=== PATIENT | male | born 1960 | race Caucasian/White ===

== ENCOUNTER 2016-08-08 11:32 | Inpatient (IN) | payer MEDICARE, MEDICAID ==
[~2016-08-08] VITALS: Ht 172.7 cm; Wt 104.3 kg
[~2016-08-08 11:32] MED LIST: ACET325T9 PO; ALBU2.5V5 NEB; CLON0.5T PO; CLON2TAB2 PO; DOCU-27 PO; FAMO40TA4 PO; FURO-69 PO; FURO20TA3 PO; HYDR28OI6 TP; LEVO500T38 PO; LEVO750T31 PO; NYST60PO TP; PANT20TA2 PO; PANT40TA3 PO; POTA25TA4 PO; PRED20TA PO; Sennosides/Docusate Sodium PO; TAMS0.4C97 PO
[2016-08-08 12:10] VITALS: BP 109/70
[2016-08-08] MEDS ORDERED: ALBUTEROL SULFATE 2.5 MG/3 ML NEBU. NEB PRN (13:30)
[2016-08-08 13:51] LABS: HCO3 ABG 35 mmol/L (21-28); PH ABG 7.36 (7.35-7.45); PO2 ABG 62 mmHg (75-108); SAT O2 ABG 91 % (92-99)
[2016-08-08 13:57] LABS: FIO2 ABG 30; PCO2 ABG 64 mmHg (35-46)
--- NOTE | 2016-08-08 13:59 | RAD ---
Portable chest, 08/08/2016: History: Hypoxia, shortness of breath Comparison is made to a study from 06/17/2015. There is chronic elevation of the left hemidiaphragm with mild underlying atelectasis. There is a right basilar opacity obscuring the right cardiac margin and the right hemidiaphragm. This is probably due to pleural fluid and underlying atelectasis/infiltrate. The heart is probably at the upper limits of normal in size. The pulmonary vascularity appears to be within normal limits. IMPRESSION: 1. Chronic elevation of the left hemidiaphragm with mild left basilar atelectasis. 2. Moderate right basilar opacity suggesting pleural fluid and underlying atelectasis/infiltrate.
[2016-08-08 14:15] VITALS: BP 119/76
[2016-08-08] MEDS ORDERED: MAGNESIUM HYDROXIDE 2,400 MG/30 ML ORAL.SUSP. PO PRN (14:30)
--- NOTE | 2016-08-08 14:30 | PDOC ---
PULMONARY PROGRESS NOTES General: No acute distress, Confused HEENT: Other Lungs: Other Cardiovascular: S1 Abdomen: Soft, Non-tender, Other Extremities: Other Labs Laboratory Tests Test 08/08/16 13:45 O2 Saturation 91% (92-99) Arterial Blood pH 7.36 (7.35-7.45) Arterial Blood pCO2 at Patient Temp 64mmHg (35-46) Arterial Blood pO2 at Patient Temp 62mmHg (75-108) Arterial Blood HCO3 35mmol/L (21-28) Arterial Blood Base Excess 8mmol/L (-3-3) FiO2 30 Laboratory Tests Test 08/08/16 13:45 O2 Saturation 91% (92-99) Arterial Blood pH 7.36 (7.35-7.45) Arterial Blood pCO2 at Patient Temp 64mmHg (35-46) Arterial Blood pO2 at Patient Temp 62mmHg (75-108) Arterial Blood HCO3 35mmol/L (21-28) Arterial Blood Base Excess 8mmol/L (-3-3) FiO2 30 Medications Active Scripts Medications Dose Route/Sig Days Date Category Lasix (Furosemide) 20 Mg Tablet 20 Mg PO DAILY 06/19/15 Rx Flomax (Tamsulosin Hcl) 0.4 Mg Cap.er.24h 0.4 Mg PO QHS 06/18/15 Rx Nystop (Nystatin) 60 Gm Powder 1 Ana TP BID 06/18/15 Rx Levaquin (Levofloxacin) 750 Mg Tablet 750 Mg PO DAILY06 06/18/15 Rx Anti-Itch (Hydrocortisone Acetate) 28 Gm Oint...g. 1 Ana TP DAILY 06/18/15 Rx Albuterol Sulfate Neb Soln (Albuterol Sulfate) 2.5 Mg/3 Ml Vial.neb 2.5 Mg NEB RTQID 06/18/15 Rx Tylenol (Acetaminophen) 325 Mg Tablet 650 Mg PO PRN Q4HRS PRN 10/20/14 Rx Protonix (Pantoprazole Sodium) 40 Mg Tablet 40 Mg PO DAILYAC 04/26/14 Rx Impression . FULL CONSULT DICTATED SEE ORDERS CLINICAL PNEUMONIA CALVIN ARCE MD Aug 08, 2016 14:30
[2016-08-08 14:56] LABS: BASO % 1 % (0-3); EOS % 0 % (0-3); HEMATOCRIT 32.8 % (39.0-53.0); HEMOGLOBIN 10.7 g/dL (13.0-17.5); LYMPH # 0.4 x10^3/uL (1.0-4.8); LYMPH % 12 % (24-48); MEAN CORPUSCULAR HEMOGLOBIN 29 pg (25-35); MEAN CORPUSCULAR HGB CONC 33 g/dL (31-37); MEAN CORPUSCULAR VOLUME 90 fL (79-100); MONO % 12 % (0-9); NEUT % 75 % (31-73); PLATELET COUNT 117 x10^3/uL (140-400); RED BLOOD COUNT 3.65 x10^6/uL (4.30-5.70); RED CELL DISTRIBUTION WIDTH 16.8 % (11.5-14.5); WHITE BLOOD COUNT 3.8 x10^3/uL (4.0-11.0)
[2016-08-08] MEDS: ENOXAPARIN 40 MG/0.4 ML DISP.SYRIN. SQ SCH (15:00)
[2016-08-08] MEDS ORDERED: FUROSEMIDE 40 MG TABLET PO SCH (15:00)
[2016-08-08 15:08] LABS: CALCIUM 8.3 mg/dL (8.5-10.1); GFR 77.6; POTASSIUM 4.4 mmol/L (3.5-5.1)
[2016-08-08 15:14] LABS: ALBUMIN 3.2 g/dL (3.4-5.0); ALBUMIN/GLOBULIN RATIO 0.8 (1.0-1.7); TOTAL BILIRUBIN 0.4 mg/dL (0.2-1.0); TOTAL PROTEIN 7.4 g/dL (6.4-8.2)
[2016-08-08] MEDS: PANTOPRAZOLE 40 MG TABLET. PO SCH (16:30)
[2016-08-08] MEDS ORDERED: VANCOMYCIN 2 GM in IV NORMAL SALINE 500ML BAG 500 ML IV ONE (16:30)
[2016-08-08] MEDS ORDERED: LORAZEPAM 1 MG TABLET. PO ONE (16:45)
--- NOTE | 2016-08-08 17:06 | EKG ---
[facility] [address] [place] [address] Test Date: 2016-08-08 Test Time: 17:00:59 Pat Name: MICHEL FRIAS Department: Room: [facility] Gender: M Back Tender Pulp Drier: MYKEL : 1960 Requested By: KATI BILLINGSLEY Order Number: [id number] Reading MD: Measurements Intervals Union Rate: 108 P: 30 FL: 148 QRS: 83 QRSD: 96 T: 56 QT: 340 QTc: 459 Interpretive Statements SINUS TACHYCARDIA QRS(T) CONTOUR ABNORMALITY CONSIDER ANTEROSEPTAL MYOCARDIAL DAMAGE ST & T ABNORMALITY, CONSIDER RECENT INFERIOR MYOCARDIAL OR PERICARDIAL DAMAGE ABNORMAL ECG RI6.01 Unconfirmed report Compared to ECG 06/10/2015 09:59:56 T-wave abnormality now present Right-axis deviation no longer present
[2016-08-08 19:00] VITALS: BP 99/70
[2016-08-08] MEDS: VANCOMYCIN PER PHARMACY MC PRN (19:43)
[2016-08-08] MEDS: IPRATRPIUM/ALBUTEROL 0.5/2.5MG 3 ML NEBU. NEB SCH (20:01)
[2016-08-08] MEDS: GUAIFENESIN DM 200MG/20MG 10 ML SYRUP. PO PRN (21:18)
[2016-08-08] MEDS: ACETAMINOPHEN 325 MG TABLET. PO PRN (21:18)
[2016-08-08 23:00] VITALS: BP 99/70
[2016-08-09] VITALS (7 sets, daily range): BP systolic 99–114; BP diastolic 56–75
[2016-08-09] MEDS: VANCOMYCIN 1.5 GM in IV NORMAL SALINE 500ML BAG 500 ML IV SCH ×2 (06:05→18:09)
[2016-08-09] MEDS: PANTOPRAZOLE 40 MG TABLET. PO SCH (06:05)
--- NOTE | 2016-08-09 06:18 | CONS ---
DATE OF CONSULTATION: 08/08/2016 ATTENDING PHYSICIAN: Dr. Brooks Levy. REASON FOR CONSULTATION: The patient is seen in pulmonary consultation at the request of Dr. Levy for increasing shortness of breath, ohebx-no-ipotiik respiratory failure. HISTORY OF PRESENT ILLNESS: The patient is a 56-year-old white male, mentally challenged, presents to Dr. Levy's office with increasing shortness of breath. According to the mother over the last several days, he has had increasing shortness of breath, some subjective fever. She could not oxygenate him very well. He normally wears 2 liters. She went up to 4 liters. They were directly admitted. I was asked to see him in consultation. The patient is currently on oxygen supplementation with Venturi mask. No further history given. No nausea, vomiting, diarrhea. PAST MEDICAL HISTORY: Chronic respiratory failure. He has had a previous admission for kuxxp-uz-iqpetll respiratory failure, pCO2 in the past was 82, morbid obesity, gastroesophageal reflux, anxiety, hypoventilation syndrome, obstructive sleep apnea, esophagitis. PAST SURGICAL HISTORY: Previous foot surgery. He has had previous tracheotomy. He was decannulated in 2013. SOCIAL HISTORY: He is cared for by his mother who is very supportive. There is no history of tobacco use. FAMILY HISTORY: Remarkable for myasthenia gravis. REVIEW OF SYSTEMS: As indicated above, otherwise other systems could not be adequately reviewed. PHYSICAL EXAMINATION: GENERAL: The patient was sitting up in the chair. He was in no significant distress, but required Venturi mask. HEENT: Eyes, the sclerae were nonicteric. NECK: Jugular venous distention was not elevated. No lymphadenopathy. CHEST: Full expansion. LUNGS: Diminished breath sounds in the bases. No wheezes. CARDIOVASCULAR: Regular rate and rhythm with S1, S2, no S3. ABDOMEN: Soft, nontender, nondistended. EXTREMITIES: No clubbing, cyanosis. Some edema. NEUROLOGIC: The patient was awake, alert, following commands. A detailed neuro exam was not performed. LABORATORY DATA AND IMAGING STUDIES: Pending. IMPRESSION: 1. Zrebq-ag-whvixnp respiratory failure. 2. Acute exacerbation of chronic obstructive pulmonary disease. 3. Clinical pneumonia. 4. Obstructive sleep apnea. 5. Morbid obesity. 6. Allergies to PENICILLIN AND CEFPODOXIME. PLAN: 1. We will initiate empiric antibiotics. 2. Arterial blood gas. 3. Portable chest x-ray. 4. Baseline x-rays. I do appreciate the privilege in sharing in the patient's care. CALVIN ARCE MD DR: EPIFANIO/edith JOB#: [id number] / [id number]
[2016-08-09] MEDS: IPRATRPIUM/ALBUTEROL 0.5/2.5MG 3 ML NEBU. NEB SCH ×4 (07:54→20:19)
[2016-08-09] MEDS: VANCOMYCIN PER PHARMACY MC PRN ×2 (10:35→21:01)
--- NOTE | 2016-08-09 11:27 | PDOC ---
Provider Note Provider Note history and physical dictated # [id number] KATI BILLINGSLEY MD Aug 09, 2016 11:27
[2016-08-09] MEDS: ENOXAPARIN 40 MG/0.4 ML DISP.SYRIN. SQ SCH (15:03)
--- NOTE | 2016-08-09 15:15 | PDOC ---
PULMONARY PROGRESS NOTES Subjective pt with no sign of distress Vitals Vital Signs Date Time Temp Pulse Resp B/P Pulse Ox O2 Delivery O2 Flow Rate FiO2 08/09/16 14:08 98.6 99 23 110/56 Room Air 6.0 98.6 08/09/16 11:26 94 General: Alert, No acute distress HEENT: Other Lungs: Crackles Cardiovascular: S1, Other Abdomen: Soft, Non-tender, Other Neuro Exam: Alert Extremities: Other (mild edema) Skin: Warm Labs Laboratory Tests Test 08/08/16 13:45 08/08/16 14:50 O2 Saturation 91% (92-99) Arterial Blood pH 7.36 (7.35-7.45) Arterial Blood pCO2 at Patient Temp 64mmHg (35-46) Arterial Blood pO2 at Patient Temp 62mmHg (75-108) Arterial Blood HCO3 35mmol/L (21-28) Arterial Blood Base Excess 8mmol/L (-3-3) FiO2 30 White Blood Count 3.8x10^3/uL (4.0-11.0) Red Blood Count 3.65x10^6/uL (4.30-5.70) Hemoglobin 10.7g/dL (13.0-17.5) Hematocrit 32.8% (39.0-53.0) Mean Corpuscular Volume 90fL (79-100) Mean Corpuscular Hemoglobin 29pg (25-35) Mean Corpuscular Hemoglobin Concent 33g/dL (31-37) Red Cell Distribution Width 16.8% (11.5-14.5) Platelet Count 117x10^3/uL (140-400) Neutrophils (%) (Auto) 75% (31-73) Lymphocytes (%) (Auto) 12% (24-48) Monocytes (%) (Auto) 12% (0-9) Eosinophils (%) (Auto) 0% (0-3) Basophils (%) (Auto) 1% (0-3) Neutrophils # (Auto) 2.8x10^3uL (1.8-7.7) Lymphocytes # (Auto) 0.4x10^3/uL (1.0-4.8) Monocytes # (Auto) 0.5x10^3/uL (0.0-1.1) Eosinophils # (Auto) 0.0x10^3/uL (0.0-0.7) Basophils # (Auto) 0.0x10^3/uL (0.0-0.2) Sodium Level 142mmol/L (136-145) Potassium Level 4.4mmol/L (3.5-5.1) Chloride Level 101mmol/L (98-107) Carbon Dioxide Level 37mmol/L (21-32) Anion Gap 4 (6-14) Blood Urea Nitrogen 20mg/dL (8-26) Creatinine 1.0mg/dL (0.7-1.3) Estimated GFR (Cockcroft-Gault) 77.6 BUN/Creatinine Ratio 20 (6-20) Glucose Level 154mg/dL (70-99) Calcium Level 8.3mg/dL (8.5-10.1) Total Bilirubin 0.4mg/dL (0.2-1.0) Aspartate Amino Transf (AST/SGOT) 24U/L (15-37) Alanine Aminotransferase (ALT/SGPT) 23U/L (16-63) Alkaline Phosphatase 79U/L (46-116) Total Protein 7.4g/dL (6.4-8.2) Albumin 3.2g/dL (3.4-5.0) Albumin/Globulin Ratio 0.8 (1.0-1.7) Amylase Level 42U/L (25-115) Medications Active Scripts Medications Dose Route/Sig Days Date Category Lasix (Furosemide) 20 Mg Tablet 20 Mg PO DAILY 06/19/15 Rx Flomax (Tamsulosin Hcl) 0.4 Mg Cap.er.24h 0.4 Mg PO QHS 06/18/15 Rx Nystop (Nystatin) 60 Gm Powder 1 Ana TP BID 06/18/15 Rx Levaquin (Levofloxacin) 750 Mg Tablet 750 Mg PO DAILY06 06/18/15 Rx Anti-Itch (Hydrocortisone Acetate) 28 Gm Oint...g. 1 Ana TP DAILY 06/18/15 Rx Albuterol Sulfate Neb Soln (Albuterol Sulfate) 2.5 Mg/3 Ml Vial.neb 2.5 Mg NEB RTQID 06/18/15 Rx Tylenol (Acetaminophen) 325 Mg Tablet 650 Mg PO PRN Q4HRS PRN 10/20/14 Rx Protonix (Pantoprazole Sodium) 40 Mg Tablet 40 Mg PO DAILYAC 04/26/14 Rx Impression . 1. Zbvej-ut-bwjdbhm respiratory failure. 2. Acute exacerbation of chronic obstructive pulmonary disease. 3. Clinical pneumonia. 4. Obstructive sleep apnea. 5. Morbid obesity. 6. Allergies to PENICILLIN AND CEFPODOXIME. Plan . will continue the same prn ATivan 02 by mask CALVIN ARCE MD Aug 09, 2016 15:15
[2016-08-09] MEDS ORDERED: LORAZEPAM 1 MG TABLET. PO ONE (16:30)
--- NOTE | 2016-08-09 17:02 | HP ---
ADMIT DATE: 08/09/2016 PATIENT'S ROOM: 514. HISTORY OF PRESENT ILLNESS: The patient is a 56-year-old obese white male, mentally challenged with chronic hypoxic and hypercapnic respiratory failure who has had a nonproductive cough with hypoxia at home. The patient normally takes 2 liters of oxygen per nasal cannula p.r.n. at home, but the mother has increased it to 4 liters nasal cannula at bedtime and 3 liters per nasal cannula during the day due to increasing hypoxia having difficulty maintaining his oxygen saturations 90% or higher. He was seen in the office yesterday and was quite hypoxic with oxygen saturations down in the low 80s on oxygen 2 liters per nasal cannula and subsequently went to the hospital for further evaluation and treatment. Chest x-ray showed a possible infiltrate in the right lower lobe. The patient has already been seen by Dr. Montesinos in consultation who suspects a clinical pneumonia. The patient is currently receiving IV vancomycin and Levaquin. The patient was started on a Ventimask. This morning he is sitting comfortably using a Ventimask. He is therefore admitted for further evaluation and treatment of his pneumonia and hypoxia. ALLERGIES AND INTOLERANCES: PENICILLIN AND VANTIN. MEDICATIONS: Prior to admission include furosemide 40 mg p.o. daily and DuoNeb nebulizer treatments he was receiving at b.i.d. and every 4 hours p.r.n., Protonix 40 mg every day. PAST MEDICAL HISTORY: Significant for chronic hypoxic and hypercapnic respiratory failure with obesity hypoventilation syndrome. He has a history of hypertension in the past but off of antihypertensive medications at this time. He has a history of anxiety and gastroesophageal reflux disease. He has had pneumonia in 2003 and 2010 and upper GI bleed due to esophagitis in 1989, has a chronic ventral abdominal hernia, has had a left orchiopexy in the past. He is mentally challenged. He had foot surgery for correction of pronation at age 12, cataract extraction in 2002 was weaned off the ventilator in 2013. SOCIAL HISTORY: He does not drink alcohol nor does he smoke cigarettes. He lives with his mother who cares for him. FAMILY HISTORY: Father and had diabetes mellitus. He also had myasthenia gravis. Paternal grandmother had breast cancer. REVIEW OF SYSTEMS: GENERAL: There has been no fever, chills or sweats. CARDIOVASCULAR: No chest pain. PULMONARY: Some shortness of breath and hypoxia and a cough. GASTROINTESTINAL: No constipation. SKIN: No rashes. NEUROLOGIC: No focal weakness. ENDOCRINE: No diabetes mellitus. The rest of systems reviewed are negative except as stated in the history of present illness. PHYSICAL EXAMINATION: VITAL SIGNS: Temperature is 98.9 degrees, apical pulse is 97, respiratory rate 24, blood pressure 105/72, oxygen saturation 90% on a Ventimask. HEENT: Eyes: Gaze is conjugate. Mouth is symmetrical. He is wearing a Ventimask now. HEART: Reveals an S1, S2. There is no S3 or murmur. LUNGS: Clear with decreased breath sounds bilaterally. ABDOMEN: Obese and soft. He has got a chronic ventral hernia, nontender. EXTREMITIES: Lower extremities without edema. SKIN: No rashes. NEUROLOGIC: Revealed no focal weakness of the extremities or facial asymmetry. PSYCHIATRIC: He is anxious. LABORATORY DATA: Review of his laboratory tests, his white count 3.8, hemoglobin 10.7, MCV of 90 with a platelet count of 117,000, 75 polys and 17 lymphocytes. Arterial blood gas showed a pH of 7.36, pCO2 of 64 and a pO2 of 62 and that was on a Ventimask. Review of his labs, sodium was 142, potassium 4.4, chloride 102, total CO2 of 37, BUN 20, creatinine 1.0, blood sugar 154, nonfasting; liver function tests normal, albumin 3.2. IMAGING: His chest x-ray showed chronic elevation of left hemidiaphragm with mild left basilar atelectasis and a moderate right basilar opacity suggesting pleural fluid and/or underlying infiltrate or atelectasis. Electrocardiogram: Unable to download the EKG. ASSESSMENT: 1. Acute on chronic hypoxic and hypercapnic respiratory failure. 2. Pneumonia suspected gram-positive, gram-negative organisms, possible aspiration pneumonia. 3. Mental retardation. 4. Morbid obesity. 5. Obesity hypoventilation syndrome. 6. Pancytopenia. 7. Gastroesophageal reflux disease. 8. Chronic large ventral abdominal hernia. PLAN: At this time is to consult Dr. Montesinos who has already seen the patient. We will wait for his blood cultures. Apparently, sputum culture was ordered, but has not been obtained yet and he is ____ not expectorating. He will continue with his Ventimask, nebulizer treatments and IV vancomycin and Levaquin. Continue the Lovenox for deep vein thrombosis prophylaxis. Continue the Protonix for his gastroesophageal reflux disease. Continue with the Ventimask. We will discontinue the furosemide as blood pressure is on the low side and is not retaining any fluids. He also has pancytopenia and we will consult Dr. Johnson. We will check stool for occult blood, check iron, B12 studies and a folic acid level. Consult again Dr. Johnson for Hematology. KATI BILLINGSLEY MD DR: TAM/edith JOB#: [id number] / [id number]
[2016-08-09] MEDS: ACETAMINOPHEN 325 MG TABLET. PO PRN (21:11)
[2016-08-09] MEDS: GUAIFENESIN DM 200MG/20MG 10 ML SYRUP. PO PRN (21:12)
[2016-08-10 03:00] VITALS: BP 102/58
[2016-08-10] MEDS: VANCOMYCIN 1.5 GM in IV NORMAL SALINE 500ML BAG 500 ML IV SCH ×2 (05:35→17:36)
[2016-08-10 06:45] LABS: BASO % 1 % (0-3); EOS % 0 % (0-3); HEMATOCRIT 30.5 % (39.0-53.0); HEMOGLOBIN 9.6 g/dL (13.0-17.5); LYMPH # 0.8 x10^3/uL (1.0-4.8); LYMPH % 29 % (24-48); MEAN CORPUSCULAR HEMOGLOBIN 29 pg (25-35); MEAN CORPUSCULAR HGB CONC 32 g/dL (31-37); MEAN CORPUSCULAR VOLUME 91 fL (79-100); MONO % 10 % (0-9); NEUT % 60 % (31-73); PLATELET COUNT 117 x10^3/uL (140-400); RED BLOOD COUNT 3.35 x10^6/uL (4.30-5.70); RED CELL DISTRIBUTION WIDTH 17.8 % (11.5-14.5); WHITE BLOOD COUNT 2.7 x10^3/uL (4.0-11.0)
[2016-08-10 07:00] VITALS: BP 111/71
[2016-08-10 07:09] LABS: % SAT IRON 13 % (15-34); IRON,SERUM 31 ug/dL (65-175)
[2016-08-10 07:23] LABS: CALCIUM 7.8 mg/dL (8.5-10.1); GFR 77.6; POTASSIUM 3.9 mmol/L (3.5-5.1)
[2016-08-10] MEDS: IPRATRPIUM/ALBUTEROL 0.5/2.5MG 3 ML NEBU. NEB SCH ×4 (07:36→19:32)
[2016-08-10] MEDS: PANTOPRAZOLE 40 MG TABLET. PO SCH (08:30)
[2016-08-10] MEDS: VANCOMYCIN PER PHARMACY MC PRN (10:23)
--- NOTE | 2016-08-10 10:38 | PDOC ---
PROGRESS NOTES Subjective Subjective feels better. nurse notes that venti mask increased to 50% yesterday night. oxygen sats okay now. has some wheezing and will repeat cxr today and start iv solumedrol. Objective Objective Vital Signs Date Time Temp Pulse Resp B/P Pulse Ox O2 Delivery O2 Flow Rate FiO2 08/10/16 08:00 Venturi Mask 15.0 08/10/16 07:36 92 08/10/16 07:00 98.1 95 20 111/71 98.1 Intake and Output 08/10/16 07:00 Intake Total 750 ml Output Total 0 ml Balance 750 ml Intake Oral 250 ml IV Total 500 ml Output Urine Total 0 ml Physical Exam Abdomen: Soft Heart: Regular rate, Normal S1, Normal S2 Extremities: No edema General: Alert HEENT: Atraumatic Lungs: Other (decreased breath sounds with wheezing) Neuro: Normal speech Psych/Mental Status: Mood NL Skin: No rashes Assessment Assessment Problems Medical Problems:1. Acute on chronic hypoxic and hypercapnic respiratory failure. 2. Pneumonia suspected gram-positive, gram-negative organisms, possible aspiration pneumonia. 3. Mental retardation. 4. Morbid obesity. 5. Obesity hypoventilation syndrome. 6. Pancytopenia. 7. Gastroesophageal reflux disease. 8. Chronic large ventral abdominal hernia. (1) Acute respiratory failure with hypoxia and hypercapnia Status: Acute (2) Pneumonia Status: Acute Plan Plan of Care start iv solumedrol continue iv vancomycin and levaquin continue venti mask and nebulizer rx continue protonix continue lovenox for dvt prophylaxis Comment Review of Relevant I have reviewed the following items lexus (where applicable) has been applied. Labs Laboratory Tests Test 08/08/16 13:45 08/08/16 14:50 08/09/16 07:50 08/09/16 17:25 O2 Saturation 91% (92-99) Arterial Blood pH 7.36 (7.35-7.45) Arterial Blood pCO2 at Patient Temp 64mmHg (35-46) Arterial Blood pO2 at Patient Temp 62mmHg (75-108) Arterial Blood HCO3 35mmol/L (21-28) Arterial Blood Base Excess 8mmol/L (-3-3) FiO2 30 White Blood Count 3.8x10^3/uL (4.0-11.0) Red Blood Count 3.65x10^6/uL (4.30-5.70) Hemoglobin 10.7g/dL (13.0-17.5) Hematocrit 32.8% (39.0-53.0) Mean Corpuscular Volume 90fL (79-100) Mean Corpuscular Hemoglobin 29pg (25-35) Mean Corpuscular Hemoglobin Concent 33g/dL (31-37) Red Cell Distribution Width 16.8% (11.5-14.5) Platelet Count 117x10^3/uL (140-400) Neutrophils (%) (Auto) 75% (31-73) Lymphocytes (%) (Auto) 12% (24-48) Monocytes (%) (Auto) 12% (0-9) Eosinophils (%) (Auto) 0% (0-3) Basophils (%) (Auto) 1% (0-3) Neutrophils # (Auto) 2.8x10^3uL (1.8-7.7) Lymphocytes # (Auto) 0.4x10^3/uL (1.0-4.8) Monocytes # (Auto) 0.5x10^3/uL (0.0-1.1) Eosinophils # (Auto) 0.0x10^3/uL (0.0-0.7) Basophils # (Auto) 0.0x10^3/uL (0.0-0.2) Sodium Level 142mmol/L (136-145) Potassium Level 4.4mmol/L (3.5-5.1) Chloride Level 101mmol/L (98-107) Carbon Dioxide Level 37mmol/L (21-32) Anion Gap 4 (6-14) Blood Urea Nitrogen 20mg/dL (8-26) Creatinine 1.0mg/dL (0.7-1.3) Estimated GFR (Cockcroft-Gault) 77.6 BUN/Creatinine Ratio 20 (6-20) Glucose Level 154mg/dL (70-99) Calcium Level 8.3mg/dL (8.5-10.1) Total Bilirubin 0.4mg/dL (0.2-1.0) Aspartate Amino Transf (AST/SGOT) 24U/L (15-37) Alanine Aminotransferase (ALT/SGPT) 23U/L (16-63) Alkaline Phosphatase 79U/L (46-116) Total Protein 7.4g/dL (6.4-8.2) Albumin 3.2g/dL (3.4-5.0) Albumin/Globulin Ratio 0.8 (1.0-1.7) Amylase Level 42U/L (25-115) Nasal Screen MRSA (PCR) Positive (Negative) Vancomycin Level Trough 19.5mcg/mL (10.0-20.0) Vancomycin Last Dose Date 08/09/16 Vancomycin Last Dose Time 0600 Test 08/10/16 06:00 White Blood Count 2.7x10^3/uL (4.0-11.0) Red Blood Count 3.35x10^6/uL (4.30-5.70) Hemoglobin 9.6g/dL (13.0-17.5) Hematocrit 30.5% (39.0-53.0) Mean Corpuscular Volume 91fL (79-100) Mean Corpuscular Hemoglobin 29pg (25-35) Mean Corpuscular Hemoglobin Concent 32g/dL (31-37) Red Cell Distribution Width 17.8% (11.5-14.5) Platelet Count 117x10^3/uL (140-400) Neutrophils (%) (Auto) 60% (31-73) Lymphocytes (%) (Auto) 29% (24-48) Monocytes (%) (Auto) 10% (0-9) Eosinophils (%) (Auto) 0% (0-3) Basophils (%) (Auto) 1% (0-3) Neutrophils # (Auto) 1.6x10^3uL (1.8-7.7) Lymphocytes # (Auto) 0.8x10^3/uL (1.0-4.8) Monocytes # (Auto) 0.3x10^3/uL (0.0-1.1) Eosinophils # (Auto) 0.0x10^3/uL (0.0-0.7) Basophils # (Auto) 0.0x10^3/uL (0.0-0.2) Sodium Level 147mmol/L (136-145) Potassium Level 3.9mmol/L (3.5-5.1) Chloride Level 108mmol/L (98-107) Carbon Dioxide Level 36mmol/L (21-32) Anion Gap 3 (6-14) Blood Urea Nitrogen 11mg/dL (8-26) Creatinine 1.0mg/dL (0.7-1.3) Estimated GFR (Cockcroft-Gault) 77.6 Glucose Level 104mg/dL (70-99) Calcium Level 7.8mg/dL (8.5-10.1) Iron Level 31ug/dL (65-175) Total Iron Binding Capacity 243ug/dL (250-450) Iron Saturation 13% (15-34) Ferritin 101ng/mL (26-388) Laboratory Tests Test 08/09/16 17:25 08/10/16 06:00 Vancomycin Level Trough 19.5mcg/mL (10.0-20.0) Vancomycin Last Dose Date 08/09/16 Vancomycin Last Dose Time 0600 White Blood Count 2.7x10^3/uL (4.0-11.0) Red Blood Count 3.35x10^6/uL (4.30-5.70) Hemoglobin 9.6g/dL (13.0-17.5) Hematocrit 30.5% (39.0-53.0) Mean Corpuscular Volume 91fL (79-100) Mean Corpuscular Hemoglobin 29pg (25-35) Mean Corpuscular Hemoglobin Concent 32g/dL (31-37) Red Cell Distribution Width 17.8% (11.5-14.5) Platelet Count 117x10^3/uL (140-400) Neutrophils (%) (Auto) 60% (31-73) Lymphocytes (%) (Auto) 29% (24-48) Monocytes (%) (Auto) 10% (0-9) Eosinophils (%) (Auto) 0% (0-3) Basophils (%) (Auto) 1% (0-3) Neutrophils # (Auto) 1.6x10^3uL (1.8-7.7) Lymphocytes # (Auto) 0.8x10^3/uL (1.0-4.8) Monocytes # (Auto) 0.3x10^3/uL (0.0-1.1) Eosinophils # (Auto) 0.0x10^3/uL (0.0-0.7) Basophils # (Auto) 0.0x10^3/uL (0.0-0.2) Sodium Level 147mmol/L (136-145) Potassium Level 3.9mmol/L (3.5-5.1) Chloride Level 108mmol/L (98-107) Carbon Dioxide Level 36mmol/L (21-32) Anion Gap 3 (6-14) Blood Urea Nitrogen 11mg/dL (8-26) Creatinine 1.0mg/dL (0.7-1.3) Estimated GFR (Cockcroft-Gault) 77.6 Glucose Level 104mg/dL (70-99) Calcium Level 7.8mg/dL (8.5-10.1) Iron Level 31ug/dL (65-175) Total Iron Binding Capacity 243ug/dL (250-450) Iron Saturation 13% (15-34) Ferritin 101ng/mL (26-388) Microbiology 08/08/16 Blood Culture - Preliminary, Resulted NO GROWTH AFTER 1 DAY Medications Current Medications Albuterol/ Ipratropium (Duoneb) 3 ml RTQID NEB Last administered on 08/10/16 07 :36; Start 08/08/16 at 13:00 Albuterol Sulfate 2.5 mg 2.5 mg PRN Q4HRS PRN NEB SHORTNESS OF BREATH; Start at 13:30 Levofloxacin/ Dextrose (LEVAQUIN 500mg PREMIX) 100 ml @ 100 mls/hr Q24H IV Last administered on 08/09/16 15:04; Start 08/08/16 at 15:00 Enoxaparin Sodium (Lovenox 40mg Syringe) 40 mg Q24H SQ Last administered on 08/09 15:03; Start 08/08/16 at 15:00 Furosemide (Lasix) 40 mg DAILY PO ; Start 08/08/16 at 15:00; Stop 08/09/16 at 11: 19; Status DC Magnesium Hydroxide (Milk Of Magnesia) 2,400 mg PRN DAILY PRN PO CONSTIPATION; Start 08/08/16 at 14:30 Pantoprazole Sodium (Protonix) 40 mg DAILYAC PO Last administered on 08/10/16 08:30; Start 08/08/16 at 16:30 Acetaminophen (Tylenol) 650 mg PRN Q6HRS PRN PO MILD PAIN / TEMP Last administered on 08/09/16 21:11; Start 08/08/16 at 14:30 Guaifenesin (Robitussin Dm) 10 ml PRN Q6HRS PRN PO COUGH Last administered on 21:12; Start 08/08/16 at 14:30 Vancomycin HCl 1 each 1 each PRN DAILY PRN MC SEE COMMENTS Last administered on 08/10/16 10:23; Start 08/08/16 at 14:30 Vancomycin HCl/ Sodium Chloride (Iv Sodium Chloride 0.9% 500ml Bag) 500 ml @ 250 mls/hr 1X ONCE IV Last administered on 08/08/16 16:30; Start 08/08/16 at 16 :30; Stop 08/08/16 at 18:29; Status DC Lorazepam 1 mg 1 mg 1X ONCE PO Last administered on 08/08/16 16:53; Start 08/08 at 16:45; Stop 08/08/16 at 16:47; Status DC Vancomycin HCl/ Sodium Chloride (Iv Sodium Chloride 0.9% 500ml Bag) 500 ml @ 250 mls/hr Q12H IV Last administered on 08/10/16 05:35; Start 08/09/16 at 06:00 Vancomycin HCl 1 each 1X ONCE MC Last administered on 08/09/16 17:30; Start at 17:30; Stop 08/09/16 at 17:31; Status DC Lorazepam (Ativan) 1 mg 1X ONCE PO ; Start 08/09/16 at 16:30; Stop 08/09/16 at 16 :36; Status DC Active Scripts Active Lasix (Furosemide) 20 Mg Tablet 20 Mg PO DAILY Flomax (Tamsulosin Hcl) 0.4 Mg Cap.er.24h 0.4 Mg PO QHS Nystop (Nystatin) 60 Gm Powder 1 Ana TP BID Levaquin (Levofloxacin) 750 Mg Tablet 750 Mg PO DAILY06 Anti-Itch (Hydrocortisone Acetate) 28 Gm Oint...g. 1 Ana TP DAILY Albuterol Sulfate Neb Soln (Albuterol Sulfate) 2.5 Mg/3 Ml Vial.neb 2.5 Mg NEB RTQID Tylenol (Acetaminophen) 325 Mg Tablet 650 Mg PO PRN Q4HRS PRN Protonix (Pantoprazole Sodium) 40 Mg Tablet 40 Mg PO DAILYAC Vitals/I & O Vital Sign - Last 24 Hours 08/09/16 08/09/16 08/09/164/17 10:48 11:26 14:08 15:58 Temp 98.9 98.6 98.9 98.6 Pulse 97 99 Resp 24 23 B/P 105/70 110/56 Pulse Ox 90 94 93 O2 Delivery Venturi Mask Venturi Mask Room Air Venturi Mask O2 Flow Rate 6.0 6.0 6.0 6.0 08/09/16 08/09/16 08/09/16 08/09/16 19:00 20:00 20:22 23:00 Temp 97.5 98.8 97.5 98.8 Pulse 109 99 Resp 20 18 B/P 110/61 114/75 O2 Delivery Room Air Venturi Mask Venturi Mask Room Air O2 Flow Rate 6.0 6.0 6.0 6.0 08/10/16 08/10/16 08/10/16 08/10/16 00:54 03:00 03:44 07:00 Temp 98.4 98.1 98.4 98.1 Pulse 91 95 Resp 18 20 B/P 102/58 111/71 Pulse Ox 87 94 92 O2 Delivery Venturi Mask Room Air Venturi Mask Venturi Mask O2 Flow Rate 6.0 6.0 15.0 15.0 08/10/16 08/10/16 07:36 08:00 Pulse Ox 92 O2 Delivery Venturi Mask Venturi Mask O2 Flow Rate 15.0 15.0 Intake and Output 08/09/16 08/09/16 08/10/16 15:00 23:00 07:00 Intake Total 250 ml 500 ml 0 ml Output Total 0 ml Balance 250 ml 500 ml 0 ml KATI BILLINGSLEY MD Aug 10, 2016 10:38
[2016-08-10 11:00] VITALS: BP 122/60
--- NOTE | 2016-08-10 12:39 | RAD ---
AP portable chest radiograph 08/10/2016 Clinical History: Pneumonia. An AP portable erect digital radiograph of the chest was obtained. Comparison study is dated 08/08/2016. The cardiac silhouette is mildly enlarged. Thoracic aorta is mildly tortuous. Elevation of the left hemidiaphragm is unchanged. Right lower lobe atelectasis and/or infiltrate is unchanged. No pneumothorax or pleural effusion is seen. The osseous structures are unchanged. Impression: Right lower lobe atelectasis and/or infiltrate, unchanged.
[2016-08-10 14:14] LABS: FOLIC ACID 14.2 ng/mL (>3.0)
[2016-08-10] MEDS: methylPREDNISolone SOD SUCC PF 40 MG/ML VIAL. IV SCH ×2 (14:41→20:56)
[2016-08-10 15:00] VITALS: BP 119/69
[2016-08-10] MEDS: ENOXAPARIN 40 MG/0.4 ML DISP.SYRIN. SQ SCH (15:00)
--- NOTE | 2016-08-10 16:01 | PDOC ---
PULMONARY PROGRESS NOTES Subjective pt with no sign of distress Vitals Vital Signs Date Time Temp Pulse Resp B/P Pulse Ox O2 Delivery O2 Flow Rate FiO2 08/10/16 15:15 98 Venturi Mask 12.0 08/10/16 11:00 98.1 88 23 122/60 98.1 General: Alert, No acute distress HEENT: Other Lungs: Crackles Cardiovascular: S1, Other Abdomen: Soft, Non-tender, Other Neuro Exam: Alert Extremities: Other (mild edema) Skin: Warm Labs Laboratory Tests Test 08/09/16 07:50 08/09/16 17:25 08/10/16 06:00 Nasal Screen MRSA (PCR) Positive (Negative) Vancomycin Level Trough 19.5mcg/mL (10.0-20.0) Vancomycin Last Dose Date 08/09/16 Vancomycin Last Dose Time 0600 White Blood Count 2.7x10^3/uL (4.0-11.0) Red Blood Count 3.35x10^6/uL (4.30-5.70) Hemoglobin 9.6g/dL (13.0-17.5) Hematocrit 30.5% (39.0-53.0) Mean Corpuscular Volume 91fL (79-100) Mean Corpuscular Hemoglobin 29pg (25-35) Mean Corpuscular Hemoglobin Concent 32g/dL (31-37) Red Cell Distribution Width 17.8% (11.5-14.5) Platelet Count 117x10^3/uL (140-400) Neutrophils (%) (Auto) 60% (31-73) Lymphocytes (%) (Auto) 29% (24-48) Monocytes (%) (Auto) 10% (0-9) Eosinophils (%) (Auto) 0% (0-3) Basophils (%) (Auto) 1% (0-3) Neutrophils # (Auto) 1.6x10^3uL (1.8-7.7) Lymphocytes # (Auto) 0.8x10^3/uL (1.0-4.8) Monocytes # (Auto) 0.3x10^3/uL (0.0-1.1) Eosinophils # (Auto) 0.0x10^3/uL (0.0-0.7) Basophils # (Auto) 0.0x10^3/uL (0.0-0.2) Sodium Level 147mmol/L (136-145) Potassium Level 3.9mmol/L (3.5-5.1) Chloride Level 108mmol/L (98-107) Carbon Dioxide Level 36mmol/L (21-32) Anion Gap 3 (6-14) Blood Urea Nitrogen 11mg/dL (8-26) Creatinine 1.0mg/dL (0.7-1.3) Estimated GFR (Cockcroft-Gault) 77.6 Glucose Level 104mg/dL (70-99) Calcium Level 7.8mg/dL (8.5-10.1) Iron Level 31ug/dL (65-175) Total Iron Binding Capacity 243ug/dL (250-450) Iron Saturation 13% (15-34) Ferritin 101ng/mL (26-388) Vitamin B12 Level 332pg/mL (211-946) Folic Acid (LAB) 14.2ng/mL (>3.0) Laboratory Tests Test 08/09/16 17:25 08/10/16 06:00 Vancomycin Level Trough 19.5mcg/mL (10.0-20.0) Vancomycin Last Dose Date 08/09/16 Vancomycin Last Dose Time 0600 White Blood Count 2.7x10^3/uL (4.0-11.0) Red Blood Count 3.35x10^6/uL (4.30-5.70) Hemoglobin 9.6g/dL (13.0-17.5) Hematocrit 30.5% (39.0-53.0) Mean Corpuscular Volume 91fL (79-100) Mean Corpuscular Hemoglobin 29pg (25-35) Mean Corpuscular Hemoglobin Concent 32g/dL (31-37) Red Cell Distribution Width 17.8% (11.5-14.5) Platelet Count 117x10^3/uL (140-400) Neutrophils (%) (Auto) 60% (31-73) Lymphocytes (%) (Auto) 29% (24-48) Monocytes (%) (Auto) 10% (0-9) Eosinophils (%) (Auto) 0% (0-3) Basophils (%) (Auto) 1% (0-3) Neutrophils # (Auto) 1.6x10^3uL (1.8-7.7) Lymphocytes # (Auto) 0.8x10^3/uL (1.0-4.8) Monocytes # (Auto) 0.3x10^3/uL (0.0-1.1) Eosinophils # (Auto) 0.0x10^3/uL (0.0-0.7) Basophils # (Auto) 0.0x10^3/uL (0.0-0.2) Sodium Level 147mmol/L (136-145) Potassium Level 3.9mmol/L (3.5-5.1) Chloride Level 108mmol/L (98-107) Carbon Dioxide Level 36mmol/L (21-32) Anion Gap 3 (6-14) Blood Urea Nitrogen 11mg/dL (8-26) Creatinine 1.0mg/dL (0.7-1.3) Estimated GFR (Cockcroft-Gault) 77.6 Glucose Level 104mg/dL (70-99) Calcium Level 7.8mg/dL (8.5-10.1) Iron Level 31ug/dL (65-175) Total Iron Binding Capacity 243ug/dL (250-450) Iron Saturation 13% (15-34) Ferritin 101ng/mL (26-388) Vitamin B12 Level 332pg/mL (211-946) Folic Acid (LAB) 14.2ng/mL (>3.0) Medications Active Scripts Medications Dose Route/Sig Days Date Category Lasix (Furosemide) 20 Mg Tablet 20 Mg PO DAILY 06/19/15 Rx Flomax (Tamsulosin Hcl) 0.4 Mg Cap.er.24h 0.4 Mg PO QHS 06/18/15 Rx Nystop (Nystatin) 60 Gm Powder 1 Ana TP BID 06/18/15 Rx Levaquin (Levofloxacin) 750 Mg Tablet 750 Mg PO DAILY06 06/18/15 Rx Anti-Itch (Hydrocortisone Acetate) 28 Gm Oint...g. 1 Ana TP DAILY 06/18/15 Rx Albuterol Sulfate Neb Soln (Albuterol Sulfate) 2.5 Mg/3 Ml Vial.neb 2.5 Mg NEB RTQID 06/18/15 Rx Tylenol (Acetaminophen) 325 Mg Tablet 650 Mg PO PRN Q4HRS PRN 10/20/14 Rx Protonix (Pantoprazole Sodium) 40 Mg Tablet 40 Mg PO DAILYAC 04/26/14 Rx Impression . 1. [id number] respiratory failure. 2. Acute exacerbation of chronic obstructive pulmonary disease. 3. Clinical pneumonia. 4. Obstructive sleep apnea. 5. Morbid obesity. 6. Allergies to PENICILLIN AND CEFPODOXIME. Plan . CXR reviewed not change would benefit from IS, unable to perform maneuver 02 by mask steroids CALVIN ARCE MD Aug 10, 2016 16:01
[2016-08-10 19:00] VITALS: BP 121/57
[2016-08-10] MEDS: ACETAMINOPHEN 325 MG TABLET. PO PRN (20:55)
[2016-08-10] MEDS: GUAIFENESIN DM 200MG/20MG 10 ML SYRUP. PO PRN (20:55)
[2016-08-10 23:00] VITALS: BP 123/64
[2016-08-11 03:00] VITALS: BP 96/76
[2016-08-11 04:54] LABS: CALCIUM 8.1 mg/dL (8.5-10.1); GFR 77.6; POTASSIUM 4.9 mmol/L (3.5-5.1)
[2016-08-11] MEDS: methylPREDNISolone SOD SUCC PF 40 MG/ML VIAL. IV SCH ×3 (05:12→21:48)
[2016-08-11] MEDS: VANCOMYCIN 1.5 GM in IV NORMAL SALINE 500ML BAG 500 ML IV SCH (05:12)
[2016-08-11 07:00] VITALS: BP 112/71
[2016-08-11] MEDS: PANTOPRAZOLE 40 MG TABLET. PO SCH (07:39)
[2016-08-11] MEDS: IPRATRPIUM/ALBUTEROL 0.5/2.5MG 3 ML NEBU. NEB SCH ×4 (07:54→20:30)
--- NOTE | 2016-08-11 09:03 | PDOC2 ---
CONSULT Date of Consult Date of Consult DATE: 08/11/16 TIME: 08:51 Past Medical History Cardiovascular: HTN Pulmonary: Pneumonia CENTRAL NERVOUS SYSTEM: Other GI: GERD, Other Past Surgical History Past Surgical History: Hysterectomy, Other Family History Family History: Family History Unknown Current Problem List Problem List Problems Medical Problems: (1) Acute respiratory failure with hypoxia and hypercapnia Status: Acute (2) Pneumonia Status: Acute Current Medications Current Medications Current Medications Albuterol/ Ipratropium (Duoneb) 3 ml RTQID NEB Last administered on 08/11/16 07 :54; Start 08/08/16 at 13:00 Albuterol Sulfate 2.5 mg 2.5 mg PRN Q4HRS PRN NEB SHORTNESS OF BREATH; Start at 13:30 Levofloxacin/ Dextrose (LEVAQUIN 500mg PREMIX) 100 ml @ 100 mls/hr Q24H IV Last administered on 08/10/16 14:41; Start 08/08/16 at 15:00 Enoxaparin Sodium (Lovenox 40mg Syringe) 40 mg Q24H SQ Last administered on 08/09 15:03; Start 08/08/16 at 15:00 Furosemide (Lasix) 40 mg DAILY PO ; Start 08/08/16 at 15:00; Stop 08/09/16 at 11: 19; Status DC Magnesium Hydroxide (Milk Of Magnesia) 2,400 mg PRN DAILY PRN PO CONSTIPATION; Start 08/08/16 at 14:30 Pantoprazole Sodium (Protonix) 40 mg DAILYAC PO Last administered on 08/11/16 07:39; Start 08/08/16 at 16:30 Acetaminophen (Tylenol) 650 mg PRN Q6HRS PRN PO MILD PAIN / TEMP Last administered on 08/10/16 20:55; Start 08/08/16 at 14:30 Guaifenesin (Robitussin Dm) 10 ml PRN Q6HRS PRN PO COUGH Last administered on 20:55; Start 08/08/16 at 14:30 Vancomycin HCl 1 each 1 each PRN DAILY PRN MC SEE COMMENTS Last administered on 08/10/16 10:23; Start 08/08/16 at 14:30 Vancomycin HCl/ Sodium Chloride (Iv Sodium Chloride 0.9% 500ml Bag) 500 ml @ 250 mls/hr 1X ONCE IV Last administered on 08/08/16 16:30; Start 08/08/16 at 16 :30; Stop 08/08/16 at 18:29; Status DC Lorazepam 1 mg 1 mg 1X ONCE PO Last administered on 08/08/16 16:53; Start 08/08 at 16:45; Stop 08/08/16 at 16:47; Status DC Vancomycin HCl/ Sodium Chloride (Iv Sodium Chloride 0.9% 500ml Bag) 500 ml @ 250 mls/hr Q12H IV Last administered on 08/11/16 05:12; Start 08/09/16 at 06:00 Vancomycin HCl 1 each 1X ONCE MC Last administered on 08/09/16 17:30; Start at 17:30; Stop 08/09/16 at 17:31; Status DC Lorazepam (Ativan) 1 mg 1X ONCE PO ; Start 08/09/16 at 16:30; Stop 08/09/16 at 16 :36; Status DC Methylprednisolone Sodium Succinate (Solu-Medrol 40mg Vial) 40 mg Q8HRS IV Last administered on 08/11/16 05:12; Start 08/10/16 at 14:00 Active Scripts Active Lasix (Furosemide) 20 Mg Tablet 20 Mg PO DAILY Flomax (Tamsulosin Hcl) 0.4 Mg Cap.er.24h 0.4 Mg PO QHS Nystop (Nystatin) 60 Gm Powder 1 Ana TP BID Levaquin (Levofloxacin) 750 Mg Tablet 750 Mg PO DAILY06 Anti-Itch (Hydrocortisone Acetate) 28 Gm Oint...g. 1 Ana TP DAILY Albuterol Sulfate Neb Soln (Albuterol Sulfate) 2.5 Mg/3 Ml Vial.neb 2.5 Mg NEB RTQID Tylenol (Acetaminophen) 325 Mg Tablet 650 Mg PO PRN Q4HRS PRN Protonix (Pantoprazole Sodium) 40 Mg Tablet 40 Mg PO DAILYAC Allergies Allergies: Coded Allergies: Penicillins (Verified Allergy, Intermediate, rash, 09/27/13) cefpodoxime proxetil (Verified Allergy, Intermediate, Rash, 04/21/14) I S O L A T I O N *CONTACT* (Verified Allergy, Unknown, 07/07/14) mrsa + Vitals VITALS Vital Signs Date Time Temp Pulse Resp B/P Pulse Ox O2 Delivery O2 Flow Rate FiO2 08/11/16 08:00 Venturi Mask 15.0 08/11/16 07:57 94 08/11/16 03:00 97.7 91 22 96/76 97.7 Labs Labs Laboratory Tests Test 08/09/16 17:25 08/10/16 06:00 08/11/16 04:00 Vancomycin Level Trough 19.5mcg/mL (10.0-20.0) Vancomycin Last Dose Date 08/09/16 Vancomycin Last Dose Time 0600 White Blood Count 2.7x10^3/uL (4.0-11.0) Red Blood Count 3.35x10^6/uL (4.30-5.70) Hemoglobin 9.6g/dL (13.0-17.5) Hematocrit 30.5% (39.0-53.0) Mean Corpuscular Volume 91fL (79-100) Mean Corpuscular Hemoglobin 29pg (25-35) Mean Corpuscular Hemoglobin Concent 32g/dL (31-37) Red Cell Distribution Width 17.8% (11.5-14.5) Platelet Count 117x10^3/uL (140-400) Neutrophils (%) (Auto) 60% (31-73) Lymphocytes (%) (Auto) 29% (24-48) Monocytes (%) (Auto) 10% (0-9) Eosinophils (%) (Auto) 0% (0-3) Basophils (%) (Auto) 1% (0-3) Neutrophils # (Auto) 1.6x10^3uL (1.8-7.7) Lymphocytes # (Auto) 0.8x10^3/uL (1.0-4.8) Monocytes # (Auto) 0.3x10^3/uL (0.0-1.1) Eosinophils # (Auto) 0.0x10^3/uL (0.0-0.7) Basophils # (Auto) 0.0x10^3/uL (0.0-0.2) Sodium Level 147mmol/L (136-145) 147mmol/L (136-145) Potassium Level 3.9mmol/L (3.5-5.1) 4.9mmol/L (3.5-5.1) Chloride Level 108mmol/L (98-107) 107mmol/L (98-107) Carbon Dioxide Level 36mmol/L (21-32) 38mmol/L (21-32) Anion Gap 3 (6-14) 2 (6-14) Blood Urea Nitrogen 11mg/dL (8-26) 10mg/dL (8-26) Creatinine 1.0mg/dL (0.7-1.3) 1.0mg/dL (0.7-1.3) Estimated GFR (Cockcroft-Gault) 77.6 77.6 Glucose Level 104mg/dL (70-99) 167mg/dL (70-99) Calcium Level 7.8mg/dL (8.5-10.1) 8.1mg/dL (8.5-10.1) Iron Level 31ug/dL (65-175) Total Iron Binding Capacity 243ug/dL (250-450) Iron Saturation 13% (15-34) Ferritin 101ng/mL (26-388) Vitamin B12 Level 332pg/mL (211-946) Folic Acid (LAB) 14.2ng/mL (>3.0) Laboratory Tests Test 08/11/16 04:00 Sodium Level 147mmol/L (136-145) Potassium Level 4.9mmol/L (3.5-5.1) Chloride Level 107mmol/L (98-107) Carbon Dioxide Level 38mmol/L (21-32) Anion Gap 2 (6-14) Blood Urea Nitrogen 10mg/dL (8-26) Creatinine 1.0mg/dL (0.7-1.3) Estimated GFR (Cockcroft-Gault) 77.6 Glucose Level 167mg/dL (70-99) Calcium Level 8.1mg/dL (8.5-10.1) Assessment/Plan Assessment/Plan DATE OF CONSULTATION: 08/11/2016 MEDICAL ONCOLOGY CONSULTATION: REQUESTING PHYSICIAN: Brooks Levy M.D. REASON FOR CONSULTATION: Leukopenia, Anemia and thrombocytopenia. HISTORY OF PRESENT ILLNESS: The patient is a 56-year-old gentleman, who has mental retardation and is cared for by his mother. He has chronic hypoxia and hypercapnic respiratory failure, maintained on oxygen. Chest x-ray showed a possible infiltrate in the right lower lobe. The patient has already been seen by Dr. Montesinos in consultation who suspects a clinical pneumonia. The patient is currently receiving IV vancomycin and Levaquin. The patient was started on a Ventimask. He is admitted on 08/08/16 for further evaluation and treatment of his pneumonia and hypoxia. He was noted to have pancytopenia and hence I was consulted. On 08/08/16 his white count 3.8, hemoglobin 10.7, MCV of 90 with a platelet count of 117,000, 75 polys and 17 lymphocytes. I reviewed old erecords: He was noted to have anemia with a hemoglobin of 8.4 and a platelet count of 72,000 on 06/15/2015 with a normal WBC of 4.8. He had a CT angiogram of the chest on 06/10/2015 that revealed no evidence of pulmonary embolism. There is evidence of right pleural effusion, mild. Ultrasound of the abdomen on 06/10/2015 revealed hepatomegaly with steatosis and splenomegaly measuring 17.3 cm in length and cholelithiasis. PAST MEDICAL HISTORY: Mental retardation, anxiety, gastroesophageal reflux disease, chronic hypoxic and hypercapnic respiratory failure, obesity hypoventilation syndrome, obstructive sleep apnea, history of foot surgery, cataract surgery, and tracheostomy decannulated in 2013. SOCIAL HISTORY: No smoking or alcohol abuse. He is cared for by his mother. FAMILY HISTORY: Father has myasthenia gravis and renal cell carcinoma. REVIEW OF SYSTEMS: A 14-point review of system was performed. Pertinent positives are mentioned in the history of present illness. Rest of the system review is negative. I reviewed the medical records and also discussed with the patient's mother in detail. PHYSICAL EXAMINATION: GENERAL APPEARANCE: The patient is a 55-year-old gentleman, who is well developed, well nourished, and in no acute cardiorespiratory distress. VITAL SIGNS: reviewed. HEENT: Head: Atraumatic and normocephalic. Eyes: No icterus. NECK: Supple. CHEST: Bilaterally symmetrical. No crepitations or rhonchi heard. HEART: S1 and S2 normal. ABDOMEN: Soft and distended. No hepatosplenomegaly on palpation, but it is difficult to palpate because of obese abdomen. CENTRAL NERVOUS SYSTEM: No focal neurological deficits. PSYCHOLOGIC: He has a flat affect. MUSCULOSKELETAL: No joint effusions. LABORATORY AND DIAGNOSTIC DATA: On 08/08/16 his white count 3.8, hemoglobin 10.7 , MCV of 90 with a platelet count of 117,000, 75 polys and 17 lymphocytes. WBC 2.7 on 08/10/16. IMPRESSION AND PLAN: 1. Normochromic normocytic anemia. Iron studies suggest anemia of chronic disease B12 low-normal at 332 on 08/10/16. I suspect that the etiology is likely due to anemia of chronic disease. He has multiple comorbidities. In addition, he has evidence of splenomegaly. 2. Thrombocytopenia secondary to splenomegaly, which is most likely due to hepatic steatosis. Other differential diagnosis would be lymphoproliferative disorder causing splenomegaly. I d/w his mother Charline. Considering his poor functional status and upon detailed discussion with the patient's mother, it was decided not to pursue with a bone marrow biopsy as she prefers conservative management and no chemotherapy even if he is found to have a malignancy. Continued observation is planned. I will continue to monitor CBC p.r.n. 3. Splenomegaly, secondary to hepatic steatosis. 4. Leukopenia, reactive due to pneumonia and also due to splenomegaly. 5. Hypoxic and hypercapnic respiratory failure, chronic. Continue management per Dr. Levy and Dr. Montesinos. 6. B12 low-normal at 332 on 08/10/16. Start B12 supplements. One dose IM and then PO 1000 mcg daily. 7. Pancytopenia as above. I d/w Dr Levy. MINO HATHAWAY MD Aug 11, 2016 09:03
--- NOTE | 2016-08-11 09:08 | PDOC ---
PROGRESS NOTES Subjective Subjective discussed with dr. henley who notes pancytopenia is unchanged from last year and recommends a bone marrow aspiration and biopsy and will discussed with Shen mother.lab reviewed. eating breakfast. no complaints. vit b 12 and folate levels okay. cxr unchanged. serum sodium 147 Objective Objective Vital Signs Date Time Temp Pulse Resp B/P Pulse Ox O2 Delivery O2 Flow Rate FiO2 08/11/16 08:00 Venturi Mask 15.0 08/11/16 07:57 94 08/11/16 03:00 97.7 91 22 96/76 97.7 Intake and Output 08/11/16 07:00 Intake Total 1200 ml Output Total 400 ml Balance 800 ml Intake Oral 1200 ml Output Urine Total 400 ml # Voids 3 Physical Exam Abdomen: Soft Heart: Regular rate, Normal S1, Normal S2 Extremities: No edema General: Alert HEENT: Atraumatic Lungs: Other (decreased breath sounds with mild wheezes) Neuro: Normal speech Psych/Mental Status: Mood NL Skin: No rashes Assessment Assessment Problems Medical Problems:1. Acute on chronic hypoxic and hypercapnic respiratory failure. 2. Pneumonia suspected gram-positive, gram-negative organisms, possible aspiration pneumonia. 3. Mental retardation. 4. Morbid obesity. 5. Obesity hypoventilation syndrome. 6. Pancytopenia. 7. Gastroesophageal reflux disease. 8. Chronic large ventral abdominal hernia. hypernatremia bronchospasm better (1) Acute respiratory failure with hypoxia and hypercapnia Status: Acute (2) Pneumonia Status: Acute Plan Plan of Care start hypotonic iv fluids continue oxygen and nebulizer rx and iv solumedrol and iv vancomycin and levaquin. discussed vancomycin dosing with pharmacist and vanc trough 19.5 and pharmacy to manage vancomcyin bone marrow aspiration and biopsy if mother concurs Comment Review of Relevant I have reviewed the following items lexus (where applicable) has been applied. Labs Laboratory Tests Test 08/09/16 17:25 08/10/16 06:00 08/11/16 04:00 Vancomycin Level Trough 19.5mcg/mL (10.0-20.0) Vancomycin Last Dose Date 08/09/16 Vancomycin Last Dose Time 0600 White Blood Count 2.7x10^3/uL (4.0-11.0) Red Blood Count 3.35x10^6/uL (4.30-5.70) Hemoglobin 9.6g/dL (13.0-17.5) Hematocrit 30.5% (39.0-53.0) Mean Corpuscular Volume 91fL (79-100) Mean Corpuscular Hemoglobin 29pg (25-35) Mean Corpuscular Hemoglobin Concent 32g/dL (31-37) Red Cell Distribution Width 17.8% (11.5-14.5) Platelet Count 117x10^3/uL (140-400) Neutrophils (%) (Auto) 60% (31-73) Lymphocytes (%) (Auto) 29% (24-48) Monocytes (%) (Auto) 10% (0-9) Eosinophils (%) (Auto) 0% (0-3) Basophils (%) (Auto) 1% (0-3) Neutrophils # (Auto) 1.6x10^3uL (1.8-7.7) Lymphocytes # (Auto) 0.8x10^3/uL (1.0-4.8) Monocytes # (Auto) 0.3x10^3/uL (0.0-1.1) Eosinophils # (Auto) 0.0x10^3/uL (0.0-0.7) Basophils # (Auto) 0.0x10^3/uL (0.0-0.2) Sodium Level 147mmol/L (136-145) 147mmol/L (136-145) Potassium Level 3.9mmol/L (3.5-5.1) 4.9mmol/L (3.5-5.1) Chloride Level 108mmol/L (98-107) 107mmol/L (98-107) Carbon Dioxide Level 36mmol/L (21-32) 38mmol/L (21-32) Anion Gap 3 (6-14) 2 (6-14) Blood Urea Nitrogen 11mg/dL (8-26) 10mg/dL (8-26) Creatinine 1.0mg/dL (0.7-1.3) 1.0mg/dL (0.7-1.3) Estimated GFR (Cockcroft-Gault) 77.6 77.6 Glucose Level 104mg/dL (70-99) 167mg/dL (70-99) Calcium Level 7.8mg/dL (8.5-10.1) 8.1mg/dL (8.5-10.1) Iron Level 31ug/dL (65-175) Total Iron Binding Capacity 243ug/dL (250-450) Iron Saturation 13% (15-34) Ferritin 101ng/mL (26-388) Vitamin B12 Level 332pg/mL (211-946) Folic Acid (LAB) 14.2ng/mL (>3.0) Laboratory Tests Test 08/11/16 04:00 Sodium Level 147mmol/L (136-145) Potassium Level 4.9mmol/L (3.5-5.1) Chloride Level 107mmol/L (98-107) Carbon Dioxide Level 38mmol/L (21-32) Anion Gap 2 (6-14) Blood Urea Nitrogen 10mg/dL (8-26) Creatinine 1.0mg/dL (0.7-1.3) Estimated GFR (Cockcroft-Gault) 77.6 Glucose Level 167mg/dL (70-99) Calcium Level 8.1mg/dL (8.5-10.1) Microbiology 08/08/16 Blood Culture - Preliminary, Resulted NO GROWTH AFTER 2 DAYS Medications Current Medications Albuterol/ Ipratropium (Duoneb) 3 ml RTQID NEB Last administered on 08/11/16 07 :54; Start 08/08/16 at 13:00 Albuterol Sulfate 2.5 mg 2.5 mg PRN Q4HRS PRN NEB SHORTNESS OF BREATH; Start at 13:30 Levofloxacin/ Dextrose (LEVAQUIN 500mg PREMIX) 100 ml @ 100 mls/hr Q24H IV Last administered on 08/10/16 14:41; Start 08/08/16 at 15:00 Enoxaparin Sodium (Lovenox 40mg Syringe) 40 mg Q24H SQ Last administered on 08/09 15:03; Start 08/08/16 at 15:00 Furosemide (Lasix) 40 mg DAILY PO ; Start 08/08/16 at 15:00; Stop 08/09/16 at 11: 19; Status DC Magnesium Hydroxide (Milk Of Magnesia) 2,400 mg PRN DAILY PRN PO CONSTIPATION; Start 08/08/16 at 14:30 Pantoprazole Sodium (Protonix) 40 mg DAILYAC PO Last administered on 08/11/16 07:39; Start 08/08/16 at 16:30 Acetaminophen (Tylenol) 650 mg PRN Q6HRS PRN PO MILD PAIN / TEMP Last administered on 08/10/16 20:55; Start 08/08/16 at 14:30 Guaifenesin (Robitussin Dm) 10 ml PRN Q6HRS PRN PO COUGH Last administered on 20:55; Start 08/08/16 at 14:30 Vancomycin HCl 1 each 1 each PRN DAILY PRN MC SEE COMMENTS Last administered on 08/10/16 10:23; Start 08/08/16 at 14:30 Vancomycin HCl/ Sodium Chloride (Iv Sodium Chloride 0.9% 500ml Bag) 500 ml @ 250 mls/hr 1X ONCE IV Last administered on 08/08/16 16:30; Start 08/08/16 at 16 :30; Stop 08/08/16 at 18:29; Status DC Lorazepam 1 mg 1 mg 1X ONCE PO Last administered on 08/08/16 16:53; Start 08/08 at 16:45; Stop 08/08/16 at 16:47; Status DC Vancomycin HCl/ Sodium Chloride (Iv Sodium Chloride 0.9% 500ml Bag) 500 ml @ 250 mls/hr Q12H IV Last administered on 08/11/16 05:12; Start 08/09/16 at 06:00 Vancomycin HCl 1 each 1X ONCE MC Last administered on 08/09/16 17:30; Start at 17:30; Stop 08/09/16 at 17:31; Status DC Lorazepam (Ativan) 1 mg 1X ONCE PO ; Start 08/09/16 at 16:30; Stop 08/09/16 at 16 :36; Status DC Methylprednisolone Sodium Succinate (Solu-Medrol 40mg Vial) 40 mg Q8HRS IV Last administered on 08/11/16 05:12; Start 08/10/16 at 14:00 Active Scripts Active Lasix (Furosemide) 20 Mg Tablet 20 Mg PO DAILY Flomax (Tamsulosin Hcl) 0.4 Mg Cap.er.24h 0.4 Mg PO QHS Nystop (Nystatin) 60 Gm Powder 1 Ana TP BID Levaquin (Levofloxacin) 750 Mg Tablet 750 Mg PO DAILY06 Anti-Itch (Hydrocortisone Acetate) 28 Gm Oint...g. 1 Ana TP DAILY Albuterol Sulfate Neb Soln (Albuterol Sulfate) 2.5 Mg/3 Ml Vial.neb 2.5 Mg NEB RTQID Tylenol (Acetaminophen) 325 Mg Tablet 650 Mg PO PRN Q4HRS PRN Protonix (Pantoprazole Sodium) 40 Mg Tablet 40 Mg PO DAILYAC Vitals/I & O Vital Sign - Last 24 Hours 08/10/16 08/10/16 08/10/16 08/10/16 11:00 11:23 15:00 15:15 Temp 98.1 98.4 98.1 98.4 Pulse 88 98 Resp 23 20 B/P 122/60 119/69 Pulse Ox 93 92 95 98 O2 Delivery Venturi Mask Venturi Mask Nasal Cannula Venturi Mask O2 Flow Rate 15.0 96.0 5.0 12.0 08/10/16 08/10/16 08/10/16 08/10/16 19:00 19:34 20:00 23:00 Temp 97.5 98.0 97.5 98.0 Pulse 110 96 Resp 20 20 B/P 121/57 123/64 Pulse Ox 90 94 92 O2 Delivery Nasal Cannula Venturi Mask Venturi Mask Venturi Mask O2 Flow Rate 5.0 12.0 12.0 15.0 08/11/16 08/11/16 08/11/16 03:00 07:57 08:00 Temp 97.7 97.7 Pulse 91 Resp 22 B/P 96/76 Pulse Ox 90 94 O2 Delivery Venturi Mask Venturi Mask Venturi Mask O2 Flow Rate 15.0 15.0 15.0 Intake and Output 08/10/16 08/10/16 08/11/16 15:00 23:00 07:00 Intake Total 600 ml 600 ml Output Total 400 ml Balance 600 ml -400 ml 600 ml KATI BILLINGSLEY MD Aug 11, 2016 09:08
[2016-08-11] MEDS ORDERED: CYANOCOBALAMIN (VITAMIN B-12) 1,000 MCG/ML VIAL IM ONE (09:15)
[2016-08-11] MEDS ORDERED: IV DEXTROSE 5% 1,000 ML IV SCH (09:15)
--- NOTE | 2016-08-11 09:29 | PDOC ---
PULMONARY PROGRESS NOTES Subjective pt restless on 50%VM/ 5 litres canula Vitals Vital Signs Date Time Temp Pulse Resp B/P Pulse Ox O2 Delivery O2 Flow Rate FiO2 08/11/16 08:00 Venturi Mask 15.0 08/11/16 07:57 94 08/11/16 07:00 97.7 98 36 112/71 97.7 General: No acute distress HEENT: Other Lungs: Crackles, Other (decrease bs) Cardiovascular: S1, Other Abdomen: Soft, Non-tender, Other Extremities: Other (mild edema) Skin: Warm Labs Laboratory Tests Test 08/09/16 17:25 08/10/16 06:00 08/11/16 04:00 Vancomycin Level Trough 19.5mcg/mL (10.0-20.0) Vancomycin Last Dose Date 08/09/16 Vancomycin Last Dose Time 0600 White Blood Count 2.7x10^3/uL (4.0-11.0) Red Blood Count 3.35x10^6/uL (4.30-5.70) Hemoglobin 9.6g/dL (13.0-17.5) Hematocrit 30.5% (39.0-53.0) Mean Corpuscular Volume 91fL (79-100) Mean Corpuscular Hemoglobin 29pg (25-35) Mean Corpuscular Hemoglobin Concent 32g/dL (31-37) Red Cell Distribution Width 17.8% (11.5-14.5) Platelet Count 117x10^3/uL (140-400) Neutrophils (%) (Auto) 60% (31-73) Lymphocytes (%) (Auto) 29% (24-48) Monocytes (%) (Auto) 10% (0-9) Eosinophils (%) (Auto) 0% (0-3) Basophils (%) (Auto) 1% (0-3) Neutrophils # (Auto) 1.6x10^3uL (1.8-7.7) Lymphocytes # (Auto) 0.8x10^3/uL (1.0-4.8) Monocytes # (Auto) 0.3x10^3/uL (0.0-1.1) Eosinophils # (Auto) 0.0x10^3/uL (0.0-0.7) Basophils # (Auto) 0.0x10^3/uL (0.0-0.2) Sodium Level 147mmol/L (136-145) 147mmol/L (136-145) Potassium Level 3.9mmol/L (3.5-5.1) 4.9mmol/L (3.5-5.1) Chloride Level 108mmol/L (98-107) 107mmol/L (98-107) Carbon Dioxide Level 36mmol/L (21-32) 38mmol/L (21-32) Anion Gap 3 (6-14) 2 (6-14) Blood Urea Nitrogen 11mg/dL (8-26) 10mg/dL (8-26) Creatinine 1.0mg/dL (0.7-1.3) 1.0mg/dL (0.7-1.3) Estimated GFR (Cockcroft-Gault) 77.6 77.6 Glucose Level 104mg/dL (70-99) 167mg/dL (70-99) Calcium Level 7.8mg/dL (8.5-10.1) 8.1mg/dL (8.5-10.1) Iron Level 31ug/dL (65-175) Total Iron Binding Capacity 243ug/dL (250-450) Iron Saturation 13% (15-34) Ferritin 101ng/mL (26-388) Vitamin B12 Level 332pg/mL (211-946) Folic Acid (LAB) 14.2ng/mL (>3.0) Laboratory Tests Test 08/11/16 04:00 Sodium Level 147mmol/L (136-145) Potassium Level 4.9mmol/L (3.5-5.1) Chloride Level 107mmol/L (98-107) Carbon Dioxide Level 38mmol/L (21-32) Anion Gap 2 (6-14) Blood Urea Nitrogen 10mg/dL (8-26) Creatinine 1.0mg/dL (0.7-1.3) Estimated GFR (Cockcroft-Gault) 77.6 Glucose Level 167mg/dL (70-99) Calcium Level 8.1mg/dL (8.5-10.1) Medications Active Scripts Medications Dose Route/Sig Days Date Category Lasix (Furosemide) 20 Mg Tablet 20 Mg PO DAILY 06/19/15 Rx Flomax (Tamsulosin Hcl) 0.4 Mg Cap.er.24h 0.4 Mg PO QHS 06/18/15 Rx Nystop (Nystatin) 60 Gm Powder 1 Ana TP BID 06/18/15 Rx Levaquin (Levofloxacin) 750 Mg Tablet 750 Mg PO DAILY06 06/18/15 Rx Anti-Itch (Hydrocortisone Acetate) 28 Gm Oint...g. 1 Ana TP DAILY 06/18/15 Rx Albuterol Sulfate Neb Soln (Albuterol Sulfate) 2.5 Mg/3 Ml Vial.neb 2.5 Mg NEB RTQID 06/18/15 Rx Tylenol (Acetaminophen) 325 Mg Tablet 650 Mg PO PRN Q4HRS PRN 10/20/14 Rx Protonix (Pantoprazole Sodium) 40 Mg Tablet 40 Mg PO DAILYAC 04/26/14 Rx Impression . 1. [id number] respiratory failure. 2. Acute exacerbation of chronic obstructive pulmonary disease. 3. Clinical pneumonia. 4. Obstructive sleep apnea. 5. Morbid obesity. 6. Allergies to PENICILLIN AND CEFPODOXIME. Plan . will try BIPAP if tolerates repeat ABG CXR reviewed 08/10,no change would benefit from IS, unable to perform maneuver steroids JAIDEN Kevin MD Aug 11, 2016 09:29
[2016-08-11 11:00] VITALS: BP 119/75
[2016-08-11 12:21] LABS: HCO3 ABG 37 mmol/L (21-28); PO2 ABG 84 mmHg (75-108); SAT O2 ABG 95 % (92-99)
[2016-08-11 12:26] LABS: PCO2 ABG 101 mmHg (35-46); PH ABG 7.18 (7.35-7.45)
[2016-08-11 12:27] LABS: FIO2 ABG 90
[2016-08-11] MEDS: ENOXAPARIN 40 MG/0.4 ML DISP.SYRIN. SQ SCH (13:51)
[2016-08-11 15:00] VITALS: BP 104/72
[2016-08-11 16:16] LABS: HCO3 ABG 32 mmol/L (21-28); PH ABG 7.32 (7.35-7.45); PO2 ABG 61 mmHg (75-108); SAT O2 ABG 91 % (92-99)
[2016-08-11 16:21] LABS: FIO2 ABG 30; PCO2 ABG 64 mmHg (35-46)
[2016-08-11] MEDS: VANCOMYCIN PER PHARMACY MC PRN (18:33)
[2016-08-11 19:00] VITALS: BP 122/85
[2016-08-11] MEDS ORDERED: SIMETHICONE 80 MG TAB.CHEW PO PRN (20:45)
[2016-08-11] MEDS: FAMOTIDINE 20 MG TABLET. PO SCH (21:00)
[2016-08-11] MEDS: GUAIFENESIN DM 200MG/20MG 10 ML SYRUP. PO PRN (21:47)
[2016-08-11] MEDS: ACETAMINOPHEN 325 MG TABLET. PO PRN ×2 (21:47→21:48)
[2016-08-11] MEDS: SIMETHICONE 80 MG TAB.CHEW PO PRN (21:47)
[2016-08-11 23:00] VITALS: BP 138/85
[2016-08-12 03:06] VITALS: BP 136/71
[2016-08-12 05:44] LABS: CALCIUM 8.1 mg/dL (8.5-10.1); CREATININE 1.2 mg/dL (0.7-1.3); GFR 62.9; POTASSIUM 4.1 mmol/L (3.5-5.1)
[2016-08-12] MEDS: methylPREDNISolone SOD SUCC PF 40 MG/ML VIAL. IV SCH ×3 (06:00→20:44)
[2016-08-12] MEDS: VANCOMYCIN 1 GM in IV NORMAL SALINE 250ML 250 ML IV SCH ×2 (06:02→07:53)
[2016-08-12 07:00] VITALS: BP 132/78
[2016-08-12] MEDS: CYANOCOBALAMIN (VITAMIN B-12) 1,000 MCG TABLET. PO SCH (08:19)
[2016-08-12] MEDS: PANTOPRAZOLE 40 MG TABLET. PO SCH (08:19)
--- NOTE | 2016-08-12 08:29 | PDOC ---
PROGRESS NOTES Subjective Subjective placed on bipap yesterday due to increased hypercapnia and respiratory acidosis and improved ABG. alert. not eating or drinking well. bowel sounds positive. abdomen obese and not tender. lab reviewed. Objective Objective Vital Signs Date Time Temp Pulse Resp B/P Pulse Ox O2 Delivery O2 Flow Rate FiO2 08/12/16 07:00 97.7 70 20 132/78 94 BiPAP/CPAP 97.7 08/11/16 15:00 15.0 Intake and Output 08/12/16 07:00 Intake Total 940 ml Balance 940 ml Intake Oral 340 ml IV Total 600 ml # Voids 3 # Bowel Movements 3 Physical Exam Abdomen: Normal bowel sounds, Soft, No tenderness, Other (obese. ventral hernia ) Heart: Regular rate, Normal S1, Normal S2 Extremities: No edema General: Alert HEENT: Atraumatic Lungs: Other (decreased breath sounds anteriorly) Neuro: Other (alert) Psych/Mental Status: Mood NL Skin: No rashes Assessment Assessment Problems Medical Problems:1. Acute on chronic hypoxic and hypercapnic respiratory failure. 2. Pneumonia suspected gram-positive, gram-negative organisms 3. Mental retardation. 4. Morbid obesity. 5. Obesity hypoventilation syndrome. 6. Pancytopenia. 7. Gastroesophageal reflux disease. 8. Chronic large ventral abdominal hernia. hypernatremia resolved bronchospasm better (1) Acute respiratory failure with hypoxia and hypercapnia Status: Acute (2) Pneumonia Status: Acute Plan Plan of Care continue iv vancomycin and levaquin consult ID continue bipap and nebulizer rx and iv solumedrol continue lovenox for dvt prophylaxis continue protonix KUB change iv fluids Comment Review of Relevant I have reviewed the following items lexus (where applicable) has been applied. Labs Laboratory Tests Test 08/11/16 04:00 08/11/16 11:00 08/11/16 15:55 08/11/16 17:40 Sodium Level 147mmol/L (136-145) Potassium Level 4.9mmol/L (3.5-5.1) Chloride Level 107mmol/L (98-107) Carbon Dioxide Level 38mmol/L (21-32) Anion Gap 2 (6-14) Blood Urea Nitrogen 10mg/dL (8-26) Creatinine 1.0mg/dL (0.7-1.3) Estimated GFR (Cockcroft-Gault) 77.6 Glucose Level 167mg/dL (70-99) Calcium Level 8.1mg/dL (8.5-10.1) O2 Saturation 95% (92-99) 91% (92-99) Arterial Blood pH 7.18 (7.35-7.45) 7.32 (7.35-7.45) Arterial Blood pCO2 at Patient Temp 101mmHg (35-46) 64mmHg (35-46) Arterial Blood pO2 at Patient Temp 84mmHg (75-108) 61mmHg (75-108) Arterial Blood HCO3 37mmol/L (21-28) 32mmol/L (21-28) Arterial Blood Base Excess 5mmol/L (-3-3) 5mmol/L (-3-3) FiO2 90 30 Vancomycin Level Trough 29.1mcg/mL (10.0-20.0) Vancomycin Last Dose Date 08/11/16 Vancomycin Last Dose Time 0600 Test 08/12/16 05:20 Sodium Level 143mmol/L (136-145) Potassium Level 4.1mmol/L (3.5-5.1) Chloride Level 106mmol/L (98-107) Carbon Dioxide Level 35mmol/L (21-32) Anion Gap 2 (6-14) Blood Urea Nitrogen 20mg/dL (8-26) Creatinine 1.2mg/dL (0.7-1.3) Estimated GFR (Cockcroft-Gault) 62.9 Glucose Level 161mg/dL (70-99) Calcium Level 8.1mg/dL (8.5-10.1) Laboratory Tests Test 08/11/16 11:00 08/11/16 15:55 08/11/16 17:40 08/12/16 05:20 O2 Saturation 95% (92-99) 91% (92-99) Arterial Blood pH 7.18 (7.35-7.45) 7.32 (7.35-7.45) Arterial Blood pCO2 at Patient Temp 101mmHg (35-46) 64mmHg (35-46) Arterial Blood pO2 at Patient Temp 84mmHg (75-108) 61mmHg (75-108) Arterial Blood HCO3 37mmol/L (21-28) 32mmol/L (21-28) Arterial Blood Base Excess 5mmol/L (-3-3) 5mmol/L (-3-3) FiO2 90 30 Vancomycin Level Trough 29.1mcg/mL (10.0-20.0) Vancomycin Last Dose Date 08/11/16 Vancomycin Last Dose Time 0600 Sodium Level 143mmol/L (136-145) Potassium Level 4.1mmol/L (3.5-5.1) Chloride Level 106mmol/L (98-107) Carbon Dioxide Level 35mmol/L (21-32) Anion Gap 2 (6-14) Blood Urea Nitrogen 20mg/dL (8-26) Creatinine 1.2mg/dL (0.7-1.3) Estimated GFR (Cockcroft-Gault) 62.9 Glucose Level 161mg/dL (70-99) Calcium Level 8.1mg/dL (8.5-10.1) Microbiology 08/08/16 Blood Culture - Preliminary, Resulted NO GROWTH AFTER 3 DAYS Medications Current Medications Albuterol/ Ipratropium (Duoneb) 3 ml RTQID NEB Last administered on 08/11/16 20 :30; Start 08/08/16 at 13:00 Albuterol Sulfate 2.5 mg 2.5 mg PRN Q4HRS PRN NEB SHORTNESS OF BREATH; Start at 13:30 Levofloxacin/ Dextrose (LEVAQUIN 500mg PREMIX) 100 ml @ 100 mls/hr Q24H IV Last administered on 08/11/16 14:28; Start 08/08/16 at 15:00 Enoxaparin Sodium (Lovenox 40mg Syringe) 40 mg Q24H SQ Last administered on 08/11 13:51; Start 08/08/16 at 15:00 Furosemide (Lasix) 40 mg DAILY PO ; Start 08/08/16 at 15:00; Stop 08/09/16 at 11: 19; Status DC Magnesium Hydroxide (Milk Of Magnesia) 2,400 mg PRN DAILY PRN PO CONSTIPATION Last administered on 08/11/16 13:51; Start 08/08/16 at 14:30 Pantoprazole Sodium (Protonix) 40 mg DAILYAC PO Last administered on 08/12/16 08:19; Start 08/08/16 at 16:30 Acetaminophen (Tylenol) 650 mg PRN Q6HRS PRN PO MILD PAIN / TEMP Last administered on 08/11/16 21:48; Start 08/08/16 at 14:30 Guaifenesin (Robitussin Dm) 10 ml PRN Q6HRS PRN PO COUGH Last administered on 21:47; Start 08/08/16 at 14:30 Vancomycin HCl 1 each 1 each PRN DAILY PRN MC SEE COMMENTS Last administered on 08/11/16 18:33; Start 08/08/16 at 14:30 Vancomycin HCl/ Sodium Chloride (Iv Sodium Chloride 0.9% 500ml Bag) 500 ml @ 250 mls/hr 1X ONCE IV Last administered on 08/08/16 16:30; Start 08/08/16 at 16 :30; Stop 08/08/16 at 18:29; Status DC Lorazepam 1 mg 1 mg 1X ONCE PO Last administered on 08/08/16 16:53; Start 08/08 at 16:45; Stop 08/08/16 at 16:47; Status DC Vancomycin HCl/ Sodium Chloride (Iv Sodium Chloride 0.9% 500ml Bag) 500 ml @ 250 mls/hr Q12H IV Last administered on 08/11/16 05:12; Start 08/09/16 at 06:00 ; Stop 08/11/16 at 18:07; Status DC Vancomycin HCl 1 each 1X ONCE MC Last administered on 08/09/16 17:30; Start at 17:30; Stop 08/09/16 at 17:31; Status DC Lorazepam (Ativan) 1 mg 1X ONCE PO ; Start 08/09/16 at 16:30; Stop 08/09/16 at 16 :36; Status DC Methylprednisolone Sodium Succinate 40 mg 40 mg Q8HRS IV Last administered on 06:00; Start 08/10/16 at 14:00 Dextrose 1,000 ml @ 40 mls/hr Q24H IV Last administered on 08/11/16 09:15; Start 08/11/16 at 09:15 Cyanocobalamin (Vitamin B-12) 1,000 mcg ONCE ONCE IM Last administered on 09:14; Start 08/11/16 at 09:15; Stop 08/11/16 at 09:16; Status DC Cyanocobalamin (Vitamin B-12) 1,000 mcg DAILY PO Last administered on 08/12/16 08:19; Start 08/12/16 at 09:00 Vancomycin HCl 1 each 1 each 1X ONCE MC ; Start 08/11/16 at 17:30; Stop 08/11/16 at 17:31; Status DC Vancomycin HCl/ Sodium Chloride (Iv Sodium Chloride 0.9% 250ml) 250 ml @ 250 mls/hr Q12H IV Last administered on 08/12/16 07:53; Start 08/12/16 at 06:00 Vancomycin HCl 1 each 1X ONCE MC ; Start 08/13/16 at 17:30; Stop 08/13/16 at 17: 31 Simethicone (Gas-X) 40 mg Q4HRS PRN PO GAS / BLOATING; Start 08/11/16 at 20:45; Stop 08/11/16 at 21:46; Status DC Famotidine (Pepcid) 20 mg QHS PO ; Start 08/11/16 at 21:00 Simethicone (Gas-X) 80 mg PRN Q4HRS PRN PO GAS / BLOATING Last administered on 08/11/16 21:47; Start 08/11/16 at 21:45 Active Scripts Active Lasix (Furosemide) 20 Mg Tablet 20 Mg PO DAILY Flomax (Tamsulosin Hcl) 0.4 Mg Cap.er.24h 0.4 Mg PO QHS Nystop (Nystatin) 60 Gm Powder 1 Ana TP BID Levaquin (Levofloxacin) 750 Mg Tablet 750 Mg PO DAILY06 Anti-Itch (Hydrocortisone Acetate) 28 Gm Oint...g. 1 Ana TP DAILY Albuterol Sulfate Neb Soln (Albuterol Sulfate) 2.5 Mg/3 Ml Vial.neb 2.5 Mg NEB RTQID Tylenol (Acetaminophen) 325 Mg Tablet 650 Mg PO PRN Q4HRS PRN Protonix (Pantoprazole Sodium) 40 Mg Tablet 40 Mg PO DAILYAC Vitals/I & O Vital Sign - Last 24 Hours 08/11/16 08/11/16 08/11/16 08/11/16 11:00 12:04 12:45 15:00 Temp 97.5 98.2 97.5 98.2 Pulse 116 109 Resp 34 20 B/P 119/75 104/72 Pulse Ox 95 94 90 93 O2 Delivery Venti 50%/NC 5L Venturi Mask BiPAP/CPAP Venti 50%/NC 5L O2 Flow Rate 15.0 15.0 15.0 08/11/16 08/11/16 08/11/16 08/11/16 15:51 19:00 20:30 23:00 Temp 98.7 98.5 98.7 98.5 Pulse 114 87 Resp 20 20 B/P 122/85 138/85 Pulse Ox 90 93 93 92 O2 Delivery BiPAP/CPAP BiPAP/CPAP BiPAP/CPAP BiPAP/CPAP 08/11/16 08/12/16 08/12/16 08/12/16 23:35 02:30 03:06 04:16 Temp 98.5 98.5 Pulse 70 Resp 20 B/P 136/71 Pulse Ox 87 90 O2 Delivery BiPAP/CPAP BiPAP/CPAP BiPAP/CPAP BiPAP/CPAP 08/12/16 07:00 Temp 97.7 97.7 Pulse 70 Resp 20 B/P 132/78 Pulse Ox 94 O2 Delivery BiPAP/CPAP Intake and Output 08/11/16 08/11/16 08/12/16 15:00 23:00 07:00 Intake Total 740 ml 150 ml 50 ml Balance 740 ml 150 ml 50 ml KATI BILLINGSLEY MD Aug 12, 2016 08:29
[2016-08-12 08:47] LABS: HCO3 ABG 30 mmol/L (21-28); PCO2 ABG 43 mmHg (35-46); SAT O2 ABG 75 % (92-99)
[2016-08-12] MEDS: IPRATRPIUM/ALBUTEROL 0.5/2.5MG 3 ML NEBU. NEB SCH ×4 (08:59→20:01)
--- NOTE | 2016-08-12 09:02 | PDOC ---
PULMONARY PROGRESS NOTES Subjective Developed hypercapnic RF yesterday, treated with BIPAP much improved today Vitals Vital Signs Date Time Temp Pulse Resp B/P Pulse Ox O2 Delivery O2 Flow Rate FiO2 08/12/16 07:00 97.7 70 20 132/78 94 BiPAP/CPAP 97.7 08/11/16 15:00 15.0 General: Alert, No acute distress HEENT: Other Lungs: Other (decrease bs) Cardiovascular: S1, Other Abdomen: Soft, Non-tender, Other Neuro Exam: Alert Extremities: Other (mild edema) Skin: Warm Labs Laboratory Tests Test 08/11/16 04:00 08/11/16 11:00 08/11/16 15:55 08/11/16 17:40 Sodium Level 147mmol/L (136-145) Potassium Level 4.9mmol/L (3.5-5.1) Chloride Level 107mmol/L (98-107) Carbon Dioxide Level 38mmol/L (21-32) Anion Gap 2 (6-14) Blood Urea Nitrogen 10mg/dL (8-26) Creatinine 1.0mg/dL (0.7-1.3) Estimated GFR (Cockcroft-Gault) 77.6 Glucose Level 167mg/dL (70-99) Calcium Level 8.1mg/dL (8.5-10.1) O2 Saturation 95% (92-99) 91% (92-99) Arterial Blood pH 7.18 (7.35-7.45) 7.32 (7.35-7.45) Arterial Blood pCO2 at Patient Temp 101mmHg (35-46) 64mmHg (35-46) Arterial Blood pO2 at Patient Temp 84mmHg (75-108) 61mmHg (75-108) Arterial Blood HCO3 37mmol/L (21-28) 32mmol/L (21-28) Arterial Blood Base Excess 5mmol/L (-3-3) 5mmol/L (-3-3) FiO2 90 30 Vancomycin Level Trough 29.1mcg/mL (10.0-20.0) Vancomycin Last Dose Date 08/11/16 Vancomycin Last Dose Time 0600 Test 08/12/16 05:20 Sodium Level 143mmol/L (136-145) Potassium Level 4.1mmol/L (3.5-5.1) Chloride Level 106mmol/L (98-107) Carbon Dioxide Level 35mmol/L (21-32) Anion Gap 2 (6-14) Blood Urea Nitrogen 20mg/dL (8-26) Creatinine 1.2mg/dL (0.7-1.3) Estimated GFR (Cockcroft-Gault) 62.9 Glucose Level 161mg/dL (70-99) Calcium Level 8.1mg/dL (8.5-10.1) Laboratory Tests Test 08/11/16 11:00 08/11/16 15:55 08/11/16 17:40 08/12/16 05:20 O2 Saturation 95% (92-99) 91% (92-99) Arterial Blood pH 7.18 (7.35-7.45) 7.32 (7.35-7.45) Arterial Blood pCO2 at Patient Temp 101mmHg (35-46) 64mmHg (35-46) Arterial Blood pO2 at Patient Temp 84mmHg (75-108) 61mmHg (75-108) Arterial Blood HCO3 37mmol/L (21-28) 32mmol/L (21-28) Arterial Blood Base Excess 5mmol/L (-3-3) 5mmol/L (-3-3) FiO2 90 30 Vancomycin Level Trough 29.1mcg/mL (10.0-20.0) Vancomycin Last Dose Date 08/11/16 Vancomycin Last Dose Time 0600 Sodium Level 143mmol/L (136-145) Potassium Level 4.1mmol/L (3.5-5.1) Chloride Level 106mmol/L (98-107) Carbon Dioxide Level 35mmol/L (21-32) Anion Gap 2 (6-14) Blood Urea Nitrogen 20mg/dL (8-26) Creatinine 1.2mg/dL (0.7-1.3) Estimated GFR (Cockcroft-Gault) 62.9 Glucose Level 161mg/dL (70-99) Calcium Level 8.1mg/dL (8.5-10.1) Medications Active Scripts Medications Dose Route/Sig Days Date Category Lasix (Furosemide) 20 Mg Tablet 20 Mg PO DAILY 06/19/15 Rx Flomax (Tamsulosin Hcl) 0.4 Mg Cap.er.24h 0.4 Mg PO QHS 06/18/15 Rx Nystop (Nystatin) 60 Gm Powder 1 Ana TP BID 06/18/15 Rx Levaquin (Levofloxacin) 750 Mg Tablet 750 Mg PO DAILY06 06/18/15 Rx Anti-Itch (Hydrocortisone Acetate) 28 Gm Oint...g. 1 Ana TP DAILY 06/18/15 Rx Albuterol Sulfate Neb Soln (Albuterol Sulfate) 2.5 Mg/3 Ml Vial.neb 2.5 Mg NEB RTQID 06/18/15 Rx Tylenol (Acetaminophen) 325 Mg Tablet 650 Mg PO PRN Q4HRS PRN 10/20/14 Rx Protonix (Pantoprazole Sodium) 40 Mg Tablet 40 Mg PO DAILYAC 04/26/14 Rx Impression . 1. Myydt-eh-uaulpdk respiratory failure. Developed hypercapnic RF yesterday, treated with BIPAP much improved today 2. Acute exacerbation of chronic obstructive pulmonary disease. 3. Clinical pneumonia. 4. Obstructive sleep apnea. 5. Morbid obesity. 6. Allergies to PENICILLIN AND CEFPODOXIME. Plan . BIPAP qhs and prrn repeat ABG much improved CXR reviewed 08/10,no change would benefit from IS, unable to perform maneuver steroids Nebs d/w mother, will consider home sleep study to qualify for home CPAP JAIDEN RENTERIA MD Aug 12, 2016 09:02
[2016-08-12 10:00] LABS: PO2 ABG < 42 mmHg (75-108)
[2016-08-12 10:02] LABS: PH ABG 7.46 (7.35-7.45)
[2016-08-12] MEDS: POTASSIUM CL 20MEQ D5-0.45NACL 1,000 ML IV SCH (10:49)
[2016-08-12 11:00] VITALS: BP 122/75
--- NOTE | 2016-08-12 13:08 | PDOC ---
Infectious Disease Note ROS ROS GEN: Denies fevers, chills, sweats HEENT: Denies blurred vision, sore throat CV: Denies chest pain RESP: Denies shortness of air, cough GI: Denies n/v/d NEURO: Denies confusion, dizziness MSK: Denies weakness, joint pain/swelling Vital Sign Vital Signs Vital Signs Date Time Temp Pulse Resp B/P Pulse Ox O2 Delivery O2 Flow Rate FiO2 08/12/16 12:04 93 Venturi Mask 3.0 08/12/16 11:00 97.5 80 18 122/75 97.5 Physical Exam PHYSICAL EXAM GENERAL: NAD, Alert HEENT: PERRL, OC/OP NECK: Supple, no JVD, no LN LUNGS: Clear HEART: S1S2, no gallop, no murmur ABD: Soft, NT, no organomegaly, no rebound EXT: No edema, no cyanosis 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, 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 x 3, no focal neurologic deficit SKIN: No rash IV: ok Labs Lab Laboratory Tests Test 08/11/16 15:55 08/11/16 17:40 08/12/16 05:20 08/12/16 06:00 O2 Saturation 91% (92-99) 75% (92-99) Arterial Blood pH 7.32 (7.35-7.45) 7.46 (7.35-7.45) Arterial Blood pCO2 at Patient Temp 64mmHg (35-46) 43mmHg (35-46) Arterial Blood pO2 at Patient Temp 61mmHg (75-108) < 42mmHg (75-108) Arterial Blood HCO3 32mmol/L (21-28) 30mmol/L (21-28) Arterial Blood Base Excess 5mmol/L (-3-3) 6mmol/L (-3-3) FiO2 30 Vancomycin Level Trough 29.1mcg/mL (10.0-20.0) Vancomycin Last Dose Date 08/11/16 Vancomycin Last Dose Time 0600 Sodium Level 143mmol/L (136-145) Potassium Level 4.1mmol/L (3.5-5.1) Chloride Level 106mmol/L (98-107) Carbon Dioxide Level 35mmol/L (21-32) Anion Gap 2 (6-14) Blood Urea Nitrogen 20mg/dL (8-26) Creatinine 1.2mg/dL (0.7-1.3) Estimated GFR (Cockcroft-Gault) 62.9 Glucose Level 161mg/dL (70-99) Calcium Level 8.1mg/dL (8.5-10.1) Objective Assessment ? post viral vs atypical Pneumonia Resp failure - improved with Bipap PCN/Cefpodoxime allergy but ? tolerated Amox and Rocephin Pancytopenia - chronic MRSA + Plan Plan of Care Change Levoflox to po D/c Vanc F/u response Thank you # FRANKLIN PEREZ MD Aug 12, 2016 13:08
[2016-08-12] MEDS: LEVOFLOXACIN 500 MG TABLET PO SCH (14:09)
[2016-08-12] MEDS: ENOXAPARIN 40 MG/0.4 ML DISP.SYRIN. SQ SCH (14:10)
[2016-08-12 15:00] VITALS: BP 12/62
--- NOTE | 2016-08-12 16:59 | PDOC ---
Provider Note Provider Note DATE OF service: 08/12/2016 8.45 am c/c: f/u of Leukopenia, Anemia and thrombocytopenia. HISTORY OF PRESENT ILLNESS: The patient is a 56-year-old gentleman, who has mental retardation and is cared for by his mother. He has chronic hypoxia and hypercapnic respiratory failure, maintained on oxygen. Chest x-ray showed a possible infiltrate in the right lower lobe. The patient has already been seen by Dr. Montesinos in consultation who suspects a clinical pneumonia. The patient is currently receiving IV vancomycin and Levaquin. The patient was started on a Ventimask. He is admitted on 08/08/16 for further evaluation and treatment of his pneumonia and hypoxia. He was noted to have pancytopenia and hence I was consulted. On 08/08/16 his white count 3.8, hemoglobin 10.7, MCV of 90 with a platelet count of 117,000, 75 polys and 17 lymphocytes. I reviewed old erecords: He was noted to have anemia with a hemoglobin of 8.4 and a platelet count of 72,000 on 06/15/2015 with a normal WBC of 4.8. He had a CT angiogram of the chest on 06/10/2015 that revealed no evidence of pulmonary embolism. There is evidence of right pleural effusion, mild. Ultrasound of the abdomen on 06/10/2015 revealed hepatomegaly with steatosis and splenomegaly measuring 17.3 cm in length and cholelithiasis. PAST MEDICAL HISTORY: Mental retardation, anxiety, gastroesophageal reflux disease, chronic hypoxic and hypercapnic respiratory failure, obesity hypoventilation syndrome, obstructive sleep apnea, history of foot surgery, cataract surgery, and tracheostomy decannulated in 2013. REVIEW OF SYSTEMS: has dyspnea PHYSICAL EXAMINATION: GENERAL APPEARANCE: The patient is a 55-year-old gentleman, who is well developed, well nourished, and in no acute cardiorespiratory distress. CHEST: Bilaterally symmetrical. No crepitations or rhonchi heard. HEART: S1 and S2 normal. ABDOMEN: Soft and distended. No hepatosplenomegaly on palpation, but it is difficult to palpate because of obese abdomen. CENTRAL NERVOUS SYSTEM: No focal neurological deficits. LABORATORY AND DIAGNOSTIC DATA: On 08/08/16 his white count 3.8, hemoglobin 10.7 , MCV of 90 with a platelet count of 117,000, 75 polys and 17 lymphocytes. WBC 2.7 on 08/10/16. IMPRESSION AND PLAN: 1. Normochromic normocytic anemia. Iron studies suggest anemia of chronic disease B12 low-normal at 332 on 08/10/16. I suspect that the etiology is likely due to anemia of chronic disease. He has multiple comorbidities. In addition, he has evidence of splenomegaly. 2. Thrombocytopenia secondary to splenomegaly, which is most likely due to hepatic steatosis. Other differential diagnosis would be lymphoproliferative disorder causing splenomegaly. I d/w his mother Charline. Considering his poor functional status and upon detailed discussion with the patient's mother, it was decided not to pursue with a bone marrow biopsy as she prefers conservative management and no chemotherapy even if he is found to have a malignancy. Continued observation is planned. I will continue to monitor CBC p.r.n. 3. Splenomegaly, secondary to hepatic steatosis. 4. Leukopenia, reactive due to pneumonia and also due to splenomegaly. 5. Hypoxic and hypercapnic respiratory failure, chronic. Continue management per Dr. Levy and Dr. Ruiz. 6. B12 low-normal at 332 on 08/10/16. Started B12 supplements. One dose IM on and then PO 1000 mcg daily from 08/12/2016. 7. Pancytopenia as above. MINO HATHAWAY MD Aug 12, 2016 16:58
[2016-08-12 19:00] VITALS: BP 164/83
[2016-08-12 19:39] LABS: NEG OBC FOB NEG; POS OBC FOB POS
[2016-08-12] MEDS: FAMOTIDINE 20 MG TABLET. PO SCH (20:43)
[2016-08-12] MEDS: ACETAMINOPHEN 325 MG TABLET. PO PRN (20:43)
[2016-08-12] MEDS: GUAIFENESIN DM 200MG/20MG 10 ML SYRUP. PO PRN (20:43)
[2016-08-12 23:00] VITALS: BP 139/73
[2016-08-13] MEDS: POTASSIUM CL 20MEQ D5-0.45NACL 1,000 ML IV SCH (02:10)
[2016-08-13 03:00] VITALS: BP 108/78
[2016-08-13 04:23] LABS: BASO % 0 % (0-3); EOS % 0 % (0-3); HEMATOCRIT 27.8 % (39.0-53.0); LYMPH # 0.5 x10^3/uL (1.0-4.8); LYMPH % 13 % (24-48); MEAN CORPUSCULAR HEMOGLOBIN 29 pg (25-35); MEAN CORPUSCULAR HGB CONC 32 g/dL (31-37); MEAN CORPUSCULAR VOLUME 89 fL (79-100); MONO % 4 % (0-9); NEUT % 84 % (31-73); PLATELET COUNT 103 x10^3/uL (140-400); RED BLOOD COUNT 3.12 x10^6/uL (4.30-5.70); RED CELL DISTRIBUTION WIDTH 17.1 % (11.5-14.5); WHITE BLOOD COUNT 4.3 x10^3/uL (4.0-11.0)
[2016-08-13 04:27] LABS: CREATININE 1.6 mg/dL (0.7-1.3); GFR 45.1
[2016-08-13] MEDS: LEVOFLOXACIN 500 MG TABLET PO SCH (06:00)
[2016-08-13] MEDS: methylPREDNISolone SOD SUCC PF 40 MG/ML VIAL. IV SCH ×2 (06:00→20:46)
[2016-08-13 07:00] VITALS: BP 131/48
[2016-08-13] MEDS: IPRATRPIUM/ALBUTEROL 0.5/2.5MG 3 ML NEBU. NEB SCH ×4 (07:18→19:45)
[2016-08-13] MEDS: CYANOCOBALAMIN (VITAMIN B-12) 1,000 MCG TABLET. PO SCH (08:23)
[2016-08-13] MEDS: PANTOPRAZOLE 40 MG TABLET. PO SCH (08:23)
[2016-08-13 09:13] LABS: NEG OBC FOB NEG; POS OBC FOB POS
--- NOTE | 2016-08-13 10:37 | PDOC ---
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, oriented x 3, no focal neurologic deficit SKIN: No rash IV: ok Labs Lab Laboratory Tests Test 08/12/16 19:20 08/13/16 03:28 08/13/16 08:55 Stool Occult Blood Negative (NEG) Negative (NEG) White Blood Count 4.3x10^3/uL (4.0-11.0) Red Blood Count 3.12x10^6/uL (4.30-5.70) Hemoglobin 9.0g/dL (13.0-17.5) Hematocrit 27.8% (39.0-53.0) Mean Corpuscular Volume 89fL (79-100) Mean Corpuscular Hemoglobin 29pg (25-35) Mean Corpuscular Hemoglobin Concent 32g/dL (31-37) Red Cell Distribution Width 17.1% (11.5-14.5) Platelet Count 103x10^3/uL (140-400) Neutrophils (%) (Auto) 84% (31-73) Lymphocytes (%) (Auto) 13% (24-48) Monocytes (%) (Auto) 4% (0-9) Eosinophils (%) (Auto) 0% (0-3) Basophils (%) (Auto) 0% (0-3) Neutrophils # (Auto) 3.6x10^3uL (1.8-7.7) Lymphocytes # (Auto) 0.5x10^3/uL (1.0-4.8) Monocytes # (Auto) 0.2x10^3/uL (0.0-1.1) Eosinophils # (Auto) 0.0x10^3/uL (0.0-0.7) Basophils # (Auto) 0.0x10^3/uL (0.0-0.2) Sodium Level 141mmol/L (136-145) Potassium Level 4.0mmol/L (3.5-5.1) Chloride Level 106mmol/L (98-107) Carbon Dioxide Level 31mmol/L (21-32) Anion Gap 4 (6-14) Blood Urea Nitrogen 25mg/dL (8-26) Creatinine 1.6mg/dL (0.7-1.3) Estimated GFR (Cockcroft-Gault) 45.1 Glucose Level 171mg/dL (70-99) Calcium Level 8.0mg/dL (8.5-10.1) Objective Assessment ? post viral vs atypical Pneumonia Resp failure - improved with Bipap PCN/Cefpodoxime allergy but ? tolerated Amox and Rocephin Pancytopenia - chronic MRSA + Plan Plan of Care Change Levoflox to po until 08/17 F/u response D/w mother FRANKLIN PEREZ MD Aug 13, 2016 10:37
--- NOTE | 2016-08-13 10:49 | PDOC ---
PROGRESS NOTES Subjective Subjective was on bipap last night and on oxygen per NC now. feels better. vanc trough 29 and off vanc. creatininie1.6 and will increase iv fluids. Objective Objective Vital Signs Date Time Temp Pulse Resp B/P Pulse Ox O2 Delivery O2 Flow Rate FiO2 08/13/16 07:20 91 Venturi Mask 3.0 08/13/16 07:00 96.8 73 18 131/48 96.8 Intake and Output 08/13/16 07:00 Intake Total 1920 ml Output Total 1250 ml Balance 670 ml Intake Oral 670 ml IV Total 1250 ml Output Urine Total 1250 ml # Voids 1 # Bowel Movements 1 Physical Exam Abdomen: Soft Heart: Regular rate, Normal S1, Normal S2 Extremities: No edema General: Alert HEENT: Atraumatic Lungs: Other (decreased breath sounds) Neuro: Normal speech Psych/Mental Status: Mood NL Skin: No rashes Assessment Assessment Problems Medical Problems:1. Acute on chronic hypoxic and hypercapnic respiratory failure. 2. Pneumonia suspected gram-positive, gram-negative organisms 3. Mental retardation. 4. Morbid obesity. 5. Obesity hypoventilation syndrome. 6. 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 Gastroesophageal reflux disease. 8. Chronic large ventral abdominal hernia. hypernatremia resolved bronchospasm better (1) Acute respiratory failure with hypoxia and hypercapnia Status: Acute (2) Pneumonia Status: Acute Plan Plan of Care continue oxygen and reduce to 3LNC if oxygen sats okay continue nebulizer rs decrease iv solumedrol levaquin increase iv fluids follow bmp mother decided against bone marrow aspiration and biopsy Comment Review of Relevant I have reviewed the following items lexus (where applicable) has been applied. Labs Laboratory Tests Test 08/11/16 11:00 08/11/16 15:55 08/11/16 17:40 08/12/16 05:20 O2 Saturation 95% (92-99) 91% (92-99) Arterial Blood pH 7.18 (7.35-7.45) 7.32 (7.35-7.45) Arterial Blood pCO2 at Patient Temp 101mmHg (35-46) 64mmHg (35-46) Arterial Blood pO2 at Patient Temp 84mmHg (75-108) 61mmHg (75-108) Arterial Blood HCO3 37mmol/L (21-28) 32mmol/L (21-28) Arterial Blood Base Excess 5mmol/L (-3-3) 5mmol/L (-3-3) FiO2 90 30 Vancomycin Level Trough 29.1mcg/mL (10.0-20.0) Vancomycin Last Dose Date 08/11/16 Vancomycin Last Dose Time 0600 Sodium Level 143mmol/L (136-145) Potassium Level 4.1mmol/L (3.5-5.1) Chloride Level 106mmol/L (98-107) Carbon Dioxide Level 35mmol/L (21-32) Anion Gap 2 (6-14) Blood Urea Nitrogen 20mg/dL (8-26) Creatinine 1.2mg/dL (0.7-1.3) Estimated GFR (Cockcroft-Gault) 62.9 Glucose Level 161mg/dL (70-99) Calcium Level 8.1mg/dL (8.5-10.1) Test 08/12/16 06:00 08/12/16 19:20 08/13/16 03:28 08/13/16 08:55 O2 Saturation 75% (92-99) Arterial Blood pH 7.46 (7.35-7.45) Arterial Blood pCO2 at Patient Temp 43mmHg (35-46) Arterial Blood pO2 at Patient Temp < 42mmHg (75-108) Arterial Blood HCO3 30mmol/L (21-28) Arterial Blood Base Excess 6mmol/L (-3-3) Stool Occult Blood Negative (NEG) Negative (NEG) White Blood Count 4.3x10^3/uL (4.0-11.0) Red Blood Count 3.12x10^6/uL (4.30-5.70) Hemoglobin 9.0g/dL (13.0-17.5) Hematocrit 27.8% (39.0-53.0) Mean Corpuscular Volume 89fL (79-100) Mean Corpuscular Hemoglobin 29pg (25-35) Mean Corpuscular Hemoglobin Concent 32g/dL (31-37) Red Cell Distribution Width 17.1% (11.5-14.5) Platelet Count 103x10^3/uL (140-400) Neutrophils (%) (Auto) 84% (31-73) Lymphocytes (%) (Auto) 13% (24-48) Monocytes (%) (Auto) 4% (0-9) Eosinophils (%) (Auto) 0% (0-3) Basophils (%) (Auto) 0% (0-3) Neutrophils # (Auto) 3.6x10^3uL (1.8-7.7) Lymphocytes # (Auto) 0.5x10^3/uL (1.0-4.8) Monocytes # (Auto) 0.2x10^3/uL (0.0-1.1) Eosinophils # (Auto) 0.0x10^3/uL (0.0-0.7) Basophils # (Auto) 0.0x10^3/uL (0.0-0.2) Sodium Level 141mmol/L (136-145) Potassium Level 4.0mmol/L (3.5-5.1) Chloride Level 106mmol/L (98-107) Carbon Dioxide Level 31mmol/L (21-32) Anion Gap 4 (6-14) Blood Urea Nitrogen 25mg/dL (8-26) Creatinine 1.6mg/dL (0.7-1.3) Estimated GFR (Cockcroft-Gault) 45.1 Glucose Level 171mg/dL (70-99) Calcium Level 8.0mg/dL (8.5-10.1) Laboratory Tests Test 08/12/16 19:20 08/13/16 03:28 08/13/16 08:55 Stool Occult Blood Negative (NEG) Negative (NEG) White Blood Count 4.3x10^3/uL (4.0-11.0) Red Blood Count 3.12x10^6/uL (4.30-5.70) Hemoglobin 9.0g/dL (13.0-17.5) Hematocrit 27.8% (39.0-53.0) Mean Corpuscular Volume 89fL (79-100) Mean Corpuscular Hemoglobin 29pg (25-35) Mean Corpuscular Hemoglobin Concent 32g/dL (31-37) Red Cell Distribution Width 17.1% (11.5-14.5) Platelet Count 103x10^3/uL (140-400) Neutrophils (%) (Auto) 84% (31-73) Lymphocytes (%) (Auto) 13% (24-48) Monocytes (%) (Auto) 4% (0-9) Eosinophils (%) (Auto) 0% (0-3) Basophils (%) (Auto) 0% (0-3) Neutrophils # (Auto) 3.6x10^3uL (1.8-7.7) Lymphocytes # (Auto) 0.5x10^3/uL (1.0-4.8) Monocytes # (Auto) 0.2x10^3/uL (0.0-1.1) Eosinophils # (Auto) 0.0x10^3/uL (0.0-0.7) Basophils # (Auto) 0.0x10^3/uL (0.0-0.2) Sodium Level 141mmol/L (136-145) Potassium Level 4.0mmol/L (3.5-5.1) Chloride Level 106mmol/L (98-107) Carbon Dioxide Level 31mmol/L (21-32) Anion Gap 4 (6-14) Blood Urea Nitrogen 25mg/dL (8-26) Creatinine 1.6mg/dL (0.7-1.3) Estimated GFR (Cockcroft-Gault) 45.1 Glucose Level 171mg/dL (70-99) Calcium Level 8.0mg/dL (8.5-10.1) Microbiology 08/08/16 Blood Culture - Preliminary, Resulted NO GROWTH AFTER 4 DAYS Medications Current Medications Albuterol/ Ipratropium (Duoneb) 3 ml RTQID NEB Last administered on 08/13/16 07 :18; Start 08/08/16 at 13:00 Albuterol Sulfate 2.5 mg 2.5 mg PRN Q4HRS PRN NEB SHORTNESS OF BREATH; Start at 13:30 Levofloxacin/ Dextrose (LEVAQUIN 500mg PREMIX) 100 ml @ 100 mls/hr Q24H IV Last administered on 08/11/16 14:28; Start 08/08/16 at 15:00; Stop 08/12/16 at 13: 08; Status DC Enoxaparin Sodium (Lovenox 40mg Syringe) 40 mg Q24H SQ Last administered on 08/12 14:10; Start 08/08/16 at 15:00 Furosemide (Lasix) 40 mg DAILY PO ; Start 08/08/16 at 15:00; Stop 08/09/16 at 11: 19; Status DC Magnesium Hydroxide (Milk Of Magnesia) 2,400 mg PRN DAILY PRN PO CONSTIPATION Last administered on 08/11/16 13:51; Start 08/08/16 at 14:30 Pantoprazole Sodium (Protonix) 40 mg DAILYAC PO Last administered on 08/13/16 08:23; Start 08/08/16 at 16:30 Acetaminophen (Tylenol) 650 mg PRN Q6HRS PRN PO MILD PAIN / TEMP Last administered on 08/12/16 20:43; Start 08/08/16 at 14:30 Guaifenesin (Robitussin Dm) 10 ml PRN Q6HRS PRN PO COUGH Last administered on 20:43; Start 08/08/16 at 14:30 Vancomycin HCl 1 each 1 each PRN DAILY PRN MC SEE COMMENTS Last administered on 08/11/16 18:33; Start 08/08/16 at 14:30; Stop 08/12/16 at 13:08; Status DC Vancomycin HCl/ Sodium Chloride (Iv Sodium Chloride 0.9% 500ml Bag) 500 ml @ 250 mls/hr 1X ONCE IV Last administered on 08/08/16 16:30; Start 08/08/16 at 16 :30; Stop 08/08/16 at 18:29; Status DC Lorazepam 1 mg 1 mg 1X ONCE PO Last administered on 08/08/16 16:53; Start 08/08 at 16:45; Stop 08/08/16 at 16:47; Status DC Vancomycin HCl/ Sodium Chloride (Iv Sodium Chloride 0.9% 500ml Bag) 500 ml @ 250 mls/hr Q12H IV Last administered on 08/11/16 05:12; Start 08/09/16 at 06:00 ; Stop 08/11/16 at 18:07; Status DC Vancomycin HCl 1 each 1X ONCE MC Last administered on 08/09/16 17:30; Start at 17:30; Stop 08/09/16 at 17:31; Status DC Lorazepam (Ativan) 1 mg 1X ONCE PO ; Start 08/09/16 at 16:30; Stop 08/09/16 at 16 :36; Status DC Methylprednisolone Sodium Succinate 40 mg 40 mg Q8HRS IV Last administered on 06:00; Start 08/10/16 at 14:00 Dextrose 1,000 ml @ 40 mls/hr Q24H IV Last administered on 08/11/16 09:15; Start 08/11/16 at 09:15; Stop 08/12/16 at 08:26; Status DC Cyanocobalamin (Vitamin B-12) 1,000 mcg ONCE ONCE IM Last administered on 09:14; Start 08/11/16 at 09:15; Stop 08/11/16 at 09:16; Status DC Cyanocobalamin (Vitamin B-12) 1,000 mcg DAILY PO Last administered on 08/13/16 08:23; Start 08/12/16 at 09:00 Vancomycin HCl 1 each 1 each 1X ONCE MC ; Start 08/11/16 at 17:30; Stop 08/11/16 at 17:31; Status DC Vancomycin HCl/ Sodium Chloride (Iv Sodium Chloride 0.9% 250ml) 250 ml @ 250 mls/hr Q12H IV Last administered on 08/12/16 07:53; Start 08/12/16 at 06:00; Stop 08/12/16 at 13:08; Status DC Vancomycin HCl 1 each 1X ONCE MC ; Start 08/13/16 at 17:30; Stop 08/13/16 at 17: 30; Status DC Simethicone (Gas-X) 40 mg Q4HRS PRN PO GAS / BLOATING; Start 08/11/16 at 20:45; Stop 08/11/16 at 21:46; Status DC Famotidine (Pepcid) 20 mg QHS PO Last administered on 08/12/16 20:43; Start 08/11/16 at 21:00 Simethicone 80 mg 80 mg PRN Q4HRS PRN PO GAS / BLOATING Last administered on 21:47; Start 08/11/16 at 21:45 Potassium Chloride/Dextrose/ Sod Cl (KCl 20 Meq In D5W-1/2 NS) 1,000 ml @ 60 mls/hr [id number] IV Last administered on 08/13/16 02:10; Start 08/12/16 at 08:30 Levofloxacin (Levaquin) 500 mg DAILY06 PO Last administered on 08/13/16t 06:00; Start 08/12/16 at 15:00 Active Scripts Active Lasix (Furosemide) 20 Mg Tablet 20 Mg PO DAILY Flomax (Tamsulosin Hcl) 0.4 Mg Cap.er.24h 0.4 Mg PO QHS Nystop (Nystatin) 60 Gm Powder 1 Ana TP BID Levaquin (Levofloxacin) 750 Mg Tablet 750 Mg PO DAILY06 Anti-Itch (Hydrocortisone Acetate) 28 Gm Oint...g. 1 Ana TP DAILY Albuterol Sulfate Neb Soln (Albuterol Sulfate) 2.5 Mg/3 Ml Vial.neb 2.5 Mg NEB RTQID Tylenol (Acetaminophen) 325 Mg Tablet 650 Mg PO PRN Q4HRS PRN Protonix (Pantoprazole Sodium) 40 Mg Tablet 40 Mg PO DAILYAC Vitals/I & O Vital Sign - Last 24 Hours 08/12/16 08/12/16 08/12/16 08/12/16 11:00 12:04 15:00 16:39 Temp 97.5 98.1 97.5 98.1 Pulse 80 87 Resp 18 18 B/P 122/75 12/62 Pulse Ox 92 93 92 O2 Delivery Nasal Cannula Venturi Mask Nasal Cannula Venturi Mask O2 Flow Rate 3.0 3.0 3.0 3.0 08/12/16 08/12/16 08/12/16 08/12/16 19:00 19:10 20:04 22:30 Temp 97.7 97.7 Pulse 100 Resp 18 B/P 164/83 Pulse Ox 92 94 94 O2 Delivery Nasal Cannula Nasal Cannula Venturi Mask BiPAP/CPAP O2 Flow Rate 3.0 3.0 3.0 08/12/16 08/13/16 08/13/16 08/13/16 23:00 00:42 02:46 03:00 Temp 96.4 97.5 96.4 97.5 Pulse 72 70 Resp 18 18 B/P 139/73 108/78 Pulse Ox 90 93 O2 Delivery Nasal Cannula BiPAP/CPAP BiPAP/CPAP BiPAP/CPAP O2 Flow Rate 3.0 08/13/16 08/13/16 08/13/16 05:02 07:00 07:20 Temp 96.8 96.8 Pulse 73 Resp 18 B/P 131/48 Pulse Ox 91 90 91 O2 Delivery BiPAP/CPAP Nasal Cannula Venturi Mask O2 Flow Rate 5.0 3.0 Intake and Output 08/12/16 08/12/16 08/13/16 15:00 23:00 07:00 Intake Total 670 ml 200 ml 1050 ml Output Total 850 ml 400 ml Balance 670 ml -650 ml 650 ml KATI BILLINGSLEY MD Aug 13, 2016 10:49
[2016-08-13 11:00] VITALS: BP 153/82
[2016-08-13] MEDS: IV 1/2 NORMAL SALINE 1,000 ML IV SCH (12:15)
[2016-08-13] MEDS: ENOXAPARIN 40 MG/0.4 ML DISP.SYRIN. SQ SCH (14:27)
--- NOTE | 2016-08-13 14:58 | PDOC ---
PULMONARY PROGRESS NOTES Subjective Developed hypercapnic RF 08/11, treated with BIPAP Continues to feel better Vitals Vital Signs Date Time Temp Pulse Resp B/P Pulse Ox O2 Delivery O2 Flow Rate FiO2 08/13/16 11:00 97.8 77 20 153/82 97 Nasal Cannula 5.0 97.8 General: Alert, No acute distress HEENT: Other Lungs: Other (decrease bs) Cardiovascular: S1, Other Abdomen: Soft, Non-tender, Other Neuro Exam: Alert Extremities: Other (mild edema) Skin: Warm Labs Laboratory Tests Test 08/11/16 15:55 08/11/16 17:40 08/12/16 05:20 08/12/16 06:00 O2 Saturation 91% (92-99) 75% (92-99) Arterial Blood pH 7.32 (7.35-7.45) 7.46 (7.35-7.45) Arterial Blood pCO2 at Patient Temp 64mmHg (35-46) 43mmHg (35-46) Arterial Blood pO2 at Patient Temp 61mmHg (75-108) < 42mmHg (75-108) Arterial Blood HCO3 32mmol/L (21-28) 30mmol/L (21-28) Arterial Blood Base Excess 5mmol/L (-3-3) 6mmol/L (-3-3) FiO2 30 Vancomycin Level Trough 29.1mcg/mL (10.0-20.0) Vancomycin Last Dose Date 08/11/16 Vancomycin Last Dose Time 0600 Sodium Level 143mmol/L (136-145) Potassium Level 4.1mmol/L (3.5-5.1) Chloride Level 106mmol/L (98-107) Carbon Dioxide Level 35mmol/L (21-32) Anion Gap 2 (6-14) Blood Urea Nitrogen 20mg/dL (8-26) Creatinine 1.2mg/dL (0.7-1.3) Estimated GFR (Cockcroft-Gault) 62.9 Glucose Level 161mg/dL (70-99) Calcium Level 8.1mg/dL (8.5-10.1) Test 08/12/16 19:20 08/13/16 03:28 08/13/16 08:55 Stool Occult Blood Negative (NEG) Negative (NEG) White Blood Count 4.3x10^3/uL (4.0-11.0) Red Blood Count 3.12x10^6/uL (4.30-5.70) Hemoglobin 9.0g/dL (13.0-17.5) Hematocrit 27.8% (39.0-53.0) Mean Corpuscular Volume 89fL (79-100) Mean Corpuscular Hemoglobin 29pg (25-35) Mean Corpuscular Hemoglobin Concent 32g/dL (31-37) Red Cell Distribution Width 17.1% (11.5-14.5) Platelet Count 103x10^3/uL (140-400) Neutrophils (%) (Auto) 84% (31-73) Lymphocytes (%) (Auto) 13% (24-48) Monocytes (%) (Auto) 4% (0-9) Eosinophils (%) (Auto) 0% (0-3) Basophils (%) (Auto) 0% (0-3) Neutrophils # (Auto) 3.6x10^3uL (1.8-7.7) Lymphocytes # (Auto) 0.5x10^3/uL (1.0-4.8) Monocytes # (Auto) 0.2x10^3/uL (0.0-1.1) Eosinophils # (Auto) 0.0x10^3/uL (0.0-0.7) Basophils # (Auto) 0.0x10^3/uL (0.0-0.2) Sodium Level 141mmol/L (136-145) Potassium Level 4.0mmol/L (3.5-5.1) Chloride Level 106mmol/L (98-107) Carbon Dioxide Level 31mmol/L (21-32) Anion Gap 4 (6-14) Blood Urea Nitrogen 25mg/dL (8-26) Creatinine 1.6mg/dL (0.7-1.3) Estimated GFR (Cockcroft-Gault) 45.1 Glucose Level 171mg/dL (70-99) Calcium Level 8.0mg/dL (8.5-10.1) Laboratory Tests Test 08/12/16 19:20 08/13/16 03:28 08/13/16 08:55 Stool Occult Blood Negative (NEG) Negative (NEG) White Blood Count 4.3x10^3/uL (4.0-11.0) Red Blood Count 3.12x10^6/uL (4.30-5.70) Hemoglobin 9.0g/dL (13.0-17.5) Hematocrit 27.8% (39.0-53.0) Mean Corpuscular Volume 89fL (79-100) Mean Corpuscular Hemoglobin 29pg (25-35) Mean Corpuscular Hemoglobin Concent 32g/dL (31-37) Red Cell Distribution Width 17.1% (11.5-14.5) Platelet Count 103x10^3/uL (140-400) Neutrophils (%) (Auto) 84% (31-73) Lymphocytes (%) (Auto) 13% (24-48) Monocytes (%) (Auto) 4% (0-9) Eosinophils (%) (Auto) 0% (0-3) Basophils (%) (Auto) 0% (0-3) Neutrophils # (Auto) 3.6x10^3uL (1.8-7.7) Lymphocytes # (Auto) 0.5x10^3/uL (1.0-4.8) Monocytes # (Auto) 0.2x10^3/uL (0.0-1.1) Eosinophils # (Auto) 0.0x10^3/uL (0.0-0.7) Basophils # (Auto) 0.0x10^3/uL (0.0-0.2) Sodium Level 141mmol/L (136-145) Potassium Level 4.0mmol/L (3.5-5.1) Chloride Level 106mmol/L (98-107) Carbon Dioxide Level 31mmol/L (21-32) Anion Gap 4 (6-14) Blood Urea Nitrogen 25mg/dL (8-26) Creatinine 1.6mg/dL (0.7-1.3) Estimated GFR (Cockcroft-Gault) 45.1 Glucose Level 171mg/dL (70-99) Calcium Level 8.0mg/dL (8.5-10.1) Medications Active Scripts Medications Dose Route/Sig Days Date Category Lasix (Furosemide) 20 Mg Tablet 20 Mg PO DAILY 06/19/15 Rx Flomax (Tamsulosin Hcl) 0.4 Mg Cap.er.24h 0.4 Mg PO QHS 06/18/15 Rx Nystop (Nystatin) 60 Gm Powder 1 Ana TP BID 06/18/15 Rx Levaquin (Levofloxacin) 750 Mg Tablet 750 Mg PO DAILY06 06/18/15 Rx Anti-Itch (Hydrocortisone Acetate) 28 Gm Oint...g. 1 Ana TP DAILY 06/18/15 Rx Albuterol Sulfate Neb Soln (Albuterol Sulfate) 2.5 Mg/3 Ml Vial.neb 2.5 Mg NEB RTQID 06/18/15 Rx Tylenol (Acetaminophen) 325 Mg Tablet 650 Mg PO PRN Q4HRS PRN 10/20/14 Rx Protonix (Pantoprazole Sodium) 40 Mg Tablet 40 Mg PO DAILYAC 04/26/14 Rx Impression . 1. [id number] respiratory failure. Developed hypercapnic RF 08/11, treated with BIPAP much improved 2. Acute exacerbation of chronic obstructive pulmonary disease. 3. Clinical pneumonia. 4. Obstructive sleep apnea. 5. Morbid obesity. Plan . BIPAP qhs and prrn repeat ABG much improved CXR reviewed 08/10,no change would benefit from IS, unable to perform maneuver steroids taper Nebs d/w mother, will consider home sleep study to qualify for home CPAP possible home thursday JAIDEN RENTERIA MD Aug 13, 2016 14:58
[2016-08-13 15:00] VITALS: BP 133/74
[2016-08-13 19:00] VITALS: BP 126/69
[2016-08-13] MEDS: FAMOTIDINE 20 MG TABLET. PO SCH (20:46)
[2016-08-13] MEDS: GUAIFENESIN DM 200MG/20MG 10 ML SYRUP. PO PRN (20:46)
[2016-08-13] MEDS: ACETAMINOPHEN 325 MG TABLET. PO PRN (20:46)
[2016-08-13 23:00] VITALS: BP 169/95
[2016-08-13] MEDS: SIMETHICONE 80 MG TAB.CHEW PO PRN (23:57)
[2016-08-14] MEDS: IV 1/2 NORMAL SALINE 1,000 ML IV SCH ×2 (00:01→15:23)
[2016-08-14 03:00] VITALS: BP 142/77
[2016-08-14] MEDS: LEVOFLOXACIN 500 MG TABLET PO SCH (05:41)
[2016-08-14 06:21] LABS: BASO % 0 % (0-3); EOS % 0 % (0-3); HEMATOCRIT 30.4 % (39.0-53.0); HEMOGLOBIN 10.1 g/dL (13.0-17.5); LYMPH # 0.5 x10^3/uL (1.0-4.8); LYMPH % 8 % (24-48); MEAN CORPUSCULAR HEMOGLOBIN 29 pg (25-35); MEAN CORPUSCULAR HGB CONC 33 g/dL (31-37); MEAN CORPUSCULAR VOLUME 87 fL (79-100); MONO % 4 % (0-9); NEUT % 87 % (31-73); PLATELET COUNT 109 x10^3/uL (140-400); RED CELL DISTRIBUTION WIDTH 17.1 % (11.5-14.5); WHITE BLOOD COUNT 6.4 x10^3/uL (4.0-11.0)
[2016-08-14 06:38] LABS: CALCIUM 8.2 mg/dL (8.5-10.1); CREATININE 1.3 mg/dL (0.7-1.3); GFR 57.3
[2016-08-14 07:00] VITALS: BP 155/84
[2016-08-14 07:40] LABS: PLT ESTIMATE DECREASED (ADEQUATE)
[2016-08-14 07:41] LABS: ANISOCYTOSIS PRESENT; POIKILOCYTOSIS PRESENT
[2016-08-14] MEDS: PANTOPRAZOLE 40 MG TABLET. PO SCH (08:24)
[2016-08-14] MEDS: CYANOCOBALAMIN (VITAMIN B-12) 1,000 MCG TABLET. PO SCH (08:24)
[2016-08-14] MEDS: methylPREDNISolone SOD SUCC PF 40 MG/ML VIAL. IV SCH (08:25)
[2016-08-14] MEDS: IPRATRPIUM/ALBUTEROL 0.5/2.5MG 3 ML NEBU. NEB SCH ×4 (08:46→20:24)
--- NOTE | 2016-08-14 09:22 | PDOC ---
Provider Note Provider Note DATE OF service: 08/14/2016 8.45 am c/c: f/u of Leukopenia, Anemia and thrombocytopenia. HISTORY OF PRESENT ILLNESS: The patient is a 56-year-old gentleman, who has mental retardation and is cared for by his mother. He has chronic hypoxia and hypercapnic respiratory failure, maintained on oxygen. Chest x-ray showed a possible infiltrate in the right lower lobe. The patient has already been seen by Dr. Montesinos in consultation who suspects a clinical pneumonia. The patient is currently receiving IV vancomycin and Levaquin. The patient was started on a Ventimask. He is admitted on 08/08/16 for further evaluation and treatment of his pneumonia and hypoxia. He was noted to have pancytopenia and hence I was consulted. On 08/08/16 his white count 3.8, hemoglobin 10.7, MCV of 90 with a platelet count of 117,000, 75 polys and 17 lymphocytes. I reviewed old erecords: He was noted to have anemia with a hemoglobin of 8.4 and a platelet count of 72,000 on 06/15/2015 with a normal WBC of 4.8. He had a CT angiogram of the chest on 06/10/2015 that revealed no evidence of pulmonary embolism. There is evidence of right pleural effusion, mild. Ultrasound of the abdomen on 06/10/2015 revealed hepatomegaly with steatosis and splenomegaly measuring 17.3 cm in length and cholelithiasis. PAST MEDICAL HISTORY: Mental retardation, anxiety, gastroesophageal reflux disease, chronic hypoxic and hypercapnic respiratory failure, obesity hypoventilation syndrome, obstructive sleep apnea, history of foot surgery, cataract surgery, and tracheostomy decannulated in 2013. REVIEW OF SYSTEMS: has dyspnea PHYSICAL EXAMINATION: GENERAL APPEARANCE: The patient is a 55-year-old gentleman, who is well developed, well nourished, and in no acute cardiorespiratory distress. CHEST: Bilaterally symmetrical. No crepitations or rhonchi heard. HEART: S1 and S2 normal. ABDOMEN: Soft and distended. No hepatosplenomegaly on palpation, but it is difficult to palpate because of obese abdomen. CENTRAL NERVOUS SYSTEM: No focal neurological deficits. LABORATORY AND DIAGNOSTIC DATA: On 08/08/16 his white count 3.8, hemoglobin 10.7 , MCV of 90 with a platelet count of 117,000, 75 polys and 17 lymphocytes. WBC 2.7 on 08/10/16. IMPRESSION AND PLAN: 1. Normochromic normocytic anemia. Iron studies suggest anemia of chronic disease B12 low-normal at 332 on 08/10/16. I suspect that the etiology is likely due to anemia of chronic disease. He has multiple comorbidities. In addition, he has evidence of splenomegaly. Hb better at 10.1 2. Thrombocytopenia secondary to splenomegaly, which is most likely due to hepatic steatosis. Other differential diagnosis would be lymphoproliferative disorder causing splenomegaly. I d/w his mother Charline. Considering his poor functional status and upon detailed discussion with the patient's mother, it was decided not to pursue with a bone marrow biopsy as she prefers conservative management and no chemotherapy even if he is found to have a malignancy. Continued observation is planned. I will continue to monitor CBC p.r.n. Plt stable at 109 3. Splenomegaly, secondary to hepatic steatosis. 4. Leukopenia, reactive due to pneumonia and also due to splenomegaly. Better at 6.4. 5. Hypoxic and hypercapnic respiratory failure, chronic. Continue management per Dr. Levy and Dr. Ruiz. 6. B12 low-normal at 332 on 08/10/16. Started B12 supplements. One dose IM on and then PO 1000 mcg daily from 08/12/2016. 7. Pancytopenia as above. MINO HATHAWAY MD Aug 14, 2016 09:22
[2016-08-14] MEDS: ACETAMINOPHEN 325 MG TABLET. PO PRN ×3 (10:07→21:54)
[2016-08-14 10:56] VITALS: BP 136/102
--- NOTE | 2016-08-14 11:06 | PDOC ---
PULMONARY PROGRESS NOTES Subjective Developed hypercapnic RF 08/11, treated with BIPAP Continues to feel better Vitals Vital Signs Date Time Temp Pulse Resp B/P Pulse Ox O2 Delivery O2 Flow Rate FiO2 08/14/16 10:56 97.9 92 20 136/102 92 Nasal Cannula 2.0 97.9 General: Alert, No acute distress HEENT: Other Lungs: Other (decrease bs) Cardiovascular: S1, Other Abdomen: Soft, Non-tender, Other Neuro Exam: Alert Extremities: Other (mild edema) Skin: Warm Labs Laboratory Tests Test 08/12/16 19:20 08/13/16 03:28 08/13/16 08:55 08/14/16 05:40 Stool Occult Blood Negative (NEG) Negative (NEG) White Blood Count 4.3x10^3/uL (4.0-11.0) 6.4x10^3/uL (4.0-11.0) Red Blood Count 3.12x10^6/uL (4.30-5.70) 3.50x10^6/uL (4.30-5.70) Hemoglobin 9.0g/dL (13.0-17.5) 10.1g/dL (13.0-17.5) Hematocrit 27.8% (39.0-53.0) 30.4% (39.0-53.0) Mean Corpuscular Volume 89fL (79-100) 87fL (79-100) Mean Corpuscular Hemoglobin 29pg (25-35) 29pg (25-35) Mean Corpuscular Hemoglobin Concent 32g/dL (31-37) 33g/dL (31-37) Red Cell Distribution Width 17.1% (11.5-14.5) 17.1% (11.5-14.5) Platelet Count 103x10^3/uL (140-400) 109x10^3/uL (140-400) Neutrophils (%) (Auto) 84% (31-73) 87% (31-73) Lymphocytes (%) (Auto) 13% (24-48) 8% (24-48) Monocytes (%) (Auto) 4% (0-9) 4% (0-9) Eosinophils (%) (Auto) 0% (0-3) 0% (0-3) Basophils (%) (Auto) 0% (0-3) 0% (0-3) Neutrophils # (Auto) 3.6x10^3uL (1.8-7.7) 5.6x10^3uL (1.8-7.7) Lymphocytes # (Auto) 0.5x10^3/uL (1.0-4.8) 0.5x10^3/uL (1.0-4.8) Monocytes # (Auto) 0.2x10^3/uL (0.0-1.1) 0.3x10^3/uL (0.0-1.1) Eosinophils # (Auto) 0.0x10^3/uL (0.0-0.7) 0.0x10^3/uL (0.0-0.7) Basophils # (Auto) 0.0x10^3/uL (0.0-0.2) 0.0x10^3/uL (0.0-0.2) Sodium Level 141mmol/L (136-145) 143mmol/L (136-145) Potassium Level 4.0mmol/L (3.5-5.1) 4.0mmol/L (3.5-5.1) Chloride Level 106mmol/L (98-107) 107mmol/L (98-107) Carbon Dioxide Level 31mmol/L (21-32) 29mmol/L (21-32) Anion Gap 4 (6-14) 7 (6-14) Blood Urea Nitrogen 25mg/dL (8-26) 27mg/dL (8-26) Creatinine 1.6mg/dL (0.7-1.3) 1.3mg/dL (0.7-1.3) Estimated GFR (Cockcroft-Gault) 45.1 57.3 Glucose Level 171mg/dL (70-99) 128mg/dL (70-99) Calcium Level 8.0mg/dL (8.5-10.1) 8.2mg/dL (8.5-10.1) Segmented Neutrophils % 89% (35-66) Lymphocytes % 9% (24-48) Monocytes % 2% (0-10) Platelet Estimate Decreased (ADEQUATE) Poikilocytosis Present Anisocytosis Present Laboratory Tests Test 08/14/16 05:40 White Blood Count 6.4x10^3/uL (4.0-11.0) Red Blood Count 3.50x10^6/uL (4.30-5.70) Hemoglobin 10.1g/dL (13.0-17.5) Hematocrit 30.4% (39.0-53.0) Mean Corpuscular Volume 87fL (79-100) Mean Corpuscular Hemoglobin 29pg (25-35) Mean Corpuscular Hemoglobin Concent 33g/dL (31-37) Red Cell Distribution Width 17.1% (11.5-14.5) Platelet Count 109x10^3/uL (140-400) Neutrophils (%) (Auto) 87% (31-73) Lymphocytes (%) (Auto) 8% (24-48) Monocytes (%) (Auto) 4% (0-9) Eosinophils (%) (Auto) 0% (0-3) Basophils (%) (Auto) 0% (0-3) Neutrophils # (Auto) 5.6x10^3uL (1.8-7.7) Lymphocytes # (Auto) 0.5x10^3/uL (1.0-4.8) Monocytes # (Auto) 0.3x10^3/uL (0.0-1.1) Eosinophils # (Auto) 0.0x10^3/uL (0.0-0.7) Basophils # (Auto) 0.0x10^3/uL (0.0-0.2) Segmented Neutrophils % 89% (35-66) Lymphocytes % 9% (24-48) Monocytes % 2% (0-10) Platelet Estimate Decreased (ADEQUATE) Poikilocytosis Present Anisocytosis Present Sodium Level 143mmol/L (136-145) Potassium Level 4.0mmol/L (3.5-5.1) Chloride Level 107mmol/L (98-107) Carbon Dioxide Level 29mmol/L (21-32) Anion Gap 7 (6-14) Blood Urea Nitrogen 27mg/dL (8-26) Creatinine 1.3mg/dL (0.7-1.3) Estimated GFR (Cockcroft-Gault) 57.3 Glucose Level 128mg/dL (70-99) Calcium Level 8.2mg/dL (8.5-10.1) Medications Active Scripts Medications Dose Route/Sig Days Date Category Lasix (Furosemide) 20 Mg Tablet 20 Mg PO DAILY 06/19/15 Rx Flomax (Tamsulosin Hcl) 0.4 Mg Cap.er.24h 0.4 Mg PO QHS 06/18/15 Rx Nystop (Nystatin) 60 Gm Powder 1 Ana TP BID 06/18/15 Rx Levaquin (Levofloxacin) 750 Mg Tablet 750 Mg PO DAILY06 06/18/15 Rx Anti-Itch (Hydrocortisone Acetate) 28 Gm Oint...g. 1 Ana TP DAILY 06/18/15 Rx Albuterol Sulfate Neb Soln (Albuterol Sulfate) 2.5 Mg/3 Ml Vial.neb 2.5 Mg NEB RTQID 06/18/15 Rx Tylenol (Acetaminophen) 325 Mg Tablet 650 Mg PO PRN Q4HRS PRN 10/20/14 Rx Protonix (Pantoprazole Sodium) 40 Mg Tablet 40 Mg PO DAILYAC 04/26/14 Rx Impression . 1. [id number] respiratory failure. Developed hypercapnic RF 08/11, treated with BIPAP much improved 2. Acute exacerbation of chronic obstructive pulmonary disease. 3. Clinical pneumonia. 4. Obstructive sleep apnea. 5. Morbid obesity. Plan . BIPAP qhs and prrn repeat ABG much improved CXR reviewed 08/10,no change would benefit from IS, unable to perform maneuver steroids taper Nebs d/w mother, will consider home sleep study to qualify for home CPAP possible home thursday JAIDEN RENTERIA MD Aug 14, 2016 11:06
--- NOTE | 2016-08-14 12:01 | PDOC ---
Infectious Disease Note Subjective Subjective Doing well ROS ROS Unreliable Vital Sign Vital Signs Vital Signs Date Time Temp Pulse Resp B/P Pulse Ox O2 Delivery O2 Flow Rate FiO2 08/14/16 10:56 97.9 92 20 136/102 92 Nasal Cannula 2.0 97.9 Physical Exam PHYSICAL EXAM GENERAL: NAD, Alert, in chair HEENT: PERRL, OC/OP- clear NECK: Supple, no JVD, no LN LUNGS: Clear HEART: S1S2, no gallop, no murmur ABD: Soft, NT, no organomegaly, no rebound, obese EXT: No edema, no cyanosis ABSTRACT WRITER: Alert, no focal neurologic deficit SKIN: No rash IV: ok Labs Lab Laboratory Tests Test 08/14/16 05:40 White Blood Count 6.4x10^3/uL (4.0-11.0) Red Blood Count 3.50x10^6/uL (4.30-5.70) Hemoglobin 10.1g/dL (13.0-17.5) Hematocrit 30.4% (39.0-53.0) Mean Corpuscular Volume 87fL (79-100) Mean Corpuscular Hemoglobin 29pg (25-35) Mean Corpuscular Hemoglobin Concent 33g/dL (31-37) Red Cell Distribution Width 17.1% (11.5-14.5) Platelet Count 109x10^3/uL (140-400) Neutrophils (%) (Auto) 87% (31-73) Lymphocytes (%) (Auto) 8% (24-48) Monocytes (%) (Auto) 4% (0-9) Eosinophils (%) (Auto) 0% (0-3) Basophils (%) (Auto) 0% (0-3) Neutrophils # (Auto) 5.6x10^3uL (1.8-7.7) Lymphocytes # (Auto) 0.5x10^3/uL (1.0-4.8) Monocytes # (Auto) 0.3x10^3/uL (0.0-1.1) Eosinophils # (Auto) 0.0x10^3/uL (0.0-0.7) Basophils # (Auto) 0.0x10^3/uL (0.0-0.2) Segmented Neutrophils % 89% (35-66) Lymphocytes % 9% (24-48) Monocytes % 2% (0-10) Platelet Estimate Decreased (ADEQUATE) Poikilocytosis Present Anisocytosis Present Sodium Level 143mmol/L (136-145) Potassium Level 4.0mmol/L (3.5-5.1) Chloride Level 107mmol/L (98-107) Carbon Dioxide Level 29mmol/L (21-32) Anion Gap 7 (6-14) Blood Urea Nitrogen 27mg/dL (8-26) Creatinine 1.3mg/dL (0.7-1.3) Estimated GFR (Cockcroft-Gault) 57.3 Glucose Level 128mg/dL (70-99) Calcium Level 8.2mg/dL (8.5-10.1) Objective Assessment ? post viral vs atypical Pneumonia Resp failure - improved with Bipap PCN/Cefpodoxime allergy but ? tolerated Amox and Rocephin Pancytopenia - chronic MRSA + Plan Plan of Care Change Levoflox to po until 08/17 F/u response D/w mother ID to sign off FRANKLIN PEREZ MD Aug 14, 2016 12:01
[2016-08-14 12:26] LABS: NEG OBC FOB NEG; POS OBC FOB POS
--- NOTE | 2016-08-14 12:55 | PDOC ---
PROGRESS NOTES Subjective Subjective feels okay. lab reviewed. renal function better. blood pressure is high which is unusual. agitated. Objective Objective Vital Signs Date Time Temp Pulse Resp B/P Pulse Ox O2 Delivery O2 Flow Rate FiO2 08/14/16 10:56 97.9 92 20 136/102 92 Nasal Cannula 2.0 97.9 Intake and Output 08/14/16 07:00 Intake Total 1480 ml Output Total 1250 ml Balance 230 ml Intake Oral 480 ml IV Total 1000 ml Output Urine Total 1250 ml # Bowel Movements 1 Physical Exam Abdomen: Soft Heart: Regular rate, Normal S1, Normal S2 Extremities: Other (1 plus edema legs) General: Alert HEENT: Atraumatic Lungs: Clear to auscultation, Other (decreased breath sounds) Neck: Supple, No JVD, No thyromegaly Neuro: Normal speech Psych/Mental Status: Other (agitated) Skin: No rashes Assessment Assessment Problems Medical Problems:1. Acute on chronic hypoxic and hypercapnic respiratory failure. 2. Pneumonia suspected gram-positive, gram-negative organisms improved 3. Mental retardation. 4. Morbid obesity. 5. Obesity hypoventilation syndrome. 6. 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 Gastroesophageal reflux disease. 8. Chronic large ventral abdominal hernia. hypernatremia resolved bronchospasm improved acute kidney injury improved elevated blood pressure-monitor (1) Acute respiratory failure with hypoxia and hypercapnia Status: Acute (2) Pneumonia Status: Acute Plan Plan of Care switch to prednisone taper decrease iv fluids continue oxygen and nebulizer rx home tomorrow Comment Review of Relevant I have reviewed the following items lexus (where applicable) has been applied. Labs Laboratory Tests Test 08/12/16 19:20 08/13/16 03:28 08/13/16 08:55 08/14/16 05:40 Stool Occult Blood Negative (NEG) Negative (NEG) White Blood Count 4.3x10^3/uL (4.0-11.0) 6.4x10^3/uL (4.0-11.0) Red Blood Count 3.12x10^6/uL (4.30-5.70) 3.50x10^6/uL (4.30-5.70) Hemoglobin 9.0g/dL (13.0-17.5) 10.1g/dL (13.0-17.5) Hematocrit 27.8% (39.0-53.0) 30.4% (39.0-53.0) Mean Corpuscular Volume 89fL (79-100) 87fL (79-100) Mean Corpuscular Hemoglobin 29pg (25-35) 29pg (25-35) Mean Corpuscular Hemoglobin Concent 32g/dL (31-37) 33g/dL (31-37) Red Cell Distribution Width 17.1% (11.5-14.5) 17.1% (11.5-14.5) Platelet Count 103x10^3/uL (140-400) 109x10^3/uL (140-400) Neutrophils (%) (Auto) 84% (31-73) 87% (31-73) Lymphocytes (%) (Auto) 13% (24-48) 8% (24-48) Monocytes (%) (Auto) 4% (0-9) 4% (0-9) Eosinophils (%) (Auto) 0% (0-3) 0% (0-3) Basophils (%) (Auto) 0% (0-3) 0% (0-3) Neutrophils # (Auto) 3.6x10^3uL (1.8-7.7) 5.6x10^3uL (1.8-7.7) Lymphocytes # (Auto) 0.5x10^3/uL (1.0-4.8) 0.5x10^3/uL (1.0-4.8) Monocytes # (Auto) 0.2x10^3/uL (0.0-1.1) 0.3x10^3/uL (0.0-1.1) Eosinophils # (Auto) 0.0x10^3/uL (0.0-0.7) 0.0x10^3/uL (0.0-0.7) Basophils # (Auto) 0.0x10^3/uL (0.0-0.2) 0.0x10^3/uL (0.0-0.2) Sodium Level 141mmol/L (136-145) 143mmol/L (136-145) Potassium Level 4.0mmol/L (3.5-5.1) 4.0mmol/L (3.5-5.1) Chloride Level 106mmol/L (98-107) 107mmol/L (98-107) Carbon Dioxide Level 31mmol/L (21-32) 29mmol/L (21-32) Anion Gap 4 (6-14) 7 (6-14) Blood Urea Nitrogen 25mg/dL (8-26) 27mg/dL (8-26) Creatinine 1.6mg/dL (0.7-1.3) 1.3mg/dL (0.7-1.3) Estimated GFR (Cockcroft-Gault) 45.1 57.3 Glucose Level 171mg/dL (70-99) 128mg/dL (70-99) Calcium Level 8.0mg/dL (8.5-10.1) 8.2mg/dL (8.5-10.1) Segmented Neutrophils % 89% (35-66) Lymphocytes % 9% (24-48) Monocytes % 2% (0-10) Platelet Estimate Decreased (ADEQUATE) Poikilocytosis Present Anisocytosis Present Test 08/14/16 11:30 Stool Occult Blood Negative (NEG) Laboratory Tests Test 08/14/16 05:40 08/14/16 11:30 White Blood Count 6.4x10^3/uL (4.0-11.0) Red Blood Count 3.50x10^6/uL (4.30-5.70) Hemoglobin 10.1g/dL (13.0-17.5) Hematocrit 30.4% (39.0-53.0) Mean Corpuscular Volume 87fL (79-100) Mean Corpuscular Hemoglobin 29pg (25-35) Mean Corpuscular Hemoglobin Concent 33g/dL (31-37) Red Cell Distribution Width 17.1% (11.5-14.5) Platelet Count 109x10^3/uL (140-400) Neutrophils (%) (Auto) 87% (31-73) Lymphocytes (%) (Auto) 8% (24-48) Monocytes (%) (Auto) 4% (0-9) Eosinophils (%) (Auto) 0% (0-3) Basophils (%) (Auto) 0% (0-3) Neutrophils # (Auto) 5.6x10^3uL (1.8-7.7) Lymphocytes # (Auto) 0.5x10^3/uL (1.0-4.8) Monocytes # (Auto) 0.3x10^3/uL (0.0-1.1) Eosinophils # (Auto) 0.0x10^3/uL (0.0-0.7) Basophils # (Auto) 0.0x10^3/uL (0.0-0.2) Segmented Neutrophils % 89% (35-66) Lymphocytes % 9% (24-48) Monocytes % 2% (0-10) Platelet Estimate Decreased (ADEQUATE) Poikilocytosis Present Anisocytosis Present Sodium Level 143mmol/L (136-145) Potassium Level 4.0mmol/L (3.5-5.1) Chloride Level 107mmol/L (98-107) Carbon Dioxide Level 29mmol/L (21-32) Anion Gap 7 (6-14) Blood Urea Nitrogen 27mg/dL (8-26) Creatinine 1.3mg/dL (0.7-1.3) Estimated GFR (Cockcroft-Gault) 57.3 Glucose Level 128mg/dL (70-99) Calcium Level 8.2mg/dL (8.5-10.1) Stool Occult Blood Negative (NEG) Microbiology 08/08/16 Blood Culture - Final, Complete NO GROWTH AFTER 5 DAYS Medications Current Medications Albuterol/ Ipratropium (Duoneb) 3 ml RTQID NEB Last administered on 08/14/16 12 :49; Start 08/08/16 at 13:00 Albuterol Sulfate 2.5 mg 2.5 mg PRN Q4HRS PRN NEB SHORTNESS OF BREATH; Start at 13:30 Levofloxacin/ Dextrose (LEVAQUIN 500mg PREMIX) 100 ml @ 100 mls/hr Q24H IV Last administered on 08/11/16 14:28; Start 08/08/16 at 15:00; Stop 08/12/16 at 13: 08; Status DC Enoxaparin Sodium (Lovenox 40mg Syringe) 40 mg Q24H SQ Last administered on 08/13 14:27; Start 08/08/16 at 15:00 Furosemide (Lasix) 40 mg DAILY PO ; Start 08/08/16 at 15:00; Stop 08/09/16 at 11: 19; Status DC Magnesium Hydroxide (Milk Of Magnesia) 2,400 mg PRN DAILY PRN PO CONSTIPATION Last administered on 08/11/16 13:51; Start 08/08/16 at 14:30 Pantoprazole Sodium (Protonix) 40 mg DAILYAC PO Last administered on 08/14/16 08:24; Start 08/08/16 at 16:30 Acetaminophen (Tylenol) 650 mg PRN Q6HRS PRN PO MILD PAIN / TEMP Last administered on 08/14/16 10:07; Start 08/08/16 at 14:30 Guaifenesin (Robitussin Dm) 10 ml PRN Q6HRS PRN PO COUGH Last administered on 20:46; Start 08/08/16 at 14:30 Vancomycin HCl 1 each 1 each PRN DAILY PRN MC SEE COMMENTS Last administered on 08/11/16 18:33; Start 08/08/16 at 14:30; Stop 08/12/16 at 13:08; Status DC Vancomycin HCl/ Sodium Chloride (Iv Sodium Chloride 0.9% 500ml Bag) 500 ml @ 250 mls/hr 1X ONCE IV Last administered on 08/08/16 16:30; Start 08/08/16 at 16 :30; Stop 08/08/16 at 18:29; Status DC Lorazepam 1 mg 1 mg 1X ONCE PO Last administered on 08/08/16 16:53; Start 08/08 at 16:45; Stop 08/08/16 at 16:47; Status DC Vancomycin HCl/ Sodium Chloride (Iv Sodium Chloride 0.9% 500ml Bag) 500 ml @ 250 mls/hr Q12H IV Last administered on 08/11/16 05:12; Start 08/09/16 at 06:00 ; Stop 08/11/16 at 18:07; Status DC Vancomycin HCl 1 each 1X ONCE MC Last administered on 08/09/16 17:30; Start at 17:30; Stop 08/09/16 at 17:31; Status DC Lorazepam (Ativan) 1 mg 1X ONCE PO ; Start 08/09/16 at 16:30; Stop 08/09/16 at 16 :36; Status DC Methylprednisolone Sodium Succinate 40 mg 40 mg Q8HRS IV Last administered on 06:00; Start 08/10/16 at 14:00; Stop 08/13/16 at 10:45; Status DC Dextrose 1,000 ml @ 40 mls/hr Q24H IV Last administered on 08/11/16 09:15; Start 08/11/16 at 09:15; Stop 08/12/16 at 08:26; Status DC Cyanocobalamin (Vitamin B-12) 1,000 mcg ONCE ONCE IM Last administered on 09:14; Start 08/11/16 at 09:15; Stop 08/11/16 at 09:16; Status DC Cyanocobalamin (Vitamin B-12) 1,000 mcg DAILY PO Last administered on 08/14/16 08:24; Start 08/12/16 at 09:00 Vancomycin HCl 1 each 1 each 1X ONCE MC ; Start 08/11/16 at 17:30; Stop 08/11/16 at 17:31; Status DC Vancomycin HCl/ Sodium Chloride (Iv Sodium Chloride 0.9% 250ml) 250 ml @ 250 mls/hr Q12H IV Last administered on 08/12/16 07:53; Start 08/12/16 at 06:00; Stop 08/12/16 at 13:08; Status DC Vancomycin HCl 1 each 1X ONCE MC ; Start 08/13/16 at 17:30; Stop 08/13/16 at 17: 30; Status DC Simethicone (Gas-X) 40 mg Q4HRS PRN PO GAS / BLOATING; Start 08/11/16 at 20:45; Stop 08/11/16 at 21:46; Status DC Famotidine (Pepcid) 20 mg QHS PO Last administered on 08/13/16 20:46; Start 08/11/16 at 21:00 Simethicone 80 mg 80 mg PRN Q4HRS PRN PO GAS / BLOATING Last administered on 23:57; Start 08/11/16 at 21:45 Potassium Chloride/Dextrose/ Sod Cl (KCl 20 Meq In D5W-1/2 NS) 1,000 ml @ 60 mls/hr [id number] IV Last administered on 08/13/16 02:10; Start 08/12/16 at 08:30; Stop 08/13/16 at 10:45; Status DC Levofloxacin (Levaquin) 500 mg DAILY06 PO Last administered on 08/14/16 05:41; Start 08/12/16 at 15:00 Methylprednisolone Sodium Succinate 40 mg 40 mg Q12HR IV Last administered on 08:25; Start 08/13/16 at 21:00; Stop 08/14/16 at 12:49; Status DC Sodium Chloride (Iv Sodium Chloride 0.45%) 1,000 ml @ 40 mls/hr Q24H IV Last administered on 08/14/16 00:01; Start 08/13/16 at 10:45 Prednisone (Prednisone) 40 mg DAILY PO ; Start 08/15/16 at 09:00; Status UNV Active Scripts Active Lasix (Furosemide) 20 Mg Tablet 20 Mg PO DAILY Flomax (Tamsulosin Hcl) 0.4 Mg Cap.er.24h 0.4 Mg PO QHS Nystop (Nystatin) 60 Gm Powder 1 Ana TP BID Levaquin (Levofloxacin) 750 Mg Tablet 750 Mg PO DAILY06 Anti-Itch (Hydrocortisone Acetate) 28 Gm Oint...g. 1 Ana TP DAILY Albuterol Sulfate Neb Soln (Albuterol Sulfate) 2.5 Mg/3 Ml Vial.neb 2.5 Mg NEB RTQID Tylenol (Acetaminophen) 325 Mg Tablet 650 Mg PO PRN Q4HRS PRN Protonix (Pantoprazole Sodium) 40 Mg Tablet 40 Mg PO DAILYAC Vitals/I & O Vital Sign - Last 24 Hours 08/13/16 08/13/16 08/13/16 08/13/16 15:00 15:02 19:00 19:15 Temp 97.4 98.4 97.4 98.4 Pulse 78 75 Resp 18 B/P 133/74 126/69 Pulse Ox 94 96 94 O2 Delivery Nasal Cannula Nasal Cannula Nasal Cannula Nasal Cannula O2 Flow Rate 2.0 3.0 2.0 2.0 08/13/16 08/13/16 08/14/16 08/14/16 19:47 23:00 03:00 07:00 Temp 97.5 97.9 97.5 97.5 97.9 97.5 Pulse 77 91 83 Resp 18 18 20 B/P 169/95 142/77 155/84 Pulse Ox 95 97 91 94 O2 Delivery Nasal Cannula Nasal Cannula Nasal Cannula O2 Flow Rate 2.0 2.0 2.0 2.0 08/14/16 08/14/16 08/14/16 08:00 08:48 10:56 Temp 97.9 97.9 Pulse 92 Resp 20 B/P 136/102 Pulse Ox 96 92 O2 Delivery Nasal Cannula Nasal Cannula Nasal Cannula O2 Flow Rate 5.0 3.0 2.0 Intake and Output 08/13/16 08/13/16 08/14/16 15:00 23:00 07:00 Intake Total 240 ml 120 ml 1120 ml Output Total 750 ml 500 ml Balance 240 ml -630 ml 620 ml KATI BILLINGSLEY MD Aug 14, 2016 12:55
[2016-08-14 15:00] VITALS: BP 142/70
[2016-08-14] MEDS: ENOXAPARIN 40 MG/0.4 ML DISP.SYRIN. SQ SCH (15:22)
[2016-08-14] MEDS ORDERED: MAG HYDROX/AL HYDROX/SIMETH 30 ML ORAL.SUSP PO PRN (18:30)
[2016-08-14 19:00] VITALS: BP 141/94
--- NOTE | 2016-08-14 19:35 | RAD ---
Complete abdomen with PA chest. Indication:MID ABDOMINAL PAIN Reason: stomach pain / Spl. Instructions: / History: FINDINGS There are bilateral pleural effusions. There is also elevation of the left hemidiaphragm versus eye diaphragmatic hernia. No subdiaphragmatic free air to suggest pneumoperitoneum. There is significant degradation of detail due to motion artifact over the abdomen and limited penetration of the X ray beam due to large body habitus but no obvious signs of small bowel obstruction. Impression: - No obvious signs of small bowel obstruction or pneumoperitoneum. - Left diaphragmatic hernia versus elevated diaphragm. - Bilateral pleural effusions larger on the right Electronically signed by: Dylan Contreras (Aug 14, 2016 19:34:07)
[2016-08-14] MEDS: GUAIFENESIN DM 200MG/20MG 10 ML SYRUP. PO PRN (21:54)
[2016-08-14] MEDS: FAMOTIDINE 20 MG TABLET. PO SCH (21:54)
[2016-08-14 23:00] VITALS: BP 142/77
[2016-08-15 03:00] VITALS: BP 137/78
[2016-08-15] MEDS: LEVOFLOXACIN 500 MG TABLET PO SCH (05:00)
[2016-08-15 07:15] VITALS: BP 134/84
[2016-08-15] MEDS: IPRATRPIUM/ALBUTEROL 0.5/2.5MG 3 ML NEBU. NEB SCH ×4 (07:39→20:01)
[2016-08-15 07:53] LABS: CALCIUM 8.2 mg/dL (8.5-10.1); CREATININE 1.6 mg/dL (0.7-1.3); GFR 45.1; POTASSIUM 3.4 mmol/L (3.5-5.1)
[2016-08-15] MEDS ORDERED: POTASSIUM CHLORIDE 20 MEQ/15 ML ORAL LIQUID. PO ONE (08:45)
[2016-08-15] MEDS: PANTOPRAZOLE 40 MG TABLET. PO SCH (08:48)
--- NOTE | 2016-08-15 08:48 | PDOC ---
PROGRESS NOTES Subjective Subjective feels better. bun 29 and creatinine 1.6. sodium 146 and potassium 3.4. oxygen sats okay on oxygen 3LNC. discussed with mother. Objective Objective Vital Signs Date Time Temp Pulse Resp B/P Pulse Ox O2 Delivery O2 Flow Rate FiO2 08/15/16 07:39 96 Nasal Cannula 3.0 08/15/16 07:15 97.9 80 18 134/84 97.9 Intake and Output 08/15/16 07:00 Intake Total 940 ml Output Total 700 ml Balance 240 ml Intake Oral 940 ml Output Urine Total 700 ml # Voids 3 # Bowel Movements 1 Physical Exam Abdomen: Soft, Other (obese) Heart: Regular rate, Normal S1, Normal S2 Extremities: No edema General: Alert HEENT: Atraumatic Lungs: Other (decreased breath sounds bilaterally) Neuro: Normal speech Psych/Mental Status: Mood NL Skin: No rashes Assessment Assessment Problems Medical Problems:1. Acute on chronic hypoxic and hypercapnic respiratory failure. 2. Pneumonia suspected gram-positive, gram-negative organisms improved 3. Mental retardation. 4. Morbid obesity. 5. Obesity hypoventilation syndrome. 6. 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 Gastroesophageal reflux disease. 8. Chronic large ventral abdominal hernia. hypernatremia mild bronchospasm resolved acute kidney injury . possibly from decreased oral fluids and low intravascular volume. check for bladder emptying and hydronephrosis hypokalemia (1) Acute respiratory failure with hypoxia and hypercapnia Status: Acute (2) Pneumonia Status: Acute Plan Plan of Care hypotonic iv fluids replete kcl post void bladder scan every 6 hours. sc if 240cc or higher renal sonogram consult dr. marrero continue prednisone taper and oxygen and nebulizer rx Comment Review of Relevant I have reviewed the following items lexus (where applicable) has been applied. Labs Laboratory Tests Test 08/13/16 08:55 08/14/16 05:40 08/14/16 11:30 08/15/16 07:25 Stool Occult Blood Negative (NEG) Negative (NEG) White Blood Count 6.4x10^3/uL (4.0-11.0) Red Blood Count 3.50x10^6/uL (4.30-5.70) Hemoglobin 10.1g/dL (13.0-17.5) Hematocrit 30.4% (39.0-53.0) Mean Corpuscular Volume 87fL (79-100) Mean Corpuscular Hemoglobin 29pg (25-35) Mean Corpuscular Hemoglobin Concent 33g/dL (31-37) Red Cell Distribution Width 17.1% (11.5-14.5) Platelet Count 109x10^3/uL (140-400) Neutrophils (%) (Auto) 87% (31-73) Lymphocytes (%) (Auto) 8% (24-48) Monocytes (%) (Auto) 4% (0-9) Eosinophils (%) (Auto) 0% (0-3) Basophils (%) (Auto) 0% (0-3) Neutrophils # (Auto) 5.6x10^3uL (1.8-7.7) Lymphocytes # (Auto) 0.5x10^3/uL (1.0-4.8) Monocytes # (Auto) 0.3x10^3/uL (0.0-1.1) Eosinophils # (Auto) 0.0x10^3/uL (0.0-0.7) Basophils # (Auto) 0.0x10^3/uL (0.0-0.2) Segmented Neutrophils % 89% (35-66) Lymphocytes % 9% (24-48) Monocytes % 2% (0-10) Platelet Estimate Decreased (ADEQUATE) Poikilocytosis Present Anisocytosis Present Sodium Level 143mmol/L (136-145) 146mmol/L (136-145) Potassium Level 4.0mmol/L (3.5-5.1) 3.4mmol/L (3.5-5.1) Chloride Level 107mmol/L (98-107) 109mmol/L (98-107) Carbon Dioxide Level 29mmol/L (21-32) 33mmol/L (21-32) Anion Gap 7 (6-14) 4 (6-14) Blood Urea Nitrogen 27mg/dL (8-26) 29mg/dL (8-26) Creatinine 1.3mg/dL (0.7-1.3) 1.6mg/dL (0.7-1.3) Estimated GFR (Cockcroft-Gault) 57.3 45.1 Glucose Level 128mg/dL (70-99) 90mg/dL (70-99) Calcium Level 8.2mg/dL (8.5-10.1) 8.2mg/dL (8.5-10.1) Laboratory Tests Test 08/14/16 11:30 08/15/16 07:25 Stool Occult Blood Negative (NEG) Sodium Level 146mmol/L (136-145) Potassium Level 3.4mmol/L (3.5-5.1) Chloride Level 109mmol/L (98-107) Carbon Dioxide Level 33mmol/L (21-32) Anion Gap 4 (6-14) Blood Urea Nitrogen 29mg/dL (8-26) Creatinine 1.6mg/dL (0.7-1.3) Estimated GFR (Cockcroft-Gault) 45.1 Glucose Level 90mg/dL (70-99) Calcium Level 8.2mg/dL (8.5-10.1) Microbiology 08/08/16 Blood Culture - Final, Complete NO GROWTH AFTER 5 DAYS Medications Current Medications Albuterol/ Ipratropium (Duoneb) 3 ml RTQID NEB Last administered on 08/15/16 07:39; Start 08/08/16 at 13:00 Albuterol Sulfate 2.5 mg 2.5 mg PRN Q4HRS PRN NEB SHORTNESS OF BREATH Last administered on 08/14/16 22:09; Start 08/08/16 at 13:30 Levofloxacin/ Dextrose (LEVAQUIN 500mg PREMIX) 100 ml @ 100 mls/hr Q24H IV Last administered on 08/11/16 14:28; Start 08/08/16 at 15:00; Stop 08/12/16 at 13: 08; Status DC Enoxaparin Sodium (Lovenox 40mg Syringe) 40 mg Q24H SQ Last administered on 08/14 15:22; Start 08/08/16 at 15:00 Furosemide (Lasix) 40 mg DAILY PO ; Start 08/08/16 at 15:00; Stop 08/09/16 at 11: 19; Status DC Magnesium Hydroxide (Milk Of Magnesia) 2,400 mg PRN DAILY PRN PO CONSTIPATION Last administered on 08/11/16 13:51; Start 08/08/16 at 14:30 Pantoprazole Sodium (Protonix) 40 mg DAILYAC PO Last administered on 08/14/16 08:24; Start 08/08/16 at 16:30 Acetaminophen (Tylenol) 650 mg PRN Q6HRS PRN PO MILD PAIN / TEMP Last administered on 08/14/16 21:54; Start 08/08/16 at 14:30 Guaifenesin (Robitussin Dm) 10 ml PRN Q6HRS PRN PO COUGH Last administered on 21:54; Start 08/08/16 at 14:30 Vancomycin HCl 1 each 1 each PRN DAILY PRN MC SEE COMMENTS Last administered on 08/11/16 18:33; Start 08/08/16 at 14:30; Stop 08/12/16 at 13:08; Status DC Vancomycin HCl/ Sodium Chloride (Iv Sodium Chloride 0.9% 500ml Bag) 500 ml @ 250 mls/hr 1X ONCE IV Last administered on 08/08/16 16:30; Start 08/08/16 at 16 :30; Stop 08/08/16 at 18:29; Status DC Lorazepam 1 mg 1 mg 1X ONCE PO Last administered on 08/08/16 16:53; Start 08/08 at 16:45; Stop 08/08/16 at 16:47; Status DC Vancomycin HCl/ Sodium Chloride (Iv Sodium Chloride 0.9% 500ml Bag) 500 ml @ 250 mls/hr Q12H IV Last administered on 08/11/16 05:12; Start 08/09/16 at 06:00 ; Stop 08/11/16 at 18:07; Status DC Vancomycin HCl 1 each 1X ONCE MC Last administered on 08/09/16 17:30; Start at 17:30; Stop 08/09/16 at 17:31; Status DC Lorazepam (Ativan) 1 mg 1X ONCE PO ; Start 08/09/16 at 16:30; Stop 08/09/16 at 16 :36; Status DC Methylprednisolone Sodium Succinate 40 mg 40 mg Q8HRS IV Last administered on 06:00; Start 08/10/16 at 14:00; Stop 08/13/16 at 10:45; Status DC Dextrose 1,000 ml @ 40 mls/hr Q24H IV Last administered on 08/11/16 09:15; Start 08/11/16 at 09:15; Stop 08/12/16 at 08:26; Status DC Cyanocobalamin (Vitamin B-12) 1,000 mcg ONCE ONCE IM Last administered on 09:14; Start 08/11/16 at 09:15; Stop 08/11/16 at 09:16; Status DC Cyanocobalamin (Vitamin B-12) 1,000 mcg DAILY PO Last administered on 08/14/16 08:24; Start 08/12/16 at 09:00 Vancomycin HCl 1 each 1 each 1X ONCE MC ; Start 08/11/16 at 17:30; Stop 08/11/16 at 17:31; Status DC Vancomycin HCl/ Sodium Chloride (Iv Sodium Chloride 0.9% 250ml) 250 ml @ 250 mls/hr Q12H IV Last administered on 08/12/16 07:53; Start 08/12/16 at 06:00; Stop 08/12/16 at 13:08; Status DC Vancomycin HCl 1 each 1X ONCE MC ; Start 08/13/16 at 17:30; Stop 08/13/16 at 17: 30; Status DC Simethicone (Gas-X) 40 mg Q4HRS PRN PO GAS / BLOATING; Start 08/11/16 at 20:45; Stop 08/11/16 at 21:46; Status DC Famotidine (Pepcid) 20 mg QHS PO Last administered on 08/14/16 21:54; Start 08/11/16 at 21:00 Simethicone 80 mg 80 mg PRN Q4HRS PRN PO GAS / BLOATING Last administered on 23:57; Start 08/11/16 at 21:45 Potassium Chloride/Dextrose/ Sod Cl (KCl 20 Meq In D5W-1/2 NS) 1,000 ml @ 60 mls/hr [id number] IV Last administered on 08/13/16 02:10; Start 08/12/16 at 08:30; Stop 08/13/16 at 10:45; Status DC Levofloxacin (Levaquin) 500 mg DAILY06 PO Last administered on 08/15/16 05:00 ; Start 08/12/16 at 15:00 Methylprednisolone Sodium Succinate 40 mg 40 mg Q12HR IV Last administered on 08:25; Start 08/13/16 at 21:00; Stop 08/14/16 at 12:49; Status DC Sodium Chloride (Iv Sodium Chloride 0.45%) 1,000 ml @ 40 mls/hr Q24H IV Last administered on 08/14/16 15:23; Start 08/13/16 at 10:45 Prednisone (Prednisone) 40 mg DAILY PO ; Start 08/15/16 at 09:00 Al Hydroxide/Mg Hydroxide (Mylanta Plus Xs) 30 ml PRN Q3HRS PRN PO HEARTBURN / GAS Last administered on 08/14/16 19:16; Start 08/14/16 at 18:30 Active Scripts Active Lasix (Furosemide) 20 Mg Tablet 20 Mg PO DAILY Flomax (Tamsulosin Hcl) 0.4 Mg Cap.er.24h 0.4 Mg PO QHS Nystop (Nystatin) 60 Gm Powder 1 Ana TP BID Levaquin (Levofloxacin) 750 Mg Tablet 750 Mg PO DAILY06 Anti-Itch (Hydrocortisone Acetate) 28 Gm Oint...g. 1 Ana TP DAILY Albuterol Sulfate Neb Soln (Albuterol Sulfate) 2.5 Mg/3 Ml Vial.neb 2.5 Mg NEB RTQID Tylenol (Acetaminophen) 325 Mg Tablet 650 Mg PO PRN Q4HRS PRN Protonix (Pantoprazole Sodium) 40 Mg Tablet 40 Mg PO DAILYAC Vitals/I & O Vital Sign - Last 24 Hours 08/14/16 08/14/16 08/14/16 08/14/16 08:48 10:56 12:50 15:00 Temp 97.9 97.7 97.9 97.7 Pulse 92 92 Resp 20 20 B/P 136/102 142/70 Pulse Ox 96 92 97 O2 Delivery Nasal Cannula Nasal Cannula Nasal Cannula Room Air O2 Flow Rate 3.0 2.0 3.0 2.0 08/14/16 08/14/16 08/14/16 08/14/16 15:38 19:00 20:00 20:26 Temp 97.5 97.5 Pulse 96 Resp 20 B/P 141/94 Pulse Ox 88 O2 Delivery Nasal Cannula Room Air Nasal Cannula Nasal Cannula O2 Flow Rate 3.0 3.0 3.0 3.0 08/14/16 08/14/16 08/14/16 08/15/16 22:09 22:18 23:00 00:10 Temp 97.9 97.9 Pulse 77 Resp 20 B/P 142/77 Pulse Ox 96 91 98 O2 Delivery Nasal Cannula BiPAP/CPAP BiPAP/CPAP BiPAP/CPAP O2 Flow Rate 3.0 08/15/16 08/15/16 08/15/16 08/15/16 01:40 03:00 03:36 07:15 Temp 97.6 97.9 97.6 97.9 Pulse 67 80 Resp 20 18 B/P 137/78 134/84 Pulse Ox 93 92 96 O2 Delivery BiPAP/CPAP BiPAP/CPAP BiPAP/CPAP BiPAP/CPAP 08/15/16 07:39 Pulse Ox 96 O2 Delivery Nasal Cannula O2 Flow Rate 3.0 Intake and Output 08/14/16 08/14/16 08/15/16 15:00 23:00 07:00 Intake Total 240 ml 300 ml 400 ml Output Total 300 ml 400 ml Balance -60 ml 300 ml 0 ml KATI BILLINGSLEY MD Aug 15, 2016 08:48
--- NOTE | 2016-08-15 09:09 | PDOC ---
Provider Note Provider Note DATE OF service: 08/15/2016 8.55 am c/c: f/u of Leukopenia, Anemia and thrombocytopenia. HISTORY OF PRESENT ILLNESS: The patient is a 56-year-old gentleman, who has mental retardation and is cared for by his mother. He has chronic hypoxia and hypercapnic respiratory failure, maintained on oxygen. Chest x-ray showed a possible infiltrate in the right lower lobe. The patient has already been seen by Dr. Montesinos in consultation who suspects a clinical pneumonia. The patient is currently receiving IV vancomycin and Levaquin. The patient was started on a Ventimask. He is admitted on 08/08/16 for further evaluation and treatment of his pneumonia and hypoxia. He was noted to have pancytopenia and hence I was consulted. On 08/08/16 his white count 3.8, hemoglobin 10.7, MCV of 90 with a platelet count of 117,000, 75 polys and 17 lymphocytes. I reviewed old erecords: He was noted to have anemia with a hemoglobin of 8.4 and a platelet count of 72,000 on 06/15/2015 with a normal WBC of 4.8. He had a CT angiogram of the chest on 06/10/2015 that revealed no evidence of pulmonary embolism. There is evidence of right pleural effusion, mild. Ultrasound of the abdomen on 06/10/2015 revealed hepatomegaly with steatosis and splenomegaly measuring 17.3 cm in length and cholelithiasis. PAST MEDICAL HISTORY: Mental retardation, anxiety, gastroesophageal reflux disease, chronic hypoxic and hypercapnic respiratory failure, obesity hypoventilation syndrome, obstructive sleep apnea, history of foot surgery, cataract surgery, and tracheostomy decannulated in 2013. REVIEW OF SYSTEMS: has dyspnea, O2 sat was low when he was asleep per mother PHYSICAL EXAMINATION: GENERAL APPEARANCE: The patient is a 55-year-old gentleman, who is well developed, well nourished, and in no acute cardiorespiratory distress. CHEST: Bilaterally symmetrical. No crepitations or rhonchi heard. HEART: S1 and S2 normal. ABDOMEN: Soft and distended. No hepatosplenomegaly on palpation, but it is difficult to palpate because of obese abdomen. CENTRAL NERVOUS SYSTEM: No focal neurological deficits. LABORATORY AND DIAGNOSTIC DATA: On 08/08/16 his white count 3.8, hemoglobin 10.7 , MCV of 90 with a platelet count of 117,000, 75 polys and 17 lymphocytes. WBC 2.7 on 08/10/16. IMPRESSION AND PLAN: 1. Normochromic normocytic anemia. Iron studies suggest anemia of chronic disease B12 low-normal at 332 on 08/10/16. I suspect that the etiology is likely due to anemia of chronic disease. He has multiple comorbidities. In addition, he has evidence of splenomegaly. Hb better at 10.1 2. Thrombocytopenia secondary to splenomegaly, which is most likely due to hepatic steatosis. Other differential diagnosis would be lymphoproliferative disorder causing splenomegaly. I d/w his mother Charline. Considering his poor functional status and upon detailed discussion with the patient's mother, it was decided not to pursue with a bone marrow biopsy as she prefers conservative management and no chemotherapy even if he is found to have a malignancy. Continued observation is planned. I will continue to monitor CBC p.r.n. Plt stable at 109 3. Splenomegaly, secondary to hepatic steatosis. 4. Leukopenia, reactive due to pneumonia and also due to splenomegaly. Better at 6.4. 5. Hypoxic and hypercapnic respiratory failure, chronic. Continue management per Dr. Levy and Dr. Ruiz. 6. B12 low-normal at 332 on 08/10/16. Started B12 supplements. One dose IM on and then PO 1000 mcg daily from 08/12/2016. 7. Pancytopenia as above. I d/w pt's mother, advised to continue B12 PO. Please call if needed. MINO HATHAWAY MD Aug 15, 2016 09:09
[2016-08-15] MEDS: PREDNISONE 20 MG TABLET PO SCH (09:35)
[2016-08-15] MEDS: CYANOCOBALAMIN (VITAMIN B-12) 1,000 MCG TABLET. PO SCH (09:35)
[2016-08-15] MEDS: IV DEXTROSE 5% 1,000 ML IV SCH ×2 (10:35→22:05)
[2016-08-15 11:22] VITALS: BP 136/76
--- NOTE | 2016-08-15 11:34 | PDOC2 ---
CONSULT Date of Consult Date of Consult DATE: 08/15/16 TIME: 11:32 Reason for Consult Reason for Consult: Raphael Referring Physician Referring Physician: Dr Levy Identification/Chief Complaint Chief Complaint none from pt Problems: Source Source: Caregiver, Chart review, Patient History of Present Illness Reason for Visit: as dictated Past Medical History Cardiovascular: HTN Pulmonary: Pneumonia CENTRAL NERVOUS SYSTEM: Other GI: GERD, Other Past Surgical History Past Surgical History: Hysterectomy, Other Family History Family History SOCIAL HISTORY: He does not drink alcohol nor does he smoke cigarettes. He lives with his mother who cares for him. FAMILY HISTORY: Father and had diabetes mellitus. He also had myasthenia gravis. Paternal grandmother had breast cancer. Family History: Family History Unknown Current Problem List Problem List Problems Medical Problems: (1) Acute respiratory failure with hypoxia and hypercapnia Status: Acute (2) Pneumonia Status: Acute Current Medications Current Medications Current Medications Albuterol/ Ipratropium (Duoneb) 3 ml RTQID NEB Last administered on 08/15/16 11:22; Start 08/08/16 at 13:00 Albuterol Sulfate 2.5 mg 2.5 mg PRN Q4HRS PRN NEB SHORTNESS OF BREATH Last administered on 08/14/16 22:09; Start 08/08/16 at 13:30 Levofloxacin/ Dextrose (LEVAQUIN 500mg PREMIX) 100 ml @ 100 mls/hr Q24H IV Last administered on 08/11/16 14:28; Start 08/08/16 at 15:00; Stop 08/12/16 at 13: 08; Status DC Enoxaparin Sodium (Lovenox 40mg Syringe) 40 mg Q24H SQ Last administered on 08/14 15:22; Start 08/08/16 at 15:00 Furosemide (Lasix) 40 mg DAILY PO ; Start 08/08/16 at 15:00; Stop 08/09/16 at 11: 19; Status DC Magnesium Hydroxide (Milk Of Magnesia) 2,400 mg PRN DAILY PRN PO CONSTIPATION Last administered on 08/11/16 13:51; Start 08/08/16 at 14:30 Pantoprazole Sodium (Protonix) 40 mg DAILYAC PO Last administered on 08/15/16 08:48; Start 08/08/16 at 16:30 Acetaminophen (Tylenol) 650 mg PRN Q6HRS PRN PO MILD PAIN / TEMP Last administered on 08/14/16 21:54; Start 08/08/16 at 14:30 Guaifenesin (Robitussin Dm) 10 ml PRN Q6HRS PRN PO COUGH Last administered on 21:54; Start 08/08/16 at 14:30 Vancomycin HCl 1 each 1 each PRN DAILY PRN MC SEE COMMENTS Last administered on 08/11/16 18:33; Start 08/08/16 at 14:30; Stop 08/12/16 at 13:08; Status DC Vancomycin HCl/ Sodium Chloride (Iv Sodium Chloride 0.9% 500ml Bag) 500 ml @ 250 mls/hr 1X ONCE IV Last administered on 08/08/16 16:30; Start 08/08/16 at 16 :30; Stop 08/08/16 at 18:29; Status DC Lorazepam 1 mg 1 mg 1X ONCE PO Last administered on 08/08/16 16:53; Start 08/08 at 16:45; Stop 08/08/16 at 16:47; Status DC Vancomycin HCl/ Sodium Chloride (Iv Sodium Chloride 0.9% 500ml Bag) 500 ml @ 250 mls/hr Q12H IV Last administered on 08/11/16 05:12; Start 08/09/16 at 06:00 ; Stop 08/11/16 at 18:07; Status DC Vancomycin HCl 1 each 1X ONCE MC Last administered on 08/09/16 17:30; Start at 17:30; Stop 08/09/16 at 17:31; Status DC Lorazepam (Ativan) 1 mg 1X ONCE PO ; Start 08/09/16 at 16:30; Stop 08/09/16 at 16 :36; Status DC Methylprednisolone Sodium Succinate 40 mg 40 mg Q8HRS IV Last administered on 06:00; Start 08/10/16 at 14:00; Stop 08/13/16 at 10:45; Status DC Dextrose 1,000 ml @ 40 mls/hr Q24H IV Last administered on 08/11/16 09:15; Start 08/11/16 at 09:15; Stop 08/12/16 at 08:26; Status DC Cyanocobalamin (Vitamin B-12) 1,000 mcg ONCE ONCE IM Last administered on 09:14; Start 08/11/16 at 09:15; Stop 08/11/16 at 09:16; Status DC Cyanocobalamin (Vitamin B-12) 1,000 mcg DAILY PO Last administered on 09:35; Start 08/12/16 at 09:00 Vancomycin HCl 1 each 1 each 1X ONCE MC ; Start 08/11/16 at 17:30; Stop 08/11/16 at 17:31; Status DC Vancomycin HCl/ Sodium Chloride (Iv Sodium Chloride 0.9% 250ml) 250 ml @ 250 mls/hr Q12H IV Last administered on 08/12/16 07:53; Start 08/12/16 at 06:00; Stop 08/12/16 at 13:08; Status DC Vancomycin HCl 1 each 1X ONCE MC ; Start 08/13/16 at 17:30; Stop 08/13/16 at 17: 30; Status DC Simethicone (Gas-X) 40 mg Q4HRS PRN PO GAS / BLOATING; Start 08/11/16 at 20:45; Stop 08/11/16 at 21:46; Status DC Famotidine (Pepcid) 20 mg QHS PO Last administered on 08/14/16 21:54; Start 08/11/16 at 21:00 Simethicone 80 mg 80 mg PRN Q4HRS PRN PO GAS / BLOATING Last administered on 23:57; Start 08/11/16 at 21:45 Potassium Chloride/Dextrose/ Sod Cl (KCl 20 Meq In D5W-1/2 NS) 1,000 ml @ 60 mls/hr [id number] IV Last administered on 08/13/16 02:10; Start 08/12/16 at 08:30; Stop 08/13/16 at 10:45; Status DC Levofloxacin (Levaquin) 500 mg DAILY06 PO Last administered on 08/15/16 05:00 ; Start 08/12/16 at 15:00 Methylprednisolone Sodium Succinate 40 mg 40 mg Q12HR IV Last administered on 08:25; Start 08/13/16 at 21:00; Stop 08/14/16 at 12:49; Status DC Sodium Chloride (Iv Sodium Chloride 0.45%) 1,000 ml @ 40 mls/hr Q24H IV Last administered on 08/14/16 15:23; Start 08/13/16 at 10:45; Stop 08/15/16 at 08:44; Status DC Prednisone (Prednisone) 40 mg DAILY PO Last administered on 08/15/16 09:35; Start 08/15/16 at 09:00 Al Hydroxide/Mg Hydroxide (Mylanta Plus Xs) 30 ml PRN Q3HRS PRN PO HEARTBURN / GAS Last administered on 08/14/16 19:16; Start 08/14/16 at 18:30 Potassium Chloride 20 meq 20 meq 1X ONCE PO Last administered on 08/15/16 09: 35; Start 08/15/16 at 08:45; Stop 08/15/16 at 08:47; Status DC Dextrose 1,000 ml @ 75 mls/hr [id number] IV Last administered on 08/15/16 10:35 ; Start 08/15/16 at 08:45 Active Scripts Active Lasix (Furosemide) 20 Mg Tablet 20 Mg PO DAILY Flomax (Tamsulosin Hcl) 0.4 Mg Cap.er.24h 0.4 Mg PO QHS Nystop (Nystatin) 60 Gm Powder 1 Ana TP BID Levaquin (Levofloxacin) 750 Mg Tablet 750 Mg PO DAILY06 Anti-Itch (Hydrocortisone Acetate) 28 Gm Oint...g. 1 Ana TP DAILY Albuterol Sulfate Neb Soln (Albuterol Sulfate) 2.5 Mg/3 Ml Vial.neb 2.5 Mg NEB RTQID Tylenol (Acetaminophen) 325 Mg Tablet 650 Mg PO PRN Q4HRS PRN Protonix (Pantoprazole Sodium) 40 Mg Tablet 40 Mg PO DAILYAC Allergies Allergies: Coded Allergies: Penicillins (Verified Allergy, Intermediate, rash, 09/27/13) cefpodoxime proxetil (Verified Allergy, Intermediate, Rash, 04/21/14) I S O L A T I O N *CONTACT* (Verified Allergy, Unknown, 07/07/14) mrsa + ROS Review of System Unable to obtain from Pt due to undelrying MR. D/w Mom PO intak has been OK but Fluids - scant. Denies NVD etc. she is not aware of other s/s Physical Exam Physical Exam General Appearance: Awake Alert Oriented x ? (MR) In no resp Distress Eyes: VIsion Unchanged Conjunctiva Normal EN: No EN Drainage Mucous Memb. moist Neck: no JVD no JVP Supple no Thyromegaly - webbed neck CVS: S1 S2 no Murmur No Gallop No Rub no Edema Resp: no Rales no Rhonchi no Acc. Muscle use GI: BAS +ve NO Bruit Non Tender Non Distended - obese : no CVA tenderness; no Suprapubic Tenderness SKIN: no petechial Rashes Breast Exam deferred Mu.Sk: Adequate ROM no Muscle Atrophy Heme: Unable to palpate Obvious LAD ? Splenomegaly NEURO: Good Strength and Tone Cranial Nerves II - XII appear grossly intact Psych: ? Depressed no Active hallucination (pt has MR) Vital Signs Vital Signs Date Time Temp Pulse Resp B/P Pulse Ox O2 Delivery O2 Flow Rate FiO2 08/15/16 11:22 94 Nasal Cannula 2.0 08/15/16 11:22 98.3 76 20 136/76 98.3 Assessment & Plan RAPHAEL - Studies as ordered. Current FLuid and E-lyte status does not necessitate emergent need for Dialysis. UO or wts are NA. Not sure that he will leave a sanchez in. ^Na - IVF - D5 for now Low K - ? due to lasix - D/c Lasix for now - check Mag in am Pl. Eff - D/w Dr Ruiz - Oxygentaion is OK - 2L IVf for now HTN: Current BP meds reviewed. See orders for changes. Discussed Plan of Care and prognosis etc. at length with family (mom) Labs Labs Laboratory Tests Test 08/14/16 05:40 08/14/16 11:30 08/15/16 07:25 White Blood Count 6.4x10^3/uL (4.0-11.0) Red Blood Count 3.50x10^6/uL (4.30-5.70) Hemoglobin 10.1g/dL (13.0-17.5) Hematocrit 30.4% (39.0-53.0) Mean Corpuscular Volume 87fL (79-100) Mean Corpuscular Hemoglobin 29pg (25-35) Mean Corpuscular Hemoglobin Concent 33g/dL (31-37) Red Cell Distribution Width 17.1% (11.5-14.5) Platelet Count 109x10^3/uL (140-400) Neutrophils (%) (Auto) 87% (31-73) Lymphocytes (%) (Auto) 8% (24-48) Monocytes (%) (Auto) 4% (0-9) Eosinophils (%) (Auto) 0% (0-3) Basophils (%) (Auto) 0% (0-3) Neutrophils # (Auto) 5.6x10^3uL (1.8-7.7) Lymphocytes # (Auto) 0.5x10^3/uL (1.0-4.8) Monocytes # (Auto) 0.3x10^3/uL (0.0-1.1) Eosinophils # (Auto) 0.0x10^3/uL (0.0-0.7) Basophils # (Auto) 0.0x10^3/uL (0.0-0.2) Segmented Neutrophils % 89% (35-66) Lymphocytes % 9% (24-48) Monocytes % 2% (0-10) Platelet Estimate Decreased (ADEQUATE) Poikilocytosis Present Anisocytosis Present Sodium Level 143mmol/L (136-145) 146mmol/L (136-145) Potassium Level 4.0mmol/L (3.5-5.1) 3.4mmol/L (3.5-5.1) Chloride Level 107mmol/L (98-107) 109mmol/L (98-107) Carbon Dioxide Level 29mmol/L (21-32) 33mmol/L (21-32) Anion Gap 7 (6-14) 4 (6-14) Blood Urea Nitrogen 27mg/dL (8-26) 29mg/dL (8-26) Creatinine 1.3mg/dL (0.7-1.3) 1.6mg/dL (0.7-1.3) Estimated GFR (Cockcroft-Gault) 57.3 45.1 Glucose Level 128mg/dL (70-99) 90mg/dL (70-99) Calcium Level 8.2mg/dL (8.5-10.1) 8.2mg/dL (8.5-10.1) Stool Occult Blood Negative (NEG) Laboratory Tests Test 08/15/16 07:25 Sodium Level 146mmol/L (136-145) Potassium Level 3.4mmol/L (3.5-5.1) Chloride Level 109mmol/L (98-107) Carbon Dioxide Level 33mmol/L (21-32) Anion Gap 4 (6-14) Blood Urea Nitrogen 29mg/dL (8-26) Creatinine 1.6mg/dL (0.7-1.3) Estimated GFR (Cockcroft-Gault) 45.1 Glucose Level 90mg/dL (70-99) Calcium Level 8.2mg/dL (8.5-10.1) Images Images Complete abdomen with PA chest. Indication:MID ABDOMINAL PAIN Reason: stomach pain / Spl. Instructions: / History: FINDINGS There are bilateral pleural effusions. There is also elevation of the left hemidiaphragm versus eye diaphragmatic hernia. No subdiaphragmatic free air to suggest pneumoperitoneum. There is significant degradation of detail due to motion artifact over the abdomen and limited penetration of the X ray beam due to large body habitus but no obvious signs of small bowel obstruction. Impression: - No obvious signs of small bowel obstruction or pneumoperitoneum. - Left diaphragmatic hernia versus elevated diaphragm. - Bilateral pleural effusions larger on the right THU JOSEPH MD Aug 15, 2016 11:34
[2016-08-15] MEDS ORDERED: MAGNESIUM SULFATE 2GM 50 ML IV PRN (11:45)
[2016-08-15] MEDS: POTASSIUM CHLORIDE 40 MEQ in IV DEXTROSE 5% 1,000 ML IV SCH (12:30)
[2016-08-15 12:34] LABS: URIC ACID 5.7 mg/dL (3.5-7.2)
[2016-08-15] MEDS: ENOXAPARIN 40 MG/0.4 ML DISP.SYRIN. SQ SCH (14:49)
[2016-08-15 15:14] VITALS: BP 129/80
--- NOTE | 2016-08-15 15:28 | PDOC ---
PULMONARY PROGRESS NOTES Subjective Developed hypercapnic RF /, treated with BIPAP Continues to feel better Vitals Vital Signs Date Time Temp Pulse Resp B/P Pulse Ox O2 Delivery O2 Flow Rate FiO2 08/15/16 15:14 97.7 89 36 129/80 95 Nasal Cannula 1.0 97.7 General: Alert, No acute distress HEENT: Other Lungs: Other (decrease bs) Cardiovascular: S1, Other Abdomen: Soft, Non-tender, Other Neuro Exam: Alert Extremities: Other (mild edema) Skin: Warm Labs Laboratory Tests Test 08/14/16 05:40 08/14/16 11:30 08/15/16 07:25 White Blood Count 6.4x10^3/uL (4.0-11.0) Red Blood Count 3.50x10^6/uL (4.30-5.70) Hemoglobin 10.1g/dL (13.0-17.5) Hematocrit 30.4% (39.0-53.0) Mean Corpuscular Volume 87fL (79-100) Mean Corpuscular Hemoglobin 29pg (25-35) Mean Corpuscular Hemoglobin Concent 33g/dL (31-37) Red Cell Distribution Width 17.1% (11.5-14.5) Platelet Count 109x10^3/uL (140-400) Neutrophils (%) (Auto) 87% (31-73) Lymphocytes (%) (Auto) 8% (24-48) Monocytes (%) (Auto) 4% (0-9) Eosinophils (%) (Auto) 0% (0-3) Basophils (%) (Auto) 0% (0-3) Neutrophils # (Auto) 5.6x10^3uL (1.8-7.7) Lymphocytes # (Auto) 0.5x10^3/uL (1.0-4.8) Monocytes # (Auto) 0.3x10^3/uL (0.0-1.1) Eosinophils # (Auto) 0.0x10^3/uL (0.0-0.7) Basophils # (Auto) 0.0x10^3/uL (0.0-0.2) Segmented Neutrophils % 89% (35-66) Lymphocytes % 9% (24-48) Monocytes % 2% (0-10) Platelet Estimate Decreased (ADEQUATE) Poikilocytosis Present Anisocytosis Present Sodium Level 143mmol/L (136-145) 146mmol/L (136-145) Potassium Level 4.0mmol/L (3.5-5.1) 3.4mmol/L (3.5-5.1) Chloride Level 107mmol/L (98-107) 109mmol/L (98-107) Carbon Dioxide Level 29mmol/L (21-32) 33mmol/L (21-32) Anion Gap 7 (6-14) 4 (6-14) Blood Urea Nitrogen 27mg/dL (8-26) 29mg/dL (8-26) Creatinine 1.3mg/dL (0.7-1.3) 1.6mg/dL (0.7-1.3) Estimated GFR (Cockcroft-Gault) 57.3 45.1 Glucose Level 128mg/dL (70-99) 90mg/dL (70-99) Calcium Level 8.2mg/dL (8.5-10.1) 8.2mg/dL (8.5-10.1) Stool Occult Blood Negative (NEG) Uric Acid 5.7mg/dL (3.5-7.2) Creatine Kinase 35U/L (39-308) Laboratory Tests Test 08/15/16 07:25 Sodium Level 146mmol/L (136-145) Potassium Level 3.4mmol/L (3.5-5.1) Chloride Level 109mmol/L (98-107) Carbon Dioxide Level 33mmol/L (21-32) Anion Gap 4 (6-14) Blood Urea Nitrogen 29mg/dL (8-26) Creatinine 1.6mg/dL (0.7-1.3) Estimated GFR (Cockcroft-Gault) 45.1 Glucose Level 90mg/dL (70-99) Uric Acid 5.7mg/dL (3.5-7.2) Calcium Level 8.2mg/dL (8.5-10.1) Creatine Kinase 35U/L (39-308) Medications Active Scripts Medications Dose Route/Sig Days Date Category Lasix (Furosemide) 20 Mg Tablet 20 Mg PO DAILY 06/19/15 Rx Flomax (Tamsulosin Hcl) 0.4 Mg Cap.er.24h 0.4 Mg PO QHS 06/18/15 Rx Nystop (Nystatin) 60 Gm Powder 1 Ana TP BID 06/18/15 Rx Levaquin (Levofloxacin) 750 Mg Tablet 750 Mg PO DAILY06 06/18/15 Rx Anti-Itch (Hydrocortisone Acetate) 28 Gm Oint...g. 1 Ana TP DAILY 06/18/15 Rx Albuterol Sulfate Neb Soln (Albuterol Sulfate) 2.5 Mg/3 Ml Vial.neb 2.5 Mg NEB RTQID 06/18/15 Rx Tylenol (Acetaminophen) 325 Mg Tablet 650 Mg PO PRN Q4HRS PRN 10/20/14 Rx Protonix (Pantoprazole Sodium) 40 Mg Tablet 40 Mg PO DAILYAC 04/26/14 Rx Impression . 1. Ggzpr-bc-inemtle respiratory failure. Developed hypercapnic RF 08/11, treated with BIPAP much improved 2. Acute exacerbation of chronic obstructive pulmonary disease. 3. Clinical pneumonia. 4. Obstructive sleep apnea. 5. Morbid obesity. 6. Renal insufficiency 08/15 7. Small effusions 08/14, probably from low oncotic pressure, check albumin Plan . BIPAP qhs and prrn repeat ABG much improved f/u CXR as needed would benefit from IS, unable to perform maneuver steroids taper Nebs d/w mother, will consider home sleep study to qualify for home CPAP IV hydration, follow renal function repeat albumin level d/w JAIDEN Sparks MD Aug 15, 2016 15:28
--- NOTE | 2016-08-15 16:33 | RAD ---
Renal sonography Clinical indications: Acute renal failure. Findings: The patient was combative during the examination and refused to lay on his side. The left kidney cannot be visualized on this study as a result. This may be due to overlying bowel gas or absence of the left kidney or ectopic position of the left kidney. The longitudinal and AP and transverse dimensions of the right kidney are 11.1 cm and 5.5 cm and 6.6 cm respectively. No hydronephrosis or renal mass or perinephric fluid collection is seen on the right side. The urinary bladder is mildly distended. IMPRESSION: Left kidney is not visualized on this study. Normal right kidney.
[2016-08-15 19:00] VITALS: BP 135/81
[2016-08-15] MEDS: FAMOTIDINE 20 MG TABLET. PO SCH (21:43)
[2016-08-15] MEDS: ACETAMINOPHEN 325 MG TABLET. PO PRN (21:45)
[2016-08-15 22:32] LABS: BILIRUBIN,URINE NEGATIVE (NEG); GLUCOSE,URINE NEGATIVE (NEG); NITRITE,URINE NEGATIVE (NEG); PH,URINE 5.5; PROTEIN,URINE NEGATIVE (NEG-TRACE); UROBILINOGEN,URINE 0.2 mg/dL (0.2 mg/dL)
[2016-08-15 23:00] VITALS: BP 126/57
[2016-08-15 23:19] LABS: BACTERIA,URINE 0 /HPF (0-FEW); RBC,URINE 0 /HPF (0-2); SQUAMOUS EPITHELIAL CELL,UR FEW /LPF; WBC,URINE OCC /HPF (0-4)
[2016-08-16] MEDS: POTASSIUM CHLORIDE 40 MEQ in IV DEXTROSE 5% 1,000 ML IV SCH (01:05)
[2016-08-16 03:00] VITALS: BP 130/62
[2016-08-16] MEDS: ACETAMINOPHEN 325 MG TABLET. PO PRN (06:03)
[2016-08-16] MEDS: LEVOFLOXACIN 500 MG TABLET PO SCH (06:03)
[2016-08-16 07:00] VITALS: BP 175/93
[2016-08-16] MEDS: IPRATRPIUM/ALBUTEROL 0.5/2.5MG 3 ML NEBU. NEB SCH (07:23)
[2016-08-16 08:24] LABS: BASO % 0 % (0-3); EOS % 0 % (0-3); HEMATOCRIT 29.9 % (39.0-53.0); HEMOGLOBIN 9.5 g/dL (13.0-17.5); LYMPH # 0.8 x10^3/uL (1.0-4.8); LYMPH % 19 % (24-48); MEAN CORPUSCULAR HEMOGLOBIN 29 pg (25-35); MEAN CORPUSCULAR HGB CONC 32 g/dL (31-37); MEAN CORPUSCULAR VOLUME 90 fL (79-100); MONO % 10 % (0-9); NEUT % 71 % (31-73); PLATELET COUNT 89 x10^3/uL (140-400); RED BLOOD COUNT 3.33 x10^6/uL (4.30-5.70); RED CELL DISTRIBUTION WIDTH 17.2 % (11.5-14.5); WHITE BLOOD COUNT 4.3 x10^3/uL (4.0-11.0)
[2016-08-16 08:35] LABS: ALBUMIN 2.9 g/dL (3.4-5.0); CALCIUM 8.2 mg/dL (8.5-10.1); CREATININE 1.3 mg/dL (0.7-1.3); GFR 57.3; PHOSPHORUS 2.9 mg/dL (2.6-4.7); POTASSIUM 4.2 mmol/L (3.5-5.1)
--- NOTE | 2016-08-16 08:45 | PDOC ---
PULMONARY PROGRESS NOTES Subjective per mother less sob, cough, no pain, used bipap Vitals Vital Signs Date Time Temp Pulse Resp B/P Pulse Ox O2 Delivery O2 Flow Rate FiO2 08/16/16 07:25 97 Nasal Cannula 2.0 08/16/16 03:00 97.7 58 20 130/62 97.7 Comments ros as mentioned as above, discussed w mother, other sys otherwise neg General: Alert, No acute distress HEENT: Other Lungs: Wheezing, Other (decrease bs) Cardiovascular: S1, Other Abdomen: Soft, Non-tender, Other Neuro Exam: Alert Extremities: Other (mild edema) Skin: Warm Labs Laboratory Tests Test 08/14/16 11:30 08/15/16 07:25 08/15/16 22:15 08/16/16 07:40 Stool Occult Blood Negative (NEG) Sodium Level 146mmol/L (136-145) Potassium Level 3.4mmol/L (3.5-5.1) Chloride Level 109mmol/L (98-107) Carbon Dioxide Level 33mmol/L (21-32) Anion Gap 4 (6-14) Blood Urea Nitrogen 29mg/dL (8-26) Creatinine 1.6mg/dL (0.7-1.3) Estimated GFR (Cockcroft-Gault) 45.1 Glucose Level 90mg/dL (70-99) Uric Acid 5.7mg/dL (3.5-7.2) Calcium Level 8.2mg/dL (8.5-10.1) Creatine Kinase 35U/L (39-308) Albumin 2.9g/dL (3.4-5.0) Urine Collection Type Unknown Urine Color Yellow Urine Clarity Clear Urine pH 5.5 Urine Specific [place] 1.010 Urine Protein Negativemg/dL (NEG-TRACE) Urine Glucose (UA) Negativemg/dL (NEG) Urine Ketones (Stick) Negativemg/dL (NEG) Urine Blood Negative (NEG) Urine Nitrite Negative (NEG) Urine Bilirubin Negative (NEG) Urine Urobilinogen Dipstick 0.2mg/dL (0.2 mg/dL) Urine Leukocyte Esterase Trace (NEG) Urine RBC 0/HPF (0-2) Urine WBC Occ/HPF (0-4) Urine Squamous Epithelial Cells Few/LPF Urine Bacteria 0/HPF (0-FEW) Urine Mucus Slight/LPF White Blood Count 4.3x10^3/uL (4.0-11.0) Red Blood Count 3.33x10^6/uL (4.30-5.70) Hemoglobin 9.5g/dL (13.0-17.5) Hematocrit 29.9% (39.0-53.0) Mean Corpuscular Volume 90fL (79-100) Mean Corpuscular Hemoglobin 29pg (25-35) Mean Corpuscular Hemoglobin Concent 32g/dL (31-37) Red Cell Distribution Width 17.2% (11.5-14.5) Platelet Count 89x10^3/uL (140-400) Neutrophils (%) (Auto) 71% (31-73) Lymphocytes (%) (Auto) 19% (24-48) Monocytes (%) (Auto) 10% (0-9) Eosinophils (%) (Auto) 0% (0-3) Basophils (%) (Auto) 0% (0-3) Neutrophils # (Auto) 3.0x10^3uL (1.8-7.7) Lymphocytes # (Auto) 0.8x10^3/uL (1.0-4.8) Monocytes # (Auto) 0.4x10^3/uL (0.0-1.1) Eosinophils # (Auto) 0.0x10^3/uL (0.0-0.7) Basophils # (Auto) 0.0x10^3/uL (0.0-0.2) Laboratory Tests Test 08/15/16 22:15 08/16/16 07:40 Urine Collection Type Unknown Urine Color Yellow Urine Clarity Clear Urine pH 5.5 Urine Specific [place] 1.010 Urine Protein Negativemg/dL (NEG-TRACE) Urine Glucose (UA) Negativemg/dL (NEG) Urine Ketones (Stick) Negativemg/dL (NEG) Urine Blood Negative (NEG) Urine Nitrite Negative (NEG) Urine Bilirubin Negative (NEG) Urine Urobilinogen Dipstick 0.2mg/dL (0.2 mg/dL) Urine Leukocyte Esterase Trace (NEG) Urine RBC 0/HPF (0-2) Urine WBC Occ/HPF (0-4) Urine Squamous Epithelial Cells Few/LPF Urine Bacteria 0/HPF (0-FEW) Urine Mucus Slight/LPF White Blood Count 4.3x10^3/uL (4.0-11.0) Red Blood Count 3.33x10^6/uL (4.30-5.70) Hemoglobin 9.5g/dL (13.0-17.5) Hematocrit 29.9% (39.0-53.0) Mean Corpuscular Volume 90fL (79-100) Mean Corpuscular Hemoglobin 29pg (25-35) Mean Corpuscular Hemoglobin Concent 32g/dL (31-37) Red Cell Distribution Width 17.2% (11.5-14.5) Platelet Count 89x10^3/uL (140-400) Neutrophils (%) (Auto) 71% (31-73) Lymphocytes (%) (Auto) 19% (24-48) Monocytes (%) (Auto) 10% (0-9) Eosinophils (%) (Auto) 0% (0-3) Basophils (%) (Auto) 0% (0-3) Neutrophils # (Auto) 3.0x10^3uL (1.8-7.7) Lymphocytes # (Auto) 0.8x10^3/uL (1.0-4.8) Monocytes # (Auto) 0.4x10^3/uL (0.0-1.1) Eosinophils # (Auto) 0.0x10^3/uL (0.0-0.7) Basophils # (Auto) 0.0x10^3/uL (0.0-0.2) Medications Active Scripts Medications Dose Route/Sig Days Date Category Lasix (Furosemide) 20 Mg Tablet 20 Mg PO DAILY 06/19/15 Rx Flomax (Tamsulosin Hcl) 0.4 Mg Cap.er.24h 0.4 Mg PO QHS 06/18/15 Rx Nystop (Nystatin) 60 Gm Powder 1 Ana TP BID 06/18/15 Rx Levaquin (Levofloxacin) 750 Mg Tablet 750 Mg PO DAILY06 06/18/15 Rx Anti-Itch (Hydrocortisone Acetate) 28 Gm Oint...g. 1 Ana TP DAILY 06/18/15 Rx Albuterol Sulfate Neb Soln (Albuterol Sulfate) 2.5 Mg/3 Ml Vial.neb 2.5 Mg NEB RTQID 06/18/15 Rx Tylenol (Acetaminophen) 325 Mg Tablet 650 Mg PO PRN Q4HRS PRN 10/20/14 Rx Protonix (Pantoprazole Sodium) 40 Mg Tablet 40 Mg PO DAILYAC 04/26/14 Rx Comments cxr reviewed. Impression . 1. Dqgwa-ea-wtprblx respiratory failure. Developed hypercapnic RF 08/11, treated with BIPAP much improved 2. Acute exacerbation of chronic obstructive pulmonary disease. 3. Clinical pneumonia. 4. Obstructive sleep apnea. 5. Morbid obesity. 6. Renal insufficiency 08/15 7. Small effusions 08/14, probably from low oncotic pressure, check albumin Plan . BIPAP qhs and prn, setting reviewed. repeat ABG much improved f/u CXR as needed would benefit from IS, unable to perform maneuver steroids taper change Nebs to qid d/w mother, will consider home sleep study to qualify for home CPAP IV hydration, follow renal function repeat albumin level discussed w mother. GRETCHEN CLEMENT MD Aug 16, 2016 08:45
[2016-08-16] MEDS ORDERED: ALBUTEROL SULFATE 2.5 MG/3 ML NEBU. NEB SCH (09:00)
[2016-08-16] MEDS: CYANOCOBALAMIN (VITAMIN B-12) 1,000 MCG TABLET. PO SCH (09:00)
[2016-08-16] MEDS: PREDNISONE 20 MG TABLET PO SCH (09:01)
[2016-08-16] MEDS: PANTOPRAZOLE 40 MG TABLET. PO SCH (09:01)
[2016-08-16 11:00] VITALS: BP 130/65
--- NOTE | 2016-08-16 11:00 | PDOC ---
PROGRESS NOTES Subjective Subjective feels better. creatinine down to 1.3. oxygen sat 97% on 1 LNC. lab reviewed. discussed with mother. ready for dismissal. renal ultrasound reviewed. Objective Objective Vital Signs Date Time Temp Pulse Resp B/P Pulse Ox O2 Delivery O2 Flow Rate FiO2 08/16/16 07:25 97 Nasal Cannula 2.0 08/16/16 07:00 97.9 77 20 175/93 97.9 Intake and Output 08/16/16 07:00 Intake Total 1240 ml Output Total 1700 ml Balance -460 ml Intake Oral 360 ml IV Total 880 ml Output Urine Total 1700 ml # Voids 2 # Bowel Movements 1 Physical Exam Abdomen: Soft Heart: Regular rate, Normal S1, Normal S2 Extremities: Other (1 to 2 plus edema legs) General: Alert HEENT: Atraumatic Lungs: Clear to auscultation, Other (decreased breath sounds) Neuro: Normal speech Psych/Mental Status: Mood NL Skin: No rashes Assessment Assessment Problems Medical Problems:. Acute on chronic hypoxic and hypercapnic respiratory failure. 2. Pneumonia suspected gram-positive, gram-negative organisms . treated 3. Mental retardation. 4. Morbid obesity. 5. Obesity hypoventilation syndrome. 6. 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 Gastroesophageal reflux disease. 8. Chronic large ventral abdominal hernia. hypernatremia mild bronchospasm resolved acute kidney injury improved. hypokalemia resolved (1) Acute respiratory failure with hypoxia and hypercapnia Status: Acute (2) Pneumonia Status: Acute Plan Plan of Care dismiss today Comment Review of Relevant I have reviewed the following items lexus (where applicable) has been applied. Labs Laboratory Tests Test 08/14/16 11:30 08/15/16 07:25 08/15/16 22:15 08/16/16 07:40 Stool Occult Blood Negative (NEG) Sodium Level 146mmol/L (136-145) 144mmol/L (136-145) Potassium Level 3.4mmol/L (3.5-5.1) 4.2mmol/L (3.5-5.1) Chloride Level 109mmol/L (98-107) 108mmol/L (98-107) Carbon Dioxide Level 33mmol/L (21-32) 30mmol/L (21-32) Anion Gap 4 (6-14) 6 (6-14) Blood Urea Nitrogen 29mg/dL (8-26) 25mg/dL (8-26) Creatinine 1.6mg/dL (0.7-1.3) 1.3mg/dL (0.7-1.3) Estimated GFR (Cockcroft-Gault) 45.1 57.3 Glucose Level 90mg/dL (70-99) 98mg/dL (70-99) Uric Acid 5.7mg/dL (3.5-7.2) Calcium Level 8.2mg/dL (8.5-10.1) 8.2mg/dL (8.5-10.1) Creatine Kinase 35U/L (39-308) Albumin 2.9g/dL (3.4-5.0) 2.9g/dL (3.4-5.0) Urine Collection Type Unknown Urine Color Yellow Urine Clarity Clear Urine pH 5.5 Urine Specific Bells 1.010 Urine Protein Negativemg/dL (NEG-TRACE) Urine Glucose (UA) Negativemg/dL (NEG) Urine Ketones (Stick) Negativemg/dL (NEG) Urine Blood Negative (NEG) Urine Nitrite Negative (NEG) Urine Bilirubin Negative (NEG) Urine Urobilinogen Dipstick 0.2mg/dL (0.2 mg/dL) Urine Leukocyte Esterase Trace (NEG) Urine RBC 0/HPF (0-2) Urine WBC Occ/HPF (0-4) Urine Squamous Epithelial Cells Few/LPF Urine Bacteria 0/HPF (0-FEW) Urine Mucus Slight/LPF White Blood Count 4.3x10^3/uL (4.0-11.0) Red Blood Count 3.33x10^6/uL (4.30-5.70) Hemoglobin 9.5g/dL (13.0-17.5) Hematocrit 29.9% (39.0-53.0) Mean Corpuscular Volume 90fL (79-100) Mean Corpuscular Hemoglobin 29pg (25-35) Mean Corpuscular Hemoglobin Concent 32g/dL (31-37) Red Cell Distribution Width 17.2% (11.5-14.5) Platelet Count 89x10^3/uL (140-400) Neutrophils (%) (Auto) 71% (31-73) Lymphocytes (%) (Auto) 19% (24-48) Monocytes (%) (Auto) 10% (0-9) Eosinophils (%) (Auto) 0% (0-3) Basophils (%) (Auto) 0% (0-3) Neutrophils # (Auto) 3.0x10^3uL (1.8-7.7) Lymphocytes # (Auto) 0.8x10^3/uL (1.0-4.8) Monocytes # (Auto) 0.4x10^3/uL (0.0-1.1) Eosinophils # (Auto) 0.0x10^3/uL (0.0-0.7) Basophils # (Auto) 0.0x10^3/uL (0.0-0.2) Phosphorus Level 2.9mg/dL (2.6-4.7) Magnesium Level 2.1mg/dL (1.8-2.4) Laboratory Tests Test 08/15/16 22:15 08/16/16 07:40 Urine Collection Type Unknown Urine Color Yellow Urine Clarity Clear Urine pH 5.5 Urine Specific Bells 1.010 Urine Protein Negativemg/dL (NEG-TRACE) Urine Glucose (UA) Negativemg/dL (NEG) Urine Ketones (Stick) Negativemg/dL (NEG) Urine Blood Negative (NEG) Urine Nitrite Negative (NEG) Urine Bilirubin Negative (NEG) Urine Urobilinogen Dipstick 0.2mg/dL (0.2 mg/dL) Urine Leukocyte Esterase Trace (NEG) Urine RBC 0/HPF (0-2) Urine WBC Occ/HPF (0-4) Urine Squamous Epithelial Cells Few/LPF Urine Bacteria 0/HPF (0-FEW) Urine Mucus Slight/LPF White Blood Count 4.3x10^3/uL (4.0-11.0) Red Blood Count 3.33x10^6/uL (4.30-5.70) Hemoglobin 9.5g/dL (13.0-17.5) Hematocrit 29.9% (39.0-53.0) Mean Corpuscular Volume 90fL (79-100) Mean Corpuscular Hemoglobin 29pg (25-35) Mean Corpuscular Hemoglobin Concent 32g/dL (31-37) Red Cell Distribution Width 17.2% (11.5-14.5) Platelet Count 89x10^3/uL (140-400) Neutrophils (%) (Auto) 71% (31-73) Lymphocytes (%) (Auto) 19% (24-48) Monocytes (%) (Auto) 10% (0-9) Eosinophils (%) (Auto) 0% (0-3) Basophils (%) (Auto) 0% (0-3) Neutrophils # (Auto) 3.0x10^3uL (1.8-7.7) Lymphocytes # (Auto) 0.8x10^3/uL (1.0-4.8) Monocytes # (Auto) 0.4x10^3/uL (0.0-1.1) Eosinophils # (Auto) 0.0x10^3/uL (0.0-0.7) Basophils # (Auto) 0.0x10^3/uL (0.0-0.2) Sodium Level 144mmol/L (136-145) Potassium Level 4.2mmol/L (3.5-5.1) Chloride Level 108mmol/L (98-107) Carbon Dioxide Level 30mmol/L (21-32) Anion Gap 6 (6-14) Blood Urea Nitrogen 25mg/dL (8-26) Creatinine 1.3mg/dL (0.7-1.3) Estimated GFR (Cockcroft-Gault) 57.3 Glucose Level 98mg/dL (70-99) Calcium Level 8.2mg/dL (8.5-10.1) Phosphorus Level 2.9mg/dL (2.6-4.7) Magnesium Level 2.1mg/dL (1.8-2.4) Albumin 2.9g/dL (3.4-5.0) Microbiology 08/08/16 Blood Culture - Final, Complete NO GROWTH AFTER 5 DAYS Medications Current Medications Albuterol/ Ipratropium (Duoneb) 3 ml RTQID NEB Last administered on 08/16/16 07:23; Start 08/08/16 at 13:00 Albuterol Sulfate 2.5 mg 2.5 mg PRN Q4HRS PRN NEB SHORTNESS OF BREATH Last administered on 08/14/16 22:09; Start 08/08/16 at 13:30; Stop 08/16/16 at 09:00; Status DC Levofloxacin/ Dextrose (LEVAQUIN 500mg PREMIX) 100 ml @ 100 mls/hr Q24H IV Last administered on 08/11/16 14:28; Start 08/08/16 at 15:00; Stop 08/12/16 at 13: 08; Status DC Enoxaparin Sodium (Lovenox 40mg Syringe) 40 mg Q24H SQ Last administered on 14:49; Start 08/08/16 at 15:00 Furosemide (Lasix) 40 mg DAILY PO ; Start 08/08/16 at 15:00; Stop 08/09/16 at 11: 19; Status DC Magnesium Hydroxide (Milk Of Magnesia) 2,400 mg PRN DAILY PRN PO CONSTIPATION Last administered on 08/11/16 13:51; Start 08/08/16 at 14:30 Pantoprazole Sodium (Protonix) 40 mg DAILYAC PO Last administered on 08/16/16 09:01; Start 08/08/16 at 16:30 Acetaminophen (Tylenol) 650 mg PRN Q6HRS PRN PO MILD PAIN / TEMP Last administered on 08/16/16 06:03; Start 08/08/16 at 14:30 Guaifenesin (Robitussin Dm) 10 ml PRN Q6HRS PRN PO COUGH Last administered on 21:54; Start 08/08/16 at 14:30 Vancomycin HCl 1 each 1 each PRN DAILY PRN MC SEE COMMENTS Last administered on 08/11/16 18:33; Start 08/08/16 at 14:30; Stop 08/12/16 at 13:08; Status DC Vancomycin HCl/ Sodium Chloride (Iv Sodium Chloride 0.9% 500ml Bag) 500 ml @ 250 mls/hr 1X ONCE IV Last administered on 08/08/16 16:30; Start 08/08/16 at 16 :30; Stop 08/08/16 at 18:29; Status DC Lorazepam 1 mg 1 mg 1X ONCE PO Last administered on 08/08/16 16:53; Start 08/08 at 16:45; Stop 08/08/16 at 16:47; Status DC Vancomycin HCl/ Sodium Chloride (Iv Sodium Chloride 0.9% 500ml Bag) 500 ml @ 250 mls/hr Q12H IV Last administered on 08/11/16 05:12; Start 08/09/16 at 06:00 ; Stop 08/11/16 at 18:07; Status DC Vancomycin HCl 1 each 1X ONCE MC Last administered on 08/09/16 17:30; Start at 17:30; Stop 08/09/16 at 17:31; Status DC Lorazepam (Ativan) 1 mg 1X ONCE PO ; Start 08/09/16 at 16:30; Stop 08/09/16 at 16 :36; Status DC Methylprednisolone Sodium Succinate 40 mg 40 mg Q8HRS IV Last administered on 06:00; Start 08/10/16 at 14:00; Stop 08/13/16 at 10:45; Status DC Dextrose 1,000 ml @ 40 mls/hr Q24H IV Last administered on 08/11/16 09:15; Start 08/11/16 at 09:15; Stop 08/12/16 at 08:26; Status DC Cyanocobalamin (Vitamin B-12) 1,000 mcg ONCE ONCE IM Last administered on 09:14; Start 08/11/16 at 09:15; Stop 08/11/16 at 09:16; Status DC Cyanocobalamin (Vitamin B-12) 1,000 mcg DAILY PO Last administered on 09:00; Start 08/12/16 at 09:00 Vancomycin HCl 1 each 1 each 1X ONCE MC ; Start 08/11/16 at 17:30; Stop 08/11/16 at 17:31; Status DC Vancomycin HCl/ Sodium Chloride (Iv Sodium Chloride 0.9% 250ml) 250 ml @ 250 mls/hr Q12H IV Last administered on 08/12/16 07:53; Start 08/12/16 at 06:00; Stop 08/12/16 at 13:08; Status DC Vancomycin HCl 1 each 1X ONCE MC ; Start 08/13/16 at 17:30; Stop 08/13/16 at 17: 30; Status DC Simethicone (Gas-X) 40 mg Q4HRS PRN PO GAS / BLOATING; Start 08/11/16 at 20:45; Stop 08/11/16 at 21:46; Status DC Famotidine (Pepcid) 20 mg QHS PO Last administered on 08/15/16 21:43; Start at 21:00 Simethicone 80 mg 80 mg PRN Q4HRS PRN PO GAS / BLOATING Last administered on 23:57; Start 08/11/16 at 21:45 Potassium Chloride/Dextrose/ Sod Cl (KCl 20 Meq In D5W-1/2 NS) 1,000 ml @ 60 mls/hr [id number] IV Last administered on 08/13/16 02:10; Start 08/12/16 at 08:30; Stop 08/13/16 at 10:45; Status DC Levofloxacin (Levaquin) 500 mg DAILY06 PO Last administered on 08/16/16 06:03 ; Start 08/12/16 at 15:00 Methylprednisolone Sodium Succinate 40 mg 40 mg Q12HR IV Last administered on 08:25; Start 08/13/16 at 21:00; Stop 08/14/16 at 12:49; Status DC Sodium Chloride (Iv Sodium Chloride 0.45%) 1,000 ml @ 40 mls/hr Q24H IV Last administered on 08/14/16 15:23; Start 08/13/16 at 10:45; Stop 08/15/16 at 08:44; Status DC Prednisone (Prednisone) 40 mg DAILY PO Last administered on 08/16/16 09:01; Start 08/15/16 at 09:00 Al Hydroxide/Mg Hydroxide (Mylanta Plus Xs) 30 ml PRN Q3HRS PRN PO HEARTBURN / GAS Last administered on 08/14/16 19:16; Start 08/14/16 at 18:30 Potassium Chloride 20 meq 20 meq 1X ONCE PO Last administered on 08/15/16 09: 35; Start 08/15/16 at 08:45; Stop 08/15/16 at 08:47; Status DC Dextrose 1,000 ml @ 75 mls/hr [id number] IV Last administered on 08/15/16 10:35 ; Start 08/15/16 at 08:45 Magnesium Sulfate/ Dextrose 50 ml @ 25 mls/hr PRN DAILY PRN IV for Mag < 1.7 on am labs; Start 08/15/16 at 11:45 Potassium Chloride/Dextrose 1,020 ml @ 100 mls/hr [id number] IV Last administered on 08/16/16t 01:05; Start 08/15/16 at 12:30; Stop 08/16/16 at 08:53 ; Status DC Albuterol Sulfate (Ventolin Neb Soln) 2.5 mg QID NEB ; Start 08/16/16 at 09:00; Stop 08/16/16 at 09:00; Status DC Active Scripts Active Lasix (Furosemide) 20 Mg Tablet 20 Mg PO DAILY Flomax (Tamsulosin Hcl) 0.4 Mg Cap.er.24h 0.4 Mg PO QHS Nystop (Nystatin) 60 Gm Powder 1 Ana TP BID Levaquin (Levofloxacin) 750 Mg Tablet 750 Mg PO DAILY06 Anti-Itch (Hydrocortisone Acetate) 28 Gm Oint...g. 1 Ana TP DAILY Albuterol Sulfate Neb Soln (Albuterol Sulfate) 2.5 Mg/3 Ml Vial.neb 2.5 Mg NEB RTQID Tylenol (Acetaminophen) 325 Mg Tablet 650 Mg PO PRN Q4HRS PRN Protonix (Pantoprazole Sodium) 40 Mg Tablet 40 Mg PO DAILYAC Vitals/I & O Vital Sign - Last 24 Hours 08/15/16 08/15/16 08/15/16 08/15/16 11:22 11:22 15:14 16:47 Temp 98.3 97.7 98.3 97.7 Pulse 76 89 Resp 20 36 B/P 136/76 129/80 Pulse Ox 95 94 95 96 O2 Delivery Nasal Cannula Nasal Cannula Nasal Cannula Nasal Cannula O2 Flow Rate 2.0 2.0 1.0 1.0 08/15/16 08/15/16 08/15/16 08/15/16 19:00 20:03 20:30 22:57 Temp 97.7 97.7 Pulse 95 Resp 20 B/P 135/81 Pulse Ox 95 95 96 O2 Delivery Nasal Cannula Nasal Cannula Nasal Cannula BiPAP/CPAP O2 Flow Rate 1.0 1.0 08/15/16 08/16/16 08/16/16 08/16/16 23:00 01:34 03:00 04:24 Temp 98.9 97.7 98.9 97.7 Pulse 67 58 Resp 20 20 B/P 126/57 130/62 Pulse Ox 97 96 O2 Delivery Nasal Cannula BiPAP/CPAP Nasal Cannula BiPAP/CPAP 08/16/16 08/16/16 07:00 07:25 Temp 97.9 97.9 Pulse 77 Resp 20 B/P 175/93 Pulse Ox 92 97 O2 Delivery Nasal Cannula O2 Flow Rate 2.0 Intake and Output 08/15/16 08/15/16 08/16/16 15:00 23:00 07:00 Intake Total 360 ml 880 ml Output Total 1300 ml 400 ml Balance 360 ml -1300 ml 480 ml KATI BILLINGSLEY MD Aug 16, 2016 11:00
--- NOTE | 2016-08-16 11:03 | DISCH ---
DISCHARGE INSTRUCTIONS Condition on Discharge Condition on Discharge: Stable Activity After Discharge Activity Instructions for Disc: Resume previous activity Diet after Discharge Diet after Discharge: Regular Contacting the DRVenkatesh after DC Call your doctor for: If your condition worsens Follow-Up Follow up with: dr. billingsley in 1 week Follow Up With: dr. cronin in 2 weeks. needs home sleep study KATI BILLINGSLEY MD Aug 16, 2016 11:03
[2016-08-16] MEDS ORDERED: LEVO500T38 PO (11:06)
[2016-08-16] MEDS ORDERED: PRED20TA PO (11:06)
--- NOTE | 2016-08-16 11:12 | PDOC ---
Provider Note Provider Note discharge summary dictated # [id number] KATI BILLINGSLEY MD Aug 16, 2016 11:12
--- NOTE | 2016-08-16 21:21 | DS ---
DATE OF DISCHARGE: 08/16/2016 CONSULTANTS: Dr. Ruiz, Dr. Conway, Dr. Johnson and Dr. Panfilo Stewart. FINAL DIAGNOSES: 1. Acute on chronic hypoxic and hypercapnic respiratory failure secondary to pneumonia. 2. Pneumonia, suspect gram-positive and gram-negative organisms. 3. Mental retardation. 4. Morbid obesity. 5. Acute kidney injury. 6. Obesity hypoventilation syndrome. 7. Pancytopenia secondary to hypersplenism from fatty liver. 8. Gastroesophageal reflux disease. 9. Chronic large ventral abdominal hernia. 10. Hypokalemia. 11. Hypernatremia. 12. Bronchospasm, resolved. HOSPITAL COURSE: The patient is a 56-year-old morbidly obese white male, mentally challenged with chronic hypoxic and hypercapnic respiratory failure who had a nonproductive cough and hypoxemia at home. He normally takes oxygen 2 liters per nasal cannula p.r.n., but mother had oxygen up to 4 liters per nasal cannula just to maintain oxygen saturations of 90% or higher. He had difficulty maintaining his oxygen saturations even that high. The patient was seen in the office. He was subsequently admitted to the hospital on 08/09/2016. Chest x-ray showed an infiltrate in the right lower lobe consistent with pneumonia. Seen in consultation by Dr. Ruiz for Pulmonary, Dr. Conway for Infectious Disease and Dr. Johnson for Hematology. The patient was treated with BiPAP, nebulizer treatments, IV Solu-Medrol for bronchospasm and IV antibiotics. Then, he was switched to oral Levaquin. He was weaned off the BiPAP, although he has received some at night and was on oxygen per nasal cannula during the day. Developed acute kidney injury and received IV fluids and was thought to be secondary to decreased fluid intake. He was taking furosemide prior to admission, which was discontinued. He was seen in consultation by Dr. Panfilo Stewart for Nephrology and a renal sonogram showed that his right kidney was fine, they could not see the left kidney. According to the mother, he did not cooperate for the renal ultrasound. In any case, he received IV fluids and serum creatinine improved from 1.6 to 1.3. The patient is ready to be dismissed. His oxygen saturations are 97% on 1 liter per nasal cannula. Lungs were clear. He did have some small bilateral pleural effusions on his chest x-ray. His arterial blood gases did improve and he will be dismissed to home and was told to follow up with Dr. Levy in [address] Ruiz in 2 weeks, so he can set up a home sleep study to see if he can qualify for CPAP or BiPAP. He will be dismissed on prednisone 30 mg every day for 2 days, 20 mg every day for 2 days, 10 mg every day for 2 days, then stop the prednisone, Levaquin 500 mg for one day, doing albuterol nebulized treatments q.i.d. and every 4 hours p.r.n., Protonix 40 mg every day, oxygen 1 liter per nasal cannula and will see Dr. Levy in the office next week. He will be dismissed and cared for by his mother. KATI LEVY MD DR: TAM/edith JOB#: [id number] / [id number]
--- NOTE | 2016-08-17 02:48 | CONS ---
DATE OF CONSULTATION: PRIMARY PHYSICIAN: Dr. Levy. HISTORY OF PRESENT ILLNESS: The patient is a 56-year-old gentleman with underlying mental retardation. He is known to have chronic hypoxic and hypercapnic respiratory failure. He had increasing oxygen requirement needs and was admitted to the hospital from Dr. Levy's office for hypoxemia. Chest x-ray showed possible infiltrate, right lower lobe. He has been evaluated by Dr. Montesinos and Dr. Ruiz. He initially was noted to be severely hypercapnic with pCO2 of 101 on 08/11/2016. His creatinine has been normal until recently; however, his creatinine has gone up to 1.6 as of yesterday. He has been up and down. He was on Lasix until recently according to his mom. This appears to have been discontinued. His sodium is up to 146 and potassium is down to 3.4. We were asked to see him for further evaluation of renal dysfunction. Urine output as well as weights is not available and not documented. PAST MEDICAL HISTORY: 1. Chronic hypoxic/hypercapnic respiratory failure with obesity hypoventilation syndrome. 2. Hypertension, but off of medications currently. 3. Anxiety. 4. GERD. 5. Underlying mental retardation. 6. Esophagitis. 7. Chronic ventral abdominal hernia. 8. Left orchiopexy. 9. Cataract extractions in the past. Now with a ____ of splenomegaly, possible fatty liver and cardiomegaly on chest x-ray, issues with occasional incontinence. For rest of details, see electronic records. THU JOSEPH MD DR: AIDA/edith JOB#: [id number] / [id number]
[2016-08-17] MEDS ORDERED: PREDNISONE 20 MG TABLET PO SCH (09:00)
--- NOTE | 2016-08-18 10:01 | CONS ---
DATE OF CONSULTATION: 08/14/2016 PATIENT'S ROOM: ____. REQUESTING PHYSICIAN: . REASON FOR CONSULTATION: Pneumonia. HISTORY OF PRESENT ILLNESS: The patient is a 56-year-old gentleman who is mentally challenged, who was seen in the past, who was admitted with increased shortness of air, subjective fever. He is normally on 2 liters, but he had increased up to 4 and then subsequently went to Ventimask. He was placed on levofloxacin and vancomycin. White blood cell count on admission was 2.7. Chest x-ray at admission showed some mild right basilar opacity suggesting pleural fluid or underlying atelectasis or infiltrate. A repeat x-ray on the showed right lower lobe atelectasis or unchanged infiltrate. At the time I saw the patient he was sitting in a chair. His mother was not present. He states he had been feeling better. PAST MEDICAL HISTORY: Positive for chronic hypoxia, hypercapnic respiratory failure, obesity hypoventilation syndrome, hypertension, anxiety, gastroesophageal reflux disease, previous pneumonia, GI bleed, esophagitis, chronic ventral abdominal hernia, history of mentally challenged. PAST SURGICAL HISTORY: Positive for left orchiopexy, foot surgery, cataract extraction. REVIEW OF SYSTEMS: Essentially unobtainable. ALLERGIES: INTOLERANCES LISTED PENICILLIN AND VANTIN, BUT I BELIEVE HE HAS TOLERATED ROCEPHIN IN THE PAST. SOCIAL HISTORY: He is cared for by his mother. No tobacco or alcohol. FAMILY HISTORY: Father and he had diabetes and myasthenia. History of a grandmother who had breast cancer. MEDICATIONS: Include vancomycin, levofloxacin. Other meds are available and have been reviewed in the chart. PHYSICAL EXAMINATION: VITAL SIGNS: He was afebrile, temperature 97.5, pulse is 80, respirations 18, blood pressure 132/75, satting 93%. He was on nasal cannula oxygen. He was sitting in a chair. CONSTITUTIONAL: He is cooperative. He is smiling. He is in no acute distress. HEENT: Pupils are status post cataract surgery. Normal conjunctivae. Oral cavity, pharynx was clear. ____: Without wheeze. HEART: S1, S2. ABDOMEN: Obese, soft, nontender, nondistended, positive bowel sounds. ____ He has a chronic ventral hernia. EXTREMITIES: Lower extremities with trace edema. SKIN: Without generalized signs of rash. NEUROLOGIC: He moved all extremities, he was smiling. PSYCHIATRIC: Affect is appropriate. LABORATORY DATA: White cell count was 2.7, hemoglobin 9.6, platelets 117 with 60 neutrophils from the 5th. Creatinine was 1. Glucose was 167. MRSA screen was positive from the 4th. Blood cultures were negative. X-rays reviewed in history of present illness. IMPRESSION: 1. Questionable post-viral versus atypical pneumonia. 2. Respiratory failure, improved with BiPAP. 3. Penicillin, cefpodoxime allergy, but questionable tolerated amoxicillin and Rocephin. 4. Pancytopenia is chronic. 4. History of MRSA positive. RECOMMENDATIONS: At this time, we will change to oral levofloxacin, discontinue vancomycin. We will follow up on the response. Thank you for allowing me to participate in the patient's care. If you have any questions, please do not hesitate to contact me. FRANKLNI PEREZ MD DR: MONIKA/edith JOB#: [id number] / [id number]
== END 2016-08-16 12:45 | disposition home or self-care (01) | DRG 177 ==
LOC: 5 NORTH 11:48
PROVIDERS: ADMIT Internal Medicine; ATTEND Internal Medicine
PROC: 5A09357 Assistance with Respiratory Ventilation, Less than 24 Consecutive Hours, Continuous Positive Airway Pressure (ICD-10-PCS; principal; 2016-08-11)
DX: J15.6 Pneumonia due to other Gram-negative bacteria (principal); J96.21 Acute and chronic respiratory failure with hypoxia; J96.22 Acute and chronic respiratory failure with hypercapnia; D61.818 Other pancytopenia; E66.2 Morbid (severe) obesity with alveolar hypoventilation; E87.0 Hyperosmolality and hypernatremia; J44.0 Chronic obstructive pulmonary disease with (acute) lower respiratory infection; J44.1 Chronic obstructive pulmonary disease with (acute) exacerbation; N17.9 Acute kidney failure, unspecified; J15.9 Unspecified bacterial pneumonia; D69.59 Other secondary thrombocytopenia; D73.1 Hypersplenism; E87.6 Hypokalemia; F79 Unspecified intellectual disabilities; I10 Essential (primary) hypertension; J98.01 Acute bronchospasm; D63.8 Anemia in other chronic diseases classified elsewhere; K21.9 Gastro-esophageal reflux disease without esophagitis; F41.9 Anxiety disorder, unspecified; K76.0 Fatty (change of) liver, not elsewhere classified; Z80.3 Family history of malignant neoplasm of breast; Z80.51 Family history of malignant neoplasm of kidney; Z83.3 Family history of diabetes mellitus; Z87.19 Personal history of other diseases of the digestive system; Z88.0 Allergy status to penicillin; Z88.8 Allergy status to other drugs, medicaments and biological substances; Z68.35 Body mass index [BMI] 35.0-35.9, adult; Z98.49 Cataract extraction status, unspecified eye; G47.33 Obstructive sleep apnea (adult) (pediatric)
CPT/HCPCS: 36415; 36600; 71010; 74022; 76770; 80048; 80053; 80069; 80202; 81001; 82040; 82150; 82274; 82550; 82607; 82728; 82746; 82805; 83540; 83550; 83735; 84300; 84550; 85007; 85027; 87040; 87086; 87641; 93005; 94640; 94660; 94760; J1650; J1956; J2920; J3370; J3420; J3480; J7040; J7050; J7512; J7620; J7030

== ENCOUNTER 2016-08-24 07:35 | Inpatient (IN) | payer MEDICARE, MEDICAID ==
[~2016-08-24] VITALS: Ht 170.2 cm; Wt 103.4 kg
[2016-08-24] MEDS ORDERED: LORAZEPAM 2 MG/ML VIAL IV ONE (08:30)
[2016-08-24] MEDS ORDERED: IV NORMAL SALINE 1000ML BAG 1,000 ML IV ONE ×3 (08:30→10:00)
[2016-08-24] MEDS ORDERED: ONDANSETRON PF 4 MG/2 ML VIAL. IV ONE (08:30)
[2016-08-24 09:43] LABS: BASO % 0 % (0-3); EOS % 0 % (0-3); HEMOGLOBIN 7.2 g/dL (13.0-17.5); LYMPH # 0.6 x10^3/uL (1.0-4.8); LYMPH % 2 % (24-48); MEAN CORPUSCULAR HEMOGLOBIN 29 pg (25-35); MEAN CORPUSCULAR HGB CONC 33 g/dL (31-37); MEAN CORPUSCULAR VOLUME 89 fL (79-100); MONO % 6 % (0-9); NEUT % 92 % (31-73); PLATELET COUNT 185 x10^3/uL (140-400); RED BLOOD COUNT 2.48 x10^6/uL (4.30-5.70); RED CELL DISTRIBUTION WIDTH 17.5 % (11.5-14.5); WHITE BLOOD COUNT 34.3 x10^3/uL (4.0-11.0)
[2016-08-24 09:45] LABS: CREATININE 1.3 mg/dL (0.7-1.3); GFR 57.3; POTASSIUM 4.1 mmol/L (3.5-5.1)
[2016-08-24 09:59] LABS: ALBUMIN 3.1 g/dL (3.4-5.0); ALBUMIN/GLOBULIN RATIO 0.9 (1.0-1.7); TOTAL PROTEIN 6.4 g/dL (6.4-8.2)
[2016-08-24 10:00] LABS: TOTAL BILIRUBIN 1.6 mg/dL (0.2-1.0)
[2016-08-24 10:25] LABS: BILIRUBIN,URINE MODERATE (NEG); GLUCOSE,URINE NEGATIVE (NEG); NITRITE,URINE POSITIVE (NEG); PH,URINE 5.5; PROTEIN,URINE 100 mg/dL (NEG-TRACE)
[2016-08-24] MEDS ORDERED: IOHEXOL 300 MG/ML 75 ML VIAL IV ONE (10:30)
[2016-08-24] MEDS ORDERED: FENTANYL PF 100 MCG/2 ML VIAL. IV ONE (10:30)
[2016-08-24 10:39] LABS: PLT ESTIMATE ADEQUATE (ADEQUATE)
[2016-08-24 10:48] LABS: BACTERIA,URINE FEW /HPF (0-FEW); RBC,URINE 0 /HPF (0-2); SQUAMOUS EPITHELIAL CELL,UR OCC /LPF; WBC,URINE >40 /HPF (0-4)
--- NOTE | 2016-08-24 11:32 | RAD ---
Indication abdominal pain. Axial images through the abdomen and pelvis were obtained. 60 cc of Omnipaque 300 was administered intravenously. No recent CT imaging of the abdomen or pelvis is available. There is some volume loss, compatible with atelectasis or pneumonia, at both lung bases left greater than right. There is marked diastases and thinning of the abdominal musculature with the transverse colon basically abutting the subcutaneous soft tissues in the lower abdomen and upper pelvis. The liver and spleen appear unremarkable. There is cholelithiasis. Numerous stones are seen in the dependent portion of the gallbladder. No pancreatic mass is seen. No adrenal or renal anomalies are seen. Significant central or retroperitoneal adenopathy in the abdomen is not seen. Acute finding in the abdomen is not apparent. In the pelvis there is a low-density 5 cm mass in the mid sigmoid colon. It is of uncertain etiology. A soft tissue mass, given the Hounsfield unit numbers, is felt somewhat unlikely. Fluid-filled diverticulum could give the appearance. Nonemergent colonoscopy should be considered for additional evaluation. There is some stranding surrounding the rectosigmoid colon. The wall of the rectosigmoid additionally appears somewhat thickened. Local inflammation, proctitis, could give this appearance. There is enlargement of both seminal vesicles and the prostate is slightly enlarged. Some stranding is seen around the seminal vesicles and local inflammation associated with these structures is not excluded. A Quevedo catheter is noted in the urinary bladder. There is a sclerotic focus associated with the right acetabulum likely reflecting a bone island. IMPRESSION: Volume loss at the lung bases left greater than right may reflect atelectasis or pneumonia. Cholelithiasis. Low-density 5 cm mass associated with the sigmoid colon. Etiology is uncertain. Colonoscopy should be considered. Stranding surrounding the rectosigmoid with some associated wall thickening. Local inflammation should be considered Enlarged seminal vesicles with some associated stranding. Inflammation associated with the seminal vesicles not excluded. Slightly enlarged prostate.
[2016-08-24] MEDS ORDERED: ONDANSETRON PF 4 MG/2 ML VIAL. IV PRN ×2 (11:45→13:45)
[2016-08-24] MEDS ORDERED: ACETAMINOPHEN 325 MG TABLET. PO PRN (11:45)
[2016-08-24] MEDS ORDERED: FENTANYL PF 100 MCG/2 ML VIAL. IV PRN (11:45)
[2016-08-24] MEDS: IV NORMAL SALINE 1000ML BAG 1,000 ML IV SCH ×2 (12:00→18:40)
--- NOTE | 2016-08-24 13:09 | PHYS DOC ---
Past Medical History Past Medical History: Pneumonia, Other Additional Past Medical Histor: hiatal hernia; MR; undescended testicles, diaphragmatic hernia, LUNG Past Surgical History: Other Additional Past Surgical Histo: testicle release, hernia repair Alcohol Use: None Drug Use: None Adult General Chief Complaint Chief Complaint: URINARY RETENTION HPI HPI 56-year-old mentally retarded male who lives with his mother presents secondary to increased agitation today. His mother states that he has had difficulty urinating in the past when this happens he has a urinary tract infection. The mother does not report any fever nausea or vomiting. He has had decreased by mouth intake over the last day or so. She is concerned that he is not produced much urine however. She denies any gross hematuria. He has been recently hospitalized for a similar episode.] Review of Systems Review of Systems Review of systems is unobtainable secondary to mental retardation. Current Medications Current Medications Current Medications Medications (Trade) Dose Ordered Sig/Tony Start Time Stop Time Status Last Admin Dose Admin Acetaminophen (Tylenol) 650 mg PRN Q4HRS PRN 08/24/16 11:45 08/25/16 11:44 Fentanyl Citrate (Fentanyl 2ml Vial) 50 mcg PRN Q1HR PRN 08/24/16 11:45 08/25/16 11:44 Iohexol (Omnipaque 300 Mg/ml) 60 ml 1X ONCE 08/24/16 10:30 08/24/16 10:31 DC 08/24/16 10:48 60 ML Levofloxacin/ Dextrose 150 ml @ 100 mls/hr 1X ONCE 08/24/16 10:00 08/24/16 11:29 DC 08/24/16 11:09 100 MLS/HR Lorazepam (Ativan) 2 mg 1X ONCE 08/24/16 08:30 08/24/16 08:31 DC 08/24/16 08:29 2 MG Ondansetron HCl (Zofran) 4 mg PRN Q8HRS PRN 08/24/16 11:45 08/25/16 11:44 Ondansetron HCl 4 mg 4 mg 1X ONCE 08/24/16 08:30 08/24/16 08:31 DC 08/24/16 09:23 4 MG Sodium Chloride (Iv Sodium Chloride 0.9% 1000ml Bag) 1,000 ml @ 1,000 mls/hr 1X ONCE 08/24/16 10:00 08/24/16 10:59 UNV Allergies Allergies Allergies Coded Allergies Type Severity Reaction Last Updated Verified Penicillins Allergy Intermediate rash 09/27/13 Yes cefpodoxime proxetil Allergy Intermediate Rash 04/21/14 Yes I S O L A T I O N *CONTACT* Allergy Unknown 07/07/14 Yes Physical Exam Physical Exam Constitutional: Well developed, well nourished, agitated but nontoxic. [] HENT: Normocephalic, atraumatic, bilateral external ears normal, oropharynx moist, no oral exudates, nose normal. [] Eyes: PERRLA, EOMI, conjunctiva normal, no discharge. [] Neck: Normal range of motion, no tenderness, supple, no stridor. [] Cardiovascular:Heart rate regular rhythm, no murmur [] Lungs & Thorax: Bilateral breath sounds clear to auscultation [] Abdomen: Mild suprapubic tenderness to palp. [] Skin: Warm, dry, no erythema, no rash. [] Back: No tenderness, no CVA tenderness. [] Extremities: No tenderness, no cyanosis, no clubbing, ROM intact, no edema. [] Neurologic: Alert and oriented X 3, normal motor function, normal sensory function, no focal deficits noted. [] Psychologic: Unable to assess. [] Current Patient Data Vital Signs Vital Signs Date Time Temp Pulse Resp B/P Pulse Ox O2 Delivery O2 Flow Rate FiO2 08/24/16 11:09 22 08/24/16 07:43 99.2 147 231/113 95 Nasal Cannula 2 99.2 Lab Values Laboratory Tests Test 08/24/16 09:16 08/24/16 09:36 08/24/16 10:03 White Blood Count 34.3x10^3/uL (4.0-11.0) H Red Blood Count 2.48x10^6/uL (4.30-5.70) L Hemoglobin 7.2g/dL (13.0-17.5) L Hematocrit 22.0% (39.0-53.0) L Mean Corpuscular Volume 89fL (79-100) Mean Corpuscular Hemoglobin 29pg (25-35) Mean Corpuscular Hemoglobin Concent 33g/dL (31-37) Red Cell Distribution Width 17.5% (11.5-14.5) H Platelet Count 185x10^3/uL (140-400) # Neutrophils (%) (Auto) 92% (31-73) H Lymphocytes (%) (Auto) 2% (24-48) L Monocytes (%) (Auto) 6% (0-9) Eosinophils (%) (Auto) 0% (0-3) Basophils (%) (Auto) 0% (0-3) Neutrophils # (Auto) 31.5x10^3uL (1.8-7.7) H Lymphocytes # (Auto) 0.6x10^3/uL (1.0-4.8) L Monocytes # (Auto) 2.1x10^3/uL (0.0-1.1) H Eosinophils # (Auto) 0.0x10^3/uL (0.0-0.7) Basophils # (Auto) 0.0x10^3/uL (0.0-0.2) Segmented Neutrophils % 91% (35-66) H Band Neutrophils % 1% (0-9) Lymphocytes % 1% (24-48) L Monocytes % 7% (0-10) Platelet Estimate Adequate (ADEQUATE) Macrocytosis Slight Sodium Level 142mmol/L (136-145) Potassium Level 4.1mmol/L (3.5-5.1) Chloride Level 104mmol/L (98-107) Carbon Dioxide Level 27mmol/L (21-32) Anion Gap 11 (6-14) Blood Urea Nitrogen 26mg/dL (8-26) Creatinine 1.3mg/dL (0.7-1.3) Estimated GFR (Cockcroft-Gault) 57.3 BUN/Creatinine Ratio 20 (6-20) Glucose Level 116mg/dL (70-99) H Calcium Level 8.0mg/dL (8.5-10.1) L Total Bilirubin 1.6mg/dL (0.2-1.0) H Aspartate Amino Transferase (AST) 16U/L (15-37) Alanine Aminotransferase (ALT) 29U/L (16-63) Alkaline Phosphatase 63U/L (46-116) Total Protein 6.4g/dL (6.4-8.2) Albumin 3.1g/dL (3.4-5.0) L Albumin/Globulin Ratio 0.9 (1.0-1.7) L Lipase 217U/L (73-393) Urine Collection Type U cath Urine Color [place] Urine Clarity Turbid Urine pH 5.5 Urine Specific [place] >=1.030 Urine Protein 100mg/dL (NEG-TRACE) Urine Glucose (UA) Negativemg/dL (NEG) Urine Ketones (Stick) 15mg/dL (NEG) Urine Blood Large (NEG) Urine Nitrite Positive (NEG) Urine Bilirubin Moderate (NEG) Urine Urobilinogen Dipstick 1.0mg/dL (0.2 mg/dL) Urine Leukocyte Esterase Large (NEG) Urine RBC 0/HPF (0-2) Urine WBC >40/HPF (0-4) Urine Squamous Epithelial Cells Occ/LPF Urine Amorphous Sediment Present/HPF Urine Bacteria Few/HPF (0-FEW) Urine Mucus Slight/LPF Lactic Acid Level 0.7mmol/L (0.4-2.0) Laboratory Tests 08/24/16 09:16 Laboratory Tests 08/24/16 09:16 EKG EKG [] Radiology/Procedures Radiology/Procedures [] Impressions: PROCEDURE: ABD PELV W/ IV CONTRAST ONLY Indication abdominal pain. Axial images through the abdomen and pelvis were obtained. 60 cc of Omnipaque 300 was administered intravenously. No recent CT imaging of the abdomen or pelvis is available. There is some volume loss, compatible with atelectasis or pneumonia, at both lung bases left greater than right. There is marked diastases and thinning of the abdominal musculature with the transverse colon basically abutting the subcutaneous soft tissues in the lower abdomen and upper pelvis. The liver and spleen appear unremarkable. There is cholelithiasis. Numerous stones are seen in the dependent portion of the gallbladder. No pancreatic mass is seen. No adrenal or renal anomalies are seen. Significant central or retroperitoneal adenopathy in the abdomen is not seen. Acute finding in the abdomen is not apparent. In the pelvis there is a low-density 5 cm mass in the mid sigmoid colon. It is of uncertain etiology. A soft tissue mass, given the Hounsfield unit numbers, is felt somewhat unlikely. Fluid-filled diverticulum could give the appearance. Nonemergent colonoscopy should be considered for additional evaluation. There is some stranding surrounding the rectosigmoid colon. The wall of the rectosigmoid additionally appears somewhat thickened. Local inflammation, proctitis, could give this appearance. There is enlargement of both seminal vesicles and the prostate is slightly enlarged. Some stranding is seen around the seminal vesicles and local inflammation associated with these structures is not excluded. A Quevedo catheter is noted in the urinary bladder. There is a sclerotic focus associated with the right acetabulum likely reflecting a bone island. IMPRESSION: Volume loss at the lung bases left greater than right may reflect atelectasis or pneumonia. Cholelithiasis. Low-density 5 cm mass associated with the sigmoid colon. Etiology is uncertain. Colonoscopy should be considered. Stranding surrounding the rectosigmoid with some associated wall thickening. Local inflammation should be considered Enlarged seminal vesicles with some associated stranding. Inflammation associated with the seminal vesicles not excluded. Slightly enlarged prostate. Course & Med Decision Making Course & Med Decision Making Pertinent Labs and Imaging studies reviewed. (See chart for details) [] Dragon Disclaimer Dragon Disclaimer This electronic medical record was generated, in whole or in part, using a voice recognition dictation system. Departure Departure Impression: Primary Impression: UTI (urinary tract infection) Disposition: ADMITTED INPATIENT Admitting Physician: Brooks Levy Condition: GUARDED Referrals: BROOKS LEVY MD (PCP) Problem Qualifiers Primary Impression: UTI (urinary tract infection) Urinary tract infection type: site unspecified Hematuria presence: without hematuria Qualified Code: N39.0 - Urinary tract infection, site not specified DAVE DING DO Aug 24, 2016 13:09
[2016-08-24] MEDS ORDERED: ACETAMINOPHEN 650 MG SUPP.RECT. PR PRN (13:45)
--- NOTE | 2016-08-24 13:58 | PDOC ---
Provider Note Provider Note history and physical dictated #[id number] KATI BILLINGSLEY MD Aug 24, 2016 13:58
--- NOTE | 2016-08-24 14:16 | PDOC ---
Infectious Disease Note Vital Sign Vital Signs Vital Signs Date Time Temp Pulse Resp B/P Pulse Ox O2 Delivery O2 Flow Rate FiO2 08/24/16 11:09 22 08/24/16 07:43 99.2 147 231/113 95 Nasal Cannula 2 99.2 Labs Lab Laboratory Tests Test 08/24/16 09:16 08/24/16 09:36 08/24/16 10:03 White Blood Count 34.3x10^3/uL (4.0-11.0) Red Blood Count 2.48x10^6/uL (4.30-5.70) Hemoglobin 7.2g/dL (13.0-17.5) Hematocrit 22.0% (39.0-53.0) Mean Corpuscular Volume 89fL (79-100) Mean Corpuscular Hemoglobin 29pg (25-35) Mean Corpuscular Hemoglobin Concent 33g/dL (31-37) Red Cell Distribution Width 17.5% (11.5-14.5) Platelet Count 185x10^3/uL (140-400) Neutrophils (%) (Auto) 92% (31-73) Lymphocytes (%) (Auto) 2% (24-48) Monocytes (%) (Auto) 6% (0-9) Eosinophils (%) (Auto) 0% (0-3) Basophils (%) (Auto) 0% (0-3) Neutrophils # (Auto) 31.5x10^3uL (1.8-7.7) Lymphocytes # (Auto) 0.6x10^3/uL (1.0-4.8) Monocytes # (Auto) 2.1x10^3/uL (0.0-1.1) Eosinophils # (Auto) 0.0x10^3/uL (0.0-0.7) Basophils # (Auto) 0.0x10^3/uL (0.0-0.2) Segmented Neutrophils % 91% (35-66) Band Neutrophils % 1% (0-9) Lymphocytes % 1% (24-48) Monocytes % 7% (0-10) Platelet Estimate Adequate (ADEQUATE) Macrocytosis Slight Sodium Level 142mmol/L (136-145) Potassium Level 4.1mmol/L (3.5-5.1) Chloride Level 104mmol/L (98-107) Carbon Dioxide Level 27mmol/L (21-32) Anion Gap 11 (6-14) Blood Urea Nitrogen 26mg/dL (8-26) Creatinine 1.3mg/dL (0.7-1.3) Estimated GFR (Cockcroft-Gault) 57.3 BUN/Creatinine Ratio 20 (6-20) Glucose Level 116mg/dL (70-99) Calcium Level 8.0mg/dL (8.5-10.1) Total Bilirubin 1.6mg/dL (0.2-1.0) Aspartate Amino Transf (AST/SGOT) 16U/L (15-37) Alanine Aminotransferase (ALT/SGPT) 29U/L (16-63) Alkaline Phosphatase 63U/L (46-116) Total Protein 6.4g/dL (6.4-8.2) Albumin 3.1g/dL (3.4-5.0) Albumin/Globulin Ratio 0.9 (1.0-1.7) Lipase 217U/L (73-393) Urine Collection Type U cath Urine Color [place] Urine Clarity Turbid Urine pH 5.5 Urine Specific [place] >=1.030 Urine Protein 100mg/dL (NEG-TRACE) Urine Glucose (UA) Negativemg/dL (NEG) Urine Ketones (Stick) 15mg/dL (NEG) Urine Blood Large (NEG) Urine Nitrite Positive (NEG) Urine Bilirubin Moderate (NEG) Urine Urobilinogen Dipstick 1.0mg/dL (0.2 mg/dL) Urine Leukocyte Esterase Large (NEG) Urine RBC 0/HPF (0-2) Urine WBC >40/HPF (0-4) Urine Squamous Epithelial Cells Occ/LPF Urine Amorphous Sediment Present/HPF Urine Bacteria Few/HPF (0-FEW) Urine Mucus Slight/LPF Lactic Acid Level 0.7mmol/L (0.4-2.0) IMPRESSION: Volume loss at the lung bases left greater than right may reflect atelectasis or pneumonia. Cholelithiasis. Low-density 5 cm mass associated with the sigmoid colon. Etiology is uncertain. Colonoscopy should be considered. Stranding surrounding the rectosigmoid with some associated wall thickening. Local inflammation should be considered Enlarged seminal vesicles with some associated stranding. Inflammation associated with the seminal vesicles not excluded. Slightly enlarged prostate. Objective Assessment Leukocytosis UTI. POA with enlarged prostate and some seminal vesicle inflammation Sigmoid mass PCN and cefpodoxime allergy. Anemia Mental retardation Plan Plan of Care Dose Meropenem and fluconazole D/C Levaquin Await GI evaluation f/u cultures and monitor labs May need urology eval with enlarged prostate and seminal vesical inflammation D/w mother D/w Dr. Levy Thank you Attending Co-Sign Attending Co-Sign The patient was seen and interviewed as well as examined at the bedside. The chart was reviewed. The case was discussed. Agree with the plan of care. JILL HERNANDEZ APRN Aug 24, 2016 14:16 FRANKLIN PEREZ MD Aug 24, 2016 14:52
[2016-08-24 14:24] VITALS: BP 119/68
[2016-08-24 14:25] VITALS: BP 119/68
--- NOTE | 2016-08-24 14:25 | EKG ---
[facility] [address] [place] [address] Test Date: 2016-08-24 Test Time: 14:20:05 Pat Name: YAMILKA FRIAS Department: Room: [facility] Gender: M Spin Instructor: JAMEEL : 1960 Requested By: KATI BILLINGSLEY Order Number: [id number] Reading MD: Krissy Bhakta Measurements Intervals Fisher Rate: 129 P: 10 MA: 148 QRS: 64 QRSD: 106 T: 25 QT: 294 QTc: 432 Interpretive Statements SINUS TACHYCARDIA OTHERWISE NORMAL ECG Electronically Signed On 08-28-2016 21:37:12 RIPPLER by Krissy Bhakta
[2016-08-24] MEDS: PANTOPRAZOLE IV PUSH 40 MG VIAL. IVP SCH (14:36)
[2016-08-24] MEDS: ENOXAPARIN 40 MG/0.4 ML DISP.SYRIN. SQ SCH (14:37)
[2016-08-24] MEDS: FLUCONAZOLE 400MG/200ML PREMIX 200 ML IV SCH (14:37)
[2016-08-24] MEDS: POTASSIUM CL 20MEQ D5-0.45NACL 1,000 ML IV SCH ×2 (14:38→22:32)
--- NOTE | 2016-08-24 16:53 | RAD ---
Indication leukocytosis. Protocol study. A single view of the chest was obtained. Comparison is made to an examination 10 days earlier. There is unchanged cardiomegaly. There is unchanged elevation of the left hemidiaphragm. Some right pleural fluid persists but in this regard the appearance of the chest appears improved. A new finding in the chest is not seen. A right PICC line is noted with its tip well below the humeral head IMPRESSION: Unchanged cardiomegaly. Right pleural fluid persists but appears less. Unchanged elevation of the left hemidiaphragm
[2016-08-24] MEDS: MEROPENEM 500 MG in IV NORMAL SALINE 50ML 50 ML IV SCH ×2 (17:22→22:33)
--- NOTE | 2016-08-24 18:31 | HP ---
ADMIT DATE: 08/24/2016 LOCATION: He is in room 656. HISTORY OF PRESENT ILLNESS: The patient is a 56-year-old morbidly obese white male, mentally challenged, cared for by his mother with a history of chronic hypoxic and hypercapnic respiratory failure, maintains on oxygen 1 liter per nasal cannula at home, who was recently dismissed from [facility] with acute on chronic hypoxic and hypercapnic respiratory failure, who has a history of pancytopenia and was admitted to [facility] Emergency Room on 08/24/2016 with 1-day history of increased anxiety, poor appetite, some discomfort with urination and decreased urine output. The patient ate lunch, but did not eat supper, which was unusual for him, but had a normal bowel movement yesterday and this morning according to the mother. The patient is a poor historian. In the Emergency Room, he did not have much urine out after the Quevedo catheter was initially placed. He was noted to have pyuria and had a CBC, showed white count of 34,000. He did have a CAT scan of the abdomen and pelvis done in the Emergency Room ____ with IV contrast and it showed cholelithiasis, low density 5 cm mass involving the sigmoid colon, stranding surrounding the rectosigmoid colon with associated wall thickening, large seminal vesicles and slightly enlarged prostate. The patient received a dose of IV Levaquin in the Emergency Room. Blood and urine cultures were done and subsequently admitted to the hospital for further evaluation and treatment. ALLERGIES AND INTOLERANCES: VANTIN AND PENICILLIN, BOTH OF WHICH CAUSE RASHES. MEDICATIONS PRIOR TO ADMISSION: Included DuoNeb nebulizer treatments b.i.d. and every 4 hours p.r.n., Protonix 40 mg every day. PAST MEDICAL HISTORY: Significant for morbid obesity with a chronic ventral abdominal hernia, gastroesophageal reflux disease, chronic hypoxic and hypercapnic respiratory failure, suspected obstructive sleep apnea and Dr. Ruiz was to arrange an outpatient sleep study at home for him. He has had foot surgery for pronation problems in the past, cataract extraction, a tracheostomy was decannulated in 2013. He had an upper GI bleed secondary to esophagitis in 1989. He has a history of hypertension and anxiety. He has a history of chronic hypoxic and hypercapnic respiratory failure with morbid obesity associated with alveolar hypoventilation. SOCIAL HISTORY: He is cared for by his mother. Does not drink alcohol nor does he smoke cigarettes, ambulates without any assistive device. FAMILY HISTORY: Noncontributory. REVIEW OF SYSTEMS: GENERAL: He did have a fever of 101 degrees, ____ apparently at home. CARDIOVASCULAR: No chest pain. PULMONARY: No cough. GASTROINTESTINAL: No abdominal pain mentioned. GENITOURINARY: Had some discomfort with urination and decreased urine output. ENDOCRINE: No diabetes mellitus. SKIN: No rashes. The rest of systems reviewed are negative except as stated in history of present illness. PHYSICAL EXAMINATION: VITAL SIGNS: His temperature is 98.6 degrees, apical pulse is 136, respiratory rate 18, blood pressure 119/68, oxygen saturation 94% on 2 liters per nasal cannula. HEENT: Eyes: Gaze is conjugate. Mouth: Tongue is midline. NECK: There is no cervical lymphadenopathy or thyroid enlargement. HEART: Reveals an S1, S2. There is no S3 or murmur. LUNGS: Clear anteriorly. ABDOMEN: Obese, bowel sounds were positive. I did not appreciate any tenderness. GENITOURINARY: He has got a Quevedo catheter with dark yellow urine. EXTREMITIES: Lower extremities without edema. SKIN: No rashes. NEUROLOGIC: No focal weakness of the extremities or facial asymmetry. LABORATORY DATA: Review of his test results: His white count was 34.3, hemoglobin 7.2, platelet count 185,000 with 92 polys and 2 lymphocytes in the white cell differential. Sodium 142, potassium 4.1, chloride 104, total CO2 27, BUN 26, creatinine 1.3, blood sugar 116, total bilirubin 1.6 and calcium 8.0. SGOT, SGPT and alkaline phosphatase were normal. Albumin 3.1, lipase was 217. Urinalysis shows 0 red cells and greater than 40 white blood cells. The CAT scan of the abdomen and pelvis is as stated above. ASSESSMENT: 1. Sepsis, manifested by a fever that he had earlier and tachycardia. Does have a leukocytosis. 2. He has got pyuria consistent with urinary tract infection. 3. Anemia. 4. Leukocytosis. 5. Cholelithiasis. 6. Sigmoid colon mass. 7. Chronic hypoxic and hypercapnic respiratory failure. 8. Obstructive sleep apnea. 9. Morbid obesity. PLAN: To consult Dr. Conway who is seeing the patient right now, consult Dr. Ribera for GI and will eventually need a colonoscopy. We will also consult Dr. Ruiz for his chronic hypoxic and hypercapnic respiratory failure and obstructive sleep apnea and he usually is treated with CPAP or BiPAP at bedtime. We will keep him n.p.o. for the time being and started on IV fluids. Antibiotics per the Infectious Disease science consultant. Await for blood and urine cultures to return. Repeat a CBC and CMP tomorrow and we will also check his stool for occult blood. There is no evidence of acute cholecystitis or diverticulitis at this time. We will continue with his IV Protonix and Lovenox for deep vein thrombosis prophylaxis. KATI BILLINGSLEY MD DR: TAM/edith JOB#: [id number] / [id number]
[2016-08-24 19:15] VITALS: BP 119/59
[2016-08-24] MEDS ORDERED: ALBUTEROL SULFATE 2.5 MG/3 ML NEBU. NEB PRN (19:45)
[2016-08-24] MEDS: ALBUTEROL SULFATE 2.5 MG/3 ML NEBU. NEB SCH (20:18)
[2016-08-24] MEDS: DIPHENHYDRAMINE HCL 25 MG CAPSULE PO SCH (22:31)
[2016-08-24] MEDS: ACETAMINOPHEN 500 MG TABLET PO SCH (22:32)
[2016-08-24 23:20] VITALS: BP 145/61
[2016-08-25] MEDS: IV NORMAL SALINE 1000ML BAG 1,000 ML IV SCH ×2 (00:42→07:37)
[2016-08-25] MEDS: MEROPENEM 500 MG in IV NORMAL SALINE 50ML 50 ML IV SCH ×5 (00:42→23:10)
[2016-08-25 03:20] VITALS: BP 116/58
[2016-08-25 06:13] LABS: BASO # 0.1 x10^3/uL (0.0-0.2); BASO % 0 % (0-3); EOS % 0 % (0-3); HEMATOCRIT 26.8 % (39.0-53.0); HEMOGLOBIN 8.4 g/dL (13.0-17.5); LYMPH # 0.4 x10^3/uL (1.0-4.8); LYMPH % 3 % (24-48); MEAN CORPUSCULAR HEMOGLOBIN 29 pg (25-35); MEAN CORPUSCULAR HGB CONC 31 g/dL (31-37); MEAN CORPUSCULAR VOLUME 92 fL (79-100); MONO % 5 % (0-9); NEUT % 92 % (31-73); PLATELET COUNT 109 x10^3/uL (140-400); RED BLOOD COUNT 2.92 x10^6/uL (4.30-5.70); RED CELL DISTRIBUTION WIDTH 18.6 % (11.5-14.5); WHITE BLOOD COUNT 14.4 x10^3/uL (4.0-11.0)
[2016-08-25 06:27] LABS: ALBUMIN 2.2 g/dL (3.4-5.0); ALBUMIN/GLOBULIN RATIO 0.7 (1.0-1.7); CALCIUM 7.6 mg/dL (8.5-10.1); CREATININE 1.2 mg/dL (0.7-1.3); GFR 62.9; POTASSIUM 4.4 mmol/L (3.5-5.1); TOTAL BILIRUBIN 0.6 mg/dL (0.2-1.0); TOTAL PROTEIN 5.4 g/dL (6.4-8.2)
[2016-08-25 07:00] VITALS: BP 90/59
[2016-08-25] MEDS: ALBUTEROL SULFATE 2.5 MG/3 ML NEBU. NEB SCH ×4 (07:48→20:21)
[2016-08-25] MEDS: PANTOPRAZOLE IV PUSH 40 MG VIAL. IVP SCH (07:53)
[2016-08-25] MEDS: POTASSIUM CL 20MEQ D5-0.45NACL 1,000 ML IV SCH ×3 (07:54→23:10)
--- NOTE | 2016-08-25 07:54 | CONS ---
DATE OF CONSULTATION: 08/24/2016 REFERRING PHYSICIAN: Dr. Lindsey. REASON FOR CONSULTATION: Leukocytosis, UTI, and multiple antibiotic allergies. HISTORY OF PRESENT ILLNESS: This patient is a 56-year-old, male, who is mentally challenged. He lives at home and is cared for by his mother. He is known to our service from last admission where he was treated for a questionable post-viral versus atypical pneumonia. He had been on levofloxacin. He was discharged on August 16 and was doing fairly well over the past week. However, yesterday, his mother noticed that he did not want to eat dinner and he could not urinate. He spiked a fever of 101. She gave him a couple of aspirin. On arrival to the ER, his temperature was 99.2, with a heart rate of 147. He was hypertensive. He had elevated WBC count of 34,300, with segs 91% and bands 1%. His lactic acid was 0.7 and creatinine 1.3. A Quevedo catheter was placed and reportedly there was minimal output. A urinalysis was suggestive of infection and he was given a 1-time dose of levofloxacin. An abdomen/pelvic CT with IV contrast only revealed volume loss at the lung bases, left greater than right; cholelithiasis; a low-density 5-cm mass associated with the sigmoid colon; stranding surrounding the rectosigmoid with some associated wall thickening; enlarged seminal vesicles with some associated stranding; and slightly enlarged prostate. GI has been consulted. PAST MEDICAL HISTORY: History of MRSA in the nares, chronic hypoxia, hypercapnic respiratory failure oxygen dependent, obesity hypoventilation syndrome, hypertension, anxiety, gastroesophageal reflux disease, GI bleed, esophagitis, chronic ventral abdominal hernia, mentally challenged. PAST SURGICAL HISTORY: Left orchiopexy, foot surgery, cataract extraction, hernia repair. SOCIAL HISTORY: The patient lives at home and is cared for by his mother. Nonsmoker. FAMILY HISTORY: His father had diabetes and myasthenia and has since . His grandmother had breast cancer. ALLERGIES: PENICILLIN, CEFPODOXIME. HOWEVER, HE HAS TOLERATED CEFTIN IN THE PAST. REVIEW OF SYSTEMS: The patient's mother denies any vomiting or diarrhea. She denies any increased oxygen demands, cough, or increased work of breathing. PHYSICAL EXAMINATION: GENERAL: A male, lying in bed, in no apparent distress. VITAL SIGNS: Temperature is 99.2, blood pressure 211/113, heart rate 147, respiratory rate 22, pulse oximetry is 95% on 2 liters nasal cannula. Weight is 224 pounds. HEENT: Pupils are equally round. Post cataract surgery. Normal conjunctivae. Oral cavity, pharynx: Clear. LUNGS: Clear to auscultation. HEART: Normal S1 and S2. ABDOMEN: Obese, bowel sounds are present, soft, nontender. GENITOURINARY: He has an indwelling Quevedo catheter in place. EXTREMITIES: No gross edema or cyanosis. SKIN: Without rash. Warm to touch. NEUROLOGIC: Alert. LABORATORY DATA: Recent WBC is 34.3, hemoglobin 7.2, platelet count 185,000, segs 91%, bands 1%. Electrolytes unremarkable. Creatinine 1.3, BUN 26, glucose 116. Lactic acid 0.6. Total bilirubin 1.6, AST 16, ALT 29, albumin 3.1, lipase 217. Urinalysis is positive for wbc's greater than 40, leukocyte esterase, nitrites, and a few bacteria. Urine and blood cultures pending. Abdomen/pelvis CT: Per HPI. IMPRESSION: 1. Leukocytosis. 2. Urinary tract infection with enlarged prostate and some seminal vesicle inflammation, present on admission. 3. Sigmoid mass. 4. Penicillin and cefpodoxime allergy. 5. Anemia. PLAN: Initiate meropenem and fluconazole. Discontinue levofloxacin. Await GI evaluation. Patient may need a Urology evaluation. We will follow up on morning laboratory values and cultures. Supportive care. Thank you, Dr. Lindsey, for asking us to participate in this patient's care. Should you have further questions or concerns, please call. The patient was seen and examined and plan of care was implemented by Dr. Lee Perez. ELE PEREZ MD DR: DB/edith JOB#: [id number] / [id number]
--- NOTE | 2016-08-25 09:03 | PDOC ---
PROGRESS NOTES Subjective Subjective looks better. drank his clear liquid diet. no abdominal tenderness. lab reviewed. sbc down to 14.4. hgb up to 8.4. platelet 109K. good urine output. urine culture pending.. afebrile. bp on low side. Objective Objective Vital Signs Date Time Temp Pulse Resp B/P Pulse Ox O2 Delivery O2 Flow Rate FiO2 08/25/16 07:48 99 Nasal Cannula 2.0 08/25/16 07:00 98.2 94 22 90/59 98.2 Intake and Output 08/25/16 07:00 Intake Total 2450 ml Output Total 1600 ml Balance 850 ml Intake Oral 300 ml IV Total 2150 ml Output Urine Total 1600 ml Physical Exam Abdomen: Soft, No tenderness, Other (obese) Heart: Regular rate, Normal S1, Normal S2 Extremities: No edema General: Alert HEENT: Atraumatic Lungs: Clear to auscultation Neuro: Normal speech Psych/Mental Status: Mood NL Skin: No rashes Assessment Assessment Problems Medical Problems:1. Sepsis resolved 2. uti 3. Anemia. 4. Leukocytosis. better 5. Cholelithiasis. 6. Sigmoid colon mass. 7. Chronic hypoxic and hypercapnic respiratory failure. 8. Obstructive sleep apnea. 9. Morbid obesity. mild thrombocytopenia (1) Sepsis Status: Acute (2) UTI (urinary tract infection) Status: Acute Plan Plan of Care continue iv meropenem and fluconazole. blood and urine culture pending PT and OT continue [facility] consult. evaluate for colonoscopy clear liquid diet decrease if fluids Comment Review of Relevant I have reviewed the following items lexus (where applicable) has been applied. Labs Laboratory Tests Test 08/24/16 09:16 08/24/16 09:36 08/24/16 10:03 08/24/16 14:00 White Blood Count 34.3x10^3/uL (4.0-11.0) Red Blood Count 2.48x10^6/uL (4.30-5.70) Hemoglobin 7.2g/dL (13.0-17.5) Hematocrit 22.0% (39.0-53.0) Mean Corpuscular Volume 89fL (79-100) Mean Corpuscular Hemoglobin 29pg (25-35) Mean Corpuscular Hemoglobin Concent 33g/dL (31-37) Red Cell Distribution Width 17.5% (11.5-14.5) Platelet Count 185x10^3/uL (140-400) Neutrophils (%) (Auto) 92% (31-73) Lymphocytes (%) (Auto) 2% (24-48) Monocytes (%) (Auto) 6% (0-9) Eosinophils (%) (Auto) 0% (0-3) Basophils (%) (Auto) 0% (0-3) Neutrophils # (Auto) 31.5x10^3uL (1.8-7.7) Lymphocytes # (Auto) 0.6x10^3/uL (1.0-4.8) Monocytes # (Auto) 2.1x10^3/uL (0.0-1.1) Eosinophils # (Auto) 0.0x10^3/uL (0.0-0.7) Basophils # (Auto) 0.0x10^3/uL (0.0-0.2) Segmented Neutrophils % 91% (35-66) Band Neutrophils % 1% (0-9) Lymphocytes % 1% (24-48) Monocytes % 7% (0-10) Platelet Estimate Adequate (ADEQUATE) Macrocytosis Slight Sodium Level 142mmol/L (136-145) Potassium Level 4.1mmol/L (3.5-5.1) Chloride Level 104mmol/L (98-107) Carbon Dioxide Level 27mmol/L (21-32) Anion Gap 11 (6-14) Blood Urea Nitrogen 26mg/dL (8-26) Creatinine 1.3mg/dL (0.7-1.3) Estimated GFR (Cockcroft-Gault) 57.3 BUN/Creatinine Ratio 20 (6-20) Glucose Level 116mg/dL (70-99) Calcium Level 8.0mg/dL (8.5-10.1) Total Bilirubin 1.6mg/dL (0.2-1.0) Aspartate Amino Transf (AST/SGOT) 16U/L (15-37) Alanine Aminotransferase (ALT/SGPT) 29U/L (16-63) Alkaline Phosphatase 63U/L (46-116) Total Protein 6.4g/dL (6.4-8.2) Albumin 3.1g/dL (3.4-5.0) Albumin/Globulin Ratio 0.9 (1.0-1.7) Lipase 217U/L (73-393) Urine Collection Type U cath Urine Color [place] Urine Clarity Turbid Urine pH 5.5 Urine Specific [place] >=1.030 Urine Protein 100mg/dL (NEG-TRACE) Urine Glucose (UA) Negativemg/dL (NEG) Urine Ketones (Stick) 15mg/dL (NEG) Urine Blood Large (NEG) Urine Nitrite Positive (NEG) Urine Bilirubin Moderate (NEG) Urine Urobilinogen Dipstick 1.0mg/dL (0.2 mg/dL) Urine Leukocyte Esterase Large (NEG) Urine RBC 0/HPF (0-2) Urine WBC >40/HPF (0-4) Urine Squamous Epithelial Cells Occ/LPF Urine Amorphous Sediment Present/HPF Urine Bacteria Few/HPF (0-FEW) Urine Mucus Slight/LPF Lactic Acid Level 0.7mmol/L (0.4-2.0) 0.6mmol/L (0.4-2.0) Test 08/25/16 05:55 White Blood Count 14.4x10^3/uL (4.0-11.0) Red Blood Count 2.92x10^6/uL (4.30-5.70) Hemoglobin 8.4g/dL (13.0-17.5) Hematocrit 26.8% (39.0-53.0) Mean Corpuscular Volume 92fL (79-100) Mean Corpuscular Hemoglobin 29pg (25-35) Mean Corpuscular Hemoglobin Concent 31g/dL (31-37) Red Cell Distribution Width 18.6% (11.5-14.5) Platelet Count 109x10^3/uL (140-400) Neutrophils (%) (Auto) 92% (31-73) Lymphocytes (%) (Auto) 3% (24-48) Monocytes (%) (Auto) 5% (0-9) Eosinophils (%) (Auto) 0% (0-3) Basophils (%) (Auto) 0% (0-3) Neutrophils # (Auto) 13.3x10^3uL (1.8-7.7) Lymphocytes # (Auto) 0.4x10^3/uL (1.0-4.8) Monocytes # (Auto) 0.7x10^3/uL (0.0-1.1) Eosinophils # (Auto) 0.0x10^3/uL (0.0-0.7) Basophils # (Auto) 0.1x10^3/uL (0.0-0.2) Sodium Level 143mmol/L (136-145) Potassium Level 4.4mmol/L (3.5-5.1) Chloride Level 109mmol/L (98-107) Carbon Dioxide Level 28mmol/L (21-32) Anion Gap 6 (6-14) Blood Urea Nitrogen 16mg/dL (8-26) Creatinine 1.2mg/dL (0.7-1.3) Estimated GFR (Cockcroft-Gault) 62.9 BUN/Creatinine Ratio 13 (6-20) Glucose Level 126mg/dL (70-99) Calcium Level 7.6mg/dL (8.5-10.1) Total Bilirubin 0.6mg/dL (0.2-1.0) Aspartate Amino Transf (AST/SGOT) 10U/L (15-37) Alanine Aminotransferase (ALT/SGPT) 20U/L (16-63) Alkaline Phosphatase 60U/L (46-116) Total Protein 5.4g/dL (6.4-8.2) Albumin 2.2g/dL (3.4-5.0) Albumin/Globulin Ratio 0.7 (1.0-1.7) Laboratory Tests Test 08/24/16 09:16 08/24/16 09:36 08/24/16 10:03 08/24/16 14:00 White Blood Count 34.3x10^3/uL (4.0-11.0) Red Blood Count 2.48x10^6/uL (4.30-5.70) Hemoglobin 7.2g/dL (13.0-17.5) Hematocrit 22.0% (39.0-53.0) Mean Corpuscular Volume 89fL (79-100) Mean Corpuscular Hemoglobin 29pg (25-35) Mean Corpuscular Hemoglobin Concent 33g/dL (31-37) Red Cell Distribution Width 17.5% (11.5-14.5) Platelet Count 185x10^3/uL (140-400) Neutrophils (%) (Auto) 92% (31-73) Lymphocytes (%) (Auto) 2% (24-48) Monocytes (%) (Auto) 6% (0-9) Eosinophils (%) (Auto) 0% (0-3) Basophils (%) (Auto) 0% (0-3) Neutrophils # (Auto) 31.5x10^3uL (1.8-7.7) Lymphocytes # (Auto) 0.6x10^3/uL (1.0-4.8) Monocytes # (Auto) 2.1x10^3/uL (0.0-1.1) Eosinophils # (Auto) 0.0x10^3/uL (0.0-0.7) Basophils # (Auto) 0.0x10^3/uL (0.0-0.2) Segmented Neutrophils % 91% (35-66) Band Neutrophils % 1% (0-9) Lymphocytes % 1% (24-48) Monocytes % 7% (0-10) Platelet Estimate Adequate (ADEQUATE) Macrocytosis Slight Sodium Level 142mmol/L (136-145) Potassium Level 4.1mmol/L (3.5-5.1) Chloride Level 104mmol/L (98-107) Carbon Dioxide Level 27mmol/L (21-32) Anion Gap 11 (6-14) Blood Urea Nitrogen 26mg/dL (8-26) Creatinine 1.3mg/dL (0.7-1.3) Estimated GFR (Cockcroft-Gault) 57.3 BUN/Creatinine Ratio 20 (6-20) Glucose Level 116mg/dL (70-99) Calcium Level 8.0mg/dL (8.5-10.1) Total Bilirubin 1.6mg/dL (0.2-1.0) Aspartate Amino Transf (AST/SGOT) 16U/L (15-37) Alanine Aminotransferase (ALT/SGPT) 29U/L (16-63) Alkaline Phosphatase 63U/L (46-116) Total Protein 6.4g/dL (6.4-8.2) Albumin 3.1g/dL (3.4-5.0) Albumin/Globulin Ratio 0.9 (1.0-1.7) Lipase 217U/L (73-393) Urine Collection Type U cath Urine Color [place] Urine Clarity Turbid Urine pH 5.5 Urine Specific [place] >=1.030 Urine Protein 100mg/dL (NEG-TRACE) Urine Glucose (UA) Negativemg/dL (NEG) Urine Ketones (Stick) 15mg/dL (NEG) Urine Blood Large (NEG) Urine Nitrite Positive (NEG) Urine Bilirubin Moderate (NEG) Urine Urobilinogen Dipstick 1.0mg/dL (0.2 mg/dL) Urine Leukocyte Esterase Large (NEG) Urine RBC 0/HPF (0-2) Urine WBC >40/HPF (0-4) Urine Squamous Epithelial Cells Occ/LPF Urine Amorphous Sediment Present/HPF Urine Bacteria Few/HPF (0-FEW) Urine Mucus Slight/LPF Lactic Acid Level 0.7mmol/L (0.4-2.0) 0.6mmol/L (0.4-2.0) Test 08/25/16 05:55 White Blood Count 14.4x10^3/uL (4.0-11.0) Red Blood Count 2.92x10^6/uL (4.30-5.70) Hemoglobin 8.4g/dL (13.0-17.5) Hematocrit 26.8% (39.0-53.0) Mean Corpuscular Volume 92fL (79-100) Mean Corpuscular Hemoglobin 29pg (25-35) Mean Corpuscular Hemoglobin Concent 31g/dL (31-37) Red Cell Distribution Width 18.6% (11.5-14.5) Platelet Count 109x10^3/uL (140-400) Neutrophils (%) (Auto) 92% (31-73) Lymphocytes (%) (Auto) 3% (24-48) Monocytes (%) (Auto) 5% (0-9) Eosinophils (%) (Auto) 0% (0-3) Basophils (%) (Auto) 0% (0-3) Neutrophils # (Auto) 13.3x10^3uL (1.8-7.7) Lymphocytes # (Auto) 0.4x10^3/uL (1.0-4.8) Monocytes # (Auto) 0.7x10^3/uL (0.0-1.1) Eosinophils # (Auto) 0.0x10^3/uL (0.0-0.7) Basophils # (Auto) 0.1x10^3/uL (0.0-0.2) Sodium Level 143mmol/L (136-145) Potassium Level 4.4mmol/L (3.5-5.1) Chloride Level 109mmol/L (98-107) Carbon Dioxide Level 28mmol/L (21-32) Anion Gap 6 (6-14) Blood Urea Nitrogen 16mg/dL (8-26) Creatinine 1.2mg/dL (0.7-1.3) Estimated GFR (Cockcroft-Gault) 62.9 BUN/Creatinine Ratio 13 (6-20) Glucose Level 126mg/dL (70-99) Calcium Level 7.6mg/dL (8.5-10.1) Total Bilirubin 0.6mg/dL (0.2-1.0) Aspartate Amino Transf (AST/SGOT) 10U/L (15-37) Alanine Aminotransferase (ALT/SGPT) 20U/L (16-63) Alkaline Phosphatase 60U/L (46-116) Total Protein 5.4g/dL (6.4-8.2) Albumin 2.2g/dL (3.4-5.0) Albumin/Globulin Ratio 0.7 (1.0-1.7) Medications Current Medications Lorazepam 2 mg 2 mg 1X ONCE IV Last administered on 08/24/16 08:29; Start at 08:30; Stop 08/24/16 at 08:31; Status DC Sodium Chloride (Iv Sodium Chloride 0.9% 1000ml Bag) 1,000 ml @ 1,000 mls/hr 1X ONCE IV Last administered on 08/24/16 09:22; Start 08/24/16 at 08:30; Stop 08/24/16 at 09:29; Status DC Ondansetron HCl 4 mg 4 mg 1X ONCE IV Last administered on 08/24/16 09:23; Start 08/24/16 at 08:30; Stop 08/24/16 at 08:31; Status DC Levofloxacin/ Dextrose 150 ml @ 100 mls/hr 1X ONCE IV Last administered on 11:09; Start 08/24/16 at 10:00; Stop 08/24/16 at 11:29; Status DC Sodium Chloride 1,000 ml @ 1,000 mls/hr 1X ONCE IV Last administered on 10:31; Start 08/24/16 at 10:00; Stop 08/24/16 at 10:59; Status DC Sodium Chloride (Iv Sodium Chloride 0.9% 1000ml Bag) 1,000 ml @ 1,000 mls/hr 1X ONCE IV ; Start 08/24/16 at 10:00; Stop 08/24/16 at 10:59; Status UNV Fentanyl Citrate (Fentanyl 2ml Vial) 50 mcg 1X ONCE IV Last administered on 11:09; Start 08/24/16 at 10:30; Stop 08/24/16 at 10:31; Status DC Iohexol (Omnipaque 300 Mg/ml) 60 ml 1X ONCE IV Last administered on 08/24/16 10:48; Start 08/24/16 at 10:30; Stop 08/24/16 at 10:31; Status DC Ondansetron HCl (Zofran) 4 mg PRN Q8HRS PRN IV NAUSEA/VOMITING; Start 08/24/16 at 11:45; Stop 08/24/16 at 13:45; Status DC Fentanyl Citrate 50 mcg 50 mcg PRN Q1HR PRN IV PAIN; Start 08/24/16 at 11:45; Stop 08/25/16 at 11:44 Sodium Chloride (Iv Sodium Chloride 0.9% 1000ml Bag) 1,000 ml @ 150 mls/hr Q6H40M IV ; Start 08/24/16 at 12:00; Stop 08/25/16 at 11:59 Acetaminophen 650 mg 650 mg PRN Q4HRS PRN PO FEVER; Start 08/24/16 at 11:45; Stop 08/24/16 at 22:21; Status DC Potassium Chloride/Dextrose/ Sod Cl (KCl 20 Meq In D5W-1/2 NS) 1,000 ml @ 75 mls/hr [id number] IV Last administered on 08/25/16 07:54; Start 08/24/16 at 15:00 Acetaminophen (Tylenol) 650 mg PRN Q6HRS PRN [place] MILD PAIN / TEMP; Start at 13:45; Stop 08/25/16 at 08:58; Status DC Pantoprazole Sodium (Protonix Vial) 40 mg DAILYAC IVP Last administered on 08/25 07:53; Start 08/24/16 at 14:00; Stop 08/25/16 at 08:58; Status DC Ondansetron HCl (Zofran) 4 mg PRN Q6HRS PRN IV NAUSEA/VOMITING; Start 08/24/16 at 13:45 Enoxaparin Sodium 40 mg 40 mg Q24H SQ Last administered on 08/24/16 14:37; Start 08/24/16 at 15:00 Meropenem 500 mg/ Sodium Chloride 50 ml @ 100 mls/hr Q6HRS IV Last administered on 08/25/16 05:48; Start 08/24/16 at 16:00 Fluconazole/ Sodium Chloride (Diflucan 400mg/ 200ml Premix) 200 ml @ 100 mls/ hr Q24H IV Last administered on 08/24/16 14:37; Start 08/24/16 at 15:00 Albuterol Sulfate (Ventolin Neb Soln) 2.5 mg RTQID NEB Last administered on 07:48; Start 08/24/16 at 20:00 Albuterol Sulfate (Ventolin Neb Soln) 2.5 mg PRN Q4HRS PRN NEB SHORTNESS OF BREATH; Start 08/24/16 at 19:45 Acetaminophen (Tylenol) 500 mg QHS PO Last administered on 08/24/16 22:32; Start 08/24/16 at 22:30 Diphenhydramine HCl (Benadryl) 25 mg QHS PO Last administered on 08/24/16 22: 31; Start 08/24/16 at 22:30 Pantoprazole Sodium (Protonix) 40 mg DAILYAC PO ; Start 08/26/16 at 07:30; Status UNV Acetaminophen (Tylenol) 650 mg Q4HRS PRN PO MILD PAIN / TEMP; Start 08/25/16 at 09:00; Status UNV Active Scripts Active Prednisone 20 Mg Tablet 30 Mg PO DAILY Levaquin (Levofloxacin) 500 Mg Tablet 500 Mg PO DAILY06 Albuterol Sulfate Neb Soln (Albuterol Sulfate) 2.5 Mg/3 Ml Vial.neb 2.5 Mg NEB RTQID Tylenol (Acetaminophen) 325 Mg Tablet 650 Mg PO PRN Q4HRS PRN Protonix (Pantoprazole Sodium) 40 Mg Tablet 40 Mg PO DAILYAC Vitals/I & O Vital Sign - Last 24 Hours 08/24/16 08/24/16 08/24/16 08/24/16 09:37 10:08 10:38 11:09 Pulse 126 122 122 Resp 28 21 25 22 Pulse Ox 92 93 95 08/24/16 08/24/16 08/24/16 08/24/16 11:36 12:06 12:36 14:05 Pulse 136 138 132 Resp 30 26 30 Pulse Ox 91 91 93 O2 Delivery Nasal Cannula O2 Flow Rate 2.0 08/24/16 08/24/16 08/24/16 08/24/16 14:24 14:25 19:15 20:00 Temp 98.6 98.6 98.2 98.6 98.6 98.2 Pulse 136 136 83 Resp 18 18 20 B/P 119/68 119/68 119/59 Pulse Ox 94 94 94 O2 Delivery Nasal Cannula Nasal Cannula O2 Flow Rate 2.0 2.0 08/24/16 08/24/16 08/24/16 08/25/16 20:21 22:14 23:20 00:12 Temp 99.7 99.7 Pulse 62 Resp 16 B/P 145/61 Pulse Ox 94 93 96 93 O2 Delivery Nasal Cannula BiPAP/CPAP BiPAP/CPAP BiPAP/CPAP O2 Flow Rate 2.0 08/25/16 08/25/16 08/25/16 08/25/16 01:55 03:20 04:16 07:00 Temp 96.5 98.2 96.5 98.2 Pulse 100 94 Resp 38 22 B/P 116/58 90/59 Pulse Ox 94 93 O2 Delivery BiPAP/CPAP BiPAP/CPAP BiPAP/CPAP Nasal Cannula O2 Flow Rate 2.0 08/25/16 07:48 Pulse Ox 99 O2 Delivery Nasal Cannula O2 Flow Rate 2.0 Intake and Output 08/24/16 08/24/16 08/25/16 15:00 23:00 07:00 Intake Total 2150 ml 200 ml 100 ml Output Total 800 ml 800 ml Balance 2150 ml -600 ml -700 ml KATI BILLINGSLEY MD Aug 25, 2016 09:03
--- NOTE | 2016-08-25 10:03 | PDOC ---
Infectious Disease Note Subjective Subjective Doing ok ROS ROS GEN: Denies fevers, chills, sweats HEENT: Denies blurred vision, sore throat CV: Denies chest pain RESP: Denies shortness of air, cough GI: Denies n/v/d NEURO: Denies confusion, dizziness MSK: Denies weakness, joint pain/swelling Unreliable Vital Sign Vital Signs Vital Signs Date Time Temp Pulse Resp B/P Pulse Ox O2 Delivery O2 Flow Rate FiO2 08/25/16 08:00 Nasal Cannula 2.0 08/25/16 07:48 99 08/25/16 07:00 98.2 94 22 90/59 98.2 Physical Exam PHYSICAL EXAM GENERAL: NAD, Alert HEENT: PERRL, OC/OP- dry NECK: Supple, no JVD, no LN LUNGS: Clear HEART: S1S2, no gallop, no murmur ABD: Soft, NT, no organomegaly, no rebound, obese Quevedo EXT: No edema, no cyanosis PROMOTIONS ASSOCIATE: Alert,coop SKIN: No rash IV: ok Labs Lab Laboratory Tests Test 08/24/16 10:03 08/24/16 14:00 08/25/16 05:55 Lactic Acid Level 0.7mmol/L (0.4-2.0) 0.6mmol/L (0.4-2.0) White Blood Count 14.4x10^3/uL (4.0-11.0) Red Blood Count 2.92x10^6/uL (4.30-5.70) Hemoglobin 8.4g/dL (13.0-17.5) Hematocrit 26.8% (39.0-53.0) Mean Corpuscular Volume 92fL (79-100) Mean Corpuscular Hemoglobin 29pg (25-35) Mean Corpuscular Hemoglobin Concent 31g/dL (31-37) Red Cell Distribution Width 18.6% (11.5-14.5) Platelet Count 109x10^3/uL (140-400) Neutrophils (%) (Auto) 92% (31-73) Lymphocytes (%) (Auto) 3% (24-48) Monocytes (%) (Auto) 5% (0-9) Eosinophils (%) (Auto) 0% (0-3) Basophils (%) (Auto) 0% (0-3) Neutrophils # (Auto) 13.3x10^3uL (1.8-7.7) Lymphocytes # (Auto) 0.4x10^3/uL (1.0-4.8) Monocytes # (Auto) 0.7x10^3/uL (0.0-1.1) Eosinophils # (Auto) 0.0x10^3/uL (0.0-0.7) Basophils # (Auto) 0.1x10^3/uL (0.0-0.2) Sodium Level 143mmol/L (136-145) Potassium Level 4.4mmol/L (3.5-5.1) Chloride Level 109mmol/L (98-107) Carbon Dioxide Level 28mmol/L (21-32) Anion Gap 6 (6-14) Blood Urea Nitrogen 16mg/dL (8-26) Creatinine 1.2mg/dL (0.7-1.3) Estimated GFR (Cockcroft-Gault) 62.9 BUN/Creatinine Ratio 13 (6-20) Glucose Level 126mg/dL (70-99) Calcium Level 7.6mg/dL (8.5-10.1) Total Bilirubin 0.6mg/dL (0.2-1.0) Aspartate Amino Transf (AST/SGOT) 10U/L (15-37) Alanine Aminotransferase (ALT/SGPT) 20U/L (16-63) Alkaline Phosphatase 60U/L (46-116) Total Protein 5.4g/dL (6.4-8.2) Albumin 2.2g/dL (3.4-5.0) Albumin/Globulin Ratio 0.7 (1.0-1.7) Objective Assessment Leukocytosis - better UTI. POA with enlarged prostate and some seminal vesicle inflammation Sigmoid mass PCN and cefpodoxime allergy. Anemia Mental retardation Plan Plan of Care Cont Meropenem and fluconazole Await further GI evaluation f/u cultures and monitor labs May need urology eval with enlarged prostate and seminal vesical inflammation D/w mother FRANKLIN PEREZ MD Aug 25, 2016 10:03
--- NOTE | 2016-08-25 10:15 | CONS ---
DATE OF CONSULTATION: 08/24/2016 Dr. Tonja Bowen dictating a GI consultation for Dr. Maury Yuen. DATE OF CONSULTATION: 08/24/2016 REQUESTING PHYSICIAN: Brooks Levy MD PRIMARY CARE PHYSICIAN: Brooks Levy MD REASON FOR CONSULTATION: Abnormal CT. HISTORY OF PRESENT ILLNESS: This is a 56-year-old gentleman who was admitted to [facility] for urinary retention and to found to have a UTI. He was recently admitted with similar symptoms. He denies any bowel symptoms and his mother states that he has had a daily bowel movement. She also reports that he has had no nausea, vomiting or abdominal pain. He underwent imaging to evaluate abdominal pain and was found to have a question of a 5 cm mass in his mid sigmoid colon. This was thought to either be a fluid filled diverticulum versus a mass. He was also found to have stranding surrounding the retrosigmoid with some associated wall thickening. His mother reports she has had no GI symptoms. His maternal grandmother did have a colon polyps removed in her 80s. PAST MEDICAL HISTORY: Significant for: 1. Mental retardation. 2. Hiatal hernia. 3. Pneumonia. 4. Undescended testicles. 5. Diaphragmatic hernia. 6. Hernia repair. 7. Testicle release. 8. He has had a history of having a PEG tube that was removed by Dr. William Harman in 2013. FAMILY MEDICAL HISTORY: Significant for colorectal cancer in his maternal grandmother. MEDICATIONS: Home meds include: 1. Tylenol. 2. Albuterol. 3. Levaquin. 4. Protonix. 5. Prednisone. REVIEW OF SYSTEMS: Largely unobtainable and is as per discuss with his mother. PHYSICAL EXAMINATION: VITAL SIGNS: Temperature is 98.1, blood pressure 154/86, heart rate is 96. GENERAL: He is a well-developed, well-nourished male, in no apparent distress. HEENT: Oropharynx is clear. CARDIOVASCULAR: S1, S2. LUNGS: Clear. ABDOMEN: Normoactive bowel sounds, soft, nontender, nondistended. A Quevedo is in place. EXTREMITIES: No edema. LABORATORY DATA: White blood cell count of 34.3 with a hemoglobin of 7.2 with an MCV of 89, platelets are at 185. Chemistries show normal liver function tests. ASSESSMENT AND PLAN: 1. Abnormal CT: There is a question of a fluid filled diverticulum versus a soft tissue mass in his sigmoid colon. This is measuring [address] He will likely need some sort of an evaluation for this. At this time, I will place him on clear liquids and discuss further with Dr. Yuen whether he needs a full colonoscopy versus a flexible sigmoidoscopy. 2. Family history of colorectal cancer: His maternal grandmother had colon cancer in her 80s. 3. Anemia. His hemoglobin is 7.2. We will continue to monitor this. Thank you for allowing me and Dr. Yuen to participate in the care of this patient. TONJA BOWEN MD DR: PRESTON/edith JOB#: [id number] / [id number] BROOKS Delacruz MD, ALKA MD THOMPSON, MICHAEL MD
--- NOTE | 2016-08-25 10:44 | PDOC ---
Subjective: Subjective: Per mother at bedside - wants colonoscopy. Objective: Objective: Per RN - BM yesterday, no bleeding. Vital Signs: Vital Signs Date Time Temp Pulse Resp B/P Pulse Ox O2 Delivery O2 Flow Rate FiO2 08/25/16 08:00 Nasal Cannula 2.0 08/25/16 07:48 99 08/25/16 07:00 98.2 94 22 90/59 98.2 Labs: Laboratory Tests Test 08/24/16 14:00 08/25/16 05:55 Lactic Acid Level 0.6mmol/L White Blood Count 14.4x10^3/uL Red Blood Count 2.92x10^6/uL Hemoglobin 8.4g/dL Hematocrit 26.8% Mean Corpuscular Volume 92fL Mean Corpuscular Hemoglobin 29pg Mean Corpuscular Hemoglobin Concent 31g/dL Red Cell Distribution Width 18.6% Platelet Count 109x10^3/uL Neutrophils (%) (Auto) 92% Lymphocytes (%) (Auto) 3% Monocytes (%) (Auto) 5% Eosinophils (%) (Auto) 0% Basophils (%) (Auto) 0% Neutrophils # (Auto) 13.3x10^3uL Lymphocytes # (Auto) 0.4x10^3/uL Monocytes # (Auto) 0.7x10^3/uL Eosinophils # (Auto) 0.0x10^3/uL Basophils # (Auto) 0.1x10^3/uL Sodium Level 143mmol/L Potassium Level 4.4mmol/L Chloride Level 109mmol/L Carbon Dioxide Level 28mmol/L Anion Gap 6 Blood Urea Nitrogen 16mg/dL Creatinine 1.2mg/dL Estimated GFR (Cockcroft-Gault) 62.9 BUN/Creatinine Ratio 13 Glucose Level 126mg/dL Calcium Level 7.6mg/dL Total Bilirubin 0.6mg/dL Aspartate Amino Transf (AST/SGOT) 10U/L Alanine Aminotransferase (ALT/SGPT) 20U/L Alkaline Phosphatase 60U/L Total Protein 5.4g/dL Albumin 2.2g/dL Albumin/Globulin Ratio 0.7 PE: GEN: NAD LUNGS: nasal cannula HEART: RRR ABD: obese, distended, ?tender - difficult to say NEURO/PSYCH: moans A/P: Abnormal CT -fluid filled diverticulum vs 5cm soft tissue mass in sigmoid colon -has been on clears -no previous colonoscopy, +FH colon cancer Anemia -Hgb stable UTI, leukocytosis -ID following -- Will review w/ Dr. Ribera re: sigmoidoscopy/colonoscopy plans. MELANIE HICKS Aug 25, 2016 10:44
[2016-08-25 11:00] VITALS: BP 103/86
[2016-08-25] MEDS: FLUCONAZOLE 400MG/200ML PREMIX 200 ML IV SCH (15:36)
[2016-08-25] MEDS: ENOXAPARIN 40 MG/0.4 ML DISP.SYRIN. SQ SCH (15:36)
--- NOTE | 2016-08-25 18:45 | PDOC ---
PULMONARY PROGRESS NOTES Vitals Vital Signs Date Time Temp Pulse Resp B/P Pulse Ox O2 Delivery O2 Flow Rate FiO2 08/25/16 14:53 Nasal Cannula 2.0 08/25/16 11:00 98.8 108 20 103/86 90 98.8 General: Alert, No acute distress HEENT: Other Lungs: Wheezing, Other Cardiovascular: S1, Other Abdomen: Soft, Non-tender, Other Extremities: Other Labs Laboratory Tests Test 08/24/16 09:16 08/24/16 09:36 08/24/16 10:03 08/24/16 14:00 White Blood Count 34.3x10^3/uL (4.0-11.0) Red Blood Count 2.48x10^6/uL (4.30-5.70) Hemoglobin 7.2g/dL (13.0-17.5) Hematocrit 22.0% (39.0-53.0) Mean Corpuscular Volume 89fL (79-100) Mean Corpuscular Hemoglobin 29pg (25-35) Mean Corpuscular Hemoglobin Concent 33g/dL (31-37) Red Cell Distribution Width 17.5% (11.5-14.5) Platelet Count 185x10^3/uL (140-400) Neutrophils (%) (Auto) 92% (31-73) Lymphocytes (%) (Auto) 2% (24-48) Monocytes (%) (Auto) 6% (0-9) Eosinophils (%) (Auto) 0% (0-3) Basophils (%) (Auto) 0% (0-3) Neutrophils # (Auto) 31.5x10^3uL (1.8-7.7) Lymphocytes # (Auto) 0.6x10^3/uL (1.0-4.8) Monocytes # (Auto) 2.1x10^3/uL (0.0-1.1) Eosinophils # (Auto) 0.0x10^3/uL (0.0-0.7) Basophils # (Auto) 0.0x10^3/uL (0.0-0.2) Segmented Neutrophils % 91% (35-66) Band Neutrophils % 1% (0-9) Lymphocytes % 1% (24-48) Monocytes % 7% (0-10) Platelet Estimate Adequate (ADEQUATE) Macrocytosis Slight Sodium Level 142mmol/L (136-145) Potassium Level 4.1mmol/L (3.5-5.1) Chloride Level 104mmol/L (98-107) Carbon Dioxide Level 27mmol/L (21-32) Anion Gap 11 (6-14) Blood Urea Nitrogen 26mg/dL (8-26) Creatinine 1.3mg/dL (0.7-1.3) Estimated GFR (Cockcroft-Gault) 57.3 BUN/Creatinine Ratio 20 (6-20) Glucose Level 116mg/dL (70-99) Calcium Level 8.0mg/dL (8.5-10.1) Total Bilirubin 1.6mg/dL (0.2-1.0) Aspartate Amino Transf (AST/SGOT) 16U/L (15-37) Alanine Aminotransferase (ALT/SGPT) 29U/L (16-63) Alkaline Phosphatase 63U/L (46-116) Total Protein 6.4g/dL (6.4-8.2) Albumin 3.1g/dL (3.4-5.0) Albumin/Globulin Ratio 0.9 (1.0-1.7) Lipase 217U/L (73-393) Urine Collection Type U cath Urine Color [place] Urine Clarity Turbid Urine pH 5.5 Urine Specific [place] >=1.030 Urine Protein 100mg/dL (NEG-TRACE) Urine Glucose (UA) Negativemg/dL (NEG) Urine Ketones (Stick) 15mg/dL (NEG) Urine Blood Large (NEG) Urine Nitrite Positive (NEG) Urine Bilirubin Moderate (NEG) Urine Urobilinogen Dipstick 1.0mg/dL (0.2 mg/dL) Urine Leukocyte Esterase Large (NEG) Urine RBC 0/HPF (0-2) Urine WBC >40/HPF (0-4) Urine Squamous Epithelial Cells Occ/LPF Urine Amorphous Sediment Present/HPF Urine Bacteria Few/HPF (0-FEW) Urine Mucus Slight/LPF Lactic Acid Level 0.7mmol/L (0.4-2.0) 0.6mmol/L (0.4-2.0) Test 08/24/16 22:10 08/25/16 05:55 Nasal Screen MRSA (PCR) Positive (Negative) White Blood Count 14.4x10^3/uL (4.0-11.0) Red Blood Count 2.92x10^6/uL (4.30-5.70) Hemoglobin 8.4g/dL (13.0-17.5) Hematocrit 26.8% (39.0-53.0) Mean Corpuscular Volume 92fL (79-100) Mean Corpuscular Hemoglobin 29pg (25-35) Mean Corpuscular Hemoglobin Concent 31g/dL (31-37) Red Cell Distribution Width 18.6% (11.5-14.5) Platelet Count 109x10^3/uL (140-400) Neutrophils (%) (Auto) 92% (31-73) Lymphocytes (%) (Auto) 3% (24-48) Monocytes (%) (Auto) 5% (0-9) Eosinophils (%) (Auto) 0% (0-3) Basophils (%) (Auto) 0% (0-3) Neutrophils # (Auto) 13.3x10^3uL (1.8-7.7) Lymphocytes # (Auto) 0.4x10^3/uL (1.0-4.8) Monocytes # (Auto) 0.7x10^3/uL (0.0-1.1) Eosinophils # (Auto) 0.0x10^3/uL (0.0-0.7) Basophils # (Auto) 0.1x10^3/uL (0.0-0.2) Sodium Level 143mmol/L (136-145) Potassium Level 4.4mmol/L (3.5-5.1) Chloride Level 109mmol/L (98-107) Carbon Dioxide Level 28mmol/L (21-32) Anion Gap 6 (6-14) Blood Urea Nitrogen 16mg/dL (8-26) Creatinine 1.2mg/dL (0.7-1.3) Estimated GFR (Cockcroft-Gault) 62.9 BUN/Creatinine Ratio 13 (6-20) Glucose Level 126mg/dL (70-99) Calcium Level 7.6mg/dL (8.5-10.1) Total Bilirubin 0.6mg/dL (0.2-1.0) Aspartate Amino Transf (AST/SGOT) 10U/L (15-37) Alanine Aminotransferase (ALT/SGPT) 20U/L (16-63) Alkaline Phosphatase 60U/L (46-116) Total Protein 5.4g/dL (6.4-8.2) Albumin 2.2g/dL (3.4-5.0) Albumin/Globulin Ratio 0.7 (1.0-1.7) Laboratory Tests Test 08/24/16 22:10 08/25/16 05:55 Nasal Screen MRSA (PCR) Positive (Negative) White Blood Count 14.4x10^3/uL (4.0-11.0) Red Blood Count 2.92x10^6/uL (4.30-5.70) Hemoglobin 8.4g/dL (13.0-17.5) Hematocrit 26.8% (39.0-53.0) Mean Corpuscular Volume 92fL (79-100) Mean Corpuscular Hemoglobin 29pg (25-35) Mean Corpuscular Hemoglobin Concent 31g/dL (31-37) Red Cell Distribution Width 18.6% (11.5-14.5) Platelet Count 109x10^3/uL (140-400) Neutrophils (%) (Auto) 92% (31-73) Lymphocytes (%) (Auto) 3% (24-48) Monocytes (%) (Auto) 5% (0-9) Eosinophils (%) (Auto) 0% (0-3) Basophils (%) (Auto) 0% (0-3) Neutrophils # (Auto) 13.3x10^3uL (1.8-7.7) Lymphocytes # (Auto) 0.4x10^3/uL (1.0-4.8) Monocytes # (Auto) 0.7x10^3/uL (0.0-1.1) Eosinophils # (Auto) 0.0x10^3/uL (0.0-0.7) Basophils # (Auto) 0.1x10^3/uL (0.0-0.2) Sodium Level 143mmol/L (136-145) Potassium Level 4.4mmol/L (3.5-5.1) Chloride Level 109mmol/L (98-107) Carbon Dioxide Level 28mmol/L (21-32) Anion Gap 6 (6-14) Blood Urea Nitrogen 16mg/dL (8-26) Creatinine 1.2mg/dL (0.7-1.3) Estimated GFR (Cockcroft-Gault) 62.9 BUN/Creatinine Ratio 13 (6-20) Glucose Level 126mg/dL (70-99) Calcium Level 7.6mg/dL (8.5-10.1) Total Bilirubin 0.6mg/dL (0.2-1.0) Aspartate Amino Transf (AST/SGOT) 10U/L (15-37) Alanine Aminotransferase (ALT/SGPT) 20U/L (16-63) Alkaline Phosphatase 60U/L (46-116) Total Protein 5.4g/dL (6.4-8.2) Albumin 2.2g/dL (3.4-5.0) Albumin/Globulin Ratio 0.7 (1.0-1.7) Medications Active Scripts Medications Dose Route/Sig Days Date Category Prednisone 20 Mg Tablet 30 Mg PO DAILY 08/16/16 Rx Levaquin (Levofloxacin) 500 Mg Tablet 500 Mg PO DAILY06 08/16/16 Rx Albuterol Sulfate Neb Soln (Albuterol Sulfate) 2.5 Mg/3 Ml Vial.neb 2.5 Mg NEB RTQID 06/18/15 Rx Tylenol (Acetaminophen) 325 Mg Tablet 650 Mg PO PRN Q4HRS PRN 10/20/14 Rx Protonix (Pantoprazole Sodium) 40 Mg Tablet 40 Mg PO DAILYAC 04/26/14 Rx Impression . [id number] thanks CONTINUE BIPAP FOR NOW CALVIN ARCE MD Aug 25, 2016 18:45
[2016-08-25 19:05] VITALS: BP 105/62
[2016-08-25] MEDS: ACETAMINOPHEN 500 MG TABLET PO SCH (20:42)
[2016-08-25] MEDS: DIPHENHYDRAMINE HCL 25 MG CAPSULE PO SCH (20:42)
--- NOTE | 2016-08-25 22:42 | ACF ---
Admission Forms Criteria SEPSIS and OTHER FEBRILE ILLNESS, W/O FOCAL INFECTION Clinical Indications for Admission to Inpatient Care ( Place 'X' for any and all applicable criteria): Admission is indicated for ANY ONE of the following (1)(2)(3)(4): [ ] I. Bacteremia [X]II. Suspected or identified specific infection requiring hospitalization (eg, meningitis, endocarditis) [X]III. Hemodynamic instability [ ]IV. Altered mental status [ ]V. Failure or unavailability of outpatient antimicrobial treatment [ ]. Hypoxemia [ ]VII. Seizures [ ]VIII. High-risk febrile neutropenia [ ]IX. Need for parenteral antibiotic in patient who is likely to abuse vascular access device (eg, injection drug user) [A](7) [ ]X. Temperature greater than 104.9 degrees F (40.5 degrees C) (oral) [ ]XI. Inpatient admission required rather than observation care because of ANY ONE of the following: [ ]1) Specific infection identified that is too severe for outpatient treatment or observation care trial [ ]2) Metabolic disorder (eg, hypoglycemia, hyperglycemia, metabolic acidosis) that is severe or persistent [ ]3) Temperature greater than 103.1 degrees F (39.5 degrees C) ( oral) that is not responsive to observation care treatment [ ]4) IV fluid to replace significant ongoing (eg, for over 24 hours) losses (> 3 L/m2 per day) [ ]5) Supplemental oxygen or respiratory treatments for over 24 hours that is performable only in acute inpatient setting [ ]6) Parenteral nutrition regimen need that must be implemented on inpatient basis [ ]7) Strict or protective (eg, laminar flow) isolation [ ]8) Other condition, treatment or monitoring requiring inpatient admission Extended stay beyond goal length of stay may be needed for(1)(3) [ ]a) Sepsis or septic shock(22) [ ]b) Positive blood cultures [ ]c) Insufficient oral intake [ ]d) High-risk febrile neutropenia(29)(30) [ ]e) Continued fever and clinical instability [ ]f) Clinically active comorbid illness (e.g,heart failure, renal failure , diabetes) The original [facility] [employer] content created by Korey Merino has been revised. The portions of the content which have been revised are identified through the use of italic text or in bold, and Korey Merino has neither reviewed nor approved the modified material. All other unmodified content is copyright [facility]. Please see references footnoted in the original [facility] edition 2016 Admission Criteria Met?: Yes ZOYA VILLANUEVA Aug 25, 2016 22:42
[2016-08-25 23:20] VITALS: BP 131/90
--- NOTE | 2016-08-26 02:55 | CONS ---
DATE OF CONSULTATION: 08/25/2016 ATTENDING PHYSICIAN: Brooks Levy MD REASON FOR CONSULTATION: The patient is seen in pulmonary consultation at the request of Dr. Levy for BiPAP orders for NICHOLE and chronic respiratory failure. HISTORY OF PRESENT ILLNESS: The patient is a 56-year-old male who presented with clinical symptoms and signs of URI, he had leukocytosis. He has been seen in consultation by the infectious disease service. He is currently on antibiotics. The patient has had some difficulty with chronic respiratory failure and obstructive sleep apnea. He has not had a sleep study in the past, in fact he was scheduled to undergo outpatient polysomnogram. I was asked to see him in consultation for BiPAP management. His chest x-ray was reviewed that actually has improved since his last visit. He has a small right-sided effusion in the left hemidiaphragm, which is elevated. 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 PAST SURGICAL HISTORY: Previous foot surgery, cataract extraction, repair. SOCIAL HISTORY: He lives with his mother, who is his caregiver. The patient is mentally challenged. FAMILY HISTORY: Father recently of complications of renal cell carcinoma. Mother has breast cancer. ALLERGIES: Penicillin, cefpodoxime. REVIEW OF SYSTEMS: Unobtainable secondary to the patient's mental challenge. PHYSICAL EXAMINATION: GENERAL: He was in no respiratory distress. VITAL SIGNS: Stable. O2 saturation currently on 2 liters, greater than 92%. HEENT: Eyes, the sclerae were nonicteric. NECK: Jugular venous distention could not be assessed secondary to body habitus. CHEST: Full expansion. LUNGS: Diminished breath sounds in the left base. CARDIOVASCULAR: Regular rate and rhythm with S1, S2, no S3. ABDOMEN: Soft, nontender, and obese. EXTREMITIES: No clubbing, cyanosis. Minimal edema. LABORATORY DATA: Reviewed. White count was elevated. Electrolytes were noted. BUN was normal. Creatinine was normal. Albumin was slightly low. UA was noted. IMPRESSION: 1. Chronic respiratory failure. 2. Obesity hypoventilation syndrome. 3. Possible obstructive sleep apnea. 4. Urinary tract infection. 5. Morbid obesity. 6. Chronic left hemidiaphragm elevation. PLAN: 1. We will continue current BiPAP at bedtime. 2. Outpatient polysomnogram. 3. Continue oxygen supplementation. 4. Antibiotics per infectious disease service. Dr. Levy, I do appreciate the privilege in sharing in the patient's care. CALVIN ARCE MD DR: EPIFANIO/edith JOB#: [id number] / [id number]
[2016-08-26 03:25] VITALS: BP 107/77
[2016-08-26] MEDS: MEROPENEM 500 MG in IV NORMAL SALINE 50ML 50 ML IV SCH ×3 (06:22→17:33)
[2016-08-26 07:00] VITALS: BP 102/45
--- NOTE | 2016-08-26 07:59 | PDOC ---
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 POA with enlarged prostate and some seminal vesicle inflammation Sigmoid mass PCN and cefpodoxime allergy. Anemia Mental retardation Plan Plan of Care Blood cults times 2 Add Vanc Cont Meropenem and fluconazole Await further GI evaluation/colonoscopy f/u cultures and monitor labs May need urology eval with enlarged prostate and seminal vesical inflammation FRANKLIN PEREZ MD Aug 26, 2016 07:59
[2016-08-26] MEDS ORDERED: VANCOMYCIN PER PHARMACY MC PRN (08:00)
[2016-08-26] MEDS: ALBUTEROL SULFATE 2.5 MG/3 ML NEBU. NEB SCH ×4 (08:15→19:50)
--- NOTE | 2016-08-26 08:54 | PDOC ---
PULMONARY PROGRESS NOTES Subjective no soa Vitals Vital Signs Date Time Temp Pulse Resp B/P Pulse Ox O2 Delivery O2 Flow Rate FiO2 08/26/16 08:17 93 Nasal Cannula 2.0 08/26/16 03:25 97.9 104 40 107/77 97.9 General: Alert, No acute distress HEENT: Other Lungs: Other (decrease bs) Cardiovascular: S1 Abdomen: Soft, Non-tender, Other Extremities: Other (trace edema) Labs Laboratory Tests Test 08/24/16 09:16 08/24/16 09:36 08/24/16 10:03 08/24/16 14:00 White Blood Count 34.3x10^3/uL (4.0-11.0) Red Blood Count 2.48x10^6/uL (4.30-5.70) Hemoglobin 7.2g/dL (13.0-17.5) Hematocrit 22.0% (39.0-53.0) Mean Corpuscular Volume 89fL (79-100) Mean Corpuscular Hemoglobin 29pg (25-35) Mean Corpuscular Hemoglobin Concent 33g/dL (31-37) Red Cell Distribution Width 17.5% (11.5-14.5) Platelet Count 185x10^3/uL (140-400) Neutrophils (%) (Auto) 92% (31-73) Lymphocytes (%) (Auto) 2% (24-48) Monocytes (%) (Auto) 6% (0-9) Eosinophils (%) (Auto) 0% (0-3) Basophils (%) (Auto) 0% (0-3) Neutrophils # (Auto) 31.5x10^3uL (1.8-7.7) Lymphocytes # (Auto) 0.6x10^3/uL (1.0-4.8) Monocytes # (Auto) 2.1x10^3/uL (0.0-1.1) Eosinophils # (Auto) 0.0x10^3/uL (0.0-0.7) Basophils # (Auto) 0.0x10^3/uL (0.0-0.2) Segmented Neutrophils % 91% (35-66) Band Neutrophils % 1% (0-9) Lymphocytes % 1% (24-48) Monocytes % 7% (0-10) Platelet Estimate Adequate (ADEQUATE) Macrocytosis Slight Sodium Level 142mmol/L (136-145) Potassium Level 4.1mmol/L (3.5-5.1) Chloride Level 104mmol/L (98-107) Carbon Dioxide Level 27mmol/L (21-32) Anion Gap 11 (6-14) Blood Urea Nitrogen 26mg/dL (8-26) Creatinine 1.3mg/dL (0.7-1.3) Estimated GFR (Cockcroft-Gault) 57.3 BUN/Creatinine Ratio 20 (6-20) Glucose Level 116mg/dL (70-99) Calcium Level 8.0mg/dL (8.5-10.1) Total Bilirubin 1.6mg/dL (0.2-1.0) Aspartate Amino Transf (AST/SGOT) 16U/L (15-37) Alanine Aminotransferase (ALT/SGPT) 29U/L (16-63) Alkaline Phosphatase 63U/L (46-116) Total Protein 6.4g/dL (6.4-8.2) Albumin 3.1g/dL (3.4-5.0) Albumin/Globulin Ratio 0.9 (1.0-1.7) Lipase 217U/L (73-393) Urine Collection Type U cath Urine Color [place] Urine Clarity Turbid Urine pH 5.5 Urine Specific [place] >=1.030 Urine Protein 100mg/dL (NEG-TRACE) Urine Glucose (UA) Negativemg/dL (NEG) Urine Ketones (Stick) 15mg/dL (NEG) Urine Blood Large (NEG) Urine Nitrite Positive (NEG) Urine Bilirubin Moderate (NEG) Urine Urobilinogen Dipstick 1.0mg/dL (0.2 mg/dL) Urine Leukocyte Esterase Large (NEG) Urine RBC 0/HPF (0-2) Urine WBC >40/HPF (0-4) Urine Squamous Epithelial Cells Occ/LPF Urine Amorphous Sediment Present/HPF Urine Bacteria Few/HPF (0-FEW) Urine Mucus Slight/LPF Lactic Acid Level 0.7mmol/L (0.4-2.0) 0.6mmol/L (0.4-2.0) Test 08/24/16 22:10 08/25/16 05:55 Nasal Screen MRSA (PCR) Positive (Negative) White Blood Count 14.4x10^3/uL (4.0-11.0) Red Blood Count 2.92x10^6/uL (4.30-5.70) Hemoglobin 8.4g/dL (13.0-17.5) Hematocrit 26.8% (39.0-53.0) Mean Corpuscular Volume 92fL (79-100) Mean Corpuscular Hemoglobin 29pg (25-35) Mean Corpuscular Hemoglobin Concent 31g/dL (31-37) Red Cell Distribution Width 18.6% (11.5-14.5) Platelet Count 109x10^3/uL (140-400) Neutrophils (%) (Auto) 92% (31-73) Lymphocytes (%) (Auto) 3% (24-48) Monocytes (%) (Auto) 5% (0-9) Eosinophils (%) (Auto) 0% (0-3) Basophils (%) (Auto) 0% (0-3) Neutrophils # (Auto) 13.3x10^3uL (1.8-7.7) Lymphocytes # (Auto) 0.4x10^3/uL (1.0-4.8) Monocytes # (Auto) 0.7x10^3/uL (0.0-1.1) Eosinophils # (Auto) 0.0x10^3/uL (0.0-0.7) Basophils # (Auto) 0.1x10^3/uL (0.0-0.2) Sodium Level 143mmol/L (136-145) Potassium Level 4.4mmol/L (3.5-5.1) Chloride Level 109mmol/L (98-107) Carbon Dioxide Level 28mmol/L (21-32) Anion Gap 6 (6-14) Blood Urea Nitrogen 16mg/dL (8-26) Creatinine 1.2mg/dL (0.7-1.3) Estimated GFR (Cockcroft-Gault) 62.9 BUN/Creatinine Ratio 13 (6-20) Glucose Level 126mg/dL (70-99) Calcium Level 7.6mg/dL (8.5-10.1) Total Bilirubin 0.6mg/dL (0.2-1.0) Aspartate Amino Transf (AST/SGOT) 10U/L (15-37) Alanine Aminotransferase (ALT/SGPT) 20U/L (16-63) Alkaline Phosphatase 60U/L (46-116) Total Protein 5.4g/dL (6.4-8.2) Albumin 2.2g/dL (3.4-5.0) Albumin/Globulin Ratio 0.7 (1.0-1.7) Medications Active Scripts Medications Dose Route/Sig Days Date Category Prednisone 20 Mg Tablet 30 Mg PO DAILY 08/16/16 Rx Levaquin (Levofloxacin) 500 Mg Tablet 500 Mg PO DAILY06 08/16/16 Rx Albuterol Sulfate Neb Soln (Albuterol Sulfate) 2.5 Mg/3 Ml Vial.neb 2.5 Mg NEB RTQID 06/18/15 Rx Tylenol (Acetaminophen) 325 Mg Tablet 650 Mg PO PRN Q4HRS PRN 10/20/14 Rx Protonix (Pantoprazole Sodium) 40 Mg Tablet 40 Mg PO DAILYAC 04/26/14 Rx Impression . 1. Chronic respiratory failure. 2. Obesity hypoventilation syndrome. 3. Possible obstructive sleep apnea. 4. Urinary tract infection. 5. Morbid obesity. 6. Chronic left hemidiaphragm elevation. 7. Leukocytosis 8. sigmoid mass Plan . 1. We will continue current BiPAP at bedtime. 2. Outpatient polysomnogram. 3. Continue oxygen supplementation. 4. Antibiotics per infectious disease service. JAIDEN RENTERIA MD Aug 26, 2016 08:54
[2016-08-26] MEDS ORDERED: VANCOMYCIN 2 GM in IV NORMAL SALINE 500ML BAG 500 ML IV ONE (09:00)
--- NOTE | 2016-08-26 09:09 | PDOC ---
PROGRESS NOTES Subjective Subjective febrile. alert. drank liquids. lab pending. urine culture grew e. coli sensitive to Invanz. receiving iv vancomycin and meropenem and fluconazole. blood culture negative so far. Objective Objective Vital Signs Date Time Temp Pulse Resp B/P Pulse Ox O2 Delivery O2 Flow Rate FiO2 08/26/16 08:17 93 Nasal Cannula 2.0 08/26/16 07:00 101.8 120 40 102/45 101.8 Intake and Output 08/26/16 07:00 Intake Total 3562 ml Output Total 1250 ml Balance 2312 ml Intake Oral 2075 ml IV Total 1487 ml Output Urine Total 1250 ml Physical Exam Abdomen: Soft, Other (obese) Heart: Regular rate, Normal S1, Normal S2 Extremities: No edema General: Alert HEENT: Atraumatic Lungs: Other (clear anteriorly) Neuro: Normal speech Psych/Mental Status: Mood NL Skin: No rashes Assessment Assessment Problems Medical Problems:. Sepsis resolved 2. e. coli uti 3. Anemia. 4. Leukocytosis. better 5. Cholelithiasis. 6. Sigmoid colon mass. 7. Chronic hypoxic and hypercapnic respiratory failure. 8. Obstructive sleep apnea. 9. Morbid obesity. mild thrombocytopenia fever BPH and seminal vesicle inflammation (1) Sepsis Status: Acute (2) UTI (urinary tract infection) Status: Acute Plan Plan of Care continue iv vancomycin and meropenem and fluconazole blood cultures now consult dr. tang lab pending bipap at Comment Review of Relevant I have reviewed the following items lexus (where applicable) has been applied. Labs Laboratory Tests Test 08/24/16 09:16 08/24/16 09:36 08/24/16 10:03 08/24/16 14:00 White Blood Count 34.3x10^3/uL (4.0-11.0) Red Blood Count 2.48x10^6/uL (4.30-5.70) Hemoglobin 7.2g/dL (13.0-17.5) Hematocrit 22.0% (39.0-53.0) Mean Corpuscular Volume 89fL (79-100) Mean Corpuscular Hemoglobin 29pg (25-35) Mean Corpuscular Hemoglobin Concent 33g/dL (31-37) Red Cell Distribution Width 17.5% (11.5-14.5) Platelet Count 185x10^3/uL (140-400) Neutrophils (%) (Auto) 92% (31-73) Lymphocytes (%) (Auto) 2% (24-48) Monocytes (%) (Auto) 6% (0-9) Eosinophils (%) (Auto) 0% (0-3) Basophils (%) (Auto) 0% (0-3) Neutrophils # (Auto) 31.5x10^3uL (1.8-7.7) Lymphocytes # (Auto) 0.6x10^3/uL (1.0-4.8) Monocytes # (Auto) 2.1x10^3/uL (0.0-1.1) Eosinophils # (Auto) 0.0x10^3/uL (0.0-0.7) Basophils # (Auto) 0.0x10^3/uL (0.0-0.2) Segmented Neutrophils % 91% (35-66) Band Neutrophils % 1% (0-9) Lymphocytes % 1% (24-48) Monocytes % 7% (0-10) Platelet Estimate Adequate (ADEQUATE) Macrocytosis Slight Sodium Level 142mmol/L (136-145) Potassium Level 4.1mmol/L (3.5-5.1) Chloride Level 104mmol/L (98-107) Carbon Dioxide Level 27mmol/L (21-32) Anion Gap 11 (6-14) Blood Urea Nitrogen 26mg/dL (8-26) Creatinine 1.3mg/dL (0.7-1.3) Estimated GFR (Cockcroft-Gault) 57.3 BUN/Creatinine Ratio 20 (6-20) Glucose Level 116mg/dL (70-99) Calcium Level 8.0mg/dL (8.5-10.1) Total Bilirubin 1.6mg/dL (0.2-1.0) Aspartate Amino Transf (AST/SGOT) 16U/L (15-37) Alanine Aminotransferase (ALT/SGPT) 29U/L (16-63) Alkaline Phosphatase 63U/L (46-116) Total Protein 6.4g/dL (6.4-8.2) Albumin 3.1g/dL (3.4-5.0) Albumin/Globulin Ratio 0.9 (1.0-1.7) Lipase 217U/L (73-393) Urine Collection Type U cath Urine Color Beckham Urine Clarity Turbid Urine pH 5.5 Urine Specific Austin >=1.030 Urine Protein 100mg/dL (NEG-TRACE) Urine Glucose (UA) Negativemg/dL (NEG) Urine Ketones (Stick) 15mg/dL (NEG) Urine Blood Large (NEG) Urine Nitrite Positive (NEG) Urine Bilirubin Moderate (NEG) Urine Urobilinogen Dipstick 1.0mg/dL (0.2 mg/dL) Urine Leukocyte Esterase Large (NEG) Urine RBC 0/HPF (0-2) Urine WBC >40/HPF (0-4) Urine Squamous Epithelial Cells Occ/LPF Urine Amorphous Sediment Present/HPF Urine Bacteria Few/HPF (0-FEW) Urine Mucus Slight/LPF Lactic Acid Level 0.7mmol/L (0.4-2.0) 0.6mmol/L (0.4-2.0) Test 08/24/16 22:10 08/25/16 05:55 Nasal Screen MRSA (PCR) Positive (Negative) White Blood Count 14.4x10^3/uL (4.0-11.0) Red Blood Count 2.92x10^6/uL (4.30-5.70) Hemoglobin 8.4g/dL (13.0-17.5) Hematocrit 26.8% (39.0-53.0) Mean Corpuscular Volume 92fL (79-100) Mean Corpuscular Hemoglobin 29pg (25-35) Mean Corpuscular Hemoglobin Concent 31g/dL (31-37) Red Cell Distribution Width 18.6% (11.5-14.5) Platelet Count 109x10^3/uL (140-400) Neutrophils (%) (Auto) 92% (31-73) Lymphocytes (%) (Auto) 3% (24-48) Monocytes (%) (Auto) 5% (0-9) Eosinophils (%) (Auto) 0% (0-3) Basophils (%) (Auto) 0% (0-3) Neutrophils # (Auto) 13.3x10^3uL (1.8-7.7) Lymphocytes # (Auto) 0.4x10^3/uL (1.0-4.8) Monocytes # (Auto) 0.7x10^3/uL (0.0-1.1) Eosinophils # (Auto) 0.0x10^3/uL (0.0-0.7) Basophils # (Auto) 0.1x10^3/uL (0.0-0.2) Sodium Level 143mmol/L (136-145) Potassium Level 4.4mmol/L (3.5-5.1) Chloride Level 109mmol/L (98-107) Carbon Dioxide Level 28mmol/L (21-32) Anion Gap 6 (6-14) Blood Urea Nitrogen 16mg/dL (8-26) Creatinine 1.2mg/dL (0.7-1.3) Estimated GFR (Cockcroft-Gault) 62.9 BUN/Creatinine Ratio 13 (6-20) Glucose Level 126mg/dL (70-99) Calcium Level 7.6mg/dL (8.5-10.1) Total Bilirubin 0.6mg/dL (0.2-1.0) Aspartate Amino Transf (AST/SGOT) 10U/L (15-37) Alanine Aminotransferase (ALT/SGPT) 20U/L (16-63) Alkaline Phosphatase 60U/L (46-116) Total Protein 5.4g/dL (6.4-8.2) Albumin 2.2g/dL (3.4-5.0) Albumin/Globulin Ratio 0.7 (1.0-1.7) Microbiology 08/24/16 Blood Culture - Preliminary, Resulted NO GROWTH AFTER 1 DAY 08/24/16 Urine Culture - Final, Complete 08/24/16 Urine Culture Result 1 (FAUSTINA) - Final, Complete 08/24/16 Antimicrobic Susceptibility - Final, Complete Medications Current Medications Lorazepam 2 mg 2 mg 1X ONCE IV Last administered on 08/24/16 08:29; Start at 08:30; Stop 08/24/16 at 08:31; Status DC Sodium Chloride (Iv Sodium Chloride 0.9% 1000ml Bag) 1,000 ml @ 1,000 mls/hr 1X ONCE IV Last administered on 08/24/16 09:22; Start 08/24/16 at 08:30; Stop 08/24/16 at 09:29; Status DC Ondansetron HCl 4 mg 4 mg 1X ONCE IV Last administered on 08/24/16 09:23; Start 08/24/16 at 08:30; Stop 08/24/16 at 08:31; Status DC Levofloxacin/ Dextrose 150 ml @ 100 mls/hr 1X ONCE IV Last administered on 11:09; Start 08/24/16 at 10:00; Stop 08/24/16 at 11:29; Status DC Sodium Chloride 1,000 ml @ 1,000 mls/hr 1X ONCE IV Last administered on 10:31; Start 08/24/16 at 10:00; Stop 08/24/16 at 10:59; Status DC Sodium Chloride (Iv Sodium Chloride 0.9% 1000ml Bag) 1,000 ml @ 1,000 mls/hr 1X ONCE IV ; Start 08/24/16 at 10:00; Stop 08/24/16 at 10:59; Status UNV Fentanyl Citrate (Fentanyl 2ml Vial) 50 mcg 1X ONCE IV Last administered on 11:09; Start 08/24/16 at 10:30; Stop 08/24/16 at 10:31; Status DC Iohexol (Omnipaque 300 Mg/ml) 60 ml 1X ONCE IV Last administered on 08/24/16 10:48; Start 08/24/16 at 10:30; Stop 08/24/16 at 10:31; Status DC Ondansetron HCl (Zofran) 4 mg PRN Q8HRS PRN IV NAUSEA/VOMITING; Start 08/24/16 at 11:45; Stop 08/24/16 at 13:45; Status DC Fentanyl Citrate 50 mcg 50 mcg PRN Q1HR PRN IV PAIN; Start 08/24/16 at 11:45; Stop 08/25/16 at 11:44; Status DC Sodium Chloride (Iv Sodium Chloride 0.9% 1000ml Bag) 1,000 ml @ 150 mls/hr Q6H40M IV ; Start 08/24/16 at 12:00; Stop 08/25/16 at 11:59; Status DC Acetaminophen 650 mg 650 mg PRN Q4HRS PRN PO FEVER; Start 08/24/16 at 11:45; Stop 08/24/16 at 22:21; Status DC Potassium Chloride/Dextrose/ Sod Cl (KCl 20 Meq In D5W-1/2 NS) 1,000 ml @ 75 mls/hr [id number] IV Last administered on 08/25/16 23:10; Start 08/24/16 at 15:00 Acetaminophen (Tylenol) 650 mg PRN Q6HRS PRN CO MILD PAIN / TEMP; Start at 13:45; Stop 08/25/16 at 08:58; Status DC Pantoprazole Sodium (Protonix Vial) 40 mg DAILYAC IVP Last administered on 08/25 07:53; Start 08/24/16 at 14:00; Stop 08/25/16 at 08:58; Status DC Ondansetron HCl (Zofran) 4 mg PRN Q6HRS PRN IV NAUSEA/VOMITING; Start 08/24/16 at 13:45 Enoxaparin Sodium 40 mg 40 mg Q24H SQ Last administered on 08/25/16 15:36; Start 08/24/16 at 15:00 Meropenem 500 mg/ Sodium Chloride 50 ml @ 100 mls/hr Q6HRS IV Last administered on 08/26/16 06:22; Start 08/24/16 at 16:00 Fluconazole/ Sodium Chloride (Diflucan 400mg/ 200ml Premix) 200 ml @ 100 mls/ hr Q24H IV Last administered on 08/25/16 15:36; Start 08/24/16 at 15:00 Albuterol Sulfate (Ventolin Neb Soln) 2.5 mg RTQID NEB Last administered on 08:15; Start 08/24/16 at 20:00 Albuterol Sulfate (Ventolin Neb Soln) 2.5 mg PRN Q4HRS PRN NEB SHORTNESS OF BREATH; Start 08/24/16 at 19:45 Acetaminophen (Tylenol) 500 mg QHS PO Last administered on 08/25/16 20:42; Start 08/24/16 at 22:30 Diphenhydramine HCl (Benadryl) 25 mg QHS PO Last administered on 08/25/16 20: 42; Start 08/24/16 at 22:30 Pantoprazole Sodium (Protonix) 40 mg DAILYAC PO ; Start 08/26/16 at 07:30 Acetaminophen (Tylenol) 650 mg PRN Q4HRS PRN PO MILD PAIN / TEMP; Start at 09:00 Vancomycin HCl 1 each 1 each PRN DAILY PRN MC SEE COMMENTS; Start 08/26/16 at 08:00 Vancomycin HCl/ Sodium Chloride (Iv Sodium Chloride 0.9% 500ml Bag) 500 ml @ 250 mls/hr 1X ONCE IV ; Start 08/26/16 at 09:00; Stop 08/26/16 at 10:59 Active Scripts Active Prednisone 20 Mg Tablet 30 Mg PO DAILY Levaquin (Levofloxacin) 500 Mg Tablet 500 Mg PO DAILY06 Albuterol Sulfate Neb Soln (Albuterol Sulfate) 2.5 Mg/3 Ml Vial.neb 2.5 Mg NEB RTQID Tylenol (Acetaminophen) 325 Mg Tablet 650 Mg PO PRN Q4HRS PRN Protonix (Pantoprazole Sodium) 40 Mg Tablet 40 Mg PO DAILYAC Vitals/I & O Vital Sign - Last 24 Hours 08/25/16 08/25/16 08/25/16 08/25/16 11:00 11:28 14:53 19:05 Temp 98.8 98.1 98.8 98.1 Pulse 108 132 Resp 20 20 B/P 103/86 105/62 Pulse Ox 90 96 O2 Delivery Nasal Cannula Nasal Cannula Nasal Cannula Nasal Cannula O2 Flow Rate 2.0 2.0 2.0 2.0 08/25/16 08/25/16 08/25/16 08/25/16 20:00 20:24 22:08 23:20 Temp 101.8 101.8 Pulse 131 Resp 20 B/P 131/90 Pulse Ox 98 94 O2 Delivery Nasal Cannula Nasal Cannula BiPAP/CPAP Nasal Cannula O2 Flow Rate 2.0 2.0 2.0 08/25/16 08/26/16 08/26/16 08/26/16 23:24 01:15 02:55 03:25 Temp 97.9 97.9 Pulse 104 Resp 40 B/P 107/77 Pulse Ox 97 O2 Delivery BiPAP/CPAP BiPAP/CPAP BiPAP/CPAP BiPAP/CPAP 08/26/16 08/26/16 07:00 08:17 Temp 101.8 101.8 Pulse 120 Resp 40 B/P 102/45 Pulse Ox 98 93 O2 Delivery Nasal Cannula Nasal Cannula O2 Flow Rate 2.0 2.0 Intake and Output 08/25/16 08/25/16 08/26/16 15:00 23:00 07:00 Intake Total 200 ml 3362 ml 0 ml Output Total 850 ml 400 ml Balance 200 ml 2512 ml -400 ml KATI BILLINGSLEY MD Aug 26, 2016 09:09
[2016-08-26] MEDS: ACETAMINOPHEN 500 MG TABLET PO SCH ×2 (09:30→20:49)
[2016-08-26] MEDS: PANTOPRAZOLE 40 MG TABLET. PO SCH (09:30)
[2016-08-26 11:07] LABS: CALCIUM 7.6 mg/dL (8.5-10.1); CREATININE 1.2 mg/dL (0.7-1.3); GFR 62.9; POTASSIUM 4.2 mmol/L (3.5-5.1)
[2016-08-26 11:14] LABS: BASO % 0 % (0-3); EOS % 0 % (0-3); HEMATOCRIT 27.5 % (39.0-53.0); LYMPH # 0.2 x10^3/uL (1.0-4.8); LYMPH % 6 % (24-48); MEAN CORPUSCULAR HEMOGLOBIN 29 pg (25-35); MEAN CORPUSCULAR HGB CONC 33 g/dL (31-37); MEAN CORPUSCULAR VOLUME 89 fL (79-100); MONO % 4 % (0-9); NEUT % 91 % (31-73); PLATELET COUNT 87 x10^3/uL (140-400); RED CELL DISTRIBUTION WIDTH 18.5 % (11.5-14.5); WHITE BLOOD COUNT 3.7 x10^3/uL (4.0-11.0)
[2016-08-26 11:30] VITALS: BP 114/53
--- NOTE | 2016-08-26 12:39 | PDOC ---
SUBJECTIVE Subjective 56 yo male with uti OBJECTIVE Objective pt. with sanchez Vital Signs Vital Signs Date Time Temp Pulse Resp B/P Pulse Ox O2 Delivery O2 Flow Rate FiO2 08/26/16 11:20 Nasal Cannula 2.0 08/26/16 08:17 93 Nasal Cannula 2.0 08/26/16 08:00 Nasal Cannula 2.0 08/26/16 07:00 101.8 120 40 102/45 98 Nasal Cannula 2.0 101.8 08/26/16 03:25 97.9 104 40 107/77 97 BiPAP/CPAP 97.9 08/26/16 02:55 BiPAP/CPAP 08/26/16 01:15 BiPAP/CPAP 08/25/16 23:24 BiPAP/CPAP 08/25/16 23:20 101.8 131 20 131/90 94 Nasal Cannula 2.0 101.8 08/25/16 22:08 BiPAP/CPAP 08/25/16 20:24 98 Nasal Cannula 2.0 08/25/16 20:00 Nasal Cannula 2.0 08/25/16 19:05 98.1 132 20 105/62 96 Nasal Cannula 2.0 98.1 08/25/16 14:53 Nasal Cannula 2.0 I & O Intake and Output 08/26/16 07:00 Intake Total 3562 ml Output Total 1250 ml Balance 2312 ml Intake Oral 2075 ml IV Total 1487 ml Output Urine Total 1250 ml PHYSICAL EXAM Physical Exam sanchez in place urine clear good uo ASSESSMENT/PLAN Assessment/Plan flomax voiding trial on 08/28/16 if ok with primary service Urology [employer] Kristel Martino will continue to follow pt. Problems: COMMENT Lab Laboratory Tests Test 08/26/16 10:40 White Blood Count 3.7x10^3/uL (4.0-11.0) Red Blood Count 3.10x10^6/uL (4.30-5.70) Hemoglobin 9.0g/dL (13.0-17.5) Hematocrit 27.5% (39.0-53.0) Mean Corpuscular Volume 89fL (79-100) Mean Corpuscular Hemoglobin 29pg (25-35) Mean Corpuscular Hemoglobin Concent 33g/dL (31-37) Red Cell Distribution Width 18.5% (11.5-14.5) Platelet Count 87x10^3/uL (140-400) Neutrophils (%) (Auto) 91% (31-73) Lymphocytes (%) (Auto) 6% (24-48) Monocytes (%) (Auto) 4% (0-9) Eosinophils (%) (Auto) 0% (0-3) Basophils (%) (Auto) 0% (0-3) Neutrophils # (Auto) 3.4x10^3uL (1.8-7.7) Lymphocytes # (Auto) 0.2x10^3/uL (1.0-4.8) Monocytes # (Auto) 0.1x10^3/uL (0.0-1.1) Eosinophils # (Auto) 0.0x10^3/uL (0.0-0.7) Basophils # (Auto) 0.0x10^3/uL (0.0-0.2) Sodium Level 139mmol/L (136-145) Potassium Level 4.2mmol/L (3.5-5.1) Chloride Level 106mmol/L (98-107) Carbon Dioxide Level 29mmol/L (21-32) Anion Gap 4 (6-14) Blood Urea Nitrogen 11mg/dL (8-26) Creatinine 1.2mg/dL (0.7-1.3) Estimated GFR (Cockcroft-Gault) 62.9 Glucose Level 107mg/dL (70-99) Calcium Level 7.6mg/dL (8.5-10.1) SANDY GODDARD MD Aug 26, 2016 12:39
--- NOTE | 2016-08-26 14:35 | PDOC ---
Subjective: Subjective: Denies pain but then says "ow." Per mom - no c/o pain earlier. Objective: Objective: Per RN - doing better, wants to eat. Vital Signs: Vital Signs Date Time Temp Pulse Resp B/P Pulse Ox O2 Delivery O2 Flow Rate FiO2 08/26/16 11:30 98.1 108 40 114/53 91 Nasal Cannula 1.0 98.1 Labs: Laboratory Tests Test 08/26/16 10:40 White Blood Count 3.7x10^3/uL Red Blood Count 3.10x10^6/uL Hemoglobin 9.0g/dL Hematocrit 27.5% Mean Corpuscular Volume 89fL Mean Corpuscular Hemoglobin 29pg Mean Corpuscular Hemoglobin Concent 33g/dL Red Cell Distribution Width 18.5% Platelet Count 87x10^3/uL Neutrophils (%) (Auto) 91% Lymphocytes (%) (Auto) 6% Monocytes (%) (Auto) 4% Eosinophils (%) (Auto) 0% Basophils (%) (Auto) 0% Neutrophils # (Auto) 3.4x10^3uL Lymphocytes # (Auto) 0.2x10^3/uL Monocytes # (Auto) 0.1x10^3/uL Eosinophils # (Auto) 0.0x10^3/uL Basophils # (Auto) 0.0x10^3/uL Sodium Level 139mmol/L Potassium Level 4.2mmol/L Chloride Level 106mmol/L Carbon Dioxide Level 29mmol/L Anion Gap 4 Blood Urea Nitrogen 11mg/dL Creatinine 1.2mg/dL Estimated GFR (Cockcroft-Gault) 62.9 Glucose Level 107mg/dL Calcium Level 7.6mg/dL PE: GEN: NAD, up to chair LUNGS: clear anteriorly w/ nasal cannula HEART: RRR ABD: BS+, obese, ?LLQ tenderness NEURO/PSYCH: answers yes/no, occasional moans A/P: Abnormal CT -fluid filled diverticulum vs 5cm soft tissue mass in sigmoid colon -on clear liquids -no previous colonoscopy, +FH colon cancer - -> mom anxious for colonoscopy Anemia -Hgb stable UTI, leukocytosis, fever -ID, urology following Chronic resp failure - now on nasal cannula -pulm following, BiPAP at bedtime -- Will review w/ Dr. Ribera re: sigmoidoscopy/colonoscopy plans. MELANIE HICKS Aug 26, 2016 14:35
[2016-08-26] MEDS: FLUCONAZOLE 400MG/200ML PREMIX 200 ML IV SCH (14:41)
[2016-08-26] MEDS: POTASSIUM CL 20MEQ D5-0.45NACL 1,000 ML IV SCH ×3 (14:43→23:00)
[2016-08-26] MEDS: ENOXAPARIN 40 MG/0.4 ML DISP.SYRIN. SQ SCH (14:43)
[2016-08-26] MEDS: TAMSULOSIN 0.4 MG CAP.ER.24H. PO SCH (14:44)
[2016-08-26 15:00] VITALS: BP 102/59
[2016-08-26 19:20] VITALS: BP 107/65
[2016-08-26] MEDS: VANCOMYCIN 1.5 GM in IV NORMAL SALINE 500ML BAG 500 ML IV SCH (20:48)
[2016-08-26] MEDS: DIPHENHYDRAMINE HCL 25 MG CAPSULE PO SCH (20:48)
[2016-08-26 23:20] VITALS: BP 105/59
[2016-08-27] MEDS: MEROPENEM 500 MG in IV NORMAL SALINE 50ML 50 ML IV SCH ×4 (00:11→19:32)
[2016-08-27 03:25] VITALS: BP 109/69
--- NOTE | 2016-08-27 04:41 | CONS ---
DATE OF CONSULTATION: 08/26/2016 LOCATION: The patient is in room 656. HISTORY OF PRESENT ILLNESS: The patient is a very pleasant 56-year-old white male who was admitted with urinary tract infection. The patient had had a prior urinary tract infection many years ago according to his mother. The patient has mental disability and is unable to answer any questions. PAST MEDICAL HISTORY: Significant for obesity, ventral abdominal hernia, gastroesophageal reflux disease, chronic hypoxia and hypercapnia. PAST SURGICAL HISTORY: He had a prior right inguinal herniorrhaphy and orchidopexy as a child, he had no urologic operations. MEDICATIONS: He is on no urologic medications normally. PHYSICAL EXAMINATION: Testes are descended bilaterally. Right testicle is atrophic. Phallus is within normal limits. He has Quevedo catheter ____ with a right-sided StatLock. Urine is grossly clear yellow. On rectal examination, good sphincter tone. Prostate smooth, nontender, without nodules, overall size 20 grams. LAB DATA: The patient's white count on admission was 34,000, now down to 3.7, creatinine was 1.3 on admission, now is down to 1.2. When Quevedo catheter was placed, the patient did not have a large urine volume according to initial report, but the actual amount was not recorded. The patient's urine grew E. coli. He is on IV antibiotics per Infectious Disease. The patient had CT abdomen and pelvis, which showed no renal abnormalities. He has Quevedo catheter in the bladder. Prostate appeared slightly enlarged. The seminal vesicles were enlarged. There was also some stranding around the rectosigmoid colon and there was cholelithiasis noted. ASSESSMENT AND PLAN: From a urologic standpoint, I would recommend keeping the Quevedo catheter in place right now, antibiotics per ID, place him on Flomax for his enlarged prostate and then give the patient voiding trial on 08/28/2016 if okay with primary service. The patient will be followed by Urology nurse practitioner, Kristel Martino for the voiding trial and follow up with Urology in the next week or so. I certainly appreciate being allowed to participate in this patient's care. SANDY GODDARD MD DR: JAGRUTI/edith JOB#: [id number] / [id number]
[2016-08-27 07:00] VITALS: BP 104/55
[2016-08-27] MEDS: POTASSIUM CL 20MEQ D5-0.45NACL 1,000 ML IV SCH ×2 (07:00→16:39)
[2016-08-27] MEDS: ALBUTEROL SULFATE 2.5 MG/3 ML NEBU. NEB SCH ×5 (07:12→19:36)
--- NOTE | 2016-08-27 08:20 | PDOC ---
PULMONARY PROGRESS NOTES Subjective no soa Vitals Vital Signs Date Time Temp Pulse Resp B/P Pulse Ox O2 Delivery O2 Flow Rate FiO2 08/27/16 07:14 93 Nasal Cannula 1.0 08/27/16 03:25 97.8 86 29 109/69 97.8 General: Alert, No acute distress HEENT: Other Lungs: Other (decrease bs) Cardiovascular: S1 Abdomen: Soft, Non-tender, Other Extremities: Other (trace edema) Labs Laboratory Tests Test 08/26/16 10:40 White Blood Count 3.7x10^3/uL (4.0-11.0) Red Blood Count 3.10x10^6/uL (4.30-5.70) Hemoglobin 9.0g/dL (13.0-17.5) Hematocrit 27.5% (39.0-53.0) Mean Corpuscular Volume 89fL (79-100) Mean Corpuscular Hemoglobin 29pg (25-35) Mean Corpuscular Hemoglobin Concent 33g/dL (31-37) Red Cell Distribution Width 18.5% (11.5-14.5) Platelet Count 87x10^3/uL (140-400) Neutrophils (%) (Auto) 91% (31-73) Lymphocytes (%) (Auto) 6% (24-48) Monocytes (%) (Auto) 4% (0-9) Eosinophils (%) (Auto) 0% (0-3) Basophils (%) (Auto) 0% (0-3) Neutrophils # (Auto) 3.4x10^3uL (1.8-7.7) Lymphocytes # (Auto) 0.2x10^3/uL (1.0-4.8) Monocytes # (Auto) 0.1x10^3/uL (0.0-1.1) Eosinophils # (Auto) 0.0x10^3/uL (0.0-0.7) Basophils # (Auto) 0.0x10^3/uL (0.0-0.2) Sodium Level 139mmol/L (136-145) Potassium Level 4.2mmol/L (3.5-5.1) Chloride Level 106mmol/L (98-107) Carbon Dioxide Level 29mmol/L (21-32) Anion Gap 4 (6-14) Blood Urea Nitrogen 11mg/dL (8-26) Creatinine 1.2mg/dL (0.7-1.3) Estimated GFR (Cockcroft-Gault) 62.9 Glucose Level 107mg/dL (70-99) Calcium Level 7.6mg/dL (8.5-10.1) Laboratory Tests Test 08/26/16 10:40 White Blood Count 3.7x10^3/uL (4.0-11.0) Red Blood Count 3.10x10^6/uL (4.30-5.70) Hemoglobin 9.0g/dL (13.0-17.5) Hematocrit 27.5% (39.0-53.0) Mean Corpuscular Volume 89fL (79-100) Mean Corpuscular Hemoglobin 29pg (25-35) Mean Corpuscular Hemoglobin Concent 33g/dL (31-37) Red Cell Distribution Width 18.5% (11.5-14.5) Platelet Count 87x10^3/uL (140-400) Neutrophils (%) (Auto) 91% (31-73) Lymphocytes (%) (Auto) 6% (24-48) Monocytes (%) (Auto) 4% (0-9) Eosinophils (%) (Auto) 0% (0-3) Basophils (%) (Auto) 0% (0-3) Neutrophils # (Auto) 3.4x10^3uL (1.8-7.7) Lymphocytes # (Auto) 0.2x10^3/uL (1.0-4.8) Monocytes # (Auto) 0.1x10^3/uL (0.0-1.1) Eosinophils # (Auto) 0.0x10^3/uL (0.0-0.7) Basophils # (Auto) 0.0x10^3/uL (0.0-0.2) Sodium Level 139mmol/L (136-145) Potassium Level 4.2mmol/L (3.5-5.1) Chloride Level 106mmol/L (98-107) Carbon Dioxide Level 29mmol/L (21-32) Anion Gap 4 (6-14) Blood Urea Nitrogen 11mg/dL (8-26) Creatinine 1.2mg/dL (0.7-1.3) Estimated GFR (Cockcroft-Gault) 62.9 Glucose Level 107mg/dL (70-99) Calcium Level 7.6mg/dL (8.5-10.1) Medications Active Scripts Medications Dose Route/Sig Days Date Category Prednisone 20 Mg Tablet 30 Mg PO DAILY 08/16/16 Rx Levaquin (Levofloxacin) 500 Mg Tablet 500 Mg PO DAILY06 08/16/16 Rx Albuterol Sulfate Neb Soln (Albuterol Sulfate) 2.5 Mg/3 Ml Vial.neb 2.5 Mg NEB RTQID 06/18/15 Rx Tylenol (Acetaminophen) 325 Mg Tablet 650 Mg PO PRN Q4HRS PRN 10/20/14 Rx Protonix (Pantoprazole Sodium) 40 Mg Tablet 40 Mg PO DAILYAC 04/26/14 Rx Impression . 1. Chronic respiratory failure. 2. Obesity hypoventilation syndrome. 3. Possible obstructive sleep apnea. 4. Urinary tract infection. 5. Morbid obesity. 6. Chronic left hemidiaphragm elevation. 7. Leukocytosis 8. sigmoid mass Plan . 1. We will continue current BiPAP at bedtime. 2. Outpatient polysomnogram. 3. Continue oxygen supplementation. 4. Antibiotics per infectious disease service. 5. Colonoscopy per JAIDEN OLIVO MD Aug 27, 2016 08:20
[2016-08-27] MEDS: VANCOMYCIN 1.5 GM in IV NORMAL SALINE 500ML BAG 500 ML IV SCH (08:30)
[2016-08-27] MEDS: PANTOPRAZOLE 40 MG TABLET. PO SCH (08:31)
[2016-08-27] MEDS: TAMSULOSIN 0.4 MG CAP.ER.24H. PO SCH (08:31)
--- NOTE | 2016-08-27 08:47 | PDOC ---
Infectious Disease Note Subjective Subjective Doing ok ROS ROS unreliable Vital Sign Vital Signs Vital Signs Date Time Temp Pulse Resp B/P Pulse Ox O2 Delivery O2 Flow Rate FiO2 08/27/16 07:14 93 Nasal Cannula 1.0 08/27/16 07:00 97.8 106 24 104/55 97.8 Physical Exam PHYSICAL EXAM GENERAL: NAD, Alert, in chair and coop HEENT: PERRL, OC/OP- clear NECK: Supple, no JVD, no LN LUNGS: Clear HEART: S1S2, no gallop, no murmur ABD: Soft, NT, no organomegaly, no rebound, obese Quevedo EXT: No edema, no cyanosis TECHNICIAN PREVENTATIVE MEDICINE: Alert, oriented x 3, no focal neurologic deficit SKIN: No rash IV: PICC - clean Labs Lab Laboratory Tests Test 08/26/16 10:40 White Blood Count 3.7x10^3/uL (4.0-11.0) Red Blood Count 3.10x10^6/uL (4.30-5.70) Hemoglobin 9.0g/dL (13.0-17.5) Hematocrit 27.5% (39.0-53.0) Mean Corpuscular Volume 89fL (79-100) Mean Corpuscular Hemoglobin 29pg (25-35) Mean Corpuscular Hemoglobin Concent 33g/dL (31-37) Red Cell Distribution Width 18.5% (11.5-14.5) Platelet Count 87x10^3/uL (140-400) Neutrophils (%) (Auto) 91% (31-73) Lymphocytes (%) (Auto) 6% (24-48) Monocytes (%) (Auto) 4% (0-9) Eosinophils (%) (Auto) 0% (0-3) Basophils (%) (Auto) 0% (0-3) Neutrophils # (Auto) 3.4x10^3uL (1.8-7.7) Lymphocytes # (Auto) 0.2x10^3/uL (1.0-4.8) Monocytes # (Auto) 0.1x10^3/uL (0.0-1.1) Eosinophils # (Auto) 0.0x10^3/uL (0.0-0.7) Basophils # (Auto) 0.0x10^3/uL (0.0-0.2) Sodium Level 139mmol/L (136-145) Potassium Level 4.2mmol/L (3.5-5.1) Chloride Level 106mmol/L (98-107) Carbon Dioxide Level 29mmol/L (21-32) Anion Gap 4 (6-14) Blood Urea Nitrogen 11mg/dL (8-26) Creatinine 1.2mg/dL (0.7-1.3) Estimated GFR (Cockcroft-Gault) 62.9 Glucose Level 107mg/dL (70-99) Calcium Level 7.6mg/dL (8.5-10.1) Micro Escherichia coli 25,000-50,000 colony forming units per mL ANTIMICROBIAL SUSCEPTIBILITY Final Comment S = Susceptible; I = Intermediate; R = Resistant P = Positive; N = Negative MICS are expressed in micrograms per mL Antibiotic RSLT#1 RSLT#2 RSLT#3 RSLT#4 Amoxicillin/Clavulanic Acid S =8 Ampicillin R>=32 Cefepime S<=1 Ceftriaxone S<=1 Cefuroxime I =16 Cephalothin R =32 Ciprofloxacin R>=4 Ertapenem S<=0.5 Gentamicin S<=1 Imipenem S<=1 Levofloxacin R>=8 Nitrofurantoin S<=16 Piperacillin R>=128 Tetracycline S =4 Tobramycin S<=1 Trimethoprim/Sulfa S<=20 Objective Assessment Fever - better Leukocytosis - labs pend. Leukopenia 08/26 ? real Ecoli UTI 08/24. POA with enlarged prostate and some seminal vesicle inflammation. Now on Flomax Sigmoid mass PCN and cefpodoxime allergy. Anemia Mental retardation Plan Plan of Care Blood cults times 2 08/26 - pending Cont Vanc/ Meropenem and fluconazole Await further GI evaluation/colonoscopy. Currently on clears f/u cultures and monitor labs D/w mother FRANKLIN PEREZ MD Aug 27, 2016 08:47
[2016-08-27 09:27] LABS: BASO % 1 % (0-3); EOS % 1 % (0-3); HEMATOCRIT 27.7 % (39.0-53.0); HEMOGLOBIN 9.2 g/dL (13.0-17.5); LYMPH # 0.2 x10^3/uL (1.0-4.8); LYMPH % 15 % (24-48); MEAN CORPUSCULAR HEMOGLOBIN 29 pg (25-35); MEAN CORPUSCULAR HGB CONC 33 g/dL (31-37); MEAN CORPUSCULAR VOLUME 88 fL (79-100); MONO % 8 % (0-9); NEUT % 75 % (31-73); PLATELET COUNT 69 x10^3/uL (140-400); RED BLOOD COUNT 3.17 x10^6/uL (4.30-5.70)
[2016-08-27 09:40] LABS: WHITE BLOOD COUNT 1.4 x10^3/uL (4.0-11.0)
[2016-08-27 09:55] LABS: CREATININE 1.3 mg/dL (0.7-1.3); GFR 57.3; POTASSIUM 4.3 mmol/L (3.5-5.1)
--- NOTE | 2016-08-27 10:19 | PDOC ---
PROGRESS NOTES Subjective Subjective feels okay. afebrile. lab reviewed. wbc 1.4. will consult dr. henley and mother more receptive to bone marrow biopsy as he has a recent history of pancytopenia. Objective Objective Vital Signs Date Time Temp Pulse Resp B/P Pulse Ox O2 Delivery O2 Flow Rate FiO2 08/27/16 07:14 93 Nasal Cannula 1.0 08/27/16 07:00 97.8 106 24 104/55 97.8 Intake and Output 08/27/16 07:00 Intake Total 400 ml Output Total 1600 ml Balance -1200 ml Intake Oral 100 ml IV Total 300 ml Output Urine Total 1600 ml Physical Exam Abdomen: Soft Heart: Regular rate, Normal S1, Normal S2 Extremities: No edema General: Alert HEENT: Atraumatic Lungs: Other (decreased breath sounds bilaterally) Neuro: Normal speech Psych/Mental Status: Mood NL Skin: No rashes Assessment Assessment Problems Medical Problems:. Sepsis resolved 2. e. coli uti 3. pancytopenia 4. critical leukopenia 5. Cholelithiasis. 6. Sigmoid colon mass. 7. Chronic hypoxic and hypercapnic respiratory failure. 8. Obstructive sleep apnea. 9. Morbid obesity. fever resolved BPH and seminal vesicle inflammation (1) Sepsis Status: Acute (2) UTI (urinary tract infection) Status: Acute Plan Plan of Care continue iv vancomycin and meropenem and fluconazole consult dr. henley. evaluate for bone marrow aspiration and bx reverse isolation d/c lovenox scd legs eventual colonoscopy Comment Review of Relevant I have reviewed the following items lexus (where applicable) has been applied. Labs Laboratory Tests Test 08/26/16 10:40 08/27/16 08:40 White Blood Count 3.7x10^3/uL (4.0-11.0) 1.4x10^3/uL (4.0-11.0) Red Blood Count 3.10x10^6/uL (4.30-5.70) 3.17x10^6/uL (4.30-5.70) Hemoglobin 9.0g/dL (13.0-17.5) 9.2g/dL (13.0-17.5) Hematocrit 27.5% (39.0-53.0) 27.7% (39.0-53.0) Mean Corpuscular Volume 89fL (79-100) 88fL (79-100) Mean Corpuscular Hemoglobin 29pg (25-35) 29pg (25-35) Mean Corpuscular Hemoglobin Concent 33g/dL (31-37) 33g/dL (31-37) Red Cell Distribution Width 18.5% (11.5-14.5) 18.0% (11.5-14.5) Platelet Count 87x10^3/uL (140-400) 69x10^3/uL (140-400) Neutrophils (%) (Auto) 91% (31-73) 75% (31-73) Lymphocytes (%) (Auto) 6% (24-48) 15% (24-48) Monocytes (%) (Auto) 4% (0-9) 8% (0-9) Eosinophils (%) (Auto) 0% (0-3) 1% (0-3) Basophils (%) (Auto) 0% (0-3) 1% (0-3) Neutrophils # (Auto) 3.4x10^3uL (1.8-7.7) 1.1x10^3uL (1.8-7.7) Lymphocytes # (Auto) 0.2x10^3/uL (1.0-4.8) 0.2x10^3/uL (1.0-4.8) Monocytes # (Auto) 0.1x10^3/uL (0.0-1.1) 0.1x10^3/uL (0.0-1.1) Eosinophils # (Auto) 0.0x10^3/uL (0.0-0.7) 0.0x10^3/uL (0.0-0.7) Basophils # (Auto) 0.0x10^3/uL (0.0-0.2) 0.0x10^3/uL (0.0-0.2) Sodium Level 139mmol/L (136-145) 143mmol/L (136-145) Potassium Level 4.2mmol/L (3.5-5.1) 4.3mmol/L (3.5-5.1) Chloride Level 106mmol/L (98-107) 108mmol/L (98-107) Carbon Dioxide Level 29mmol/L (21-32) 27mmol/L (21-32) Anion Gap 4 (6-14) 8 (6-14) Blood Urea Nitrogen 11mg/dL (8-26) 9mg/dL (8-26) Creatinine 1.2mg/dL (0.7-1.3) 1.3mg/dL (0.7-1.3) Estimated GFR (Cockcroft-Gault) 62.9 57.3 Glucose Level 107mg/dL (70-99) 138mg/dL (70-99) Calcium Level 7.6mg/dL (8.5-10.1) 8.0mg/dL (8.5-10.1) Laboratory Tests Test 08/26/16 10:40 08/27/16 08:40 White Blood Count 3.7x10^3/uL (4.0-11.0) 1.4x10^3/uL (4.0-11.0) Red Blood Count 3.10x10^6/uL (4.30-5.70) 3.17x10^6/uL (4.30-5.70) Hemoglobin 9.0g/dL (13.0-17.5) 9.2g/dL (13.0-17.5) Hematocrit 27.5% (39.0-53.0) 27.7% (39.0-53.0) Mean Corpuscular Volume 89fL (79-100) 88fL (79-100) Mean Corpuscular Hemoglobin 29pg (25-35) 29pg (25-35) Mean Corpuscular Hemoglobin Concent 33g/dL (31-37) 33g/dL (31-37) Red Cell Distribution Width 18.5% (11.5-14.5) 18.0% (11.5-14.5) Platelet Count 87x10^3/uL (140-400) 69x10^3/uL (140-400) Neutrophils (%) (Auto) 91% (31-73) 75% (31-73) Lymphocytes (%) (Auto) 6% (24-48) 15% (24-48) Monocytes (%) (Auto) 4% (0-9) 8% (0-9) Eosinophils (%) (Auto) 0% (0-3) 1% (0-3) Basophils (%) (Auto) 0% (0-3) 1% (0-3) Neutrophils # (Auto) 3.4x10^3uL (1.8-7.7) 1.1x10^3uL (1.8-7.7) Lymphocytes # (Auto) 0.2x10^3/uL (1.0-4.8) 0.2x10^3/uL (1.0-4.8) Monocytes # (Auto) 0.1x10^3/uL (0.0-1.1) 0.1x10^3/uL (0.0-1.1) Eosinophils # (Auto) 0.0x10^3/uL (0.0-0.7) 0.0x10^3/uL (0.0-0.7) Basophils # (Auto) 0.0x10^3/uL (0.0-0.2) 0.0x10^3/uL (0.0-0.2) Sodium Level 139mmol/L (136-145) 143mmol/L (136-145) Potassium Level 4.2mmol/L (3.5-5.1) 4.3mmol/L (3.5-5.1) Chloride Level 106mmol/L (98-107) 108mmol/L (98-107) Carbon Dioxide Level 29mmol/L (21-32) 27mmol/L (21-32) Anion Gap 4 (6-14) 8 (6-14) Blood Urea Nitrogen 11mg/dL (8-26) 9mg/dL (8-26) Creatinine 1.2mg/dL (0.7-1.3) 1.3mg/dL (0.7-1.3) Estimated GFR (Cockcroft-Gault) 62.9 57.3 Glucose Level 107mg/dL (70-99) 138mg/dL (70-99) Calcium Level 7.6mg/dL (8.5-10.1) 8.0mg/dL (8.5-10.1) Microbiology 08/24/16 Blood Culture - Preliminary, Resulted NO GROWTH AFTER 3 DAYS 08/24/16 Urine Culture - Final, Complete 08/24/16 Urine Culture Result 1 (FAUSTINA) - Final, Complete 08/24/16 Antimicrobic Susceptibility - Final, Complete Medications Current Medications Lorazepam 2 mg 2 mg 1X ONCE IV Last administered on 08/24/16 08:29; Start at 08:30; Stop 08/24/16 at 08:31; Status DC Sodium Chloride (Iv Sodium Chloride 0.9% 1000ml Bag) 1,000 ml @ 1,000 mls/hr 1X ONCE IV Last administered on 08/24/16 09:22; Start 08/24/16 at 08:30; Stop 08/24/16 at 09:29; Status DC Ondansetron HCl 4 mg 4 mg 1X ONCE IV Last administered on 08/24/16 09:23; Start 08/24/16 at 08:30; Stop 08/24/16 at 08:31; Status DC Levofloxacin/ Dextrose 150 ml @ 100 mls/hr 1X ONCE IV Last administered on 11:09; Start 08/24/16 at 10:00; Stop 08/24/16 at 11:29; Status DC Sodium Chloride 1,000 ml @ 1,000 mls/hr 1X ONCE IV Last administered on 10:31; Start 08/24/16 at 10:00; Stop 08/24/16 at 10:59; Status DC Sodium Chloride (Iv Sodium Chloride 0.9% 1000ml Bag) 1,000 ml @ 1,000 mls/hr 1X ONCE IV ; Start 08/24/16 at 10:00; Stop 08/24/16 at 10:59; Status UNV Fentanyl Citrate (Fentanyl 2ml Vial) 50 mcg 1X ONCE IV Last administered on 11:09; Start 08/24/16 at 10:30; Stop 08/24/16 at 10:31; Status DC Iohexol (Omnipaque 300 Mg/ml) 60 ml 1X ONCE IV Last administered on 08/24/16 10:48; Start 08/24/16 at 10:30; Stop 08/24/16 at 10:31; Status DC Ondansetron HCl (Zofran) 4 mg PRN Q8HRS PRN IV NAUSEA/VOMITING; Start 08/24/16 at 11:45; Stop 08/24/16 at 13:45; Status DC Fentanyl Citrate 50 mcg 50 mcg PRN Q1HR PRN IV PAIN; Start 08/24/16 at 11:45; Stop 08/25/16 at 11:44; Status DC Sodium Chloride (Iv Sodium Chloride 0.9% 1000ml Bag) 1,000 ml @ 150 mls/hr Q6H40M IV ; Start 08/24/16 at 12:00; Stop 08/25/16 at 11:59; Status DC Acetaminophen 650 mg 650 mg PRN Q4HRS PRN PO FEVER; Start 08/24/16 at 11:45; Stop 08/24/16 at 22:21; Status DC Potassium Chloride/Dextrose/ Sod Cl (KCl 20 Meq In D5W-1/2 NS) 1,000 ml @ 75 mls/hr [id number] IV Last administered on 08/26/16 14:43; Start 08/24/16 at 15:00 Acetaminophen (Tylenol) 650 mg PRN Q6HRS PRN MI MILD PAIN / TEMP; Start at 13:45; Stop 08/25/16 at 08:58; Status DC Pantoprazole Sodium (Protonix Vial) 40 mg DAILYAC IVP Last administered on 08/25 07:53; Start 08/24/16 at 14:00; Stop 08/25/16 at 08:58; Status DC Ondansetron HCl (Zofran) 4 mg PRN Q6HRS PRN IV NAUSEA/VOMITING; Start 08/24/16 at 13:45 Enoxaparin Sodium 40 mg 40 mg Q24H SQ Last administered on 08/26/16 14:43; Start 08/24/16 at 15:00 Meropenem 500 mg/ Sodium Chloride 50 ml @ 100 mls/hr Q6HRS IV Last administered on 08/27/16 06:32; Start 08/24/16 at 16:00 Fluconazole/ Sodium Chloride (Diflucan 400mg/ 200ml Premix) 200 ml @ 100 mls/ hr Q24H IV Last administered on 08/26/16 14:41; Start 08/24/16 at 15:00 Albuterol Sulfate (Ventolin Neb Soln) 2.5 mg RTQID NEB Last administered on 07:12; Start 08/24/16 at 20:00 Albuterol Sulfate (Ventolin Neb Soln) 2.5 mg PRN Q4HRS PRN NEB SHORTNESS OF BREATH; Start 08/24/16 at 19:45 Acetaminophen (Tylenol) 500 mg QHS PO Last administered on 08/26/16 20:49; Start 08/24/16 at 22:30 Diphenhydramine HCl (Benadryl) 25 mg QHS PO Last administered on 08/26/16 20: 48; Start 08/24/16 at 22:30 Pantoprazole Sodium (Protonix) 40 mg DAILYAC PO Last administered on 08/27/16 08:31; Start 08/26/16 at 07:30 Acetaminophen (Tylenol) 650 mg PRN Q4HRS PRN PO MILD PAIN / TEMP; Start at 09:00 Vancomycin HCl 1 each 1 each PRN DAILY PRN MC SEE COMMENTS Last administered on 08/26/16 13:07; Start 08/26/16 at 08:00 Vancomycin HCl/ Sodium Chloride (Iv Sodium Chloride 0.9% 500ml Bag) 500 ml @ 250 mls/hr 1X ONCE IV Last administered on 08/26/16 09:30; Start 08/26/16 at 09:00; Stop 08/26/16 at 10:59; Status DC Tamsulosin HCl 0.4 mg 0.4 mg DAILY PO Last administered on 08/27/16 08:31; Start 08/26/16 at 13:00 Vancomycin HCl/ Sodium Chloride (Iv Sodium Chloride 0.9% 500ml Bag) 500 ml @ 250 mls/hr Q12H IV Last administered on 08/27/16 08:30; Start 08/26/16 at 21: 00 Vancomycin HCl 1 each 1X ONCE MC ; Start 08/27/16 at 20:30; Stop 08/27/16 at 20 :31 Active Scripts Active Prednisone 20 Mg Tablet 30 Mg PO DAILY Levaquin (Levofloxacin) 500 Mg Tablet 500 Mg PO DAILY06 Albuterol Sulfate Neb Soln (Albuterol Sulfate) 2.5 Mg/3 Ml Vial.neb 2.5 Mg NEB RTQID Tylenol (Acetaminophen) 325 Mg Tablet 650 Mg PO PRN Q4HRS PRN Protonix (Pantoprazole Sodium) 40 Mg Tablet 40 Mg PO DAILYAC Vitals/I & O Vital Sign - Last 24 Hours 2/2108/26/16 08/26/16 08/26/16 11:20 11:30 15:00 15:52 Temp 98.1 98.1 98.1 98.1 Pulse 108 118 Resp 40 24 B/P 114/53 102/59 Pulse Ox 91 92 95 O2 Delivery Nasal Cannula Nasal Cannula Nasal Cannula Nasal Cannula O2 Flow Rate 2.0 1.0 1.0 2.0 08/26/16 08/26/16 08/26/16 08/26/16 19:20 19:48 20:00 22:47 Temp 98.8 98.8 Pulse 119 Resp 35 B/P 107/65 Pulse Ox 96 94 O2 Delivery Nasal Cannula Nasal Cannula Nasal Cannula BiPAP/CPAP O2 Flow Rate 1.0 1.0 2.0 08/26/16 08/27/16 08/27/16 08/27/16 23:20 01:13 02:56 03:25 Temp 96.4 97.8 96.4 97.8 Pulse 102 86 Resp 38 29 B/P 105/59 109/69 Pulse Ox 96 96 O2 Delivery BiPAP/CPAP BiPAP/CPAP BiPAP/CPAP BiPAP/CPAP 08/27/16 08/27/16 08/27/16 05:35 07:00 07:14 Temp 97.8 97.8 Pulse 106 Resp 24 B/P 104/55 Pulse Ox 91 93 O2 Delivery BiPAP/CPAP Nasal Cannula Nasal Cannula O2 Flow Rate 2.0 1.0 Intake and Output 08/26/16 08/26/16 08/27/16 15:00 23:00 07:00 Intake Total 50 ml 250 ml 100 ml Output Total 1100 ml 500 ml Balance 50 ml -850 ml -400 ml KATI BILLINGSLEY MD Aug 27, 2016 10:19
[2016-08-27 11:00] VITALS: BP 96/67
--- NOTE | 2016-08-27 11:40 | PDOC ---
Subjective: Subjective: No GI complaints per mother except pt wants to eat. Objective: Objective: Talked w/ RN via phone earlier. Vital Signs: Vital Signs Date Time Temp Pulse Resp B/P Pulse Ox O2 Delivery O2 Flow Rate FiO2 08/27/16 07:14 93 Nasal Cannula 1.0 08/27/16 07:00 97.8 106 24 104/55 97.8 Labs: Laboratory Tests Test 08/27/16 08:40 White Blood Count 1.4x10^3/uL Red Blood Count 3.17x10^6/uL Hemoglobin 9.2g/dL Hematocrit 27.7% Mean Corpuscular Volume 88fL Mean Corpuscular Hemoglobin 29pg Mean Corpuscular Hemoglobin Concent 33g/dL Red Cell Distribution Width 18.0% Platelet Count 69x10^3/uL Neutrophils (%) (Auto) 75% Lymphocytes (%) (Auto) 15% Monocytes (%) (Auto) 8% Eosinophils (%) (Auto) 1% Basophils (%) (Auto) 1% Neutrophils # (Auto) 1.1x10^3uL Lymphocytes # (Auto) 0.2x10^3/uL Monocytes # (Auto) 0.1x10^3/uL Eosinophils # (Auto) 0.0x10^3/uL Basophils # (Auto) 0.0x10^3/uL Sodium Level 143mmol/L Potassium Level 4.3mmol/L Chloride Level 108mmol/L Carbon Dioxide Level 27mmol/L Anion Gap 8 Blood Urea Nitrogen 9mg/dL Creatinine 1.3mg/dL Estimated GFR (Cockcroft-Gault) 57.3 Glucose Level 138mg/dL Calcium Level 8.0mg/dL PE: GEN: NAD LUNGS: nasal cannula HEART: RRR ABD: BS+, obese NEURO/PSYCH: moans A/P: Abnormal CT -fluid filled diverticulum vs 5cm soft tissue mass in sigmoid colon -on clear liquids -no previous colonoscopy, +FH colon cancer - -> mom anxious for colonoscopy Pancytopenia, UTI -heme following, ID, urology following Chronic resp failure -- Note neutropenic diet ordered w/ ?plans for bone marrow biopsy tomorrow. D/w Dr. Ribera - could proceed w/ colonoscopy tomorrow afternoon if won't interfere w/ bone marrow biopsy. Attempted to call IR to discuss - per RN, probably will be done in a.m. Will keep to clears and prep this afternoon. MELANIE HICKS Aug 27, 2016 11:40
--- NOTE | 2016-08-27 11:50 | PDOC ---
Provider Note Provider Note Onc consult dictated0 [id number] Pancytopenia- BMbx requested for tomorrow AM. Path results likely to take ~ 1 week to return. If stable for DC otherwise, Dr. Johnson can f/u in clinic late next week. YAMILET THOMPSON DO Aug 27, 2016 11:50
--- NOTE | 2016-08-27 11:52 | PDOC ---
SUBJECTIVE Subjective Pt. feeling ok OBJECTIVE Objective Queveod in place Vital Signs Vital Signs Date Time Temp Pulse Resp B/P Pulse Ox O2 Delivery O2 Flow Rate FiO2 08/27/16 11:40 95 Nasal Cannula 1.0 08/27/16 07:14 93 Nasal Cannula 1.0 08/27/16 07:00 97.8 106 24 104/55 91 Nasal Cannula 2.0 97.8 08/27/16 05:35 BiPAP/CPAP 08/27/16 03:25 97.8 86 29 109/69 96 BiPAP/CPAP 97.8 08/27/16 02:56 BiPAP/CPAP 08/27/16 01:13 BiPAP/CPAP 08/26/16 23:20 96.4 102 38 105/59 96 BiPAP/CPAP 96.4 08/26/16 22:47 BiPAP/CPAP 08/26/16 20:00 Nasal Cannula 2.0 08/26/16 19:48 94 Nasal Cannula 1.0 08/26/16 19:20 98.8 119 35 107/65 96 Nasal Cannula 1.0 98.8 08/26/16 15:52 95 Nasal Cannula 2.0 08/26/16 15:00 98.1 118 24 102/59 92 Nasal Cannula 1.0 98.1 I & O Intake and Output 08/27/16 07:00 Intake Total 400 ml Output Total 1600 ml Balance -1200 ml Intake Oral 100 ml IV Total 300 ml Output Urine Total 1600 ml PHYSICAL EXAM Physical Exam urine clear. good uo ASSESSMENT/PLAN Assessment/Plan Bome marrow bx. tomorrow. Will plan for voiding trial on Thursday08/29/16 if ok with primary service. Urology SENIOR FUND ACCOUNTANT Kristel Martino will be following pt. from urology standpoint as I will be out of town till next week Problems: COMMENT Lab Laboratory Tests Test 08/27/16 08:40 White Blood Count 1.4x10^3/uL (4.0-11.0) Red Blood Count 3.17x10^6/uL (4.30-5.70) Hemoglobin 9.2g/dL (13.0-17.5) Hematocrit 27.7% (39.0-53.0) Mean Corpuscular Volume 88fL (79-100) Mean Corpuscular Hemoglobin 29pg (25-35) Mean Corpuscular Hemoglobin Concent 33g/dL (31-37) Red Cell Distribution Width 18.0% (11.5-14.5) Platelet Count 69x10^3/uL (140-400) Neutrophils (%) (Auto) 75% (31-73) Lymphocytes (%) (Auto) 15% (24-48) Monocytes (%) (Auto) 8% (0-9) Eosinophils (%) (Auto) 1% (0-3) Basophils (%) (Auto) 1% (0-3) Neutrophils # (Auto) 1.1x10^3uL (1.8-7.7) Lymphocytes # (Auto) 0.2x10^3/uL (1.0-4.8) Monocytes # (Auto) 0.1x10^3/uL (0.0-1.1) Eosinophils # (Auto) 0.0x10^3/uL (0.0-0.7) Basophils # (Auto) 0.0x10^3/uL (0.0-0.2) Sodium Level 143mmol/L (136-145) Potassium Level 4.3mmol/L (3.5-5.1) Chloride Level 108mmol/L (98-107) Carbon Dioxide Level 27mmol/L (21-32) Anion Gap 8 (6-14) Blood Urea Nitrogen 9mg/dL (8-26) Creatinine 1.3mg/dL (0.7-1.3) Estimated GFR (Cockcroft-Gault) 57.3 Glucose Level 138mg/dL (70-99) Calcium Level 8.0mg/dL (8.5-10.1) SANDY GODDARD MD Aug 27, 2016 11:52
[2016-08-27] MEDS ORDERED: PEG 3350/NA SULF,BICARB,CL/KCL 4,000 ML SOLUTION. PO ONE (13:00)
[2016-08-27 14:30] LABS: OBC FLU VALID
[2016-08-27 15:00] VITALS: BP 104/75
[2016-08-27] MEDS ORDERED: POLYETHYLENE GLYCOL 3350 238 GM POWDER PO ONE (16:00)
[2016-08-27] MEDS ORDERED: BISACODYL 5 MG TABLET.DR. PO ONE (16:00)
[2016-08-27] MEDS: FLUCONAZOLE 400MG/200ML PREMIX 200 ML IV SCH (16:37)
[2016-08-27] MEDS ORDERED: ACETAMINOPHEN 325 MG TABLET. PO PRN (18:15)
[2016-08-27 19:00] VITALS: BP 130/72
[2016-08-27] MEDS: LORAZEPAM 0.5 MG TABLET. PO PRN (19:32)
[2016-08-27] MEDS: ACETAMINOPHEN 325 MG TABLET. PO PRN (19:32)
[2016-08-27] MEDS: ACETAMINOPHEN 500 MG TABLET PO SCH (21:38)
[2016-08-27] MEDS: DIPHENHYDRAMINE HCL 25 MG CAPSULE PO SCH (21:39)
[2016-08-27 23:00] VITALS: BP 135/77
[2016-08-27] MEDS: ALTEPLASE 2 MG VIAL INT CAT PRN (23:00)
[2016-08-28] MEDS: MEROPENEM 500 MG in IV NORMAL SALINE 50ML 50 ML IV SCH ×4 (00:20→18:23)
--- NOTE | 2016-08-28 02:51 | CONS ---
DATE OF CONSULTATION: 08/27/2016 ONCOLOGY CONSULTATION NOTE REFERRING PROVIDER: Dr. Levy. REASON FOR CONSULTATION: Pancytopenia. HISTORY OF PRESENT ILLNESS: The patient is a 56-year-old male seen by my colleague, Dr. Johnson, during his recent admission approximately one week ago. He has been noted to have pancytopenia thought to be due to organomegaly. At that time, a bone marrow biopsy was decided against as the patient has several chronic health issues and his mom stated that she would not want aggressive treatment even if there was underlying pathology found. He was again readmitted this week with evidence of E. coli UTI causing sepsis. His overall health has improved. CT abdomen and pelvis done in the Emergency Room showed diverticulum versus a sigmoid mass. He has never had a colonoscopy and when his health improves, this will be completed. However, while here, his pancytopenia was noted to have worsened. On 08/16/2016, his white blood cell count was 4.3 and has since declined to 1.4 with an absolute lymphocyte count of 1.1. His hemoglobin has remained stable at 9.2, platelets were initially 110 and have decreased to 69. B12, folic acid, hepatitis testing were previously negative. The CT did not reveal any liver changes and the spleen was within normal size. Chest x-ray has revealed cardiomyopathy, but otherwise unremarkable. Microbiology showing E. coli UTI. He has been on vancomycin, meropenem and fluconazole, clinically he appears to be doing well. PAST MEDICAL HISTORY: Cognitive insufficiency, anxiety, GERD, COPD, morbid obesity, hypoventilatory syndrome requiring chronic oxygen. PAST SURGICAL HISTORY: Left orchiopexy, foot surgery, cataract surgery, hernia surgery. FAMILY HISTORY: Dad with myasthenia gravis. Mom is healthy. SOCIAL HISTORY: Mom is his primary caregiver. No alcohol, tobacco or drug use. ALLERGIES: Penicillin and cefpodoxime. CURRENT MEDICATIONS: Fluconazole, meropenem, potassium, vancomycin, Tylenol, albuterol, Benadryl, Lovenox, Zofran, Protonix, Flomax. REVIEW OF SYSTEMS: Ten-point review of systems completed with the assistance of mom and she denies any complaints at this time. PHYSICAL EXAMINATION: VITAL SIGNS: T-max yesterday 101.8. Today, he has remained afebrile, pulse 106 , respiratory rate 24, blood pressure 104/55, 91% O2 on 2 liters. GENERAL: He is alert and oriented. He does not appear to be in any distress at this time. HEENT: Extraocular muscle strength is intact. Mucous membranes are moist. CARDIOVASCULAR: Heart is regular in rhythm and rate. LUNGS: Clear to auscultation bilaterally. ABDOMEN: Obese, soft, and nontender. EXTREMITIES: No edema, bilateral lower extremities. NEUROLOGIC: Cognitive insufficiency is present. He frequently calls out and responds to any questions. IMAGING AND LABORATORIES: Pertinent information as reviewed above. ASSESSMENT AND PLAN: The patient is a 56-year-old male with the following medical problems: 1. Anemia of chronic disease, stable. 2. Chronic thrombocytopenia, worsen. 3. Neutropenia, acute this admission. 4. Escherichia coli urinary tract infection, recent hospitalization for severe pneumonia. We discussed today that certainly his acute illnesses could play the largest role in his decrease in blood counts. He is currently not on any particularly offending medications. Surprisingly, his CT in the ER did not reveal any hepatosplenomegaly. Given that some of these changes are rather acute, I do not suspect any particularly alarming underlying bone marrow pathology. However, for thorough evaluation, his mom is now agreeable to proceeding with a bone marrow biopsy, which has been ordered and will likely be completed tomorrow. We will set up followup with Dr. Johnson in clinic late next week to review the pending pathology. His blood counts are stable enough for discharge if deemed stable from other medical perspectives. 5. Possible sigmoid mass. Colonoscopy is planned in the future. Thank you again for alerting us of his admission. Dr. Johnson will return tomorrow. YAMILET THOMPSON DO DR: JESSY/edith JOB#: [id number] / [id number] SCOTTIE
[2016-08-28 03:00] VITALS: BP 135/82
[2016-08-28] MEDS ORDERED: IV RINGERS,LACTATED 1000ML 1,000 ML IV SCH (07:00)
[2016-08-28] MEDS ORDERED: MORPHINE SULFATE 2 MG/ML DISP.SYRIN. IV PRN (07:00)
[2016-08-28] MEDS ORDERED: HYDROMORPHONE 2 MG/ML VIAL. IV PRN (07:00)
[2016-08-28] MEDS ORDERED: LIDOCAINE 1% 1 ML SYRINGE. ID PRN (07:00)
[2016-08-28] MEDS ORDERED: PROCHLORPERAZINE 10 MG/2 ML VIAL. IV PRN (07:00)
[2016-08-28 07:19] LABS: BASO % 1 % (0-3); EOS % 2 % (0-3); HEMATOCRIT 25.4 % (39.0-53.0); HEMOGLOBIN 8.1 g/dL (13.0-17.5); LYMPH # 0.5 x10^3/uL (1.0-4.8); LYMPH % 35 % (24-48); MEAN CORPUSCULAR HEMOGLOBIN 29 pg (25-35); MEAN CORPUSCULAR HGB CONC 32 g/dL (31-37); MEAN CORPUSCULAR VOLUME 90 fL (79-100); MONO % 15 % (0-9); NEUT % 47 % (31-73); PLATELET COUNT 65 x10^3/uL (140-400); RED BLOOD COUNT 2.82 x10^6/uL (4.30-5.70); RED CELL DISTRIBUTION WIDTH 18.1 % (11.5-14.5)
[2016-08-28 07:20] VITALS: BP 115/61
[2016-08-28 07:23] LABS: WHITE BLOOD COUNT 1.5 x10^3/uL (4.0-11.0)
[2016-08-28] MEDS: PANTOPRAZOLE 40 MG TABLET. PO SCH (07:30)
[2016-08-28] MEDS: ALBUTEROL SULFATE 2.5 MG/3 ML NEBU. NEB SCH ×3 (07:39→20:24)
[2016-08-28 07:42] LABS: CALCIUM 7.8 mg/dL (8.5-10.1); CREATININE 1.2 mg/dL (0.7-1.3); GFR 62.9; POTASSIUM 3.8 mmol/L (3.5-5.1)
[2016-08-28] MEDS ORDERED: LIDOCAINE 1% / SOD BICARB 8.4% 20 ML VIAL. IJ ONE ×2 (08:05→10:45)
--- NOTE | 2016-08-28 08:35 | PDOC ---
Infectious Disease Note Subjective Subjective Doing ok ROS ROS Unreliable Vital Sign Vital Signs Vital Signs Date Time Temp Pulse Resp B/P Pulse Ox O2 Delivery O2 Flow Rate FiO2 08/28/16 07:43 BiPAP/CPAP 08/28/16 07:41 98 08/28/16 07:20 97.7 87 22 115/61 97.7 08/27/16 20:21 1.0 Physical Exam PHYSICAL EXAM GENERAL: NAD, Alert - on Bipap looks well HEENT: PERRL, NECK: Supple, no JVD, no LN LUNGS: Clear on Bipap HEART: S1S2, no gallop, no murmur ABD: Soft, NT, no organomegaly, no rebound, Obese EXT: No edema, no cyanosis PLATE WORKER HELPER: Alert, oriented x 3, no focal neurologic deficit SKIN: No rash IV: ok Labs Lab Laboratory Tests Test 08/27/16 08:40 08/27/16 12:30 08/28/16 06:50 White Blood Count 1.4x10^3/uL (4.0-11.0) 1.5x10^3/uL (4.0-11.0) Red Blood Count 3.17x10^6/uL (4.30-5.70) 2.82x10^6/uL (4.30-5.70) Hemoglobin 9.2g/dL (13.0-17.5) 8.1g/dL (13.0-17.5) Hematocrit 27.7% (39.0-53.0) 25.4% (39.0-53.0) Mean Corpuscular Volume 88fL (79-100) 90fL (79-100) Mean Corpuscular Hemoglobin 29pg (25-35) 29pg (25-35) Mean Corpuscular Hemoglobin Concent 33g/dL (31-37) 32g/dL (31-37) Red Cell Distribution Width 18.0% (11.5-14.5) 18.1% (11.5-14.5) Platelet Count 69x10^3/uL (140-400) 65x10^3/uL (140-400) Neutrophils (%) (Auto) 75% (31-73) 47% (31-73) Lymphocytes (%) (Auto) 15% (24-48) 35% (24-48) Monocytes (%) (Auto) 8% (0-9) 15% (0-9) Eosinophils (%) (Auto) 1% (0-3) 2% (0-3) Basophils (%) (Auto) 1% (0-3) 1% (0-3) Neutrophils # (Auto) 1.1x10^3uL (1.8-7.7) 0.7x10^3uL (1.8-7.7) Lymphocytes # (Auto) 0.2x10^3/uL (1.0-4.8) 0.5x10^3/uL (1.0-4.8) Monocytes # (Auto) 0.1x10^3/uL (0.0-1.1) 0.2x10^3/uL (0.0-1.1) Eosinophils # (Auto) 0.0x10^3/uL (0.0-0.7) 0.0x10^3/uL (0.0-0.7) Basophils # (Auto) 0.0x10^3/uL (0.0-0.2) 0.0x10^3/uL (0.0-0.2) Sodium Level 143mmol/L (136-145) 147mmol/L (136-145) Potassium Level 4.3mmol/L (3.5-5.1) 3.8mmol/L (3.5-5.1) Chloride Level 108mmol/L (98-107) 110mmol/L (98-107) Carbon Dioxide Level 27mmol/L (21-32) 31mmol/L (21-32) Anion Gap 8 (6-14) 6 (6-14) Blood Urea Nitrogen 9mg/dL (8-26) 7mg/dL (8-26) Creatinine 1.3mg/dL (0.7-1.3) 1.2mg/dL (0.7-1.3) Estimated GFR (Cockcroft-Gault) 57.3 62.9 Glucose Level 138mg/dL (70-99) 88mg/dL (70-99) Calcium Level 8.0mg/dL (8.5-10.1) 7.8mg/dL (8.5-10.1) Influenza Type A Antigen Negative (NEGATIVE) Influenza Type B Antigen Negative (NEGATIVE) Micro Escherichia coli 25,000-50,000 colony forming units per mL ANTIMICROBIAL SUSCEPTIBILITY Final Comment S = Susceptible; I = Intermediate; R = Resistant P = Positive; N = Negative MICS are expressed in micrograms per mL Antibiotic RSLT#1 RSLT#2 RSLT#3 RSLT#4 Amoxicillin/Clavulanic Acid S =8 Ampicillin R>=32 Cefepime S<=1 Ceftriaxone S<=1 Cefuroxime I =16 Cephalothin R =32 Ciprofloxacin R>=4 Ertapenem S<=0.5 Gentamicin S<=1 Imipenem S<=1 Levofloxacin R>=8 Nitrofurantoin S<=16 Piperacillin R>=128 Tetracycline S =4 Tobramycin S<=1 Trimethoprim/Sulfa S<=20 Objective Assessment Fever - better Leukopenia/Pancytopenia 08/26 stablized. Influenza neg. ? reactive/sepsis or related to sigmoid mass Ecoli UTI 08/24. POA with enlarged prostate and some seminal vesicle inflammation. Now on Flomax Sigmoid mass PCN and cefpodoxime allergy. Mental retardation Plan Plan of Care Blood cults times 2 08/26 - neg Cont Meropenem D/c fluconazole Await bone marrow Await further GI evaluation/colonoscopy. Currently on clears f/u cultures and monitor labs FRANKLIN PEREZ MD Aug 28, 2016 08:35
--- NOTE | 2016-08-28 08:57 | PDOC ---
PROGRESS NOTES Subjective Subjective c/c - f/u of pancytopenia Objective Objective Vital Signs Date Time Temp Pulse Resp B/P Pulse Ox O2 Delivery O2 Flow Rate FiO2 08/28/16 07:43 BiPAP/CPAP 08/28/16 07:41 98 08/28/16 07:20 97.7 87 22 115/61 97.7 08/27/16 20:21 1.0 Intake and Output 08/28/16 07:00 Intake Total 250 ml Output Total 1650 ml Balance -1400 ml Intake Oral 250 ml Output Urine Total 1650 ml Physical Exam Heart: Normal S1, Normal S2 General: Alert Lungs: Clear to auscultation Assessment Assessment Problems Medical Problems: (1) Sepsis Status: Acute (2) UTI (urinary tract infection) Status: Acute ASSESSMENT AND PLAN: The patient is a 56-year-old male with the following medical problems: 1. Anemia of chronic disease, stable. 2. Chronic thrombocytopenia, worsen. Plan bone marrow bx 08/28/16. I d/w his mother Charline. 3. Neutropenia, acute this admission. 4. Escherichia coli urinary tract infection/sepsis, recent hospitalization for severe pneumonia. 5. Rt PICC line appears infiltrated, consult PICC team. Comment Review of Relevant I have reviewed the following items lexus (where applicable) has been applied. Labs Laboratory Tests Test 08/26/16 10:40 08/27/16 08:40 08/27/16 12:30 08/28/16 06:50 White Blood Count 3.7x10^3/uL (4.0-11.0) 1.4x10^3/uL (4.0-11.0) 1.5x10^3/uL (4.0-11.0) Red Blood Count 3.10x10^6/uL (4.30-5.70) 3.17x10^6/uL (4.30-5.70) 2.82x10^6/uL (4.30-5.70) Hemoglobin 9.0g/dL (13.0-17.5) 9.2g/dL (13.0-17.5) 8.1g/dL (13.0-17.5) Hematocrit 27.5% (39.0-53.0) 27.7% (39.0-53.0) 25.4% (39.0-53.0) Mean Corpuscular Volume 89fL (79-100) 88fL (79-100) 90fL (79-100) Mean Corpuscular Hemoglobin 29pg (25-35) 29pg (25-35) 29pg (25-35) Mean Corpuscular Hemoglobin Concent 33g/dL (31-37) 33g/dL (31-37) 32g/dL (31-37) Red Cell Distribution Width 18.5% (11.5-14.5) 18.0% (11.5-14.5) 18.1% (11.5-14.5) Platelet Count 87x10^3/uL (140-400) 69x10^3/uL (140-400) 65x10^3/uL (140-400) Neutrophils (%) (Auto) 91% (31-73) 75% (31-73) 47% (31-73) Lymphocytes (%) (Auto) 6% (24-48) 15% (24-48) 35% (24-48) Monocytes (%) (Auto) 4% (0-9) 8% (0-9) 15% (0-9) Eosinophils (%) (Auto) 0% (0-3) 1% (0-3) 2% (0-3) Basophils (%) (Auto) 0% (0-3) 1% (0-3) 1% (0-3) Neutrophils # (Auto) 3.4x10^3uL (1.8-7.7) 1.1x10^3uL (1.8-7.7) 0.7x10^3uL (1.8-7.7) Lymphocytes # (Auto) 0.2x10^3/uL (1.0-4.8) 0.2x10^3/uL (1.0-4.8) 0.5x10^3/uL (1.0-4.8) Monocytes # (Auto) 0.1x10^3/uL (0.0-1.1) 0.1x10^3/uL (0.0-1.1) 0.2x10^3/uL (0.0-1.1) Eosinophils # (Auto) 0.0x10^3/uL (0.0-0.7) 0.0x10^3/uL (0.0-0.7) 0.0x10^3/uL (0.0-0.7) Basophils # (Auto) 0.0x10^3/uL (0.0-0.2) 0.0x10^3/uL (0.0-0.2) 0.0x10^3/uL (0.0-0.2) Sodium Level 139mmol/L (136-145) 143mmol/L (136-145) 147mmol/L (136-145) Potassium Level 4.2mmol/L (3.5-5.1) 4.3mmol/L (3.5-5.1) 3.8mmol/L (3.5-5.1) Chloride Level 106mmol/L (98-107) 108mmol/L (98-107) 110mmol/L (98-107) Carbon Dioxide Level 29mmol/L (21-32) 27mmol/L (21-32) 31mmol/L (21-32) Anion Gap 4 (6-14) 8 (6-14) 6 (6-14) Blood Urea Nitrogen 11mg/dL (8-26) 9mg/dL (8-26) 7mg/dL (8-26) Creatinine 1.2mg/dL (0.7-1.3) 1.3mg/dL (0.7-1.3) 1.2mg/dL (0.7-1.3) Estimated GFR (Cockcroft-Gault) 62.9 57.3 62.9 Glucose Level 107mg/dL (70-99) 138mg/dL (70-99) 88mg/dL (70-99) Calcium Level 7.6mg/dL (8.5-10.1) 8.0mg/dL (8.5-10.1) 7.8mg/dL (8.5-10.1) Influenza Type A Antigen Negative (NEGATIVE) Influenza Type B Antigen Negative (NEGATIVE) Laboratory Tests Test 08/27/16 12:30 08/28/16 06:50 Influenza Type A Antigen Negative (NEGATIVE) Influenza Type B Antigen Negative (NEGATIVE) White Blood Count 1.5x10^3/uL (4.0-11.0) Red Blood Count 2.82x10^6/uL (4.30-5.70) Hemoglobin 8.1g/dL (13.0-17.5) Hematocrit 25.4% (39.0-53.0) Mean Corpuscular Volume 90fL (79-100) Mean Corpuscular Hemoglobin 29pg (25-35) Mean Corpuscular Hemoglobin Concent 32g/dL (31-37) Red Cell Distribution Width 18.1% (11.5-14.5) Platelet Count 65x10^3/uL (140-400) Neutrophils (%) (Auto) 47% (31-73) Lymphocytes (%) (Auto) 35% (24-48) Monocytes (%) (Auto) 15% (0-9) Eosinophils (%) (Auto) 2% (0-3) Basophils (%) (Auto) 1% (0-3) Neutrophils # (Auto) 0.7x10^3uL (1.8-7.7) Lymphocytes # (Auto) 0.5x10^3/uL (1.0-4.8) Monocytes # (Auto) 0.2x10^3/uL (0.0-1.1) Eosinophils # (Auto) 0.0x10^3/uL (0.0-0.7) Basophils # (Auto) 0.0x10^3/uL (0.0-0.2) Sodium Level 147mmol/L (136-145) Potassium Level 3.8mmol/L (3.5-5.1) Chloride Level 110mmol/L (98-107) Carbon Dioxide Level 31mmol/L (21-32) Anion Gap 6 (6-14) Blood Urea Nitrogen 7mg/dL (8-26) Creatinine 1.2mg/dL (0.7-1.3) Estimated GFR (Cockcroft-Gault) 62.9 Glucose Level 88mg/dL (70-99) Calcium Level 7.8mg/dL (8.5-10.1) Microbiology 08/26/16 Blood Culture - Preliminary, Resulted NO GROWTH AFTER 1 DAY 08/24/16 Urine Culture - Final, Complete 08/24/16 Urine Culture Result 1 (FAUSTINA) - Final, Complete 08/24/16 Antimicrobic Susceptibility - Final, Complete Medications Current Medications Lorazepam 2 mg 2 mg 1X ONCE IV Last administered on 08/24/16 08:29; Start at 08:30; Stop 08/24/16 at 08:31; Status DC Sodium Chloride (Iv Sodium Chloride 0.9% 1000ml Bag) 1,000 ml @ 1,000 mls/hr 1X ONCE IV Last administered on 08/24/16 09:22; Start 08/24/16 at 08:30; Stop 08/24/16 at 09:29; Status DC Ondansetron HCl 4 mg 4 mg 1X ONCE IV Last administered on 08/24/16 09:23; Start 08/24/16 at 08:30; Stop 08/24/16 at 08:31; Status DC Levofloxacin/ Dextrose 150 ml @ 100 mls/hr 1X ONCE IV Last administered on 11:09; Start 08/24/16 at 10:00; Stop 08/24/16 at 11:29; Status DC Sodium Chloride 1,000 ml @ 1,000 mls/hr 1X ONCE IV Last administered on 10:31; Start 08/24/16 at 10:00; Stop 08/24/16 at 10:59; Status DC Sodium Chloride (Iv Sodium Chloride 0.9% 1000ml Bag) 1,000 ml @ 1,000 mls/hr 1X ONCE IV ; Start 08/24/16 at 10:00; Stop 08/24/16 at 10:59; Status UNV Fentanyl Citrate (Fentanyl 2ml Vial) 50 mcg 1X ONCE IV Last administered on 11:09; Start 08/24/16 at 10:30; Stop 08/24/16 at 10:31; Status DC Iohexol (Omnipaque 300 Mg/ml) 60 ml 1X ONCE IV Last administered on 08/24/16 10:48; Start 08/24/16 at 10:30; Stop 08/24/16 at 10:31; Status DC Ondansetron HCl (Zofran) 4 mg PRN Q8HRS PRN IV NAUSEA/VOMITING; Start 08/24/16 at 11:45; Stop 08/24/16 at 13:45; Status DC Fentanyl Citrate 50 mcg 50 mcg PRN Q1HR PRN IV PAIN; Start 08/24/16 at 11:45; Stop 08/25/16 at 11:44; Status DC Sodium Chloride (Iv Sodium Chloride 0.9% 1000ml Bag) 1,000 ml @ 150 mls/hr Q6H40M IV ; Start 08/24/16 at 12:00; Stop 08/25/16 at 11:59; Status DC Acetaminophen 650 mg 650 mg PRN Q4HRS PRN PO FEVER; Start 08/24/16 at 11:45; Stop 08/24/16 at 22:21; Status DC Potassium Chloride/Dextrose/ Sod Cl (KCl 20 Meq In D5W-1/2 NS) 1,000 ml @ 40 mls/hr Q24H IV Last administered on 08/27/16 16:39; Start 08/24/16 at 15:00 Acetaminophen (Tylenol) 650 mg PRN Q6HRS PRN SD MILD PAIN / TEMP; Start at 13:45; Stop 08/25/16 at 08:58; Status DC Pantoprazole Sodium (Protonix Vial) 40 mg DAILYAC IVP Last administered on 08/25 07:53; Start 08/24/16 at 14:00; Stop 08/25/16 at 08:58; Status DC Ondansetron HCl (Zofran) 4 mg PRN Q6HRS PRN IV NAUSEA/VOMITING; Start 08/24/16 at 13:45 Enoxaparin Sodium 40 mg 40 mg Q24H SQ Last administered on 08/26/16 14:43; Start 08/24/16 at 15:00; Stop 08/27/16 at 10:14; Status DC Meropenem 500 mg/ Sodium Chloride 50 ml @ 100 mls/hr Q6HRS IV Last administered on 08/28/16 06:32; Start 08/24/16 at 16:00 Fluconazole/ Sodium Chloride (Diflucan 400mg/ 200ml Premix) 200 ml @ 100 mls/ hr Q24H IV Last administered on 08/27/16 16:37; Start 08/24/16 at 15:00; Stop 08/28/16 at 08:34; Status DC Albuterol Sulfate (Ventolin Neb Soln) 2.5 mg RTQID NEB Last administered on 07:39; Start 08/24/16 at 20:00 Albuterol Sulfate (Ventolin Neb Soln) 2.5 mg PRN Q4HRS PRN NEB SHORTNESS OF BREATH; Start 08/24/16 at 19:45 Acetaminophen (Tylenol) 500 mg QHS PO Last administered on 08/27/16 21:38; Start 08/24/16 at 22:30 Diphenhydramine HCl (Benadryl) 25 mg QHS PO Last administered on 08/27/16 21: 39; Start 08/24/16 at 22:30 Pantoprazole Sodium (Protonix) 40 mg DAILYAC PO Last administered on 08/27/16 08:31; Start 08/26/16 at 07:30 Acetaminophen (Tylenol) 650 mg PRN Q4HRS PRN PO MILD PAIN / TEMP Last administered on 08/27/16 19:32; Start 08/25/16 at 09:00 Vancomycin HCl 1 each 1 each PRN DAILY PRN MC SEE COMMENTS Last administered on 08/26/16 13:07; Start 08/26/16 at 08:00; Stop 08/27/16 at 10:25; Status DC Vancomycin HCl/ Sodium Chloride (Iv Sodium Chloride 0.9% 500ml Bag) 500 ml @ 250 mls/hr 1X ONCE IV Last administered on 08/26/16 09:30; Start 08/26/16 at 09:00; Stop 08/26/16 at 10:59; Status DC Tamsulosin HCl 0.4 mg 0.4 mg DAILY PO Last administered on 08/27/16 08:31; Start 08/26/16 at 13:00 Vancomycin HCl/ Sodium Chloride (Iv Sodium Chloride 0.9% 500ml Bag) 500 ml @ 250 mls/hr Q12H IV Last administered on 08/27/16 08:30; Start 08/26/16 at 21: 00; Stop 08/27/16 at 10:25; Status DC Vancomycin HCl 1 each 1X ONCE MC ; Start 08/27/16 at 20:30; Stop 08/27/16 at 20 :30; Status DC Alteplase, Recombinant (Cathflo) 2 mg PRN DAILY PRN INT CAT PER PROTOCOL Last administered on 08/27/16 23:00; Start 08/27/16 at 10:15 Sodium Cl/Sod Bicarb/Potass Cl/ PEG (Golytely) 4,000 ml 1X ONCE PO ; Start at 13:00; Stop 08/27/16 at 15:19; Status DC Polyethylene Glycol (miraLAX Powder BULK BOTTLE) 238 gm 1X ONCE PO Last administered on 08/27/16 16:39; Start 08/27/16 at 16:00; Stop 08/27/16 at 16:01 ; Status DC Bisacodyl (Dulcolax Tab) 10 mg 1X ONCE PO Last administered on 08/27/16 16:39 ; Start 08/27/16 at 16:00; Stop 08/27/16 at 16:01; Status DC Morphine Sulfate 1 mg 1 mg PRN Q10MIN PRN IV SEVERE PAIN; Start 08/28/16 at 07: 00; Stop 08/29/16 at 06:59 Lactated Ringer's (Iv Lactated Ringers) 1,000 ml @ 0 mls/hr Q0M IV ; Start at 07:00; Stop 08/28/16 at 18:59 Lidocaine HCl 2 ml 1X PRN PRN ID IV START; Start 08/28/16 at 07:00; Stop at 06:59 Hydromorphone HCl (Dilaudid) 0.5 mg PRN Q10MIN PRN IV SEVERE PAIN, Second choice; Start 08/28/16 at 07:00; Stop 08/29/16 at 06:59 Prochlorperazine Edisylate (Compazine) 5 mg PACU PRN PRN IV NAUSEA; Start 08/28 at 07:00; Stop 08/29/16 at 06:59 Lorazepam (Ativan) 0.5 mg PRN Q8HRS PRN PO ANXIETY / AGITATION Last administered on 08/27/16 19:32; Start 08/27/16 at 18:15 Acetaminophen (Tylenol) 650 mg PRN Q4HRS PRN PO MILD PAIN / TEMP; Start at 18:15; Status UNV Lidocaine/Sodium Bicarbonate (Buffered Lidocaine 1%) 20 ml STK-MED ONCE IJ ; Start 08/28/16 at 08:05; Stop 08/28/16 at 08:06; Status DC Active Scripts Active Prednisone 20 Mg Tablet 30 Mg PO DAILY Levaquin (Levofloxacin) 500 Mg Tablet 500 Mg PO DAILY06 Albuterol Sulfate Neb Soln (Albuterol Sulfate) 2.5 Mg/3 Ml Vial.neb 2.5 Mg NEB RTQID Tylenol (Acetaminophen) 325 Mg Tablet 650 Mg PO PRN Q4HRS PRN Protonix (Pantoprazole Sodium) 40 Mg Tablet 40 Mg PO DAILYAC Vitals/I & O Vital Sign - Last 24 Hours 08/27/16 08/27/16 08/27/16 08/27/16 11:00 11:40 15:00 19:00 Temp 97.8 97.8 98.4 97.8 97.8 98.4 Pulse 114 119 78 Resp 24 24 B/P 96/67 104/75 130/72 Pulse Ox 96 95 96 96 O2 Delivery Nasal Cannula Nasal Cannula Nasal Cannula Room Air O2 Flow Rate 2.0 1.0 1.0 08/27/16 08/27/16 08/27/16 08/28/16 20:00 20:21 23:00 01:32 Temp 96.2 96.2 Pulse 75 Resp 18 B/P 135/77 Pulse Ox 95 96 O2 Delivery Nasal Cannula Nasal Cannula Room Air BiPAP/CPAP O2 Flow Rate 2.0 1.0 08/28/16 08/28/16 08/28/16 08/28/16 03:00 03:50 07:20 07:41 Temp 99.5 97.7 99.5 97.7 Pulse 79 87 Resp 18 22 B/P 135/82 115/61 Pulse Ox 97 99 98 O2 Delivery BiPAP/CPAP BiPAP/CPAP BiPAP/CPAP 08/28/16 07:43 O2 Delivery BiPAP/CPAP Intake and Output 08/27/16 08/27/16 08/28/16 15:00 23:00 07:00 Intake Total 250 ml Output Total 1650 ml Balance 250 ml -1650 ml MINO HATHAWAY MD Aug 28, 2016 08:56
[2016-08-28] MEDS: TAMSULOSIN 0.4 MG CAP.ER.24H. PO SCH (09:00)
[2016-08-28] MEDS ORDERED: GLYCOPYRROLATE 1 MG/5 ML VIAL. ONE (10:16)
[2016-08-28] MEDS ORDERED: FENTANYL PF 250 MCG/5 ML VIAL. ONE (10:16)
[2016-08-28] MEDS ORDERED: NEOSTIGMINE METHYLSULFATE 5 MG/5 ML SYRINGE. ONE (10:16)
--- NOTE | 2016-08-28 11:08 | PDOC ---
Exam [employer] Research Scientist [employer] Research Scientist Niraj Pre-Procedure Diagnosis Pre-Procedure Diagnosis Pancytopenia Post-Procedure Diagnosis Post-Procedure Diagnosis Same Procedure Performed Procedure Performed CT guided bone marrow asp/bx Type of Anesthesia Type of Anesthesia General Estimated Blood Loss EBL: Minimal Specimens Specimans 6cc bone marrow asp/bx + 1 11G core bx----to heme-path Condition of Patient Condition of Patient Hemodynamically stable. No apparent complication. Disposition Disposition From IR/CT to PACU---then return to [facility] or transfer to higher level of care, if needed. F/u with Heme-Onc. Full report to follow. MACO LÓPEZ MD Aug 28, 2016 11:08
--- NOTE | 2016-08-28 11:38 | PDOC ---
Subjective: Subjective: Out for bone marrow biopsy. Objective: Objective: Colonoscopy postponed. Vital Signs: Vital Signs Date Time Temp Pulse Resp B/P Pulse Ox O2 Delivery O2 Flow Rate FiO2 08/28/16 08:00 Bi-pap 2.0 08/28/16 07:41 98 08/28/16 07:20 97.7 87 22 115/61 97.7 Labs: Laboratory Tests Test 08/27/16 12:30 08/28/16 06:50 Influenza Type A Antigen Negative Influenza Type B Antigen Negative White Blood Count 1.5x10^3/uL Red Blood Count 2.82x10^6/uL Hemoglobin 8.1g/dL Hematocrit 25.4% Mean Corpuscular Volume 90fL Mean Corpuscular Hemoglobin 29pg Mean Corpuscular Hemoglobin Concent 32g/dL Red Cell Distribution Width 18.1% Platelet Count 65x10^3/uL Neutrophils (%) (Auto) 47% Lymphocytes (%) (Auto) 35% Monocytes (%) (Auto) 15% Eosinophils (%) (Auto) 2% Basophils (%) (Auto) 1% Neutrophils # (Auto) 0.7x10^3uL Lymphocytes # (Auto) 0.5x10^3/uL Monocytes # (Auto) 0.2x10^3/uL Eosinophils # (Auto) 0.0x10^3/uL Basophils # (Auto) 0.0x10^3/uL Sodium Level 147mmol/L Potassium Level 3.8mmol/L Chloride Level 110mmol/L Carbon Dioxide Level 31mmol/L Anion Gap 6 Blood Urea Nitrogen 7mg/dL Creatinine 1.2mg/dL Estimated GFR (Cockcroft-Gault) 62.9 Glucose Level 88mg/dL Calcium Level 7.8mg/dL PE: no exam A/P: Abnormal CT -fluid filled diverticulum vs 5cm soft tissue mass in sigmoid colon -no previous colonoscopy, +FH colon cancer - -> colonoscopy on hold w/ neutropenia Pancytopenia Chronic resp failure -- Bone marrow biopsy today. Will follow. MELANIE HICKS Aug 28, 2016 11:38
[2016-08-28] MEDS ORDERED: VANCOMYCIN PER PHARMACY MC PRN (11:45)
[2016-08-28] MEDS ORDERED: SEVOFLURANE 61 TO 120 MINUTES. IH ONE (11:51)
[2016-08-28] MEDS ORDERED: PHENYLEPHRINE in 0.9% NACL PF 1 MG/10 ML DISP.SYRIN. IV ONE (11:51)
[2016-08-28] MEDS ORDERED: ONDANSETRON PF 4 MG/2 ML VIAL. ONE (11:51)
[2016-08-28] MEDS ORDERED: DEXAMETHASONE SOD PHOS 20 MG/5 ML VIAL. ONE (11:51)
--- NOTE | 2016-08-28 11:55 | PDOC ---
PROGRESS NOTES Subjective Subjective discussed with patients mother and dr. oneal. seen in post op recovery unit and just had bone marrow aspiration biopsy and is alert and intubated on ventilator. lab reviewed. lab reviewed. PICC line infiltrated RUE with swelling and ecchymosis Objective Objective Vital Signs Date Time Temp Pulse Resp B/P Pulse Ox O2 Delivery O2 Flow Rate FiO2 08/28/16 11:44 98 Ventilator 08/28/16 11:20 98.6 130 20 164/53 98.6 08/28/16 08:00 2.0 Intake and Output 08/28/16 07:00 Intake Total 250 ml Output Total 1650 ml Balance -1400 ml Intake Oral 250 ml Output Urine Total 1650 ml Physical Exam Abdomen: Soft Heart: Regular rate, Normal S1, Normal S2 Extremities: Other (PICC line RUE inifiltrated with localized swelling and ecchymosis) General: Alert HEENT: Atraumatic Lungs: Clear to auscultation Neuro: Other (intubated) Psych/Mental Status: Other (intubated and awake) Skin: Other (ecchymosis RUE by picc) Assessment Assessment Problems Medical Problems: Sepsis resolved 2. e. coli uti 3. pancytopenia 4. critical leukopenia 5. Cholelithiasis. 6. Sigmoid colon mass.colonoscopy postponed due to neutropenia 7. Chronic hypoxic and hypercapnic respiratory failure. 8. Obstructive sleep apnea. 9. Morbid obesity. fever resolved BPH and seminal vesicle inflammation PICC infiltrated (1) Sepsis Status: Acute (2) UTI (urinary tract infection) Status: Acute Plan Plan of Care bone marrow aspiration biopsy done today d/c current picc and place new picc today LUE iv meropenem ? iv vancomycin. will defer to ID colonoscopy postponed iv fluids reverse isolation Comment Review of Relevant I have reviewed the following items lexus (where applicable) has been applied. Labs Laboratory Tests Test 08/27/16 08:40 08/27/16 12:30 08/28/16 06:50 White Blood Count 1.4x10^3/uL (4.0-11.0) 1.5x10^3/uL (4.0-11.0) Red Blood Count 3.17x10^6/uL (4.30-5.70) 2.82x10^6/uL (4.30-5.70) Hemoglobin 9.2g/dL (13.0-17.5) 8.1g/dL (13.0-17.5) Hematocrit 27.7% (39.0-53.0) 25.4% (39.0-53.0) Mean Corpuscular Volume 88fL (79-100) 90fL (79-100) Mean Corpuscular Hemoglobin 29pg (25-35) 29pg (25-35) Mean Corpuscular Hemoglobin Concent 33g/dL (31-37) 32g/dL (31-37) Red Cell Distribution Width 18.0% (11.5-14.5) 18.1% (11.5-14.5) Platelet Count 69x10^3/uL (140-400) 65x10^3/uL (140-400) Neutrophils (%) (Auto) 75% (31-73) 47% (31-73) Lymphocytes (%) (Auto) 15% (24-48) 35% (24-48) Monocytes (%) (Auto) 8% (0-9) 15% (0-9) Eosinophils (%) (Auto) 1% (0-3) 2% (0-3) Basophils (%) (Auto) 1% (0-3) 1% (0-3) Neutrophils # (Auto) 1.1x10^3uL (1.8-7.7) 0.7x10^3uL (1.8-7.7) Lymphocytes # (Auto) 0.2x10^3/uL (1.0-4.8) 0.5x10^3/uL (1.0-4.8) Monocytes # (Auto) 0.1x10^3/uL (0.0-1.1) 0.2x10^3/uL (0.0-1.1) Eosinophils # (Auto) 0.0x10^3/uL (0.0-0.7) 0.0x10^3/uL (0.0-0.7) Basophils # (Auto) 0.0x10^3/uL (0.0-0.2) 0.0x10^3/uL (0.0-0.2) Sodium Level 143mmol/L (136-145) 147mmol/L (136-145) Potassium Level 4.3mmol/L (3.5-5.1) 3.8mmol/L (3.5-5.1) Chloride Level 108mmol/L (98-107) 110mmol/L (98-107) Carbon Dioxide Level 27mmol/L (21-32) 31mmol/L (21-32) Anion Gap 8 (6-14) 6 (6-14) Blood Urea Nitrogen 9mg/dL (8-26) 7mg/dL (8-26) Creatinine 1.3mg/dL (0.7-1.3) 1.2mg/dL (0.7-1.3) Estimated GFR (Cockcroft-Gault) 57.3 62.9 Glucose Level 138mg/dL (70-99) 88mg/dL (70-99) Calcium Level 8.0mg/dL (8.5-10.1) 7.8mg/dL (8.5-10.1) Influenza Type A Antigen Negative (NEGATIVE) Influenza Type B Antigen Negative (NEGATIVE) Laboratory Tests Test 08/27/16 12:30 08/28/16 06:50 Influenza Type A Antigen Negative (NEGATIVE) Influenza Type B Antigen Negative (NEGATIVE) White Blood Count 1.5x10^3/uL (4.0-11.0) Red Blood Count 2.82x10^6/uL (4.30-5.70) Hemoglobin 8.1g/dL (13.0-17.5) Hematocrit 25.4% (39.0-53.0) Mean Corpuscular Volume 90fL (79-100) Mean Corpuscular Hemoglobin 29pg (25-35) Mean Corpuscular Hemoglobin Concent 32g/dL (31-37) Red Cell Distribution Width 18.1% (11.5-14.5) Platelet Count 65x10^3/uL (140-400) Neutrophils (%) (Auto) 47% (31-73) Lymphocytes (%) (Auto) 35% (24-48) Monocytes (%) (Auto) 15% (0-9) Eosinophils (%) (Auto) 2% (0-3) Basophils (%) (Auto) 1% (0-3) Neutrophils # (Auto) 0.7x10^3uL (1.8-7.7) Lymphocytes # (Auto) 0.5x10^3/uL (1.0-4.8) Monocytes # (Auto) 0.2x10^3/uL (0.0-1.1) Eosinophils # (Auto) 0.0x10^3/uL (0.0-0.7) Basophils # (Auto) 0.0x10^3/uL (0.0-0.2) Sodium Level 147mmol/L (136-145) Potassium Level 3.8mmol/L (3.5-5.1) Chloride Level 110mmol/L (98-107) Carbon Dioxide Level 31mmol/L (21-32) Anion Gap 6 (6-14) Blood Urea Nitrogen 7mg/dL (8-26) Creatinine 1.2mg/dL (0.7-1.3) Estimated GFR (Cockcroft-Gault) 62.9 Glucose Level 88mg/dL (70-99) Calcium Level 7.8mg/dL (8.5-10.1) Microbiology 08/26/16 Blood Culture - Preliminary, Resulted NO GROWTH AFTER 2 DAYS 08/24/16 Urine Culture - Final, Complete 08/24/16 Urine Culture Result 1 (FAUSTINA) - Final, Complete 08/24/16 Antimicrobic Susceptibility - Final, Complete Medications Current Medications Lorazepam 2 mg 2 mg 1X ONCE IV Last administered on 08/24/16 08:29; Start at 08:30; Stop 08/24/16 at 08:31; Status DC Sodium Chloride (Iv Sodium Chloride 0.9% 1000ml Bag) 1,000 ml @ 1,000 mls/hr 1X ONCE IV Last administered on 08/24/16 09:22; Start 08/24/16 at 08:30; Stop 08/24/16 at 09:29; Status DC Ondansetron HCl 4 mg 4 mg 1X ONCE IV Last administered on 08/24/16 09:23; Start 08/24/16 at 08:30; Stop 08/24/16 at 08:31; Status DC Levofloxacin/ Dextrose 150 ml @ 100 mls/hr 1X ONCE IV Last administered on 11:09; Start 08/24/16 at 10:00; Stop 08/24/16 at 11:29; Status DC Sodium Chloride 1,000 ml @ 1,000 mls/hr 1X ONCE IV Last administered on 10:31; Start 08/24/16 at 10:00; Stop 08/24/16 at 10:59; Status DC Sodium Chloride (Iv Sodium Chloride 0.9% 1000ml Bag) 1,000 ml @ 1,000 mls/hr 1X ONCE IV ; Start 08/24/16 at 10:00; Stop 08/24/16 at 10:59; Status UNV Fentanyl Citrate (Fentanyl 2ml Vial) 50 mcg 1X ONCE IV Last administered on 11:09; Start 08/24/16 at 10:30; Stop 08/24/16 at 10:31; Status DC Iohexol (Omnipaque 300 Mg/ml) 60 ml 1X ONCE IV Last administered on 08/24/16 10:48; Start 08/24/16 at 10:30; Stop 08/24/16 at 10:31; Status DC Ondansetron HCl (Zofran) 4 mg PRN Q8HRS PRN IV NAUSEA/VOMITING; Start 08/24/16 at 11:45; Stop 08/24/16 at 13:45; Status DC Fentanyl Citrate 50 mcg 50 mcg PRN Q1HR PRN IV PAIN; Start 08/24/16 at 11:45; Stop 08/25/16 at 11:44; Status DC Sodium Chloride (Iv Sodium Chloride 0.9% 1000ml Bag) 1,000 ml @ 150 mls/hr Q6H40M IV ; Start 08/24/16 at 12:00; Stop 08/25/16 at 11:59; Status DC Acetaminophen 650 mg 650 mg PRN Q4HRS PRN PO FEVER; Start 08/24/16 at 11:45; Stop 08/24/16 at 22:21; Status DC Potassium Chloride/Dextrose/ Sod Cl (KCl 20 Meq In D5W-1/2 NS) 1,000 ml @ 40 mls/hr Q24H IV Last administered on 08/27/16 16:39; Start 08/24/16 at 15:00 Acetaminophen (Tylenol) 650 mg PRN Q6HRS PRN [place] MILD PAIN / TEMP; Start at 13:45; Stop 08/25/16 at 08:58; Status DC Pantoprazole Sodium (Protonix Vial) 40 mg DAILYAC IVP Last administered on 08/25 07:53; Start 08/24/16 at 14:00; Stop 08/25/16 at 08:58; Status DC Ondansetron HCl (Zofran) 4 mg PRN Q6HRS PRN IV NAUSEA/VOMITING; Start 08/24/16 at 13:45 Enoxaparin Sodium 40 mg 40 mg Q24H SQ Last administered on 08/26/16 14:43; Start 08/24/16 at 15:00; Stop 08/27/16 at 10:14; Status DC Meropenem 500 mg/ Sodium Chloride 50 ml @ 100 mls/hr Q6HRS IV Last administered on 08/28/16 06:32; Start 08/24/16 at 16:00 Fluconazole/ Sodium Chloride (Diflucan 400mg/ 200ml Premix) 200 ml @ 100 mls/ hr Q24H IV Last administered on 08/27/16 16:37; Start 08/24/16 at 15:00; Stop 08/28/16 at 08:34; Status DC Albuterol Sulfate (Ventolin Neb Soln) 2.5 mg RTQID NEB Last administered on 07:39; Start 08/24/16 at 20:00 Albuterol Sulfate (Ventolin Neb Soln) 2.5 mg PRN Q4HRS PRN NEB SHORTNESS OF BREATH; Start 08/24/16 at 19:45 Acetaminophen (Tylenol) 500 mg QHS PO Last administered on 08/27/16 21:38; Start 08/24/16 at 22:30 Diphenhydramine HCl (Benadryl) 25 mg QHS PO Last administered on 08/27/16 21: 39; Start 08/24/16 at 22:30 Pantoprazole Sodium (Protonix) 40 mg DAILYAC PO Last administered on 08/27/16 08:31; Start 08/26/16 at 07:30 Acetaminophen (Tylenol) 650 mg PRN Q4HRS PRN PO MILD PAIN / TEMP Last administered on 08/27/16 19:32; Start 08/25/16 at 09:00 Vancomycin HCl 1 each 1 each PRN DAILY PRN MC SEE COMMENTS Last administered on 08/26/16 13:07; Start 08/26/16 at 08:00; Stop 08/27/16 at 10:25; Status DC Vancomycin HCl/ Sodium Chloride (Iv Sodium Chloride 0.9% 500ml Bag) 500 ml @ 250 mls/hr 1X ONCE IV Last administered on 08/26/16 09:30; Start 08/26/16 at 09:00; Stop 08/26/16 at 10:59; Status DC Tamsulosin HCl 0.4 mg 0.4 mg DAILY PO Last administered on 08/27/16 08:31; Start 08/26/16 at 13:00 Vancomycin HCl/ Sodium Chloride (Iv Sodium Chloride 0.9% 500ml Bag) 500 ml @ 250 mls/hr Q12H IV Last administered on 08/27/16 08:30; Start 08/26/16 at 21: 00; Stop 08/27/16 at 10:25; Status DC Vancomycin HCl 1 each 1X ONCE MC ; Start 08/27/16 at 20:30; Stop 08/27/16 at 20 :30; Status DC Alteplase, Recombinant (Cathflo) 2 mg PRN DAILY PRN INT CAT PER PROTOCOL Last administered on 08/27/16 23:00; Start 08/27/16 at 10:15 Sodium Cl/Sod Bicarb/Potass Cl/ PEG (Golytely) 4,000 ml 1X ONCE PO ; Start at 13:00; Stop 08/27/16 at 15:19; Status DC Polyethylene Glycol (miraLAX Powder BULK BOTTLE) 238 gm 1X ONCE PO Last administered on 08/27/16 16:39; Start 08/27/16 at 16:00; Stop 08/27/16 at 16:01 ; Status DC Bisacodyl (Dulcolax Tab) 10 mg 1X ONCE PO Last administered on 08/27/16 16:39 ; Start 08/27/16 at 16:00; Stop 08/27/16 at 16:01; Status DC Morphine Sulfate 1 mg 1 mg PRN Q10MIN PRN IV SEVERE PAIN Last administered on 11:44; Start 08/28/16 at 07:00; Stop 08/29/16 at 06:59 Lactated Ringer's (Iv Lactated Ringers) 1,000 ml @ 0 mls/hr Q0M IV ; Start at 07:00; Stop 08/28/16 at 18:59 Lidocaine HCl 2 ml 1X PRN PRN ID IV START; Start 08/28/16 at 07:00; Stop at 06:59 Hydromorphone HCl (Dilaudid) 0.5 mg PRN Q10MIN PRN IV SEVERE PAIN, Second choice; Start 08/28/16 at 07:00; Stop 08/29/16 at 06:59 Prochlorperazine Edisylate (Compazine) 5 mg PACU PRN PRN IV NAUSEA; Start 08/28 at 07:00; Stop 08/29/16 at 06:59 Lorazepam (Ativan) 0.5 mg PRN Q8HRS PRN PO ANXIETY / AGITATION Last administered on 08/27/16 19:32; Start 08/27/16 at 18:15 Acetaminophen (Tylenol) 650 mg PRN Q4HRS PRN PO MILD PAIN / TEMP; Start at 18:15; Status UNV Lidocaine/Sodium Bicarbonate (Buffered Lidocaine 1%) 20 ml STK-MED ONCE IJ ; Start 08/28/16 at 08:05; Stop 08/28/16 at 08:06; Status DC Neostigmine Methylsulfate 5 mg STK-MED ONCE .ROUTE ; Start 08/28/16 at 10:16; Stop 08/28/16 at 10:17; Status DC Glycopyrrolate (Robinul) 1 mg STK-MED ONCE .ROUTE ; Start 08/28/16 at 10:16; Stop 08/28/16 at 10:17; Status DC Fentanyl Citrate (Fentanyl 5ml Vial) 250 mcg STK-MED ONCE .ROUTE ; Start at 10:16; Stop 08/28/16 at 10:17; Status DC Lidocaine/Sodium Bicarbonate (Buffered Lidocaine 1%) 20 ml 1X ONCE IJ Last administered on 08/28/16 10:45; Start 08/28/16 at 10:45; Stop 08/28/16 at 10:46 ; Status DC Active Scripts Active Prednisone 20 Mg Tablet 30 Mg PO DAILY Levaquin (Levofloxacin) 500 Mg Tablet 500 Mg PO DAILY06 Albuterol Sulfate Neb Soln (Albuterol Sulfate) 2.5 Mg/3 Ml Vial.neb 2.5 Mg NEB RTQID Tylenol (Acetaminophen) 325 Mg Tablet 650 Mg PO PRN Q4HRS PRN Protonix (Pantoprazole Sodium) 40 Mg Tablet 40 Mg PO DAILYAC Vitals/I & O Vital Sign - Last 24 Hours 08/27/16 08/27/16 08/27/16 08/27/16 15:00 19:00 20:00 20:21 Temp 97.8 98.4 97.8 98.4 Pulse 119 78 Resp 24 B/P 104/75 130/72 Pulse Ox 96 96 95 O2 Delivery Nasal Cannula Room Air Nasal Cannula Nasal Cannula O2 Flow Rate 1.0 2.0 1.0 08/27/16 08/28/16 08/28/16 08/28/16 23:00 01:32 03:00 03:50 Temp 96.2 99.5 96.2 99.5 Pulse 75 79 Resp 18 18 B/P 135/77 135/82 Pulse Ox 96 97 O2 Delivery Room Air BiPAP/CPAP BiPAP/CPAP 08/28/16 08/28/16 08/28/16 08/28/16 07:20 07:41 07:43 08:00 Temp 97.7 97.7 Pulse 87 Resp 22 B/P 115/61 Pulse Ox 99 98 O2 Delivery BiPAP/CPAP BiPAP/CPAP BiPAP/CPAP Bi-pap O2 Flow Rate 2.0 08/28/16 08/28/16 08/28/16 11:20 11:31 11:44 Temp 98.6 98.6 Pulse 130 Resp 20 B/P 164/53 Pulse Ox 96 97 98 O2 Delivery Ventilator Ventilator Intake and Output 08/27/16 08/27/16 08/28/16 15:00 23:00 07:00 Intake Total 250 ml Output Total 1650 ml Balance 250 ml -1650 ml KATI BILLINGSLEY MD Aug 28, 2016 11:55
[2016-08-28] MEDS ORDERED: SUCCINYLCHOLINE 200 MG/10 ML VIAL. ONE (12:00)
[2016-08-28] MEDS ORDERED: PROPOFOL 10 MG/ML (20ML) VIAL. IV ONE (12:00)
[2016-08-28] MEDS ORDERED: ROCURONIUM 50 MG/5 ML VIAL. ONE (12:00)
--- NOTE | 2016-08-28 13:09 | PDOC ---
PULMONARY PROGRESS NOTES Subjective no soa Vitals Vital Signs Date Time Temp Pulse Resp B/P Pulse Ox O2 Delivery O2 Flow Rate FiO2 08/28/16 12:35 97.4 113 18 175/78 95 Nasal Cannula 4 97.4 General: Alert, No acute distress HEENT: Other Lungs: Other (decrease bs) Cardiovascular: S1 Abdomen: Soft, Non-tender, Other Extremities: Other (trace edema) Labs Laboratory Tests Test 08/27/16 08:40 08/27/16 12:30 08/28/16 06:50 White Blood Count 1.4x10^3/uL (4.0-11.0) 1.5x10^3/uL (4.0-11.0) Red Blood Count 3.17x10^6/uL (4.30-5.70) 2.82x10^6/uL (4.30-5.70) Hemoglobin 9.2g/dL (13.0-17.5) 8.1g/dL (13.0-17.5) Hematocrit 27.7% (39.0-53.0) 25.4% (39.0-53.0) Mean Corpuscular Volume 88fL (79-100) 90fL (79-100) Mean Corpuscular Hemoglobin 29pg (25-35) 29pg (25-35) Mean Corpuscular Hemoglobin Concent 33g/dL (31-37) 32g/dL (31-37) Red Cell Distribution Width 18.0% (11.5-14.5) 18.1% (11.5-14.5) Platelet Count 69x10^3/uL (140-400) 65x10^3/uL (140-400) Neutrophils (%) (Auto) 75% (31-73) 47% (31-73) Lymphocytes (%) (Auto) 15% (24-48) 35% (24-48) Monocytes (%) (Auto) 8% (0-9) 15% (0-9) Eosinophils (%) (Auto) 1% (0-3) 2% (0-3) Basophils (%) (Auto) 1% (0-3) 1% (0-3) Neutrophils # (Auto) 1.1x10^3uL (1.8-7.7) 0.7x10^3uL (1.8-7.7) Lymphocytes # (Auto) 0.2x10^3/uL (1.0-4.8) 0.5x10^3/uL (1.0-4.8) Monocytes # (Auto) 0.1x10^3/uL (0.0-1.1) 0.2x10^3/uL (0.0-1.1) Eosinophils # (Auto) 0.0x10^3/uL (0.0-0.7) 0.0x10^3/uL (0.0-0.7) Basophils # (Auto) 0.0x10^3/uL (0.0-0.2) 0.0x10^3/uL (0.0-0.2) Sodium Level 143mmol/L (136-145) 147mmol/L (136-145) Potassium Level 4.3mmol/L (3.5-5.1) 3.8mmol/L (3.5-5.1) Chloride Level 108mmol/L (98-107) 110mmol/L (98-107) Carbon Dioxide Level 27mmol/L (21-32) 31mmol/L (21-32) Anion Gap 8 (6-14) 6 (6-14) Blood Urea Nitrogen 9mg/dL (8-26) 7mg/dL (8-26) Creatinine 1.3mg/dL (0.7-1.3) 1.2mg/dL (0.7-1.3) Estimated GFR (Cockcroft-Gault) 57.3 62.9 Glucose Level 138mg/dL (70-99) 88mg/dL (70-99) Calcium Level 8.0mg/dL (8.5-10.1) 7.8mg/dL (8.5-10.1) Influenza Type A Antigen Negative (NEGATIVE) Influenza Type B Antigen Negative (NEGATIVE) Laboratory Tests Test 08/28/16 06:50 White Blood Count 1.5x10^3/uL (4.0-11.0) Red Blood Count 2.82x10^6/uL (4.30-5.70) Hemoglobin 8.1g/dL (13.0-17.5) Hematocrit 25.4% (39.0-53.0) Mean Corpuscular Volume 90fL (79-100) Mean Corpuscular Hemoglobin 29pg (25-35) Mean Corpuscular Hemoglobin Concent 32g/dL (31-37) Red Cell Distribution Width 18.1% (11.5-14.5) Platelet Count 65x10^3/uL (140-400) Neutrophils (%) (Auto) 47% (31-73) Lymphocytes (%) (Auto) 35% (24-48) Monocytes (%) (Auto) 15% (0-9) Eosinophils (%) (Auto) 2% (0-3) Basophils (%) (Auto) 1% (0-3) Neutrophils # (Auto) 0.7x10^3uL (1.8-7.7) Lymphocytes # (Auto) 0.5x10^3/uL (1.0-4.8) Monocytes # (Auto) 0.2x10^3/uL (0.0-1.1) Eosinophils # (Auto) 0.0x10^3/uL (0.0-0.7) Basophils # (Auto) 0.0x10^3/uL (0.0-0.2) Sodium Level 147mmol/L (136-145) Potassium Level 3.8mmol/L (3.5-5.1) Chloride Level 110mmol/L (98-107) Carbon Dioxide Level 31mmol/L (21-32) Anion Gap 6 (6-14) Blood Urea Nitrogen 7mg/dL (8-26) Creatinine 1.2mg/dL (0.7-1.3) Estimated GFR (Cockcroft-Gault) 62.9 Glucose Level 88mg/dL (70-99) Calcium Level 7.8mg/dL (8.5-10.1) Medications Active Scripts Medications Dose Route/Sig Days Date Category Prednisone 20 Mg Tablet 30 Mg PO DAILY 08/16/16 Rx Levaquin (Levofloxacin) 500 Mg Tablet 500 Mg PO DAILY06 08/16/16 Rx Albuterol Sulfate Neb Soln (Albuterol Sulfate) 2.5 Mg/3 Ml Vial.neb 2.5 Mg NEB RTQID 06/18/15 Rx Tylenol (Acetaminophen) 325 Mg Tablet 650 Mg PO PRN Q4HRS PRN 10/20/14 Rx Protonix (Pantoprazole Sodium) 40 Mg Tablet 40 Mg PO DAILYAC 04/26/14 Rx Impression . 1. Chronic respiratory failure. 2. Obesity hypoventilation syndrome. 3. Possible obstructive sleep apnea. 4. Urinary tract infection. 5. Morbid obesity. 6. Chronic left hemidiaphragm elevation. 7. Leukocytosis 8. sigmoid mass 9. leukopenia Plan . 1. We will continue current BiPAP at bedtime. 2. Outpatient polysomnogram. 3. Continue oxygen supplementation. 4. Antibiotics per infectious disease service. 5. Colonoscopy per GI 6. s/p BM, follow results JAIDEN RENTERIA MD Aug 28, 2016 13:09
[2016-08-28] MEDS: LORAZEPAM 0.5 MG TABLET. PO PRN (13:27)
--- NOTE | 2016-08-28 13:53 | PDOC ---
SUBJECTIVE Subjective Patient is not having any catheter discomfort. He just got back from a bone marrow biopsy proceedure and is about to have another PICC line inserted. Information obtained from both mother and patient OBJECTIVE Objective Pt lying in bed, he just got back from a bone marrow biopsy and is still waking up from this. The Picc nurses are waiting to insert another Picc line per medical teams orders. The mother is cooperative and asking questions appropriately. Patient is somewhat anxious but still cooperative Vital Signs Vital Signs Date Time Temp Pulse Resp B/P Pulse Ox O2 Delivery O2 Flow Rate FiO2 08/28/16 13:24 95 Nasal Cannula 4.0 08/28/16 12:35 97.4 113 18 175/78 95 Nasal Cannula 4 97.4 08/28/16 12:20 124 16 174/68 92 Nasal Cannula 4 08/28/16 12:05 118 22 163/78 97 Nasal Cannula 10 08/28/16 11:50 128 16 176/68 99 Ventilator 08/28/16 11:44 98 Ventilator 08/28/16 11:35 132 24 170/61 99 Ventilator 08/28/16 11:31 97 08/28/16 11:30 Mechanical Ventilator 08/28/16 11:20 98.6 130 20 164/53 96 Ventilator 98.6 08/28/16 08:00 Bi-pap 2.0 08/28/16 07:43 BiPAP/CPAP 08/28/16 07:41 98 BiPAP/CPAP 08/28/16 07:20 97.7 87 22 115/61 99 BiPAP/CPAP 97.7 08/28/16 03:50 BiPAP/CPAP 08/28/16 03:00 99.5 79 18 135/82 97 99.5 08/28/16 01:32 BiPAP/CPAP 08/27/16 23:00 96.2 75 18 135/77 96 Room Air 96.2 08/27/16 20:21 95 Nasal Cannula 1.0 08/27/16 20:00 Nasal Cannula 2.0 08/27/16 19:00 98.4 78 130/72 96 Room Air 98.4 08/27/16 15:00 97.8 119 24 104/75 96 Nasal Cannula 1.0 97.8 I & O Intake and Output 08/28/16 07:00 Intake Total 250 ml Output Total 1650 ml Balance -1400 ml Intake Oral 250 ml Output Urine Total 1650 ml PHYSICAL EXAM Physical Exam Physical Exam: General appearance: Alert and Oriented Psych: Somewhat anxious but able to be calmed down SKIN: pt has a picc line to the right arm with a dressing that is CDI. However there is also some skin breakdown and bruising noted by [employer] TE[employer]PERATIONS OFFICER and Picc nurses. Back: negative for CVA tenderness Lungs: clear to auscultation bilaterally upper alcaraz, dim in the bilateral lower alcaraz Abdomen: soft, non-tender. Bowel sounds normal. No masses, soft, obese Pelvic: Genitals WNL. Catheter is draining and causing no obvious trauma to skin. No signs or symptoms of infection or breakdown to the area. HILLARY deferred as Dr. Flores completed this on prior rounds. ASSESSMENT/PLAN Assessment/Plan Pt is currently receiving antibiotics for UTI/Sepsis per Infectious Disease orders. He has been on flomax a reasonable amount of time, and while we could attempt a voiding trial today I do not feel it is in the patient's best interests with everything he has been through(bone marrow biopsy, upcoming Picc line placement) We will attempt to do a voiding trial starting tomorrow morning , provided the patient has had a reasonably good night. Problems: (1) UTI (urinary tract infection) (2) Sepsis COMMENT Lab Laboratory Tests Test 08/28/16 06:50 White Blood Count 1.5x10^3/uL (4.0-11.0) Red Blood Count 2.82x10^6/uL (4.30-5.70) Hemoglobin 8.1g/dL (13.0-17.5) Hematocrit 25.4% (39.0-53.0) Mean Corpuscular Volume 90fL (79-100) Mean Corpuscular Hemoglobin 29pg (25-35) Mean Corpuscular Hemoglobin Concent 32g/dL (31-37) Red Cell Distribution Width 18.1% (11.5-14.5) Platelet Count 65x10^3/uL (140-400) Neutrophils (%) (Auto) 47% (31-73) Lymphocytes (%) (Auto) 35% (24-48) Monocytes (%) (Auto) 15% (0-9) Eosinophils (%) (Auto) 2% (0-3) Basophils (%) (Auto) 1% (0-3) Neutrophils # (Auto) 0.7x10^3uL (1.8-7.7) Lymphocytes # (Auto) 0.5x10^3/uL (1.0-4.8) Monocytes # (Auto) 0.2x10^3/uL (0.0-1.1) Eosinophils # (Auto) 0.0x10^3/uL (0.0-0.7) Basophils # (Auto) 0.0x10^3/uL (0.0-0.2) Sodium Level 147mmol/L (136-145) Potassium Level 3.8mmol/L (3.5-5.1) Chloride Level 110mmol/L (98-107) Carbon Dioxide Level 31mmol/L (21-32) Anion Gap 6 (6-14) Blood Urea Nitrogen 7mg/dL (8-26) Creatinine 1.2mg/dL (0.7-1.3) Estimated GFR (Cockcroft-Gault) 62.9 Glucose Level 88mg/dL (70-99) Calcium Level 7.8mg/dL (8.5-10.1) Problem Qualifiers (1) UTI (urinary tract infection): Urinary tract infection type: site unspecified Hematuria presence: without hematuria Qualified Code: N39.0 - Urinary tract infection, site not specified SHOLA FOX APRN Aug 28, 2016 13:53
[2016-08-28 15:15] VITALS: BP 114/74
[2016-08-28 19:46] VITALS: BP 136/70
[2016-08-28] MEDS: ACETAMINOPHEN 500 MG TABLET PO SCH (21:46)
[2016-08-28] MEDS: DIPHENHYDRAMINE HCL 25 MG CAPSULE PO SCH (21:47)
[2016-08-28 23:00] VITALS: BP 144/58
[2016-08-29] VITALS (7 sets, daily range): BP systolic 115–139; BP diastolic 47–82
[2016-08-29] MEDS: POTASSIUM CL 20MEQ D5-0.45NACL 1,000 ML IV SCH (06:31)
[2016-08-29] MEDS: MEROPENEM 500 MG in IV NORMAL SALINE 50ML 50 ML IV SCH ×3 (06:36)
[2016-08-29] MEDS: ALBUTEROL SULFATE 2.5 MG/3 ML NEBU. NEB SCH ×4 (07:21→21:15)
[2016-08-29 07:59] LABS: BASO % 0 % (0-3); EOS % 0 % (0-3); HEMATOCRIT 25.6 % (39.0-53.0); HEMOGLOBIN 8.2 g/dL (13.0-17.5); LYMPH # 0.3 x10^3/uL (1.0-4.8); LYMPH % 20 % (24-48); MEAN CORPUSCULAR HEMOGLOBIN 29 pg (25-35); MEAN CORPUSCULAR HGB CONC 32 g/dL (31-37); MEAN CORPUSCULAR VOLUME 89 fL (79-100); MONO % 9 % (0-9); NEUT % 71 % (31-73); PLATELET COUNT 70 x10^3/uL (140-400); RED BLOOD COUNT 2.88 x10^6/uL (4.30-5.70); RED CELL DISTRIBUTION WIDTH 17.8 % (11.5-14.5)
[2016-08-29 08:08] LABS: WHITE BLOOD COUNT 1.6 x10^3/uL (4.0-11.0)
--- NOTE | 2016-08-29 08:11 | RAD ---
CT-guided power drill assisted bone marrow aspiration and biopsy Indication: 56-year-old male with pancytopenia. Image guided bone marrow aspirate/biopsy has been requested by hematology-oncology. Anesthesia: General anesthesia was provided by the department of anesthesiology. Consent: The procedure was explained in its entirety to the patient and/or the patient's designated account service representative by a member of the treatment team. This included a discussion of risks and benefits and commonly accepted alternatives to the procedure, as well as expected consequences of no treatment at all. Discussion of risks included, but was not limited to, those that are most frequent and those that are rare, but possibly severe or life-threatening, as well as the possibility of unforeseen complications. Procedure: Informed consent was obtained from the patient's mother. General anesthesia was provided by the department of anesthesiology. The patient was then rolled prone on the CT scanner. Preliminary noncontrast CT images were obtained through pelvis. A right posterior skin site suitable for CT-guided bone marrow aspirate/biopsy from posterior right iliac bone was selected and marked. That area was prepped and draped in the usual sterile fashion. Using aseptic technique, local anesthesia, and CT guidance, and the [employer] power dray driver, successful percutaneous entry was achieved through posterior cortex of right iliac bone. Approximately 6 cc of bone marrow was promptly aspirated, and was submitted to hematology personnel in the CT suite. Using CT guidance, the [employer] power dray driver was then utilized to obtain a single, 11-gauge core biopsy sample from marrow cavity of right iliac bone. The biopsy sample was submitted to pathology in formalin. A sterile dressing was applied over the biopsy skin puncture site. Patient tolerated the procedure well without apparent complication. Impression: Successful, uneventful CT-guided bone marrow aspirate and biopsy, utilizing the [employer] power dray driver biopsy system, under general anesthesia, as described. PQRS compliance statement: One or more of the following individualized dose reduction techniques were utilized for this CT procedure: 1. Automated exposure control. 2. Adjustment of MA and/or KV according to patient size. 3. Iterative reconstruction technique.
[2016-08-29 08:13] LABS: CALCIUM 7.8 mg/dL (8.5-10.1); CREATININE 1.1 mg/dL (0.7-1.3); GFR 69.5; POTASSIUM 4.7 mmol/L (3.5-5.1)
--- NOTE | 2016-08-29 08:40 | PDOC ---
Infectious Disease Note Subjective Subjective Doing ok ROS ROS ? IF Reliable denies all Vital Sign Vital Signs Vital Signs Date Time Temp Pulse Resp B/P Pulse Ox O2 Delivery O2 Flow Rate FiO2 08/29/16 07:22 Nasal Cannula 2.0 08/29/16 03:36 98.1 69 20 134/72 95 98.1 Physical Exam PHYSICAL EXAM GENERAL: NAD, Alert, looks comfortable HEENT: PERRL, OC/OP dry NECK: Supple, no JVD, no LN LUNGS: Clear HEART: S1S2, no gallop, no murmur ABD: Soft, NT, no organomegaly, no rebound, obese EXT: trace edema, no cyanosis KIER HAND: Alert, oriented x 3, no focal neurologic deficit SKIN: No rash IV: PICC - clean. No warmth/erythema or pain. Mild ecchymosis Labs Lab Laboratory Tests Test 08/29/16 07:45 White Blood Count 1.6x10^3/uL (4.0-11.0) Red Blood Count 2.88x10^6/uL (4.30-5.70) Hemoglobin 8.2g/dL (13.0-17.5) Hematocrit 25.6% (39.0-53.0) Mean Corpuscular Volume 89fL (79-100) Mean Corpuscular Hemoglobin 29pg (25-35) Mean Corpuscular Hemoglobin Concent 32g/dL (31-37) Red Cell Distribution Width 17.8% (11.5-14.5) Platelet Count 70x10^3/uL (140-400) Neutrophils (%) (Auto) 71% (31-73) Lymphocytes (%) (Auto) 20% (24-48) Monocytes (%) (Auto) 9% (0-9) Eosinophils (%) (Auto) 0% (0-3) Basophils (%) (Auto) 0% (0-3) Neutrophils # (Auto) 1.2x10^3uL (1.8-7.7) Lymphocytes # (Auto) 0.3x10^3/uL (1.0-4.8) Monocytes # (Auto) 0.1x10^3/uL (0.0-1.1) Eosinophils # (Auto) 0.0x10^3/uL (0.0-0.7) Basophils # (Auto) 0.0x10^3/uL (0.0-0.2) Sodium Level 148mmol/L (136-145) Potassium Level 4.7mmol/L (3.5-5.1) Chloride Level 110mmol/L (98-107) Carbon Dioxide Level 34mmol/L (21-32) Anion Gap 4 (6-14) Blood Urea Nitrogen 9mg/dL (8-26) Creatinine 1.1mg/dL (0.7-1.3) Estimated GFR (Cockcroft-Gault) 69.5 Glucose Level 127mg/dL (70-99) Calcium Level 7.8mg/dL (8.5-10.1) Micro Escherichia coli 25,000-50,000 colony forming units per mL ANTIMICROBIAL SUSCEPTIBILITY Final Comment S = Susceptible; I = Intermediate; R = Resistant P = Positive; N = Negative MICS are expressed in micrograms per mL Antibiotic RSLT#1 RSLT#2 RSLT#3 RSLT#4 Amoxicillin/Clavulanic Acid S =8 Ampicillin R>=32 Cefepime S<=1 Ceftriaxone S<=1 Cefuroxime I =16 Cephalothin R =32 Ciprofloxacin R>=4 Ertapenem S<=0.5 Gentamicin S<=1 Imipenem S<=1 Levofloxacin R>=8 Nitrofurantoin S<=16 Piperacillin R>=128 Tetracycline S =4 Tobramycin S<=1 Trimethoprim/Sulfa S<=20 Objective Assessment Fever - better Leukopenia/Pancytopenia 08/26 stablized. Influenza neg. ? reactive/sepsis or related to sigmoid mass. S/p Bone marrow biopsy 08/28 Ecoli UTI 08/24. POA with enlarged prostate and some seminal vesicle inflammation. Now on Flomax Sigmoid mass PCN and cefpodoxime allergy. Mental retardation Plan Plan of Care Blood cults times 2 08/26 - neg Will discont Meropenem on odd chance that could be suppressing bone marrow. Avoid other beta- lactams. Trial of Tigecycline. (Has second line intra - abdominal coverage also and neutropenic) D/w PICC nurse 08/28. PICC looked ok and on review today - no signs of complication. Trace ecchymosis likely secondary to placement Await bone marrow results Await further GI evaluation/colonoscopy. Currently on clears f/u cultures and monitor labs FRANKLIN PEREZ MD Aug 29, 2016 08:40
[2016-08-29] MEDS: TAMSULOSIN 0.4 MG CAP.ER.24H. PO SCH (08:45)
[2016-08-29] MEDS: PANTOPRAZOLE 40 MG TABLET. PO SCH (08:45)
--- NOTE | 2016-08-29 08:59 | PDOC ---
OBJECTIVE Objective Pt lying in bed, anxious but cooperative. Mother at bedside, asking questions Vital Signs Vital Signs Date Time Temp Pulse Resp B/P Pulse Ox O2 Delivery O2 Flow Rate FiO2 08/29/16 07:22 Nasal Cannula 2.0 08/29/16 05:40 BiPAP/CPAP 08/29/16 03:45 BiPAP/CPAP 08/29/16 03:36 98.1 69 20 134/72 95 98.1 08/29/16 01:20 BiPAP/CPAP 08/28/16 23:32 BiPAP/CPAP 08/28/16 23:00 98.1 87 20 144/58 97 BiPAP/CPAP 98.1 08/28/16 20:28 99 Nasal Cannula 2.0 08/28/16 20:00 Mechanical Ventilator 1.0 08/28/16 19:46 97.7 113 20 136/70 97 Nasal Cannula 2.0 97.7 08/28/16 15:19 Nasal Cannula 3.0 08/28/16 15:15 98.2 118 22 114/74 93 Nasal Cannula 2.0 98.2 08/28/16 13:24 95 Nasal Cannula 4.0 08/28/16 12:35 97.4 113 18 175/78 95 Nasal Cannula 4 97.4 08/28/16 12:20 124 16 174/68 92 Nasal Cannula 4 08/28/16 12:05 118 22 163/78 97 Nasal Cannula 10 08/28/16 11:50 128 16 176/68 99 Ventilator 08/28/16 11:44 98 Ventilator 08/28/16 11:35 132 24 170/61 99 Ventilator 08/28/16 11:31 97 08/28/16 11:30 Mechanical Ventilator 08/28/16 11:20 98.6 130 20 164/53 96 Ventilator 98.6 I & O Intake and Output 08/29/16 07:00 Intake Total 850 ml Output Total 4100 ml Balance -3250 ml Intake Oral 850 ml Output Urine Total 4100 ml PHYSICAL EXAM Physical Exam Patient seen and examined PSYCH: Alert and oriented. Anxious but cooperative Respiratory: Regular respirations and rate. Pt on nasal cannula for Oxygen Genitourinary: Penis WNL, no drainage noted. Catheter in place, draining clear yellow urine. Sanchez removed by BUSINESS SYSTEMS MANAGER Gunner at 0830 am with no difficulty Abdomen: soft, obese, no masses felt ASSESSMENT/PLAN Assessment/Plan Sanchez catheter removed this am at 0830 by BUSINESS SYSTEMS MANAGER Gunner with zero difficulty; pt tolerated proceedure well. BUSINESS SYSTEMS MANAGER explained to attending RN Flora and mother that patient should drink and try to void ever hour to hour and a half until about 230pm. If no voiding by 230 on 08/29/16, the sanchez catheter can be replaced by nursing staff. Continue flomax 0.4 m tablet daily. If voiding trial is successful today, Urology will sign off. Problems: (1) UTI (urinary tract infection) (2) Sepsis (3) Urine retention COMMENT Lab Laboratory Tests Test 08/29/16 07:45 White Blood Count 1.6x10^3/uL (4.0-11.0) Red Blood Count 2.88x10^6/uL (4.30-5.70) Hemoglobin 8.2g/dL (13.0-17.5) Hematocrit 25.6% (39.0-53.0) Mean Corpuscular Volume 89fL (79-100) Mean Corpuscular Hemoglobin 29pg (25-35) Mean Corpuscular Hemoglobin Concent 32g/dL (31-37) Red Cell Distribution Width 17.8% (11.5-14.5) Platelet Count 70x10^3/uL (140-400) Neutrophils (%) (Auto) 71% (31-73) Lymphocytes (%) (Auto) 20% (24-48) Monocytes (%) (Auto) 9% (0-9) Eosinophils (%) (Auto) 0% (0-3) Basophils (%) (Auto) 0% (0-3) Neutrophils # (Auto) 1.2x10^3uL (1.8-7.7) Lymphocytes # (Auto) 0.3x10^3/uL (1.0-4.8) Monocytes # (Auto) 0.1x10^3/uL (0.0-1.1) Eosinophils # (Auto) 0.0x10^3/uL (0.0-0.7) Basophils # (Auto) 0.0x10^3/uL (0.0-0.2) Sodium Level 148mmol/L (136-145) Potassium Level 4.7mmol/L (3.5-5.1) Chloride Level 110mmol/L (98-107) Carbon Dioxide Level 34mmol/L (21-32) Anion Gap 4 (6-14) Blood Urea Nitrogen 9mg/dL (8-26) Creatinine 1.1mg/dL (0.7-1.3) Estimated GFR (Cockcroft-Gault) 69.5 Glucose Level 127mg/dL (70-99) Calcium Level 7.8mg/dL (8.5-10.1) Problem Qualifiers (1) UTI (urinary tract infection): Hematuria presence: without hematuria SHOLA FOX APRN Aug 29, 2016 08:59
[2016-08-29] MEDS ORDERED: TIGECYCLINE 100 MG in IV NORMAL SALINE 100ML 100 ML IV ONE (10:00)
--- NOTE | 2016-08-29 10:01 | PDOC ---
PROGRESS NOTES Subjective Subjective up in chair. spoke with mother. labs reviewed. serum sodium 148 and he is not drinking enough fluids. Objective Objective Vital Signs Date Time Temp Pulse Resp B/P Pulse Ox O2 Delivery O2 Flow Rate FiO2 08/29/16 07:22 Nasal Cannula 2.0 08/29/16 07:00 98.6 108 18 126/77 96 98.6 Intake and Output 08/29/16 07:00 Intake Total 850 ml Output Total 4100 ml Balance -3250 ml Intake Oral 850 ml Output Urine Total 4100 ml Physical Exam Abdomen: Soft Heart: Regular rate, Normal S1, Normal S2 Extremities: Other (edema and ecchymosis RUE by picc) General: Alert HEENT: Atraumatic Lungs: Clear to auscultation Neuro: Normal speech Psych/Mental Status: Mood NL Skin: No rashes Assessment Assessment Problems Medical Problems:Sepsis resolved 2. e. coli uti 3. pancytopenia 4. critical leukopenia 5. Cholelithiasis. 6. Sigmoid colon mass.colonoscopy postponed due to neutropenia 7. Chronic hypoxic and hypercapnic respiratory failure. 8. Obstructive sleep apnea. 9. Morbid obesity. fever resolved BPH and seminal vesicle inflammation hypernatremia (1) Sepsis Status: Acute (2) Urine retention Status: Acute (3) UTI (urinary tract infection) Status: Acute Plan Plan of Care change to iv D5W continue tygacil consider wbc stimulator would like to have colonoscopy done this admission await bone marrow biopsy results reverse isolation Comment Review of Relevant I have reviewed the following items lexus (where applicable) has been applied. Labs Laboratory Tests Test 08/27/16 12:30 08/28/16 06:50 08/29/16 07:45 Influenza Type A Antigen Negative (NEGATIVE) Influenza Type B Antigen Negative (NEGATIVE) White Blood Count 1.5x10^3/uL (4.0-11.0) 1.6x10^3/uL (4.0-11.0) Red Blood Count 2.82x10^6/uL (4.30-5.70) 2.88x10^6/uL (4.30-5.70) Hemoglobin 8.1g/dL (13.0-17.5) 8.2g/dL (13.0-17.5) Hematocrit 25.4% (39.0-53.0) 25.6% (39.0-53.0) Mean Corpuscular Volume 90fL (79-100) 89fL (79-100) Mean Corpuscular Hemoglobin 29pg (25-35) 29pg (25-35) Mean Corpuscular Hemoglobin Concent 32g/dL (31-37) 32g/dL (31-37) Red Cell Distribution Width 18.1% (11.5-14.5) 17.8% (11.5-14.5) Platelet Count 65x10^3/uL (140-400) 70x10^3/uL (140-400) Neutrophils (%) (Auto) 47% (31-73) 71% (31-73) Lymphocytes (%) (Auto) 35% (24-48) 20% (24-48) Monocytes (%) (Auto) 15% (0-9) 9% (0-9) Eosinophils (%) (Auto) 2% (0-3) 0% (0-3) Basophils (%) (Auto) 1% (0-3) 0% (0-3) Neutrophils # (Auto) 0.7x10^3uL (1.8-7.7) 1.2x10^3uL (1.8-7.7) Lymphocytes # (Auto) 0.5x10^3/uL (1.0-4.8) 0.3x10^3/uL (1.0-4.8) Monocytes # (Auto) 0.2x10^3/uL (0.0-1.1) 0.1x10^3/uL (0.0-1.1) Eosinophils # (Auto) 0.0x10^3/uL (0.0-0.7) 0.0x10^3/uL (0.0-0.7) Basophils # (Auto) 0.0x10^3/uL (0.0-0.2) 0.0x10^3/uL (0.0-0.2) Sodium Level 147mmol/L (136-145) 148mmol/L (136-145) Potassium Level 3.8mmol/L (3.5-5.1) 4.7mmol/L (3.5-5.1) Chloride Level 110mmol/L (98-107) 110mmol/L (98-107) Carbon Dioxide Level 31mmol/L (21-32) 34mmol/L (21-32) Anion Gap 6 (6-14) 4 (6-14) Blood Urea Nitrogen 7mg/dL (8-26) 9mg/dL (8-26) Creatinine 1.2mg/dL (0.7-1.3) 1.1mg/dL (0.7-1.3) Estimated GFR (Cockcroft-Gault) 62.9 69.5 Glucose Level 88mg/dL (70-99) 127mg/dL (70-99) Calcium Level 7.8mg/dL (8.5-10.1) 7.8mg/dL (8.5-10.1) Laboratory Tests Test 08/29/16 07:45 White Blood Count 1.6x10^3/uL (4.0-11.0) Red Blood Count 2.88x10^6/uL (4.30-5.70) Hemoglobin 8.2g/dL (13.0-17.5) Hematocrit 25.6% (39.0-53.0) Mean Corpuscular Volume 89fL (79-100) Mean Corpuscular Hemoglobin 29pg (25-35) Mean Corpuscular Hemoglobin Concent 32g/dL (31-37) Red Cell Distribution Width 17.8% (11.5-14.5) Platelet Count 70x10^3/uL (140-400) Neutrophils (%) (Auto) 71% (31-73) Lymphocytes (%) (Auto) 20% (24-48) Monocytes (%) (Auto) 9% (0-9) Eosinophils (%) (Auto) 0% (0-3) Basophils (%) (Auto) 0% (0-3) Neutrophils # (Auto) 1.2x10^3uL (1.8-7.7) Lymphocytes # (Auto) 0.3x10^3/uL (1.0-4.8) Monocytes # (Auto) 0.1x10^3/uL (0.0-1.1) Eosinophils # (Auto) 0.0x10^3/uL (0.0-0.7) Basophils # (Auto) 0.0x10^3/uL (0.0-0.2) Sodium Level 148mmol/L (136-145) Potassium Level 4.7mmol/L (3.5-5.1) Chloride Level 110mmol/L (98-107) Carbon Dioxide Level 34mmol/L (21-32) Anion Gap 4 (6-14) Blood Urea Nitrogen 9mg/dL (8-26) Creatinine 1.1mg/dL (0.7-1.3) Estimated GFR (Cockcroft-Gault) 69.5 Glucose Level 127mg/dL (70-99) Calcium Level 7.8mg/dL (8.5-10.1) Microbiology 08/26/16 Blood Culture - Preliminary, Resulted NO GROWTH AFTER 2 DAYS 08/24/16 Urine Culture - Final, Complete 08/24/16 Urine Culture Result 1 (FAUSTINA) - Final, Complete 08/24/16 Antimicrobic Susceptibility - Final, Complete Medications Current Medications Lorazepam 2 mg 2 mg 1X ONCE IV Last administered on 08/24/16 08:29; Start at 08:30; Stop 08/24/16 at 08:31; Status DC Sodium Chloride (Iv Sodium Chloride 0.9% 1000ml Bag) 1,000 ml @ 1,000 mls/hr 1X ONCE IV Last administered on 08/24/16 09:22; Start 08/24/16 at 08:30; Stop 08/24/16 at 09:29; Status DC Ondansetron HCl 4 mg 4 mg 1X ONCE IV Last administered on 08/24/16 09:23; Start 08/24/16 at 08:30; Stop 08/24/16 at 08:31; Status DC Levofloxacin/ Dextrose 150 ml @ 100 mls/hr 1X ONCE IV Last administered on 11:09; Start 08/24/16 at 10:00; Stop 08/24/16 at 11:29; Status DC Sodium Chloride 1,000 ml @ 1,000 mls/hr 1X ONCE IV Last administered on 10:31; Start 08/24/16 at 10:00; Stop 08/24/16 at 10:59; Status DC Sodium Chloride (Iv Sodium Chloride 0.9% 1000ml Bag) 1,000 ml @ 1,000 mls/hr 1X ONCE IV ; Start 08/24/16 at 10:00; Stop 08/24/16 at 10:59; Status UNV Fentanyl Citrate (Fentanyl 2ml Vial) 50 mcg 1X ONCE IV Last administered on 11:09; Start 08/24/16 at 10:30; Stop 08/24/16 at 10:31; Status DC Iohexol (Omnipaque 300 Mg/ml) 60 ml 1X ONCE IV Last administered on 08/24/16 10:48; Start 08/24/16 at 10:30; Stop 08/24/16 at 10:31; Status DC Ondansetron HCl (Zofran) 4 mg PRN Q8HRS PRN IV NAUSEA/VOMITING; Start 08/24/16 at 11:45; Stop 08/24/16 at 13:45; Status DC Fentanyl Citrate 50 mcg 50 mcg PRN Q1HR PRN IV PAIN; Start 08/24/16 at 11:45; Stop 08/25/16 at 11:44; Status DC Sodium Chloride (Iv Sodium Chloride 0.9% 1000ml Bag) 1,000 ml @ 150 mls/hr Q6H40M IV ; Start 08/24/16 at 12:00; Stop 08/25/16 at 11:59; Status DC Acetaminophen 650 mg 650 mg PRN Q4HRS PRN PO FEVER; Start 08/24/16 at 11:45; Stop 08/24/16 at 22:21; Status DC Potassium Chloride/Dextrose/ Sod Cl (KCl 20 Meq In D5W-1/2 NS) 1,000 ml @ 40 mls/hr Q24H IV Last administered on 08/29/16 06:31; Start 08/24/16 at 15:00 Acetaminophen (Tylenol) 650 mg PRN Q6HRS PRN TX MILD PAIN / TEMP; Start at 13:45; Stop 08/25/16 at 08:58; Status DC Pantoprazole Sodium (Protonix Vial) 40 mg DAILYAC IVP Last administered on 08/25 07:53; Start 08/24/16 at 14:00; Stop 08/25/16 at 08:58; Status DC Ondansetron HCl (Zofran) 4 mg PRN Q6HRS PRN IV NAUSEA/VOMITING; Start 08/24/16 at 13:45 Enoxaparin Sodium 40 mg 40 mg Q24H SQ Last administered on 08/26/16 14:43; Start 08/24/16 at 15:00; Stop 08/27/16 at 10:14; Status DC Meropenem 500 mg/ Sodium Chloride 50 ml @ 100 mls/hr Q6HRS IV Last administered on 08/29/16 06:36; Start 08/24/16 at 16:00; Stop 08/29/16 at 08:39 ; Status DC Fluconazole/ Sodium Chloride (Diflucan 400mg/ 200ml Premix) 200 ml @ 100 mls/ hr Q24H IV Last administered on 08/27/16 16:37; Start 08/24/16 at 15:00; Stop 08/28/16 at 08:34; Status DC Albuterol Sulfate (Ventolin Neb Soln) 2.5 mg RTQID NEB Last administered on 07:21; Start 08/24/16 at 20:00 Albuterol Sulfate (Ventolin Neb Soln) 2.5 mg PRN Q4HRS PRN NEB SHORTNESS OF BREATH; Start 08/24/16 at 19:45 Acetaminophen (Tylenol) 500 mg QHS PO Last administered on 08/28/16 21:46; Start 08/24/16 at 22:30 Diphenhydramine HCl (Benadryl) 25 mg QHS PO Last administered on 08/28/16 21: 47; Start 08/24/16 at 22:30 Pantoprazole Sodium (Protonix) 40 mg DAILYAC PO Last administered on 08/29/16 08:45; Start 08/26/16 at 07:30 Acetaminophen (Tylenol) 650 mg PRN Q4HRS PRN PO MILD PAIN / TEMP Last administered on 08/27/16 19:32; Start 08/25/16 at 09:00 Vancomycin HCl 1 each 1 each PRN DAILY PRN MC SEE COMMENTS Last administered on 08/26/16 13:07; Start 08/26/16 at 08:00; Stop 08/27/16 at 10:25; Status DC Vancomycin HCl/ Sodium Chloride (Iv Sodium Chloride 0.9% 500ml Bag) 500 ml @ 250 mls/hr 1X ONCE IV Last administered on 08/26/16 09:30; Start 08/26/16 at 09:00; Stop 08/26/16 at 10:59; Status DC Tamsulosin HCl 0.4 mg 0.4 mg DAILY PO Last administered on 08/29/16 08:45; Start 08/26/16 at 13:00 Vancomycin HCl/ Sodium Chloride (Iv Sodium Chloride 0.9% 500ml Bag) 500 ml @ 250 mls/hr Q12H IV Last administered on 08/27/16 08:30; Start 08/26/16 at 21: 00; Stop 08/27/16 at 10:25; Status DC Vancomycin HCl 1 each 1X ONCE MC ; Start 08/27/16 at 20:30; Stop 08/27/16 at 20 :30; Status DC Alteplase, Recombinant (Cathflo) 2 mg PRN DAILY PRN INT CAT PER PROTOCOL Last administered on 08/27/16 23:00; Start 08/27/16 at 10:15 Sodium Cl/Sod Bicarb/Potass Cl/ PEG (Golytely) 4,000 ml 1X ONCE PO ; Start at 13:00; Stop 08/27/16 at 15:19; Status DC Polyethylene Glycol (miraLAX Powder BULK BOTTLE) 238 gm 1X ONCE PO Last administered on 08/27/16 16:39; Start 08/27/16 at 16:00; Stop 08/27/16 at 16:01 ; Status DC Bisacodyl (Dulcolax Tab) 10 mg 1X ONCE PO Last administered on 08/27/16 16:39 ; Start 08/27/16 at 16:00; Stop 08/27/16 at 16:01; Status DC Morphine Sulfate 1 mg 1 mg PRN Q10MIN PRN IV SEVERE PAIN Last administered on 11:44; Start 08/28/16 at 07:00; Stop 08/29/16 at 06:59; Status DC Lactated Ringer's (Iv Lactated Ringers) 1,000 ml @ 0 mls/hr Q0M IV ; Start at 07:00; Stop 08/28/16 at 18:59; Status DC Lidocaine HCl 2 ml 1X PRN PRN ID IV START; Start 08/28/16 at 07:00; Stop at 06:59; Status DC Hydromorphone HCl (Dilaudid) 0.5 mg PRN Q10MIN PRN IV SEVERE PAIN, Second choice; Start 08/28/16 at 07:00; Stop 08/29/16 at 06:59; Status DC Prochlorperazine Edisylate (Compazine) 5 mg PACU PRN PRN IV NAUSEA; Start 08/28 at 07:00; Stop 08/29/16 at 06:59; Status DC Lorazepam (Ativan) 0.5 mg PRN Q8HRS PRN PO ANXIETY / AGITATION Last administered on 08/28/16t 13:27; Start 08/27/16 at 18:15 Acetaminophen (Tylenol) 650 mg PRN Q4HRS PRN PO MILD PAIN / TEMP; Start at 18:15; Status UNV Lidocaine/Sodium Bicarbonate (Buffered Lidocaine 1%) 20 ml STK-MED ONCE IJ ; Start 08/28/16 at 08:05; Stop 08/28/16 at 08:06; Status DC Neostigmine Methylsulfate 5 mg STK-MED ONCE .ROUTE ; Start 08/28/16 at 10:16; Stop 08/28/16 at 10:17; Status DC Glycopyrrolate (Robinul) 1 mg STK-MED ONCE .ROUTE ; Start 08/28/16 at 10:16; Stop 08/28/16 at 10:17; Status DC Fentanyl Citrate (Fentanyl 5ml Vial) 250 mcg STK-MED ONCE .ROUTE ; Start at 10:16; Stop 08/28/16 at 10:17; Status DC Lidocaine/Sodium Bicarbonate (Buffered Lidocaine 1%) 20 ml 1X ONCE IJ Last administered on 08/28/16t 10:45; Start 08/28/16 at 10:45; Stop 08/28/16 at 10:46 ; Status DC Phenylephrine HCl 1 mg STK-MED ONCE IV ; Start 08/28/16 at 11:51; Stop 08/28/16 at 11:52; Status DC Dexamethasone Sodium Phosphate (Decadron) 20 mg STK-MED ONCE .ROUTE ; Start at 11:51; Stop 08/28/16 at 11:52; Status DC Ondansetron HCl (Zofran) 4 mg STK-MED ONCE .ROUTE ; Start 08/28/16 at 11:51; Stop 08/28/16 at 11:52; Status DC Sevoflurane (Ultane) 60 ml STK-MED ONCE IH ; Start 08/28/16 at 11:51; Stop 08/28 at 11:52; Status DC Vancomycin HCl 1 each 1 each PRN DAILY PRN MC SEE COMMENTS; Start 08/28/16 at 11:45; Stop 08/28/16 at 12:03; Status DC Tigecycline 100 mg/Sodium Chloride 100 ml @ 200 mls/hr 1X ONCE IV ; Start at 10:00; Stop 08/29/16 at 10:29 Tigecycline/ Sodium Chloride (Tygacil/Iv Sodium Chloride 0.9% 50ml) 50 ml @ 100 mls/hr Q12HR IV ; Start 08/29/16 at 21:00 Active Scripts Active Prednisone 20 Mg Tablet 30 Mg PO DAILY Levaquin (Levofloxacin) 500 Mg Tablet 500 Mg PO DAILY06 Albuterol Sulfate Neb Soln (Albuterol Sulfate) 2.5 Mg/3 Ml Vial.neb 2.5 Mg NEB RTQID Tylenol (Acetaminophen) 325 Mg Tablet 650 Mg PO PRN Q4HRS PRN Protonix (Pantoprazole Sodium) 40 Mg Tablet 40 Mg PO DAILYAC Vitals/I & O Vital Sign - Last 24 Hours 08/28/16 08/28/16 08/28/16 08/28/16 11:20 11:30 11:31 11:35 Temp 98.6 98.6 Pulse 130 132 Resp 20 24 B/P 164/53 170/61 Pulse Ox 96 97 99 O2 Delivery Ventilator Mechanical Ventilator Ventilator 08/28/16 08/28/16 08/28/16 08/28/16 11:44 11:50 12:05 12:20 Pulse 128 118 124 Resp 16 22 16 B/P 176/68 163/78 174/68 Pulse Ox 98 99 97 92 O2 Delivery Ventilator Ventilator Nasal Cannula Nasal Cannula O2 Flow Rate 10 4 08/28/16 08/28/16 08/28/16 08/28/16 12:35 13:24 15:15 15:19 Temp 97.4 98.2 97.4 98.2 Pulse 113 118 Resp 18 22 B/P 175/78 114/74 Pulse Ox 95 95 93 O2 Delivery Nasal Cannula Nasal Cannula Nasal Cannula Nasal Cannula O2 Flow Rate 4 4.0 2.0 3.0 08/28/16 08/28/16 08/28/16 08/28/16 19:46 20:00 20:28 23:00 Temp 97.7 98.1 97.7 98.1 Pulse 113 87 Resp 20 20 B/P 136/70 144/58 Pulse Ox 97 99 97 O2 Delivery Nasal Cannula Mechanical Ventilator Nasal Cannula BiPAP/CPAP O2 Flow Rate 2.0 1.0 2.0 08/28/16 08/29/16 08/29/16 08/29/16 23:32 01:20 03:36 03:45 Temp 98.1 98.1 Pulse 69 Resp 20 B/P 134/72 Pulse Ox 95 O2 Delivery BiPAP/CPAP BiPAP/CPAP BiPAP/CPAP 08/29/16 08/29/16 08/29/16 05:40 07:00 07:22 Temp 98.6 98.6 Pulse 108 Resp 18 B/P 126/77 Pulse Ox 96 O2 Delivery BiPAP/CPAP Nasal Cannula O2 Flow Rate 2.0 Intake and Output 08/28/16 08/28/16 08/29/16 15:00 23:00 07:00 Intake Total 650 ml 200 ml Output Total 1250 ml 2300 ml 550 ml Balance -1250 ml -1650 ml -350 ml KATI BILLINGSLEY MD Aug 29, 2016 10:01
[2016-08-29] MEDS: IV DEXTROSE 5% 1,000 ML IV SCH (10:56)
--- NOTE | 2016-08-29 12:53 | PDOC ---
PROGRESS NOTES Subjective Subjective c/c- f/u of pancytopenia Objective Objective Vital Signs Date Time Temp Pulse Resp B/P Pulse Ox O2 Delivery O2 Flow Rate FiO2 08/29/16 11:41 94 Nasal Cannula 2.0 08/29/16 10:49 97.5 75 18 119/82 97.5 Intake and Output 08/29/16 07:00 Intake Total 850 ml Output Total 4100 ml Balance -3250 ml Intake Oral 850 ml Output Urine Total 4100 ml Physical Exam Heart: Normal S1, Normal S2 General: Alert, Oriented X3 Lungs: Clear to auscultation Assessment Assessment Problems Medical Problems: (1) Sepsis Status: Acute (2) Urine retention Status: Acute (3) UTI (urinary tract infection) Status: Acute ASSESSMENT AND PLAN: The patient is a 56-year-old male with the following medical problems: 1. Anemia of chronic disease, stable. 8.2 2. Chronic thrombocytopenia, worsen. Plan bone marrow bx 08/28/16. I d/w his mother Charline. Plt 71. 3. Neutropenia, acute this admission. 4. Escherichia coli urinary tract infection/sepsis, recent hospitalization for severe pneumonia. Comment Review of Relevant I have reviewed the following items lexus (where applicable) has been applied. Labs Laboratory Tests Test 08/28/16 06:50 08/29/16 07:45 White Blood Count 1.5x10^3/uL (4.0-11.0) 1.6x10^3/uL (4.0-11.0) Red Blood Count 2.82x10^6/uL (4.30-5.70) 2.88x10^6/uL (4.30-5.70) Hemoglobin 8.1g/dL (13.0-17.5) 8.2g/dL (13.0-17.5) Hematocrit 25.4% (39.0-53.0) 25.6% (39.0-53.0) Mean Corpuscular Volume 90fL (79-100) 89fL (79-100) Mean Corpuscular Hemoglobin 29pg (25-35) 29pg (25-35) Mean Corpuscular Hemoglobin Concent 32g/dL (31-37) 32g/dL (31-37) Red Cell Distribution Width 18.1% (11.5-14.5) 17.8% (11.5-14.5) Platelet Count 65x10^3/uL (140-400) 70x10^3/uL (140-400) Neutrophils (%) (Auto) 47% (31-73) 71% (31-73) Lymphocytes (%) (Auto) 35% (24-48) 20% (24-48) Monocytes (%) (Auto) 15% (0-9) 9% (0-9) Eosinophils (%) (Auto) 2% (0-3) 0% (0-3) Basophils (%) (Auto) 1% (0-3) 0% (0-3) Neutrophils # (Auto) 0.7x10^3uL (1.8-7.7) 1.2x10^3uL (1.8-7.7) Lymphocytes # (Auto) 0.5x10^3/uL (1.0-4.8) 0.3x10^3/uL (1.0-4.8) Monocytes # (Auto) 0.2x10^3/uL (0.0-1.1) 0.1x10^3/uL (0.0-1.1) Eosinophils # (Auto) 0.0x10^3/uL (0.0-0.7) 0.0x10^3/uL (0.0-0.7) Basophils # (Auto) 0.0x10^3/uL (0.0-0.2) 0.0x10^3/uL (0.0-0.2) Sodium Level 147mmol/L (136-145) 148mmol/L (136-145) Potassium Level 3.8mmol/L (3.5-5.1) 4.7mmol/L (3.5-5.1) Chloride Level 110mmol/L (98-107) 110mmol/L (98-107) Carbon Dioxide Level 31mmol/L (21-32) 34mmol/L (21-32) Anion Gap 6 (6-14) 4 (6-14) Blood Urea Nitrogen 7mg/dL (8-26) 9mg/dL (8-26) Creatinine 1.2mg/dL (0.7-1.3) 1.1mg/dL (0.7-1.3) Estimated GFR (Cockcroft-Gault) 62.9 69.5 Glucose Level 88mg/dL (70-99) 127mg/dL (70-99) Calcium Level 7.8mg/dL (8.5-10.1) 7.8mg/dL (8.5-10.1) Laboratory Tests Test 08/29/16 07:45 White Blood Count 1.6x10^3/uL (4.0-11.0) Red Blood Count 2.88x10^6/uL (4.30-5.70) Hemoglobin 8.2g/dL (13.0-17.5) Hematocrit 25.6% (39.0-53.0) Mean Corpuscular Volume 89fL (79-100) Mean Corpuscular Hemoglobin 29pg (25-35) Mean Corpuscular Hemoglobin Concent 32g/dL (31-37) Red Cell Distribution Width 17.8% (11.5-14.5) Platelet Count 70x10^3/uL (140-400) Neutrophils (%) (Auto) 71% (31-73) Lymphocytes (%) (Auto) 20% (24-48) Monocytes (%) (Auto) 9% (0-9) Eosinophils (%) (Auto) 0% (0-3) Basophils (%) (Auto) 0% (0-3) Neutrophils # (Auto) 1.2x10^3uL (1.8-7.7) Lymphocytes # (Auto) 0.3x10^3/uL (1.0-4.8) Monocytes # (Auto) 0.1x10^3/uL (0.0-1.1) Eosinophils # (Auto) 0.0x10^3/uL (0.0-0.7) Basophils # (Auto) 0.0x10^3/uL (0.0-0.2) Sodium Level 148mmol/L (136-145) Potassium Level 4.7mmol/L (3.5-5.1) Chloride Level 110mmol/L (98-107) Carbon Dioxide Level 34mmol/L (21-32) Anion Gap 4 (6-14) Blood Urea Nitrogen 9mg/dL (8-26) Creatinine 1.1mg/dL (0.7-1.3) Estimated GFR (Cockcroft-Gault) 69.5 Glucose Level 127mg/dL (70-99) Calcium Level 7.8mg/dL (8.5-10.1) Microbiology 08/26/16 Blood Culture - Preliminary, Resulted NO GROWTH AFTER 3 DAYS 08/24/16 Urine Culture - Final, Complete 08/24/16 Urine Culture Result 1 (FAUSTINA) - Final, Complete 08/24/16 Antimicrobic Susceptibility - Final, Complete Medications Current Medications Lorazepam 2 mg 2 mg 1X ONCE IV Last administered on 08/24/16 08:29; Start at 08:30; Stop 08/24/16 at 08:31; Status DC Sodium Chloride (Iv Sodium Chloride 0.9% 1000ml Bag) 1,000 ml @ 1,000 mls/hr 1X ONCE IV Last administered on 08/24/16 09:22; Start 08/24/16 at 08:30; Stop 08/24/16 at 09:29; Status DC Ondansetron HCl 4 mg 4 mg 1X ONCE IV Last administered on 08/24/16 09:23; Start 08/24/16 at 08:30; Stop 08/24/16 at 08:31; Status DC Levofloxacin/ Dextrose 150 ml @ 100 mls/hr 1X ONCE IV Last administered on 11:09; Start 08/24/16 at 10:00; Stop 08/24/16 at 11:29; Status DC Sodium Chloride 1,000 ml @ 1,000 mls/hr 1X ONCE IV Last administered on 10:31; Start 08/24/16 at 10:00; Stop 08/24/16 at 10:59; Status DC Sodium Chloride (Iv Sodium Chloride 0.9% 1000ml Bag) 1,000 ml @ 1,000 mls/hr 1X ONCE IV ; Start 08/24/16 at 10:00; Stop 08/24/16 at 10:59; Status UNV Fentanyl Citrate (Fentanyl 2ml Vial) 50 mcg 1X ONCE IV Last administered on 11:09; Start 08/24/16 at 10:30; Stop 08/24/16 at 10:31; Status DC Iohexol (Omnipaque 300 Mg/ml) 60 ml 1X ONCE IV Last administered on 08/24/16 10:48; Start 08/24/16 at 10:30; Stop 08/24/16 at 10:31; Status DC Ondansetron HCl (Zofran) 4 mg PRN Q8HRS PRN IV NAUSEA/VOMITING; Start 08/24/16 at 11:45; Stop 08/24/16 at 13:45; Status DC Fentanyl Citrate 50 mcg 50 mcg PRN Q1HR PRN IV PAIN; Start 08/24/16 at 11:45; Stop 08/25/16 at 11:44; Status DC Sodium Chloride (Iv Sodium Chloride 0.9% 1000ml Bag) 1,000 ml @ 150 mls/hr Q6H40M IV ; Start 08/24/16 at 12:00; Stop 08/25/16 at 11:59; Status DC Acetaminophen 650 mg 650 mg PRN Q4HRS PRN PO FEVER; Start 08/24/16 at 11:45; Stop 08/24/16 at 22:21; Status DC Potassium Chloride/Dextrose/ Sod Cl (KCl 20 Meq In D5W-1/2 NS) 1,000 ml @ 40 mls/hr Q24H IV Last administered on 08/29/16 06:31; Start 08/24/16 at 15:00; Stop 08/29/16 at 09:56; Status DC Acetaminophen (Tylenol) 650 mg PRN Q6HRS PRN [place] MILD PAIN / TEMP; Start at 13:45; Stop 08/25/16 at 08:58; Status DC Pantoprazole Sodium (Protonix Vial) 40 mg DAILYAC IVP Last administered on 08/25 07:53; Start 08/24/16 at 14:00; Stop 08/25/16 at 08:58; Status DC Ondansetron HCl (Zofran) 4 mg PRN Q6HRS PRN IV NAUSEA/VOMITING; Start 08/24/16 at 13:45 Enoxaparin Sodium 40 mg 40 mg Q24H SQ Last administered on 08/26/16 14:43; Start 08/24/16 at 15:00; Stop 08/27/16 at 10:14; Status DC Meropenem 500 mg/ Sodium Chloride 50 ml @ 100 mls/hr Q6HRS IV Last administered on 08/29/16 06:36; Start 08/24/16 at 16:00; Stop 08/29/16 at 08:39 ; Status DC Fluconazole/ Sodium Chloride (Diflucan 400mg/ 200ml Premix) 200 ml @ 100 mls/ hr Q24H IV Last administered on 08/27/16 16:37; Start 08/24/16 at 15:00; Stop 08/28/16 at 08:34; Status DC Albuterol Sulfate (Ventolin Neb Soln) 2.5 mg RTQID NEB Last administered on 11:39; Start 08/24/16 at 20:00 Albuterol Sulfate (Ventolin Neb Soln) 2.5 mg PRN Q4HRS PRN NEB SHORTNESS OF BREATH; Start 08/24/16 at 19:45 Acetaminophen (Tylenol) 500 mg QHS PO Last administered on 08/28/16 21:46; Start 08/24/16 at 22:30 Diphenhydramine HCl (Benadryl) 25 mg QHS PO Last administered on 08/28/16 21: 47; Start 08/24/16 at 22:30 Pantoprazole Sodium (Protonix) 40 mg DAILYAC PO Last administered on 08/29/16 08:45; Start 08/26/16 at 07:30 Acetaminophen (Tylenol) 650 mg PRN Q4HRS PRN PO MILD PAIN / TEMP Last administered on 08/27/16 19:32; Start 08/25/16 at 09:00 Vancomycin HCl 1 each 1 each PRN DAILY PRN MC SEE COMMENTS Last administered on 08/26/16 13:07; Start 08/26/16 at 08:00; Stop 08/27/16 at 10:25; Status DC Vancomycin HCl/ Sodium Chloride (Iv Sodium Chloride 0.9% 500ml Bag) 500 ml @ 250 mls/hr 1X ONCE IV Last administered on 08/26/16 09:30; Start 08/26/16 at 09:00; Stop 08/26/16 at 10:59; Status DC Tamsulosin HCl 0.4 mg 0.4 mg DAILY PO Last administered on 08/29/16 08:45; Start 08/26/16 at 13:00 Vancomycin HCl/ Sodium Chloride (Iv Sodium Chloride 0.9% 500ml Bag) 500 ml @ 250 mls/hr Q12H IV Last administered on 08/27/16 08:30; Start 08/26/16 at 21: 00; Stop 08/27/16 at 10:25; Status DC Vancomycin HCl 1 each 1X ONCE MC ; Start 08/27/16 at 20:30; Stop 08/27/16 at 20 :30; Status DC Alteplase, Recombinant (Cathflo) 2 mg PRN DAILY PRN INT CAT PER PROTOCOL Last administered on 08/27/16 23:00; Start 08/27/16 at 10:15 Sodium Cl/Sod Bicarb/Potass Cl/ PEG (Golytely) 4,000 ml 1X ONCE PO ; Start at 13:00; Stop 08/27/16 at 15:19; Status DC Polyethylene Glycol (miraLAX Powder BULK BOTTLE) 238 gm 1X ONCE PO Last administered on 08/27/16 16:39; Start 08/27/16 at 16:00; Stop 08/27/16 at 16:01 ; Status DC Bisacodyl (Dulcolax Tab) 10 mg 1X ONCE PO Last administered on 08/27/16 16:39 ; Start 08/27/16 at 16:00; Stop 08/27/16 at 16:01; Status DC Morphine Sulfate 1 mg 1 mg PRN Q10MIN PRN IV SEVERE PAIN Last administered on 11:44; Start 08/28/16 at 07:00; Stop 08/29/16 at 06:59; Status DC Lactated Ringer's (Iv Lactated Ringers) 1,000 ml @ 0 mls/hr Q0M IV ; Start at 07:00; Stop 08/28/16 at 18:59; Status DC Lidocaine HCl 2 ml 1X PRN PRN ID IV START; Start 08/28/16 at 07:00; Stop at 06:59; Status DC Hydromorphone HCl (Dilaudid) 0.5 mg PRN Q10MIN PRN IV SEVERE PAIN, Second choice; Start 08/28/16 at 07:00; Stop 08/29/16 at 06:59; Status DC Prochlorperazine Edisylate (Compazine) 5 mg PACU PRN PRN IV NAUSEA; Start 08/28 at 07:00; Stop 08/29/16 at 06:59; Status DC Lorazepam (Ativan) 0.5 mg PRN Q8HRS PRN PO ANXIETY / AGITATION Last administered on 08/28/16t 13:27; Start 08/27/16 at 18:15 Acetaminophen (Tylenol) 650 mg PRN Q4HRS PRN PO MILD PAIN / TEMP; Start at 18:15; Status UNV Lidocaine/Sodium Bicarbonate (Buffered Lidocaine 1%) 20 ml STK-MED ONCE IJ ; Start 08/28/16 at 08:05; Stop 08/28/16 at 08:06; Status DC Neostigmine Methylsulfate 5 mg STK-MED ONCE .ROUTE ; Start 08/28/16 at 10:16; Stop 08/28/16 at 10:17; Status DC Glycopyrrolate (Robinul) 1 mg STK-MED ONCE .ROUTE ; Start 08/28/16 at 10:16; Stop 08/28/16 at 10:17; Status DC Fentanyl Citrate (Fentanyl 5ml Vial) 250 mcg STK-MED ONCE .ROUTE ; Start at 10:16; Stop 08/28/16 at 10:17; Status DC Lidocaine/Sodium Bicarbonate (Buffered Lidocaine 1%) 20 ml 1X ONCE IJ Last administered on 08/28/16t 10:45; Start 08/28/16 at 10:45; Stop 08/28/16 at 10:46 ; Status DC Phenylephrine HCl 1 mg STK-MED ONCE IV ; Start 08/28/16 at 11:51; Stop 08/28/16 at 11:52; Status DC Dexamethasone Sodium Phosphate (Decadron) 20 mg STK-MED ONCE .ROUTE ; Start at 11:51; Stop 08/28/16 at 11:52; Status DC Ondansetron HCl (Zofran) 4 mg STK-MED ONCE .ROUTE ; Start 08/28/16 at 11:51; Stop 08/28/16 at 11:52; Status DC Sevoflurane (Ultane) 60 ml STK-MED ONCE IH ; Start 08/28/16 at 11:51; Stop 08/28 at 11:52; Status DC Vancomycin HCl 1 each 1 each PRN DAILY PRN MC SEE COMMENTS; Start 08/28/16 at 11:45; Stop 08/28/16 at 12:03; Status DC Tigecycline 100 mg/Sodium Chloride 100 ml @ 200 mls/hr 1X ONCE IV Last administered on 08/29/16 10:56; Start 08/29/16 at 10:00; Stop 08/29/16 at 10:29 ; Status DC Tigecycline 50 mg/ Sodium Chloride 50 ml @ 100 mls/hr Q12HR IV ; Start at 21:00 Dextrose 1,000 ml @ 40 mls/hr Q24H IV Last administered on 08/29/16 10:56; Start 08/29/16 at 10:00 Propofol (Diprivan) 200 mg STK-MED ONCE IV ; Start 08/28/16 at 12:00; Stop 08/29 at 11:22; Status DC Rocuronium [place] (Zemuron) 50 mg STK-MED ONCE .ROUTE ; Start 08/28/16 at 12:00 ; Stop 08/29/16 at 11:22; Status DC Succinylcholine Chloride (Anectine) 200 mg STK-MED ONCE .ROUTE ; Start 08/28/16 at 12:00; Stop 08/29/16 at 11:22; Status DC Active Scripts Active Prednisone 20 Mg Tablet 30 Mg PO DAILY Levaquin (Levofloxacin) 500 Mg Tablet 500 Mg PO DAILY06 Albuterol Sulfate Neb Soln (Albuterol Sulfate) 2.5 Mg/3 Ml Vial.neb 2.5 Mg NEB RTQID Tylenol (Acetaminophen) 325 Mg Tablet 650 Mg PO PRN Q4HRS PRN Protonix (Pantoprazole Sodium) 40 Mg Tablet 40 Mg PO DAILYAC Vitals/I & O Vital Sign - Last 24 Hours 08/28/16 08/28/16 08/28/16 08/28/16 13:24 15:15 15:19 19:46 Temp 98.2 97.7 98.2 97.7 Pulse 118 113 Resp 22 20 B/P 114/74 136/70 Pulse Ox 95 93 97 O2 Delivery Nasal Cannula Nasal Cannula Nasal Cannula Nasal Cannula O2 Flow Rate 4.0 2.0 3.0 2.0 08/28/16 08/28/16 08/28/16 08/28/16 20:00 20:28 23:00 23:32 Temp 98.1 98.1 Pulse 87 Resp 20 B/P 144/58 Pulse Ox 99 97 O2 Delivery Mechanical Ventilator Nasal Cannula BiPAP/CPAP BiPAP/CPAP O2 Flow Rate 1.0 2.0 08/29/16 08/29/16 08/29/16 08/29/16 01:20 03:36 03:45 05:40 Temp 98.1 98.1 Pulse 69 Resp 20 B/P 134/72 Pulse Ox 95 O2 Delivery BiPAP/CPAP BiPAP/CPAP BiPAP/CPAP 08/29/16 08/29/16 08/29/16 08/29/16 07:00 07:22 10:49 11:41 Temp 98.6 97.5 98.6 97.5 Pulse 108 75 Resp 18 18 B/P 126/77 119/82 Pulse Ox 96 99 94 O2 Delivery Nasal Cannula Nasal Cannula O2 Flow Rate 2.0 2.0 Intake and Output 08/28/16 08/28/16 08/29/16 15:00 23:00 07:00 Intake Total 650 ml 200 ml Output Total 1250 ml 2300 ml 550 ml Balance -1250 ml -1650 ml -350 ml MINO HATHAWAY MD Aug 29, 2016 12:53
[2016-08-29 13:13] LABS: ANISOCYTOSIS SLIGHT; OVALOCYTES MANY; PLT ESTIMATE DECREASED (ADEQUATE)
--- NOTE | 2016-08-29 13:28 | PDOC ---
Subjective: Subjective: Per mother - eating okay, no stools since colonoscopy prep, upset colonoscopy didn't happen. Objective: Vital Signs: Vital Signs Date Time Temp Pulse Resp B/P Pulse Ox O2 Delivery O2 Flow Rate FiO2 08/29/16 11:41 94 Nasal Cannula 2.0 08/29/16 10:49 97.5 75 18 119/82 97.5 Labs: Laboratory Tests Test 08/29/16 07:45 White Blood Count 1.6x10^3/uL Red Blood Count 2.88x10^6/uL Hemoglobin 8.2g/dL Hematocrit 25.6% Mean Corpuscular Volume 89fL Mean Corpuscular Hemoglobin 29pg Mean Corpuscular Hemoglobin Concent 32g/dL Red Cell Distribution Width 17.8% Platelet Count 70x10^3/uL Neutrophils (%) (Auto) 71% Lymphocytes (%) (Auto) 20% Monocytes (%) (Auto) 9% Eosinophils (%) (Auto) 0% Basophils (%) (Auto) 0% Neutrophils # (Auto) 1.2x10^3uL Lymphocytes # (Auto) 0.3x10^3/uL Monocytes # (Auto) 0.1x10^3/uL Eosinophils # (Auto) 0.0x10^3/uL Basophils # (Auto) 0.0x10^3/uL Segmented Neutrophils % 65% Band Neutrophils % 2% Lymphocytes % 20% Monocytes % 13% Platelet Estimate Decreased Anisocytosis Slight Ovalocytes Many Sodium Level 148mmol/L Potassium Level 4.7mmol/L Chloride Level 110mmol/L Carbon Dioxide Level 34mmol/L Anion Gap 4 Blood Urea Nitrogen 9mg/dL Creatinine 1.1mg/dL Estimated GFR (Cockcroft-Gault) 69.5 Glucose Level 127mg/dL Calcium Level 7.8mg/dL PE: GEN: NAD, sitting in chair ABD: BS+, non-tender NEURO/PSYCH: moaning A/P: Abnormal CT -fluid filled diverticulum vs 5cm soft tissue mass in sigmoid colon -no previous colonoscopy, +FH colon cancer - -> colonoscopy on hold w/ neutropenia Pancytopenia, chronic resp failure, UTI/sepsis -s/p bone marrow bx -- Colonoscopy on hold until WBC improves. MELANIE HICKS Aug 29, 2016 13:28
[2016-08-29] MEDS: DIPHENHYDRAMINE HCL 25 MG CAPSULE PO SCH (21:07)
[2016-08-29] MEDS: ACETAMINOPHEN 500 MG TABLET PO SCH (21:07)
[2016-08-29] MEDS: TIGECYCLINE 50 MG in IV NORMAL SALINE 50ML 50 ML IV SCH (21:09)
[2016-08-30 07:00] VITALS: BP 103/68
[2016-08-30] MEDS: ALBUTEROL SULFATE 2.5 MG/3 ML NEBU. NEB SCH ×4 (08:06→20:50)
[2016-08-30] MEDS: TAMSULOSIN 0.4 MG CAP.ER.24H. PO SCH (08:34)
[2016-08-30] MEDS: PANTOPRAZOLE 40 MG TABLET. PO SCH (08:34)
[2016-08-30] MEDS: ALTEPLASE 2 MG VIAL INT CAT PRN (09:48)
--- NOTE | 2016-08-30 10:47 | PDOC ---
PROGRESS NOTES Subjective Subjective feels better. lab reviewed. Objective Objective Vital Signs Date Time Temp Pulse Resp B/P Pulse Ox O2 Delivery O2 Flow Rate FiO2 08/30/16 08:08 98 Nasal Cannula 2.0 08/30/16 07:00 98.0 73 20 103/68 98.0 Intake and Output 08/30/16 07:00 Intake Total 640 ml Output Total 850 ml Balance -210 ml Intake Oral 640 ml Output Urine Total 850 ml # Voids 1 Physical Exam Abdomen: Soft Heart: Regular rate, Normal S1, Normal S2 Extremities: No edema General: Alert HEENT: Atraumatic Lungs: Clear to auscultation Neuro: Normal speech Psych/Mental Status: Mood NL Skin: No rashes Assessment Assessment Problems Medical Problems:Sepsis resolved 2. e. coli uti 3. pancytopenia 4. critical leukopenia 5. Cholelithiasis. 6. Sigmoid colon mass.colonoscopy postponed due to neutropenia 7. Chronic hypoxic and hypercapnic respiratory failure. 8. Obstructive sleep apnea. 9. Morbid obesity. fever resolved BPH and seminal vesicle inflammation hypernatremia (1) Sepsis Status: Acute (2) Urine retention Status: Acute (3) UTI (urinary tract infection) Status: Acute Plan Plan of Care increase hypotonic fluids colonoscopy when wbc higher consider wbc bone marrow stimulating agent. defer to hematology iv tygacil Comment Review of Relevant I have reviewed the following items lexus (where applicable) has been applied. Labs Laboratory Tests Test 08/29/16 07:45 White Blood Count 1.6x10^3/uL (4.0-11.0) Red Blood Count 2.88x10^6/uL (4.30-5.70) Hemoglobin 8.2g/dL (13.0-17.5) Hematocrit 25.6% (39.0-53.0) Mean Corpuscular Volume 89fL (79-100) Mean Corpuscular Hemoglobin 29pg (25-35) Mean Corpuscular Hemoglobin Concent 32g/dL (31-37) Red Cell Distribution Width 17.8% (11.5-14.5) Platelet Count 70x10^3/uL (140-400) Neutrophils (%) (Auto) 71% (31-73) Lymphocytes (%) (Auto) 20% (24-48) Monocytes (%) (Auto) 9% (0-9) Eosinophils (%) (Auto) 0% (0-3) Basophils (%) (Auto) 0% (0-3) Neutrophils # (Auto) 1.2x10^3uL (1.8-7.7) Lymphocytes # (Auto) 0.3x10^3/uL (1.0-4.8) Monocytes # (Auto) 0.1x10^3/uL (0.0-1.1) Eosinophils # (Auto) 0.0x10^3/uL (0.0-0.7) Basophils # (Auto) 0.0x10^3/uL (0.0-0.2) Segmented Neutrophils % 65% (35-66) Band Neutrophils % 2% (0-9) Lymphocytes % 20% (24-48) Monocytes % 13% (0-10) Platelet Estimate Decreased (ADEQUATE) Anisocytosis Slight Ovalocytes Many Sodium Level 148mmol/L (136-145) Potassium Level 4.7mmol/L (3.5-5.1) Chloride Level 110mmol/L (98-107) Carbon Dioxide Level 34mmol/L (21-32) Anion Gap 4 (6-14) Blood Urea Nitrogen 9mg/dL (8-26) Creatinine 1.1mg/dL (0.7-1.3) Estimated GFR (Cockcroft-Gault) 69.5 Glucose Level 127mg/dL (70-99) Calcium Level 7.8mg/dL (8.5-10.1) Microbiology 08/26/16 Blood Culture - Preliminary, Resulted NO GROWTH AFTER 4 DAYS 08/24/16 Urine Culture - Final, Complete 08/24/16 Urine Culture Result 1 (FAUSTINA) - Final, Complete 08/24/16 Antimicrobic Susceptibility - Final, Complete Medications Current Medications Lorazepam 2 mg 2 mg 1X ONCE IV Last administered on 08/24/16 08:29; Start at 08:30; Stop 08/24/16 at 08:31; Status DC Sodium Chloride (Iv Sodium Chloride 0.9% 1000ml Bag) 1,000 ml @ 1,000 mls/hr 1X ONCE IV Last administered on 08/24/16 09:22; Start 08/24/16 at 08:30; Stop 08/24/16 at 09:29; Status DC Ondansetron HCl 4 mg 4 mg 1X ONCE IV Last administered on 08/24/16 09:23; Start 08/24/16 at 08:30; Stop 08/24/16 at 08:31; Status DC Levofloxacin/ Dextrose 150 ml @ 100 mls/hr 1X ONCE IV Last administered on 11:09; Start 08/24/16 at 10:00; Stop 08/24/16 at 11:29; Status DC Sodium Chloride 1,000 ml @ 1,000 mls/hr 1X ONCE IV Last administered on 10:31; Start 08/24/16 at 10:00; Stop 08/24/16 at 10:59; Status DC Sodium Chloride (Iv Sodium Chloride 0.9% 1000ml Bag) 1,000 ml @ 1,000 mls/hr 1X ONCE IV ; Start 08/24/16 at 10:00; Stop 08/24/16 at 10:59; Status UNV Fentanyl Citrate (Fentanyl 2ml Vial) 50 mcg 1X ONCE IV Last administered on 11:09; Start 08/24/16 at 10:30; Stop 08/24/16 at 10:31; Status DC Iohexol (Omnipaque 300 Mg/ml) 60 ml 1X ONCE IV Last administered on 08/24/16 10:48; Start 08/24/16 at 10:30; Stop 08/24/16 at 10:31; Status DC Ondansetron HCl (Zofran) 4 mg PRN Q8HRS PRN IV NAUSEA/VOMITING; Start 08/24/16 at 11:45; Stop 08/24/16 at 13:45; Status DC Fentanyl Citrate 50 mcg 50 mcg PRN Q1HR PRN IV PAIN; Start 08/24/16 at 11:45; Stop 08/25/16 at 11:44; Status DC Sodium Chloride (Iv Sodium Chloride 0.9% 1000ml Bag) 1,000 ml @ 150 mls/hr Q6H40M IV ; Start 08/24/16 at 12:00; Stop 08/25/16 at 11:59; Status DC Acetaminophen 650 mg 650 mg PRN Q4HRS PRN PO FEVER; Start 08/24/16 at 11:45; Stop 08/24/16 at 22:21; Status DC Potassium Chloride/Dextrose/ Sod Cl (KCl 20 Meq In D5W-1/2 NS) 1,000 ml @ 40 mls/hr Q24H IV Last administered on 08/29/16 06:31; Start 08/24/16 at 15:00; Stop 08/29/16 at 09:56; Status DC Acetaminophen (Tylenol) 650 mg PRN Q6HRS PRN SD MILD PAIN / TEMP; Start at 13:45; Stop 08/25/16 at 08:58; Status DC Pantoprazole Sodium (Protonix Vial) 40 mg DAILYAC IVP Last administered on 08/25 07:53; Start 08/24/16 at 14:00; Stop 08/25/16 at 08:58; Status DC Ondansetron HCl (Zofran) 4 mg PRN Q6HRS PRN IV NAUSEA/VOMITING; Start 08/24/16 at 13:45 Enoxaparin Sodium 40 mg 40 mg Q24H SQ Last administered on 08/26/16 14:43; Start 08/24/16 at 15:00; Stop 08/27/16 at 10:14; Status DC Meropenem 500 mg/ Sodium Chloride 50 ml @ 100 mls/hr Q6HRS IV Last administered on 08/29/16 06:36; Start 08/24/16 at 16:00; Stop 08/29/16 at 08:39 ; Status DC Fluconazole/ Sodium Chloride (Diflucan 400mg/ 200ml Premix) 200 ml @ 100 mls/ hr Q24H IV Last administered on 08/27/16 16:37; Start 08/24/16 at 15:00; Stop 08/28/16 at 08:34; Status DC Albuterol Sulfate (Ventolin Neb Soln) 2.5 mg RTQID NEB Last administered on 08:06; Start 08/24/16 at 20:00 Albuterol Sulfate (Ventolin Neb Soln) 2.5 mg PRN Q4HRS PRN NEB SHORTNESS OF BREATH; Start 08/24/16 at 19:45 Acetaminophen (Tylenol) 500 mg QHS PO Last administered on 08/29/16 21:07; Start 08/24/16 at 22:30 Diphenhydramine HCl (Benadryl) 25 mg QHS PO Last administered on 08/29/16 21: 07; Start 08/24/16 at 22:30 Pantoprazole Sodium (Protonix) 40 mg DAILYAC PO Last administered on 08/30/16 08:34; Start 08/26/16 at 07:30 Acetaminophen (Tylenol) 650 mg PRN Q4HRS PRN PO MILD PAIN / TEMP Last administered on 08/27/16 19:32; Start 08/25/16 at 09:00 Vancomycin HCl 1 each 1 each PRN DAILY PRN MC SEE COMMENTS Last administered on 08/26/16 13:07; Start 08/26/16 at 08:00; Stop 08/27/16 at 10:25; Status DC Vancomycin HCl/ Sodium Chloride (Iv Sodium Chloride 0.9% 500ml Bag) 500 ml @ 250 mls/hr 1X ONCE IV Last administered on 08/26/16 09:30; Start 08/26/16 at 09:00; Stop 08/26/16 at 10:59; Status DC Tamsulosin HCl 0.4 mg 0.4 mg DAILY PO Last administered on 08/30/16 08:34; Start 08/26/16 at 13:00 Vancomycin HCl/ Sodium Chloride (Iv Sodium Chloride 0.9% 500ml Bag) 500 ml @ 250 mls/hr Q12H IV Last administered on 08/27/16 08:30; Start 08/26/16 at 21: 00; Stop 08/27/16 at 10:25; Status DC Vancomycin HCl 1 each 1X ONCE MC ; Start 08/27/16 at 20:30; Stop 08/27/16 at 20 :30; Status DC Alteplase, Recombinant (Cathflo) 2 mg PRN DAILY PRN INT CAT PER PROTOCOL Last administered on 08/30/16 09:48; Start 08/27/16 at 10:15 Sodium Cl/Sod Bicarb/Potass Cl/ PEG (Golytely) 4,000 ml 1X ONCE PO ; Start at 13:00; Stop 08/27/16 at 15:19; Status DC Polyethylene Glycol (miraLAX Powder BULK BOTTLE) 238 gm 1X ONCE PO Last administered on 08/27/16 16:39; Start 08/27/16 at 16:00; Stop 08/27/16 at 16:01 ; Status DC Bisacodyl (Dulcolax Tab) 10 mg 1X ONCE PO Last administered on 08/27/16 16:39 ; Start 08/27/16 at 16:00; Stop 08/27/16 at 16:01; Status DC Morphine Sulfate 1 mg 1 mg PRN Q10MIN PRN IV SEVERE PAIN Last administered on 11:44; Start 08/28/16 at 07:00; Stop 08/29/16 at 06:59; Status DC Lactated Ringer's (Iv Lactated Ringers) 1,000 ml @ 0 mls/hr Q0M IV ; Start at 07:00; Stop 08/28/16 at 18:59; Status DC Lidocaine HCl 2 ml 1X PRN PRN ID IV START; Start 08/28/16 at 07:00; Stop at 06:59; Status DC Hydromorphone HCl (Dilaudid) 0.5 mg PRN Q10MIN PRN IV SEVERE PAIN, Second choice; Start 08/28/16 at 07:00; Stop 08/29/16 at 06:59; Status DC Prochlorperazine Edisylate (Compazine) 5 mg PACU PRN PRN IV NAUSEA; Start 08/28 at 07:00; Stop 08/29/16 at 06:59; Status DC Lorazepam (Ativan) 0.5 mg PRN Q8HRS PRN PO ANXIETY / AGITATION Last administered on 08/28/16 13:27; Start 08/27/16 at 18:15 Acetaminophen (Tylenol) 650 mg PRN Q4HRS PRN PO MILD PAIN / TEMP; Start at 18:15; Status UNV Lidocaine/Sodium Bicarbonate (Buffered Lidocaine 1%) 20 ml STK-MED ONCE IJ ; Start 08/28/16 at 08:05; Stop 08/28/16 at 08:06; Status DC Neostigmine Methylsulfate 5 mg STK-MED ONCE .ROUTE ; Start 08/28/16 at 10:16; Stop 08/28/16 at 10:17; Status DC Glycopyrrolate (Robinul) 1 mg STK-MED ONCE .ROUTE ; Start 08/28/16 at 10:16; Stop 08/28/16 at 10:17; Status DC Fentanyl Citrate (Fentanyl 5ml Vial) 250 mcg STK-MED ONCE .ROUTE ; Start at 10:16; Stop 08/28/16 at 10:17; Status DC Lidocaine/Sodium Bicarbonate (Buffered Lidocaine 1%) 20 ml 1X ONCE IJ Last administered on 08/28/16 10:45; Start 08/28/16 at 10:45; Stop 08/28/16 at 10:46 ; Status DC Phenylephrine HCl 1 mg STK-MED ONCE IV ; Start 08/28/16 at 11:51; Stop 08/28/16 at 11:52; Status DC Dexamethasone Sodium Phosphate (Decadron) 20 mg STK-MED ONCE .ROUTE ; Start at 11:51; Stop 08/28/16 at 11:52; Status DC Ondansetron HCl (Zofran) 4 mg STK-MED ONCE .ROUTE ; Start 08/28/16 at 11:51; Stop 08/28/16 at 11:52; Status DC Sevoflurane (Ultane) 60 ml STK-MED ONCE IH ; Start 08/28/16 at 11:51; Stop 08/28 at 11:52; Status DC Vancomycin HCl 1 each 1 each PRN DAILY PRN MC SEE COMMENTS; Start 08/28/16 at 11:45; Stop 08/28/16 at 12:03; Status DC Tigecycline 100 mg/Sodium Chloride 100 ml @ 200 mls/hr 1X ONCE IV Last administered on 08/29/16 10:56; Start 08/29/16 at 10:00; Stop 08/29/16 at 10:29 ; Status DC Tigecycline 50 mg/ Sodium Chloride 50 ml @ 100 mls/hr Q12HR IV Last administered on 08/29/16 21:09; Start 08/29/16 at 21:00 Dextrose 1,000 ml @ 40 mls/hr Q24H IV Last administered on 08/29/16 10:56; Start 08/29/16 at 10:00 Propofol (Diprivan) 200 mg STK-MED ONCE IV ; Start 08/28/16 at 12:00; Stop 08/29 at 11:22; Status DC Rocuronium [place] (Zemuron) 50 mg STK-MED ONCE .ROUTE ; Start 08/28/16 at 12:00 ; Stop 08/29/16 at 11:22; Status DC Succinylcholine Chloride (Anectine) 200 mg STK-MED ONCE .ROUTE ; Start 08/28/16 at 12:00; Stop 08/29/16 at 11:22; Status DC Active Scripts Active Prednisone 20 Mg Tablet 30 Mg PO DAILY Levaquin (Levofloxacin) 500 Mg Tablet 500 Mg PO DAILY06 Albuterol Sulfate Neb Soln (Albuterol Sulfate) 2.5 Mg/3 Ml Vial.neb 2.5 Mg NEB RTQID Tylenol (Acetaminophen) 325 Mg Tablet 650 Mg PO PRN Q4HRS PRN Protonix (Pantoprazole Sodium) 40 Mg Tablet 40 Mg PO DAILYAC Vitals/I & O Vital Sign - Last 24 Hours 08/29/16 08/29/16 08/29/16 08/29/16 10:49 11:41 14:52 15:00 Temp 97.5 99.0 97.5 99.0 Pulse 75 63 67 Resp 18 18 16 B/P 119/82 115/71 139/47 Pulse Ox 99 94 94 97 O2 Delivery Nasal Cannula Room Air O2 Flow Rate 2.0 08/29/16 08/29/16 08/29/16 08/29/16 17:56 19:15 20:00 21:15 Temp 97.5 97.5 Pulse 144 Resp 16 B/P 121/82 Pulse Ox 94 95 O2 Delivery Nasal Cannula Room Air Nasal Cannula Nasal Cannula O2 Flow Rate 2.0 1.0 2.0 08/29/16 08/29/16 08/29/16 08/29/16 21:20 21:40 23:04 23:20 Temp 98.5 98.5 Pulse 107 Resp 40 B/P 117/74 Pulse Ox 95 O2 Delivery BiPAP/CPAP BiPAP/CPAP BiPAP/CPAP BiPAP/CPAP 08/30/16 08/30/16 08/30/16 08/30/16 01:20 03:20 03:20 05:01 Pulse 79 Resp 36 B/P Pulse Ox 95 95 O2 Delivery BiPAP/CPAP BiPAP/CPAP BiPAP/CPAP BiPAP/CPAP 08/30/16 08/30/16 08/30/16 07:00 08:00 08:08 Temp 98.0 98.0 Pulse 73 Resp 20 B/P 103/68 Pulse Ox 100 98 O2 Delivery BiPAP/CPAP Nasal Cannula Nasal Cannula O2 Flow Rate 1.0 2.0 Intake and Output 08/29/16 08/29/16 08/30/16 15:00 23:00 07:00 Intake Total 400 ml 240 ml Output Total 50 ml 400 ml 400 ml Balance -50 ml 0 ml -160 ml KATI BILLINGSLEY MD Aug 30, 2016 10:47
[2016-08-30 11:00] VITALS: BP 125/79
--- NOTE | 2016-08-30 11:25 | PDOC ---
Infectious Disease Note Subjective Subjective feeling fine Denies pain Eating good No difficulty voiding No fever or chills Vital Sign Vital Signs Vital Signs Date Time Temp Pulse Resp B/P Pulse Ox O2 Delivery O2 Flow Rate FiO2 08/30/16 08:08 98 Nasal Cannula 2.0 08/30/16 07:00 98.0 73 20 103/68 98.0 Physical Exam PHYSICAL EXAM GENERAL: Up in chair, smiling HEENT: Oral cavity pink NECK: Supple LUNGS: Clear HEART: S1S2, no gallop, no murmur ABD: Obese, BS present, soft, NT : [place] out EXT: BLE trace edema. 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 mild skin irritation and bruising Labs Micro BLOOD CULTURE Preliminary NO GROWTH AFTER 4 DAYS Objective Assessment Fever - better Leukopenia/Pancytopenia 08/26 stabilized. Influenza neg. ? reactive/sepsis or related to sigmoid mass. S/p Bone marrow biopsy 08/28 E. coli UTI 08/24. POA with enlarged prostate and some seminal vesicle inflammation. Now on Flomax Sigmoid mass PCN and cefpodoxime allergy. Mental retardation Plan Plan of Care Blood cults times 2 08/26 - neg Meropenem was discontinued on odd chance that could be suppressing bone marrow. Avoid other beta- lactams. Trial of Tigecycline. (Has second line intra - abdominal coverage also and neutropenic) Await bone marrow results Await further GI evaluation/colonoscopy. Patient seen and examined. Chart reviewed in detail. Case discussed with TRAFFIC RATE COMPUTER. Agree with above plan JILL HERNANDEZ APRN Aug 30, 2016 11:25 GERARDO CARRASQUILLO MD Aug 30, 2016 14:56
[2016-08-30] MEDS: TIGECYCLINE 50 MG in IV NORMAL SALINE 50ML 50 ML IV SCH ×2 (11:53→21:03)
[2016-08-30 12:31] LABS: BASO % 1 % (0-3); EOS % 0 % (0-3); HEMATOCRIT 26.2 % (39.0-53.0); HEMOGLOBIN 8.4 g/dL (13.0-17.5); LYMPH % 30 % (24-48); MEAN CORPUSCULAR HEMOGLOBIN 29 pg (25-35); MEAN CORPUSCULAR HGB CONC 32 g/dL (31-37); MEAN CORPUSCULAR VOLUME 90 fL (79-100); MONO % 9 % (0-9); NEUT % 60 % (31-73); PLATELET COUNT 84 x10^3/uL (140-400); RED BLOOD COUNT 2.91 x10^6/uL (4.30-5.70); RED CELL DISTRIBUTION WIDTH 18.1 % (11.5-14.5); WHITE BLOOD COUNT 3.3 x10^3/uL (4.0-11.0)
[2016-08-30 12:38] LABS: CALCIUM 7.6 mg/dL (8.5-10.1); CREATININE 1.1 mg/dL (0.7-1.3); GFR 69.5; POTASSIUM 4.3 mmol/L (3.5-5.1)
--- NOTE | 2016-08-30 14:16 | PDOC ---
PULMONARY PROGRESS NOTES Subjective no soa Vitals Vital Signs Date Time Temp Pulse Resp B/P Pulse Ox O2 Delivery O2 Flow Rate FiO2 08/30/16 12:15 96 Nasal Cannula 1.5 08/30/16 11:00 99.3 114 18 125/79 99.3 General: Alert, No acute distress HEENT: Other Lungs: Other (decrease bs) Cardiovascular: S1 Abdomen: Soft, Non-tender, Other Extremities: Other (trace edema) Labs Laboratory Tests Test 08/29/16 07:45 08/30/16 11:55 White Blood Count 1.6x10^3/uL (4.0-11.0) 3.3x10^3/uL (4.0-11.0) Red Blood Count 2.88x10^6/uL (4.30-5.70) 2.91x10^6/uL (4.30-5.70) Hemoglobin 8.2g/dL (13.0-17.5) 8.4g/dL (13.0-17.5) Hematocrit 25.6% (39.0-53.0) 26.2% (39.0-53.0) Mean Corpuscular Volume 89fL (79-100) 90fL (79-100) Mean Corpuscular Hemoglobin 29pg (25-35) 29pg (25-35) Mean Corpuscular Hemoglobin Concent 32g/dL (31-37) 32g/dL (31-37) Red Cell Distribution Width 17.8% (11.5-14.5) 18.1% (11.5-14.5) Platelet Count 70x10^3/uL (140-400) 84x10^3/uL (140-400) Neutrophils (%) (Auto) 71% (31-73) 60% (31-73) Lymphocytes (%) (Auto) 20% (24-48) 30% (24-48) Monocytes (%) (Auto) 9% (0-9) 9% (0-9) Eosinophils (%) (Auto) 0% (0-3) 0% (0-3) Basophils (%) (Auto) 0% (0-3) 1% (0-3) Neutrophils # (Auto) 1.2x10^3uL (1.8-7.7) 2.0x10^3uL (1.8-7.7) Lymphocytes # (Auto) 0.3x10^3/uL (1.0-4.8) 1.0x10^3/uL (1.0-4.8) Monocytes # (Auto) 0.1x10^3/uL (0.0-1.1) 0.3x10^3/uL (0.0-1.1) Eosinophils # (Auto) 0.0x10^3/uL (0.0-0.7) 0.0x10^3/uL (0.0-0.7) Basophils # (Auto) 0.0x10^3/uL (0.0-0.2) 0.0x10^3/uL (0.0-0.2) Segmented Neutrophils % 65% (35-66) Band Neutrophils % 2% (0-9) Lymphocytes % 20% (24-48) Monocytes % 13% (0-10) Platelet Estimate Decreased (ADEQUATE) Anisocytosis Slight Ovalocytes Many Sodium Level 148mmol/L (136-145) 144mmol/L (136-145) Potassium Level 4.7mmol/L (3.5-5.1) 4.3mmol/L (3.5-5.1) Chloride Level 110mmol/L (98-107) 106mmol/L (98-107) Carbon Dioxide Level 34mmol/L (21-32) 32mmol/L (21-32) Anion Gap 4 (6-14) 6 (6-14) Blood Urea Nitrogen 9mg/dL (8-26) 31mg/dL (8-26) Creatinine 1.1mg/dL (0.7-1.3) 1.1mg/dL (0.7-1.3) Estimated GFR (Cockcroft-Gault) 69.5 69.5 Glucose Level 127mg/dL (70-99) 90mg/dL (70-99) Calcium Level 7.8mg/dL (8.5-10.1) 7.6mg/dL (8.5-10.1) Laboratory Tests Test 08/30/16 11:55 White Blood Count 3.3x10^3/uL (4.0-11.0) Red Blood Count 2.91x10^6/uL (4.30-5.70) Hemoglobin 8.4g/dL (13.0-17.5) Hematocrit 26.2% (39.0-53.0) Mean Corpuscular Volume 90fL (79-100) Mean Corpuscular Hemoglobin 29pg (25-35) Mean Corpuscular Hemoglobin Concent 32g/dL (31-37) Red Cell Distribution Width 18.1% (11.5-14.5) Platelet Count 84x10^3/uL (140-400) Neutrophils (%) (Auto) 60% (31-73) Lymphocytes (%) (Auto) 30% (24-48) Monocytes (%) (Auto) 9% (0-9) Eosinophils (%) (Auto) 0% (0-3) Basophils (%) (Auto) 1% (0-3) Neutrophils # (Auto) 2.0x10^3uL (1.8-7.7) Lymphocytes # (Auto) 1.0x10^3/uL (1.0-4.8) Monocytes # (Auto) 0.3x10^3/uL (0.0-1.1) Eosinophils # (Auto) 0.0x10^3/uL (0.0-0.7) Basophils # (Auto) 0.0x10^3/uL (0.0-0.2) Sodium Level 144mmol/L (136-145) Potassium Level 4.3mmol/L (3.5-5.1) Chloride Level 106mmol/L (98-107) Carbon Dioxide Level 32mmol/L (21-32) Anion Gap 6 (6-14) Blood Urea Nitrogen 31mg/dL (8-26) Creatinine 1.1mg/dL (0.7-1.3) Estimated GFR (Cockcroft-Gault) 69.5 Glucose Level 90mg/dL (70-99) Calcium Level 7.6mg/dL (8.5-10.1) Medications Active Scripts Medications Dose Route/Sig Days Date Category Prednisone 20 Mg Tablet 30 Mg PO DAILY 08/16/16 Rx Levaquin (Levofloxacin) 500 Mg Tablet 500 Mg PO DAILY06 08/16/16 Rx Albuterol Sulfate Neb Soln (Albuterol Sulfate) 2.5 Mg/3 Ml Vial.neb 2.5 Mg NEB RTQID 06/18/15 Rx Tylenol (Acetaminophen) 325 Mg Tablet 650 Mg PO PRN Q4HRS PRN 10/20/14 Rx Protonix (Pantoprazole Sodium) 40 Mg Tablet 40 Mg PO DAILYAC 04/26/14 Rx Impression . 1. Chronic respiratory failure. 2. Obesity hypoventilation syndrome. 3. Possible obstructive sleep apnea. 4. Urinary tract infection. 5. Morbid obesity. 6. Chronic left hemidiaphragm elevation. 7. Leukocytosis 8. sigmoid mass 9. leukopenia Plan . 1. We will continue current BiPAP at bedtime.Doing well 2. Outpatient polysomnogram. 3. Continue oxygen supplementation. 4. Antibiotics per infectious disease service. 5. Colonoscopy per GI 6. s/p BM, follow results d/w mother JAIDEN RENTERIA MD Aug 30, 2016 14:16
[2016-08-30 15:00] VITALS: BP 120/76
[2016-08-30 19:06] VITALS: BP 123/85
[2016-08-30] MEDS: IV DEXTROSE 5% 1,000 ML IV SCH (21:02)
[2016-08-30] MEDS: DIPHENHYDRAMINE HCL 25 MG CAPSULE PO SCH (21:03)
[2016-08-30] MEDS: ACETAMINOPHEN 325 MG TABLET. PO PRN (21:03)
[2016-08-30] MEDS: ACETAMINOPHEN 500 MG TABLET PO SCH (21:04)
[2016-08-30 23:17] VITALS: BP 105/66
[2016-08-31] MEDS: IV DEXTROSE 5% 1,000 ML IV SCH (02:54)
[2016-08-31 03:15] VITALS: BP 123/67
[2016-08-31 07:00] VITALS: BP 144/80
[2016-08-31] MEDS: ALBUTEROL SULFATE 2.5 MG/3 ML NEBU. NEB SCH ×4 (08:13→21:10)
[2016-08-31] MEDS: TAMSULOSIN 0.4 MG CAP.ER.24H. PO SCH (08:31)
[2016-08-31] MEDS: PANTOPRAZOLE 40 MG TABLET. PO SCH (08:31)
[2016-08-31] MEDS: TIGECYCLINE 50 MG in IV NORMAL SALINE 50ML 50 ML IV SCH ×2 (08:32→21:49)
[2016-08-31 11:09] VITALS: BP 120/71
--- NOTE | 2016-08-31 11:17 | PDOC ---
PROGRESS NOTES Subjective Subjective 56yo here with E Coli urosepsis. We were consulted for pancytopenia. Has had chronic anemia for many years. Bone marrow biopsy performed last week with results pending. Objective Objective Vital Signs Date Time Temp Pulse Resp B/P Pulse Ox O2 Delivery O2 Flow Rate FiO2 08/31/16 11:09 98.0 100 20 120/71 96 Nasal Cannula 98.0 08/31/16 08:14 1.0 Intake and Output 08/31/16 07:00 Intake Total 250 ml Output Total 1300 ml Balance -1050 ml Intake Oral 250 ml Output Urine Total 1300 ml Physical Exam Abdomen: Soft Heart: Regular rate Extremities: Other (Bilateral SOBEIDA) General: Alert HEENT: Atraumatic Lungs: Other (Good effort) Neck: Supple Neuro: Other (Developmentally delayed. Minimally verbal) Assessment Assessment Problems Impression: Pancytopenia E coli urosepsis Neutropenia, resolved Plan: Follow up bone marrow from last week. Neutropenia likely in setting of acute infection atop probable underlying bone marrow process. No indication for growth factor unless ANC <1500. Comment Review of Relevant I have reviewed the following items lexus (where applicable) has been applied. Labs Laboratory Tests Test 08/30/16 11:55 White Blood Count 3.3x10^3/uL (4.0-11.0) Red Blood Count 2.91x10^6/uL (4.30-5.70) Hemoglobin 8.4g/dL (13.0-17.5) Hematocrit 26.2% (39.0-53.0) Mean Corpuscular Volume 90fL (79-100) Mean Corpuscular Hemoglobin 29pg (25-35) Mean Corpuscular Hemoglobin Concent 32g/dL (31-37) Red Cell Distribution Width 18.1% (11.5-14.5) Platelet Count 84x10^3/uL (140-400) Neutrophils (%) (Auto) 60% (31-73) Lymphocytes (%) (Auto) 30% (24-48) Monocytes (%) (Auto) 9% (0-9) Eosinophils (%) (Auto) 0% (0-3) Basophils (%) (Auto) 1% (0-3) Neutrophils # (Auto) 2.0x10^3uL (1.8-7.7) Lymphocytes # (Auto) 1.0x10^3/uL (1.0-4.8) Monocytes # (Auto) 0.3x10^3/uL (0.0-1.1) Eosinophils # (Auto) 0.0x10^3/uL (0.0-0.7) Basophils # (Auto) 0.0x10^3/uL (0.0-0.2) Sodium Level 144mmol/L (136-145) Potassium Level 4.3mmol/L (3.5-5.1) Chloride Level 106mmol/L (98-107) Carbon Dioxide Level 32mmol/L (21-32) Anion Gap 6 (6-14) Blood Urea Nitrogen 31mg/dL (8-26) Creatinine 1.1mg/dL (0.7-1.3) Estimated GFR (Cockcroft-Gault) 69.5 Glucose Level 90mg/dL (70-99) Calcium Level 7.6mg/dL (8.5-10.1) Laboratory Tests Test 08/30/16 11:55 White Blood Count 3.3x10^3/uL (4.0-11.0) Red Blood Count 2.91x10^6/uL (4.30-5.70) Hemoglobin 8.4g/dL (13.0-17.5) Hematocrit 26.2% (39.0-53.0) Mean Corpuscular Volume 90fL (79-100) Mean Corpuscular Hemoglobin 29pg (25-35) Mean Corpuscular Hemoglobin Concent 32g/dL (31-37) Red Cell Distribution Width 18.1% (11.5-14.5) Platelet Count 84x10^3/uL (140-400) Neutrophils (%) (Auto) 60% (31-73) Lymphocytes (%) (Auto) 30% (24-48) Monocytes (%) (Auto) 9% (0-9) Eosinophils (%) (Auto) 0% (0-3) Basophils (%) (Auto) 1% (0-3) Neutrophils # (Auto) 2.0x10^3uL (1.8-7.7) Lymphocytes # (Auto) 1.0x10^3/uL (1.0-4.8) Monocytes # (Auto) 0.3x10^3/uL (0.0-1.1) Eosinophils # (Auto) 0.0x10^3/uL (0.0-0.7) Basophils # (Auto) 0.0x10^3/uL (0.0-0.2) Sodium Level 144mmol/L (136-145) Potassium Level 4.3mmol/L (3.5-5.1) Chloride Level 106mmol/L (98-107) Carbon Dioxide Level 32mmol/L (21-32) Anion Gap 6 (6-14) Blood Urea Nitrogen 31mg/dL (8-26) Creatinine 1.1mg/dL (0.7-1.3) Estimated GFR (Cockcroft-Gault) 69.5 Glucose Level 90mg/dL (70-99) Calcium Level 7.6mg/dL (8.5-10.1) Microbiology 08/26/16 Blood Culture - Final, Complete NO GROWTH AFTER 5 DAYS 08/24/16 Urine Culture - Final, Complete 08/24/16 Urine Culture Result 1 (FAUSTINA) - Final, Complete 08/24/16 Antimicrobic Susceptibility - Final, Complete Medications Current Medications Lorazepam 2 mg 2 mg 1X ONCE IV Last administered on 08/24/16 08:29; Start at 08:30; Stop 08/24/16 at 08:31; Status DC Sodium Chloride (Iv Sodium Chloride 0.9% 1000ml Bag) 1,000 ml @ 1,000 mls/hr 1X ONCE IV Last administered on 08/24/16 09:22; Start 08/24/16 at 08:30; Stop 08/24/16 at 09:29; Status DC Ondansetron HCl 4 mg 4 mg 1X ONCE IV Last administered on 08/24/16 09:23; Start 08/24/16 at 08:30; Stop 08/24/16 at 08:31; Status DC Levofloxacin/ Dextrose 150 ml @ 100 mls/hr 1X ONCE IV Last administered on 11:09; Start 08/24/16 at 10:00; Stop 08/24/16 at 11:29; Status DC Sodium Chloride 1,000 ml @ 1,000 mls/hr 1X ONCE IV Last administered on 10:31; Start 08/24/16 at 10:00; Stop 08/24/16 at 10:59; Status DC Sodium Chloride (Iv Sodium Chloride 0.9% 1000ml Bag) 1,000 ml @ 1,000 mls/hr 1X ONCE IV ; Start 08/24/16 at 10:00; Stop 08/24/16 at 10:59; Status UNV Fentanyl Citrate (Fentanyl 2ml Vial) 50 mcg 1X ONCE IV Last administered on 11:09; Start 08/24/16 at 10:30; Stop 08/24/16 at 10:31; Status DC Iohexol (Omnipaque 300 Mg/ml) 60 ml 1X ONCE IV Last administered on 08/24/16 10:48; Start 08/24/16 at 10:30; Stop 08/24/16 at 10:31; Status DC Ondansetron HCl (Zofran) 4 mg PRN Q8HRS PRN IV NAUSEA/VOMITING; Start 08/24/16 at 11:45; Stop 08/24/16 at 13:45; Status DC Fentanyl Citrate 50 mcg 50 mcg PRN Q1HR PRN IV PAIN; Start 08/24/16 at 11:45; Stop 08/25/16 at 11:44; Status DC Sodium Chloride (Iv Sodium Chloride 0.9% 1000ml Bag) 1,000 ml @ 150 mls/hr Q6H40M IV ; Start 08/24/16 at 12:00; Stop 08/25/16 at 11:59; Status DC Acetaminophen 650 mg 650 mg PRN Q4HRS PRN PO FEVER; Start 08/24/16 at 11:45; Stop 08/24/16 at 22:21; Status DC Potassium Chloride/Dextrose/ Sod Cl (KCl 20 Meq In D5W-1/2 NS) 1,000 ml @ 40 mls/hr Q24H IV Last administered on 08/29/16 06:31; Start 08/24/16 at 15:00; Stop 08/29/16 at 09:56; Status DC Acetaminophen (Tylenol) 650 mg PRN Q6HRS PRN ND MILD PAIN / TEMP; Start at 13:45; Stop 08/25/16 at 08:58; Status DC Pantoprazole Sodium (Protonix Vial) 40 mg DAILYAC IVP Last administered on 08/25 07:53; Start 08/24/16 at 14:00; Stop 08/25/16 at 08:58; Status DC Ondansetron HCl (Zofran) 4 mg PRN Q6HRS PRN IV NAUSEA/VOMITING; Start 08/24/16 at 13:45 Enoxaparin Sodium 40 mg 40 mg Q24H SQ Last administered on 08/26/16 14:43; Start 08/24/16 at 15:00; Stop 08/27/16 at 10:14; Status DC Meropenem 500 mg/ Sodium Chloride 50 ml @ 100 mls/hr Q6HRS IV Last administered on 08/29/16 06:36; Start 08/24/16 at 16:00; Stop 08/29/16 at 08:39 ; Status DC Fluconazole/ Sodium Chloride (Diflucan 400mg/ 200ml Premix) 200 ml @ 100 mls/ hr Q24H IV Last administered on 08/27/16 16:37; Start 08/24/16 at 15:00; Stop 08/28/16 at 08:34; Status DC Albuterol Sulfate (Ventolin Neb Soln) 2.5 mg RTQID NEB Last administered on 08:13; Start 08/24/16 at 20:00 Albuterol Sulfate (Ventolin Neb Soln) 2.5 mg PRN Q4HRS PRN NEB SHORTNESS OF BREATH; Start 08/24/16 at 19:45 Acetaminophen (Tylenol) 500 mg QHS PO Last administered on 08/29/16 21:07; Start 08/24/16 at 22:30 Diphenhydramine HCl (Benadryl) 25 mg QHS PO Last administered on 08/30/16 21: 03; Start 08/24/16 at 22:30 Pantoprazole Sodium (Protonix) 40 mg DAILYAC PO Last administered on 08/31/16 08:31; Start 08/26/16 at 07:30 Acetaminophen (Tylenol) 650 mg PRN Q4HRS PRN PO MILD PAIN / TEMP Last administered on 08/30/16 21:03; Start 08/25/16 at 09:00 Vancomycin HCl 1 each 1 each PRN DAILY PRN MC SEE COMMENTS Last administered on 08/26/16 13:07; Start 08/26/16 at 08:00; Stop 08/27/16 at 10:25; Status DC Vancomycin HCl/ Sodium Chloride (Iv Sodium Chloride 0.9% 500ml Bag) 500 ml @ 250 mls/hr 1X ONCE IV Last administered on 08/26/16 09:30; Start 08/26/16 at 09:00; Stop 08/26/16 at 10:59; Status DC Tamsulosin HCl 0.4 mg 0.4 mg DAILY PO Last administered on 08/31/16 08:31; Start 08/26/16 at 13:00 Vancomycin HCl/ Sodium Chloride (Iv Sodium Chloride 0.9% 500ml Bag) 500 ml @ 250 mls/hr Q12H IV Last administered on 08/27/16 08:30; Start 08/26/16 at 21: 00; Stop 08/27/16 at 10:25; Status DC Vancomycin HCl 1 each 1X ONCE MC ; Start 08/27/16 at 20:30; Stop 08/27/16 at 20 :30; Status DC Alteplase, Recombinant (Cathflo) 2 mg PRN DAILY PRN INT CAT PER PROTOCOL Last administered on 08/30/16 09:48; Start 08/27/16 at 10:15 Sodium Cl/Sod Bicarb/Potass Cl/ PEG (Golytely) 4,000 ml 1X ONCE PO ; Start at 13:00; Stop 08/27/16 at 15:19; Status DC Polyethylene Glycol (miraLAX Powder BULK BOTTLE) 238 gm 1X ONCE PO Last administered on 08/27/16 16:39; Start 08/27/16 at 16:00; Stop 08/27/16 at 16:01 ; Status DC Bisacodyl (Dulcolax Tab) 10 mg 1X ONCE PO Last administered on 08/27/16 16:39 ; Start 08/27/16 at 16:00; Stop 08/27/16 at 16:01; Status DC Morphine Sulfate 1 mg 1 mg PRN Q10MIN PRN IV SEVERE PAIN Last administered on 11:44; Start 08/28/16 at 07:00; Stop 08/29/16 at 06:59; Status DC Lactated Ringer's (Iv Lactated Ringers) 1,000 ml @ 0 mls/hr Q0M IV ; Start at 07:00; Stop 08/28/16 at 18:59; Status DC Lidocaine HCl 2 ml 1X PRN PRN ID IV START; Start 08/28/16 at 07:00; Stop at 06:59; Status DC Hydromorphone HCl (Dilaudid) 0.5 mg PRN Q10MIN PRN IV SEVERE PAIN, Second choice; Start 08/28/16 at 07:00; Stop 08/29/16 at 06:59; Status DC Prochlorperazine Edisylate (Compazine) 5 mg PACU PRN PRN IV NAUSEA; Start 08/28 at 07:00; Stop 08/29/16 at 06:59; Status DC Lorazepam (Ativan) 0.5 mg PRN Q8HRS PRN PO ANXIETY / AGITATION Last administered on 08/28/16 13:27; Start 08/27/16 at 18:15 Acetaminophen (Tylenol) 650 mg PRN Q4HRS PRN PO MILD PAIN / TEMP; Start at 18:15; Status UNV Lidocaine/Sodium Bicarbonate (Buffered Lidocaine 1%) 20 ml STK-MED ONCE IJ ; Start 08/28/16 at 08:05; Stop 08/28/16 at 08:06; Status DC Neostigmine Methylsulfate 5 mg STK-MED ONCE .ROUTE ; Start 08/28/16 at 10:16; Stop 08/28/16 at 10:17; Status DC Glycopyrrolate (Robinul) 1 mg STK-MED ONCE .ROUTE ; Start 08/28/16 at 10:16; Stop 08/28/16 at 10:17; Status DC Fentanyl Citrate (Fentanyl 5ml Vial) 250 mcg STK-MED ONCE .ROUTE ; Start at 10:16; Stop 08/28/16 at 10:17; Status DC Lidocaine/Sodium Bicarbonate (Buffered Lidocaine 1%) 20 ml 1X ONCE IJ Last administered on 08/28/16t 10:45; Start 08/28/16 at 10:45; Stop 08/28/16 at 10:46 ; Status DC Phenylephrine HCl 1 mg STK-MED ONCE IV ; Start 08/28/16 at 11:51; Stop 08/28/16 at 11:52; Status DC Dexamethasone Sodium Phosphate (Decadron) 20 mg STK-MED ONCE .ROUTE ; Start at 11:51; Stop 08/28/16 at 11:52; Status DC Ondansetron HCl (Zofran) 4 mg STK-MED ONCE .ROUTE ; Start 08/28/16 at 11:51; Stop 08/28/16 at 11:52; Status DC Sevoflurane (Ultane) 60 ml STK-MED ONCE IH ; Start 08/28/16 at 11:51; Stop 08/28 at 11:52; Status DC Vancomycin HCl 1 each 1 each PRN DAILY PRN MC SEE COMMENTS; Start 08/28/16 at 11:45; Stop 08/28/16 at 12:03; Status DC Tigecycline 100 mg/Sodium Chloride 100 ml @ 200 mls/hr 1X ONCE IV Last administered on 08/29/16 10:56; Start 08/29/16 at 10:00; Stop 08/29/16 at 10:29 ; Status DC Tigecycline 50 mg/ Sodium Chloride 50 ml @ 100 mls/hr Q12HR IV Last administered on 08/31/16 08:32; Start 08/29/16 at 21:00 Dextrose 1,000 ml @ 60 mls/hr [id number] IV Last administered on 08/30/16 21:02 ; Start 08/29/16 at 10:00 Propofol (Diprivan) 200 mg STK-MED ONCE IV ; Start 08/28/16 at 12:00; Stop 08/29 at 11:22; Status DC Rocuronium Ranger (Zemuron) 50 mg STK-MED ONCE .ROUTE ; Start 08/28/16 at 12:00 ; Stop 08/29/16 at 11:22; Status DC Succinylcholine Chloride (Anectine) 200 mg STK-MED ONCE .ROUTE ; Start 08/28/16 at 12:00; Stop 08/29/16 at 11:22; Status DC Active Scripts Active Prednisone 20 Mg Tablet 30 Mg PO DAILY Levaquin (Levofloxacin) 500 Mg Tablet 500 Mg PO DAILY06 Albuterol Sulfate Neb Soln (Albuterol Sulfate) 2.5 Mg/3 Ml Vial.neb 2.5 Mg NEB RTQID Tylenol (Acetaminophen) 325 Mg Tablet 650 Mg PO PRN Q4HRS PRN Protonix (Pantoprazole Sodium) 40 Mg Tablet 40 Mg PO DAILYAC Vitals/I & O Vital Sign - Last 24 Hours 08/30/16 08/30/16 08/30/16 08/30/16 12:15 15:00 17:01 19:06 Temp 98.7 97.1 98.7 97.1 Pulse 111 107 Resp 18 22 B/P 120/76 123/85 Pulse Ox 96 95 95 97 O2 Delivery Nasal Cannula Nasal Cannula Nasal Cannula Nasal Cannula O2 Flow Rate 1.5 1.0 1.0 1.0 08/30/16 08/30/16 08/30/16 08/31/16 20:00 20:52 23:17 01:27 Temp 98.3 98.3 Pulse 89 B/P 105/66 Pulse Ox 98 99 O2 Delivery Nasal Cannula Nasal Cannula BiPAP/CPAP BiPAP/CPAP O2 Flow Rate 1.0 1.0 08/31/16 08/31/16 08/31/16 08/31/16 03:15 03:50 05:21 07:00 Temp 97.8 97.8 97.8 97.8 Pulse 74 79 Resp 20 20 B/P 123/67 144/80 Pulse Ox 100 100 O2 Delivery BiPAP/CPAP BiPAP/CPAP BiPAP/CPAP BiPAP/CPAP 08/31/16 08/31/16 08/31/16 08:02 08:14 11:09 Temp 98.0 98.0 Pulse 100 Resp 20 B/P 120/71 Pulse Ox 96 O2 Delivery Nasal Cannula Nasal Cannula Nasal Cannula O2 Flow Rate 1.0 1.0 Intake and Output 08/30/16 08/30/16 08/31/16 15:00 23:00 07:00 Intake Total 250 ml Output Total 1000 ml 300 ml Balance -750 ml -300 ml VANNESA ORELLANA MD Aug 31, 2016 11:17
--- NOTE | 2016-08-31 11:25 | PDOC ---
PROGRESS NOTES Subjective Subjective feels better. wbc 3.3 and platelet count 84K yesterday. will have GI schedule colonoscopy. Objective Objective Vital Signs Date Time Temp Pulse Resp B/P Pulse Ox O2 Delivery O2 Flow Rate FiO2 08/31/16 11:09 98.0 100 20 120/71 96 Nasal Cannula 98.0 08/31/16 08:14 1.0 Intake and Output 08/31/16 07:00 Intake Total 250 ml Output Total 1300 ml Balance -1050 ml Intake Oral 250 ml Output Urine Total 1300 ml Physical Exam Abdomen: Soft Heart: Regular rate, Normal S1, Normal S2 Extremities: Other (1 plus edema legs) General: Alert HEENT: Atraumatic Lungs: Other (decreased breath sounds) Neuro: Normal speech Psych/Mental Status: Mood NL Skin: No rashes Assessment Assessment Problems Medical Problems:Sepsis resolved 2. e. coli uti 3. pancytopenia improved. 4. 5. Cholelithiasis. 6. Sigmoid colon mass.colonoscopy postponed due to neutropenia 7. Chronic hypoxic and hypercapnic respiratory failure. 8. Obstructive sleep apnea. 9. Morbid obesity. fever resolved BPH and seminal vesicle inflammation hypernatremia ersolved (1) Sepsis Status: Acute (2) Urine retention Status: Acute (3) UTI (urinary tract infection) Status: Acute Plan Plan of Care change iv fluids to 1/2 NS will have GI reschedule colonoscopy labs tomorrow iv tygacil Comment Review of Relevant I have reviewed the following items lexus (where applicable) has been applied. Labs Laboratory Tests Test 08/30/16 11:55 White Blood Count 3.3x10^3/uL (4.0-11.0) Red Blood Count 2.91x10^6/uL (4.30-5.70) Hemoglobin 8.4g/dL (13.0-17.5) Hematocrit 26.2% (39.0-53.0) Mean Corpuscular Volume 90fL (79-100) Mean Corpuscular Hemoglobin 29pg (25-35) Mean Corpuscular Hemoglobin Concent 32g/dL (31-37) Red Cell Distribution Width 18.1% (11.5-14.5) Platelet Count 84x10^3/uL (140-400) Neutrophils (%) (Auto) 60% (31-73) Lymphocytes (%) (Auto) 30% (24-48) Monocytes (%) (Auto) 9% (0-9) Eosinophils (%) (Auto) 0% (0-3) Basophils (%) (Auto) 1% (0-3) Neutrophils # (Auto) 2.0x10^3uL (1.8-7.7) Lymphocytes # (Auto) 1.0x10^3/uL (1.0-4.8) Monocytes # (Auto) 0.3x10^3/uL (0.0-1.1) Eosinophils # (Auto) 0.0x10^3/uL (0.0-0.7) Basophils # (Auto) 0.0x10^3/uL (0.0-0.2) Sodium Level 144mmol/L (136-145) Potassium Level 4.3mmol/L (3.5-5.1) Chloride Level 106mmol/L (98-107) Carbon Dioxide Level 32mmol/L (21-32) Anion Gap 6 (6-14) Blood Urea Nitrogen 31mg/dL (8-26) Creatinine 1.1mg/dL (0.7-1.3) Estimated GFR (Cockcroft-Gault) 69.5 Glucose Level 90mg/dL (70-99) Calcium Level 7.6mg/dL (8.5-10.1) Laboratory Tests Test 08/30/16 11:55 White Blood Count 3.3x10^3/uL (4.0-11.0) Red Blood Count 2.91x10^6/uL (4.30-5.70) Hemoglobin 8.4g/dL (13.0-17.5) Hematocrit 26.2% (39.0-53.0) Mean Corpuscular Volume 90fL (79-100) Mean Corpuscular Hemoglobin 29pg (25-35) Mean Corpuscular Hemoglobin Concent 32g/dL (31-37) Red Cell Distribution Width 18.1% (11.5-14.5) Platelet Count 84x10^3/uL (140-400) Neutrophils (%) (Auto) 60% (31-73) Lymphocytes (%) (Auto) 30% (24-48) Monocytes (%) (Auto) 9% (0-9) Eosinophils (%) (Auto) 0% (0-3) Basophils (%) (Auto) 1% (0-3) Neutrophils # (Auto) 2.0x10^3uL (1.8-7.7) Lymphocytes # (Auto) 1.0x10^3/uL (1.0-4.8) Monocytes # (Auto) 0.3x10^3/uL (0.0-1.1) Eosinophils # (Auto) 0.0x10^3/uL (0.0-0.7) Basophils # (Auto) 0.0x10^3/uL (0.0-0.2) Sodium Level 144mmol/L (136-145) Potassium Level 4.3mmol/L (3.5-5.1) Chloride Level 106mmol/L (98-107) Carbon Dioxide Level 32mmol/L (21-32) Anion Gap 6 (6-14) Blood Urea Nitrogen 31mg/dL (8-26) Creatinine 1.1mg/dL (0.7-1.3) Estimated GFR (Cockcroft-Gault) 69.5 Glucose Level 90mg/dL (70-99) Calcium Level 7.6mg/dL (8.5-10.1) Microbiology 08/26/16 Blood Culture - Final, Complete NO GROWTH AFTER 5 DAYS 08/24/16 Urine Culture - Final, Complete 08/24/16 Urine Culture Result 1 (FAUSTINA) - Final, Complete 08/24/16 Antimicrobic Susceptibility - Final, Complete Medications Current Medications Lorazepam 2 mg 2 mg 1X ONCE IV Last administered on 08/24/16 08:29; Start at 08:30; Stop 08/24/16 at 08:31; Status DC Sodium Chloride (Iv Sodium Chloride 0.9% 1000ml Bag) 1,000 ml @ 1,000 mls/hr 1X ONCE IV Last administered on 08/24/16 09:22; Start 08/24/16 at 08:30; Stop 08/24/16 at 09:29; Status DC Ondansetron HCl 4 mg 4 mg 1X ONCE IV Last administered on 08/24/16 09:23; Start 08/24/16 at 08:30; Stop 08/24/16 at 08:31; Status DC Levofloxacin/ Dextrose 150 ml @ 100 mls/hr 1X ONCE IV Last administered on 11:09; Start 08/24/16 at 10:00; Stop 08/24/16 at 11:29; Status DC Sodium Chloride 1,000 ml @ 1,000 mls/hr 1X ONCE IV Last administered on 10:31; Start 08/24/16 at 10:00; Stop 08/24/16 at 10:59; Status DC Sodium Chloride (Iv Sodium Chloride 0.9% 1000ml Bag) 1,000 ml @ 1,000 mls/hr 1X ONCE IV ; Start 08/24/16 at 10:00; Stop 08/24/16 at 10:59; Status UNV Fentanyl Citrate (Fentanyl 2ml Vial) 50 mcg 1X ONCE IV Last administered on 11:09; Start 08/24/16 at 10:30; Stop 08/24/16 at 10:31; Status DC Iohexol (Omnipaque 300 Mg/ml) 60 ml 1X ONCE IV Last administered on 08/24/16 10:48; Start 08/24/16 at 10:30; Stop 08/24/16 at 10:31; Status DC Ondansetron HCl (Zofran) 4 mg PRN Q8HRS PRN IV NAUSEA/VOMITING; Start 08/24/16 at 11:45; Stop 08/24/16 at 13:45; Status DC Fentanyl Citrate 50 mcg 50 mcg PRN Q1HR PRN IV PAIN; Start 08/24/16 at 11:45; Stop 08/25/16 at 11:44; Status DC Sodium Chloride (Iv Sodium Chloride 0.9% 1000ml Bag) 1,000 ml @ 150 mls/hr Q6H40M IV ; Start 08/24/16 at 12:00; Stop 08/25/16 at 11:59; Status DC Acetaminophen 650 mg 650 mg PRN Q4HRS PRN PO FEVER; Start 08/24/16 at 11:45; Stop 08/24/16 at 22:21; Status DC Potassium Chloride/Dextrose/ Sod Cl (KCl 20 Meq In D5W-1/2 NS) 1,000 ml @ 40 mls/hr Q24H IV Last administered on 08/29/16 06:31; Start 08/24/16 at 15:00; Stop 08/29/16 at 09:56; Status DC Acetaminophen (Tylenol) 650 mg PRN Q6HRS PRN MA MILD PAIN / TEMP; Start at 13:45; Stop 08/25/16 at 08:58; Status DC Pantoprazole Sodium (Protonix Vial) 40 mg DAILYAC IVP Last administered on 08/25 07:53; Start 08/24/16 at 14:00; Stop 08/25/16 at 08:58; Status DC Ondansetron HCl (Zofran) 4 mg PRN Q6HRS PRN IV NAUSEA/VOMITING; Start 08/24/16 at 13:45 Enoxaparin Sodium 40 mg 40 mg Q24H SQ Last administered on 08/26/16 14:43; Start 08/24/16 at 15:00; Stop 08/27/16 at 10:14; Status DC Meropenem 500 mg/ Sodium Chloride 50 ml @ 100 mls/hr Q6HRS IV Last administered on 08/29/16 06:36; Start 08/24/16 at 16:00; Stop 08/29/16 at 08:39 ; Status DC Fluconazole/ Sodium Chloride (Diflucan 400mg/ 200ml Premix) 200 ml @ 100 mls/ hr Q24H IV Last administered on 08/27/16 16:37; Start 08/24/16 at 15:00; Stop 08/28/16 at 08:34; Status DC Albuterol Sulfate (Ventolin Neb Soln) 2.5 mg RTQID NEB Last administered on 08:13; Start 08/24/16 at 20:00 Albuterol Sulfate (Ventolin Neb Soln) 2.5 mg PRN Q4HRS PRN NEB SHORTNESS OF BREATH; Start 08/24/16 at 19:45 Acetaminophen (Tylenol) 500 mg QHS PO Last administered on 08/29/16 21:07; Start 08/24/16 at 22:30 Diphenhydramine HCl (Benadryl) 25 mg QHS PO Last administered on 08/30/16 21: 03; Start 08/24/16 at 22:30 Pantoprazole Sodium (Protonix) 40 mg DAILYAC PO Last administered on 08/31/16 08:31; Start 08/26/16 at 07:30 Acetaminophen (Tylenol) 650 mg PRN Q4HRS PRN PO MILD PAIN / TEMP Last administered on 08/30/16 21:03; Start 08/25/16 at 09:00 Vancomycin HCl 1 each 1 each PRN DAILY PRN MC SEE COMMENTS Last administered on 08/26/16 13:07; Start 08/26/16 at 08:00; Stop 08/27/16 at 10:25; Status DC Vancomycin HCl/ Sodium Chloride (Iv Sodium Chloride 0.9% 500ml Bag) 500 ml @ 250 mls/hr 1X ONCE IV Last administered on 08/26/16 09:30; Start 08/26/16 at 09:00; Stop 08/26/16 at 10:59; Status DC Tamsulosin HCl 0.4 mg 0.4 mg DAILY PO Last administered on 08/31/16 08:31; Start 08/26/16 at 13:00 Vancomycin HCl/ Sodium Chloride (Iv Sodium Chloride 0.9% 500ml Bag) 500 ml @ 250 mls/hr Q12H IV Last administered on 08/27/16 08:30; Start 08/26/16 at 21: 00; Stop 08/27/16 at 10:25; Status DC Vancomycin HCl 1 each 1X ONCE MC ; Start 08/27/16 at 20:30; Stop 08/27/16 at 20 :30; Status DC Alteplase, Recombinant (Cathflo) 2 mg PRN DAILY PRN INT CAT PER PROTOCOL Last administered on 08/30/16 09:48; Start 08/27/16 at 10:15 Sodium Cl/Sod Bicarb/Potass Cl/ PEG (Golytely) 4,000 ml 1X ONCE PO ; Start at 13:00; Stop 08/27/16 at 15:19; Status DC Polyethylene Glycol (miraLAX Powder BULK BOTTLE) 238 gm 1X ONCE PO Last administered on 08/27/16 16:39; Start 08/27/16 at 16:00; Stop 08/27/16 at 16:01 ; Status DC Bisacodyl (Dulcolax Tab) 10 mg 1X ONCE PO Last administered on 08/27/16 16:39 ; Start 08/27/16 at 16:00; Stop 08/27/16 at 16:01; Status DC Morphine Sulfate 1 mg 1 mg PRN Q10MIN PRN IV SEVERE PAIN Last administered on 11:44; Start 08/28/16 at 07:00; Stop 08/29/16 at 06:59; Status DC Lactated Ringer's (Iv Lactated Ringers) 1,000 ml @ 0 mls/hr Q0M IV ; Start at 07:00; Stop 08/28/16 at 18:59; Status DC Lidocaine HCl 2 ml 1X PRN PRN ID IV START; Start 08/28/16 at 07:00; Stop at 06:59; Status DC Hydromorphone HCl (Dilaudid) 0.5 mg PRN Q10MIN PRN IV SEVERE PAIN, Second choice; Start 08/28/16 at 07:00; Stop 08/29/16 at 06:59; Status DC Prochlorperazine Edisylate (Compazine) 5 mg PACU PRN PRN IV NAUSEA; Start 08/28 at 07:00; Stop 08/29/16 at 06:59; Status DC Lorazepam (Ativan) 0.5 mg PRN Q8HRS PRN PO ANXIETY / AGITATION Last administered on 08/28/16 13:27; Start 08/27/16 at 18:15 Acetaminophen (Tylenol) 650 mg PRN Q4HRS PRN PO MILD PAIN / TEMP; Start at 18:15; Status UNV Lidocaine/Sodium Bicarbonate (Buffered Lidocaine 1%) 20 ml STK-MED ONCE IJ ; Start 08/28/16 at 08:05; Stop 08/28/16 at 08:06; Status DC Neostigmine Methylsulfate 5 mg STK-MED ONCE .ROUTE ; Start 08/28/16 at 10:16; Stop 08/28/16 at 10:17; Status DC Glycopyrrolate (Robinul) 1 mg STK-MED ONCE .ROUTE ; Start 08/28/16 at 10:16; Stop 08/28/16 at 10:17; Status DC Fentanyl Citrate (Fentanyl 5ml Vial) 250 mcg STK-MED ONCE .ROUTE ; Start at 10:16; Stop 08/28/16 at 10:17; Status DC Lidocaine/Sodium Bicarbonate (Buffered Lidocaine 1%) 20 ml 1X ONCE IJ Last administered on 08/28/16 10:45; Start 08/28/16 at 10:45; Stop 08/28/16 at 10:46 ; Status DC Phenylephrine HCl 1 mg STK-MED ONCE IV ; Start 08/28/16 at 11:51; Stop 08/28/16 at 11:52; Status DC Dexamethasone Sodium Phosphate (Decadron) 20 mg STK-MED ONCE .ROUTE ; Start at 11:51; Stop 08/28/16 at 11:52; Status DC Ondansetron HCl (Zofran) 4 mg STK-MED ONCE .ROUTE ; Start 08/28/16 at 11:51; Stop 08/28/16 at 11:52; Status DC Sevoflurane (Ultane) 60 ml STK-MED ONCE IH ; Start 08/28/16 at 11:51; Stop 08/28 at 11:52; Status DC Vancomycin HCl 1 each 1 each PRN DAILY PRN MC SEE COMMENTS; Start 08/28/16 at 11:45; Stop 08/28/16 at 12:03; Status DC Tigecycline 100 mg/Sodium Chloride 100 ml @ 200 mls/hr 1X ONCE IV Last administered on 08/29/16 10:56; Start 08/29/16 at 10:00; Stop 08/29/16 at 10:29 ; Status DC Tigecycline 50 mg/ Sodium Chloride 50 ml @ 100 mls/hr Q12HR IV Last administered on 08/31/16 08:32; Start 08/29/16 at 21:00 Dextrose 1,000 ml @ 60 mls/hr [id number] IV Last administered on 08/30/16 21:02 ; Start 08/29/16 at 10:00 Propofol (Diprivan) 200 mg STK-MED ONCE IV ; Start 08/28/16 at 12:00; Stop 08/29 at 11:22; Status DC Rocuronium [place] (Zemuron) 50 mg STK-MED ONCE .ROUTE ; Start 08/28/16 at 12:00 ; Stop 08/29/16 at 11:22; Status DC Succinylcholine Chloride (Anectine) 200 mg STK-MED ONCE .ROUTE ; Start 08/28/16 at 12:00; Stop 08/29/16 at 11:22; Status DC Active Scripts Active Prednisone 20 Mg Tablet 30 Mg PO DAILY Levaquin (Levofloxacin) 500 Mg Tablet 500 Mg PO DAILY06 Albuterol Sulfate Neb Soln (Albuterol Sulfate) 2.5 Mg/3 Ml Vial.neb 2.5 Mg NEB RTQID Tylenol (Acetaminophen) 325 Mg Tablet 650 Mg PO PRN Q4HRS PRN Protonix (Pantoprazole Sodium) 40 Mg Tablet 40 Mg PO DAILYAC Vitals/I & O Vital Sign - Last 24 Hours 08/30/16 08/30/16 08/30/16 08/30/16 12:15 15:00 17:01 19:06 Temp 98.7 97.1 98.7 97.1 Pulse 111 107 Resp 18 22 B/P 120/76 123/85 Pulse Ox 96 95 95 97 O2 Delivery Nasal Cannula Nasal Cannula Nasal Cannula Nasal Cannula O2 Flow Rate 1.5 1.0 1.0 1.0 08/30/16 08/30/16 08/30/16 08/31/16 20:00 20:52 23:17 01:27 Temp 98.3 98.3 Pulse 89 B/P 105/66 Pulse Ox 98 99 O2 Delivery Nasal Cannula Nasal Cannula BiPAP/CPAP BiPAP/CPAP O2 Flow Rate 1.0 1.0 08/31/16 08/31/16 08/31/16 08/31/16 03:15 03:50 05:21 07:00 Temp 97.8 97.8 97.8 97.8 Pulse 74 79 Resp 20 20 B/P 123/67 144/80 Pulse Ox 100 100 O2 Delivery BiPAP/CPAP BiPAP/CPAP BiPAP/CPAP BiPAP/CPAP 08/31/16 08/31/16 08/31/16 08:02 08:14 11:09 Temp 98.0 98.0 Pulse 100 Resp 20 B/P 120/71 Pulse Ox 96 O2 Delivery Nasal Cannula Nasal Cannula Nasal Cannula O2 Flow Rate 1.0 1.0 Intake and Output 08/30/16 08/30/16 08/31/16 15:00 23:00 07:00 Intake Total 250 ml Output Total 1000 ml 300 ml Balance -750 ml -300 ml KATI BILLINGSLEY MD Aug 31, 2016 11:25
--- NOTE | 2016-08-31 12:19 | PDOC ---
Infectious Disease Note Subjective Subjective Bothered with the pump beeping Denies pain No fever Vital Sign Vital Signs Vital Signs Date Time Temp Pulse Resp B/P Pulse Ox O2 Delivery O2 Flow Rate FiO2 08/31/16 11:09 98.0 100 20 120/71 96 Nasal Cannula 98.0 08/31/16 08:14 1.0 Physical Exam PHYSICAL EXAM GENERAL: Up in chair, smiling HEENT: Oral cavity pink NECK: Supple LUNGS: Clear HEART: S1S2, no gallop, no murmur ABD: Obese, BS present, soft, NT : [place] out EXT: BLE trace edema. PROCESS OWNER: Alert, follows commands SKIN: No rash RUE-PICC. mild skin irritation and bruising Labs Micro BLOOD CULTURE Preliminary NO GROWTH AFTER 5 DAYS Objective Assessment Fever - better Leukopenia/Pancytopenia 08/26 Influenza neg. ? reactive/sepsis or related to sigmoid mass. S/p Bone marrow biopsy 08/28, improved E. coli UTI 08/24. POA with enlarged prostate and some seminal vesicle inflammation. Now on Flomax Sigmoid mass PCN and cefpodoxime allergy. Mental retardation Plan Plan of Care Blood cults times 2 08/26 - neg Meropenem was discontinued on odd chance that could be suppressing bone marrow. Avoid other beta- lactams. Trial of Tigecycline. (Has second line intra - abdominal coverage also and neutropenic) Await bone marrow results Await further GI evaluation/colonoscopy. Patient seen and examined. Chart reviewed. Case discussed with TANK CAR INSPECTOR. Agree with above plan JILL HENRANDEZ APRN Aug 31, 2016 12:19 GERARDO CARRASQUILLO MD Aug 31, 2016 17:39
[2016-08-31] MEDS: IV 1/2 NORMAL SALINE 1,000 ML IV SCH (12:23)
--- NOTE | 2016-08-31 13:19 | PDOC ---
GI PROGRESS NOTES Date Date/Time DATE: 08/31/16 TIME: 13:16 Subjective Subjective sigmoid mass neuropenia Objective Vitals Vital Signs Date Time Temp Pulse Resp B/P Pulse Ox O2 Delivery O2 Flow Rate FiO2 08/31/16 11:09 98.0 100 20 120/71 96 Nasal Cannula 98.0 08/31/16 08:14 Nasal Cannula 1.0 08/31/16 08:02 Nasal Cannula 1.0 08/31/16 07:00 97.8 79 20 144/80 100 BiPAP/CPAP 97.8 08/31/16 05:21 BiPAP/CPAP 08/31/16 03:50 BiPAP/CPAP 08/31/16 03:15 97.8 74 20 123/67 100 BiPAP/CPAP 97.8 08/31/16 01:27 BiPAP/CPAP 08/30/16 23:17 98.3 89 105/66 99 BiPAP/CPAP 98.3 08/30/16 20:52 98 Nasal Cannula 1.0 08/30/16 20:00 Nasal Cannula 1.0 08/30/16 19:06 97.1 107 22 123/85 97 Nasal Cannula 1.0 97.1 08/30/16 17:01 95 Nasal Cannula 1.0 08/30/16 15:00 98.7 111 18 120/76 95 Nasal Cannula 1.0 98.7 Labs Labs WBC increased to 3.3 Physical Exam Physical Exam moaning in chair Assessment Assessment Sigmoid mass- colonoscopy planned but cancelled due to profound leukopenia- yesterday finally WBC starting to come up - to 3.3 Asked about colonoscopy Problems: Plan Plan On regular diet today, so can not prep and expect good results by tomorrow- will start Clear liquid diet now repeat CBC in AM if WBC remains up and all are agreeable, will begin bowel prep tomorrow for colonoscopy on ? Thursday JESSICA GRANT MD Aug 31, 2016 13:19
[2016-08-31 15:00] VITALS: BP 129/79
[2016-08-31 19:45] VITALS: BP 110/78
[2016-08-31] MEDS: ACETAMINOPHEN 500 MG TABLET PO SCH (21:45)
[2016-08-31] MEDS: DIPHENHYDRAMINE HCL 25 MG CAPSULE PO SCH (21:45)
[2016-08-31 23:15] VITALS: BP 132/84
[2016-09-01 03:20] VITALS: BP 118/67
[2016-09-01 04:32] LABS: BASO % 1 % (0-3); EOS % 3 % (0-3); HEMATOCRIT 27.5 % (39.0-53.0); HEMOGLOBIN 8.9 g/dL (13.0-17.5); LYMPH # 1.3 x10^3/uL (1.0-4.8); LYMPH % 35 % (24-48); MEAN CORPUSCULAR HEMOGLOBIN 29 pg (25-35); MEAN CORPUSCULAR HGB CONC 32 g/dL (31-37); MEAN CORPUSCULAR VOLUME 89 fL (79-100); MONO % 9 % (0-9); NEUT % 53 % (31-73); PLATELET COUNT 95 x10^3/uL (140-400); RED BLOOD COUNT 3.08 x10^6/uL (4.30-5.70); RED CELL DISTRIBUTION WIDTH 18.2 % (11.5-14.5); WHITE BLOOD COUNT 3.6 x10^3/uL (4.0-11.0)
[2016-09-01 04:55] LABS: CALCIUM 7.6 mg/dL (8.5-10.1); CREATININE 1.2 mg/dL (0.7-1.3); GFR 62.9; POTASSIUM 3.9 mmol/L (3.5-5.1)
[2016-09-01 07:15] VITALS: BP 150/65
[2016-09-01] MEDS: ALBUTEROL SULFATE 2.5 MG/3 ML NEBU. NEB SCH ×4 (07:51→22:19)
--- NOTE | 2016-09-01 08:48 | PDOC ---
PROGRESS NOTES Subjective Subjective c/c - f/u of pancytopenia Objective Objective Vital Signs Date Time Temp Pulse Resp B/P Pulse Ox O2 Delivery O2 Flow Rate FiO2 09/01/16 07:52 97 Nasal Cannula 1.0 09/01/16 07:15 99.1 80 20 150/65 99.1 Intake and Output 09/01/16 07:00 Intake Total 950 ml Output Total 2050 ml Balance -1100 ml Intake Oral 600 ml IV Total 350 ml Output Urine Total 2050 ml # Voids 3 Physical Exam Abdomen: No masses General: Alert Assessment Assessment Problems Medical Problems: (1) Sepsis Status: Acute (2) Urine retention Status: Acute (3) UTI (urinary tract infection) Status: Acute ASSESSMENT AND PLAN: The patient is a 56-year-old male with the following medical problems: 1. Anemia of chronic disease, stable. 8.9 2. Chronic thrombocytopenia, worsen. s/p bone marrow bx 08/28/16. I d/w his mother Charline. Plt 95. 3. Neutropenia, acute this admission. WBC better at 3.6. 4. Escherichia coli urinary tract infection/sepsis, recent hospitalization for severe pneumonia. Comment Review of Relevant I have reviewed the following items lexus (where applicable) has been applied. Labs Laboratory Tests Test 08/30/16 11:55 09/01/16 04:15 White Blood Count 3.3x10^3/uL (4.0-11.0) 3.6x10^3/uL (4.0-11.0) Red Blood Count 2.91x10^6/uL (4.30-5.70) 3.08x10^6/uL (4.30-5.70) Hemoglobin 8.4g/dL (13.0-17.5) 8.9g/dL (13.0-17.5) Hematocrit 26.2% (39.0-53.0) 27.5% (39.0-53.0) Mean Corpuscular Volume 90fL (79-100) 89fL (79-100) Mean Corpuscular Hemoglobin 29pg (25-35) 29pg (25-35) Mean Corpuscular Hemoglobin Concent 32g/dL (31-37) 32g/dL (31-37) Red Cell Distribution Width 18.1% (11.5-14.5) 18.2% (11.5-14.5) Platelet Count 84x10^3/uL (140-400) 95x10^3/uL (140-400) Neutrophils (%) (Auto) 60% (31-73) 53% (31-73) Lymphocytes (%) (Auto) 30% (24-48) 35% (24-48) Monocytes (%) (Auto) 9% (0-9) 9% (0-9) Eosinophils (%) (Auto) 0% (0-3) 3% (0-3) Basophils (%) (Auto) 1% (0-3) 1% (0-3) Neutrophils # (Auto) 2.0x10^3uL (1.8-7.7) 1.9x10^3uL (1.8-7.7) Lymphocytes # (Auto) 1.0x10^3/uL (1.0-4.8) 1.3x10^3/uL (1.0-4.8) Monocytes # (Auto) 0.3x10^3/uL (0.0-1.1) 0.3x10^3/uL (0.0-1.1) Eosinophils # (Auto) 0.0x10^3/uL (0.0-0.7) 0.1x10^3/uL (0.0-0.7) Basophils # (Auto) 0.0x10^3/uL (0.0-0.2) 0.0x10^3/uL (0.0-0.2) Sodium Level 144mmol/L (136-145) 145mmol/L (136-145) Potassium Level 4.3mmol/L (3.5-5.1) 3.9mmol/L (3.5-5.1) Chloride Level 106mmol/L (98-107) 106mmol/L (98-107) Carbon Dioxide Level 32mmol/L (21-32) 35mmol/L (21-32) Anion Gap 6 (6-14) 4 (6-14) Blood Urea Nitrogen 31mg/dL (8-26) 28mg/dL (8-26) Creatinine 1.1mg/dL (0.7-1.3) 1.2mg/dL (0.7-1.3) Estimated GFR (Cockcroft-Gault) 69.5 62.9 Glucose Level 90mg/dL (70-99) 84mg/dL (70-99) Calcium Level 7.6mg/dL (8.5-10.1) 7.6mg/dL (8.5-10.1) Laboratory Tests Test 09/01/16 04:15 White Blood Count 3.6x10^3/uL (4.0-11.0) Red Blood Count 3.08x10^6/uL (4.30-5.70) Hemoglobin 8.9g/dL (13.0-17.5) Hematocrit 27.5% (39.0-53.0) Mean Corpuscular Volume 89fL (79-100) Mean Corpuscular Hemoglobin 29pg (25-35) Mean Corpuscular Hemoglobin Concent 32g/dL (31-37) Red Cell Distribution Width 18.2% (11.5-14.5) Platelet Count 95x10^3/uL (140-400) Neutrophils (%) (Auto) 53% (31-73) Lymphocytes (%) (Auto) 35% (24-48) Monocytes (%) (Auto) 9% (0-9) Eosinophils (%) (Auto) 3% (0-3) Basophils (%) (Auto) 1% (0-3) Neutrophils # (Auto) 1.9x10^3uL (1.8-7.7) Lymphocytes # (Auto) 1.3x10^3/uL (1.0-4.8) Monocytes # (Auto) 0.3x10^3/uL (0.0-1.1) Eosinophils # (Auto) 0.1x10^3/uL (0.0-0.7) Basophils # (Auto) 0.0x10^3/uL (0.0-0.2) Sodium Level 145mmol/L (136-145) Potassium Level 3.9mmol/L (3.5-5.1) Chloride Level 106mmol/L (98-107) Carbon Dioxide Level 35mmol/L (21-32) Anion Gap 4 (6-14) Blood Urea Nitrogen 28mg/dL (8-26) Creatinine 1.2mg/dL (0.7-1.3) Estimated GFR (Cockcroft-Gault) 62.9 Glucose Level 84mg/dL (70-99) Calcium Level 7.6mg/dL (8.5-10.1) Microbiology 08/26/16 Blood Culture - Final, Complete NO GROWTH AFTER 5 DAYS 08/24/16 Urine Culture - Final, Complete 08/24/16 Urine Culture Result 1 (FAUSTINA) - Final, Complete 08/24/16 Antimicrobic Susceptibility - Final, Complete Medications Current Medications Lorazepam 2 mg 2 mg 1X ONCE IV Last administered on 08/24/16 08:29; Start at 08:30; Stop 08/24/16 at 08:31; Status DC Sodium Chloride (Iv Sodium Chloride 0.9% 1000ml Bag) 1,000 ml @ 1,000 mls/hr 1X ONCE IV Last administered on 08/24/16 09:22; Start 08/24/16 at 08:30; Stop 08/24/16 at 09:29; Status DC Ondansetron HCl 4 mg 4 mg 1X ONCE IV Last administered on 08/24/16 09:23; Start 08/24/16 at 08:30; Stop 08/24/16 at 08:31; Status DC Levofloxacin/ Dextrose 150 ml @ 100 mls/hr 1X ONCE IV Last administered on 11:09; Start 08/24/16 at 10:00; Stop 08/24/16 at 11:29; Status DC Sodium Chloride 1,000 ml @ 1,000 mls/hr 1X ONCE IV Last administered on 10:31; Start 08/24/16 at 10:00; Stop 08/24/16 at 10:59; Status DC Sodium Chloride (Iv Sodium Chloride 0.9% 1000ml Bag) 1,000 ml @ 1,000 mls/hr 1X ONCE IV ; Start 08/24/16 at 10:00; Stop 08/24/16 at 10:59; Status UNV Fentanyl Citrate (Fentanyl 2ml Vial) 50 mcg 1X ONCE IV Last administered on 11:09; Start 08/24/16 at 10:30; Stop 08/24/16 at 10:31; Status DC Iohexol (Omnipaque 300 Mg/ml) 60 ml 1X ONCE IV Last administered on 08/24/16 10:48; Start 08/24/16 at 10:30; Stop 08/24/16 at 10:31; Status DC Ondansetron HCl (Zofran) 4 mg PRN Q8HRS PRN IV NAUSEA/VOMITING; Start 08/24/16 at 11:45; Stop 08/24/16 at 13:45; Status DC Fentanyl Citrate 50 mcg 50 mcg PRN Q1HR PRN IV PAIN; Start 08/24/16 at 11:45; Stop 08/25/16 at 11:44; Status DC Sodium Chloride (Iv Sodium Chloride 0.9% 1000ml Bag) 1,000 ml @ 150 mls/hr Q6H40M IV ; Start 08/24/16 at 12:00; Stop 08/25/16 at 11:59; Status DC Acetaminophen 650 mg 650 mg PRN Q4HRS PRN PO FEVER; Start 08/24/16 at 11:45; Stop 08/24/16 at 22:21; Status DC Potassium Chloride/Dextrose/ Sod Cl (KCl 20 Meq In D5W-1/2 NS) 1,000 ml @ 40 mls/hr Q24H IV Last administered on 08/29/16 06:31; Start 08/24/16 at 15:00; Stop 08/29/16 at 09:56; Status DC Acetaminophen (Tylenol) 650 mg PRN Q6HRS PRN [place] MILD PAIN / TEMP; Start at 13:45; Stop 08/25/16 at 08:58; Status DC Pantoprazole Sodium (Protonix Vial) 40 mg DAILYAC IVP Last administered on 08/25 07:53; Start 08/24/16 at 14:00; Stop 08/25/16 at 08:58; Status DC Ondansetron HCl (Zofran) 4 mg PRN Q6HRS PRN IV NAUSEA/VOMITING; Start 08/24/16 at 13:45 Enoxaparin Sodium 40 mg 40 mg Q24H SQ Last administered on 08/26/16 14:43; Start 08/24/16 at 15:00; Stop 08/27/16 at 10:14; Status DC Meropenem 500 mg/ Sodium Chloride 50 ml @ 100 mls/hr Q6HRS IV Last administered on 08/29/16 06:36; Start 08/24/16 at 16:00; Stop 08/29/16 at 08:39 ; Status DC Fluconazole/ Sodium Chloride (Diflucan 400mg/ 200ml Premix) 200 ml @ 100 mls/ hr Q24H IV Last administered on 08/27/16 16:37; Start 08/24/16 at 15:00; Stop 08/28/16 at 08:34; Status DC Albuterol Sulfate (Ventolin Neb Soln) 2.5 mg RTQID NEB Last administered on 07:51; Start 08/24/16 at 20:00 Albuterol Sulfate (Ventolin Neb Soln) 2.5 mg PRN Q4HRS PRN NEB SHORTNESS OF BREATH; Start 08/24/16 at 19:45 Acetaminophen (Tylenol) 500 mg QHS PO Last administered on 08/31/16 21:45; Start 08/24/16 at 22:30 Diphenhydramine HCl (Benadryl) 25 mg QHS PO Last administered on 08/31/16 21: 45; Start 08/24/16 at 22:30 Pantoprazole Sodium (Protonix) 40 mg DAILYAC PO Last administered on 08/31/16 08:31; Start 08/26/16 at 07:30 Acetaminophen (Tylenol) 650 mg PRN Q4HRS PRN PO MILD PAIN / TEMP Last administered on 08/30/16 21:03; Start 08/25/16 at 09:00 Vancomycin HCl 1 each 1 each PRN DAILY PRN MC SEE COMMENTS Last administered on 08/26/16 13:07; Start 08/26/16 at 08:00; Stop 08/27/16 at 10:25; Status DC Vancomycin HCl/ Sodium Chloride (Iv Sodium Chloride 0.9% 500ml Bag) 500 ml @ 250 mls/hr 1X ONCE IV Last administered on 08/26/16 09:30; Start 08/26/16 at 09:00; Stop 08/26/16 at 10:59; Status DC Tamsulosin HCl 0.4 mg 0.4 mg DAILY PO Last administered on 08/31/16 08:31; Start 08/26/16 at 13:00 Vancomycin HCl/ Sodium Chloride (Iv Sodium Chloride 0.9% 500ml Bag) 500 ml @ 250 mls/hr Q12H IV Last administered on 08/27/16 08:30; Start 08/26/16 at 21: 00; Stop 08/27/16 at 10:25; Status DC Vancomycin HCl 1 each 1X ONCE MC ; Start 08/27/16 at 20:30; Stop 08/27/16 at 20 :30; Status DC Alteplase, Recombinant (Cathflo) 2 mg PRN DAILY PRN INT CAT PER PROTOCOL Last administered on 08/30/16 09:48; Start 08/27/16 at 10:15 Sodium Cl/Sod Bicarb/Potass Cl/ PEG (Golytely) 4,000 ml 1X ONCE PO ; Start at 13:00; Stop 08/27/16 at 15:19; Status DC Polyethylene Glycol (miraLAX Powder BULK BOTTLE) 238 gm 1X ONCE PO Last administered on 08/27/16 16:39; Start 08/27/16 at 16:00; Stop 08/27/16 at 16:01 ; Status DC Bisacodyl (Dulcolax Tab) 10 mg 1X ONCE PO Last administered on 08/27/16 16:39 ; Start 08/27/16 at 16:00; Stop 08/27/16 at 16:01; Status DC Morphine Sulfate 1 mg 1 mg PRN Q10MIN PRN IV SEVERE PAIN Last administered on 11:44; Start 08/28/16 at 07:00; Stop 08/29/16 at 06:59; Status DC Lactated Ringer's (Iv Lactated Ringers) 1,000 ml @ 0 mls/hr Q0M IV ; Start at 07:00; Stop 08/28/16 at 18:59; Status DC Lidocaine HCl 2 ml 1X PRN PRN ID IV START; Start 08/28/16 at 07:00; Stop at 06:59; Status DC Hydromorphone HCl (Dilaudid) 0.5 mg PRN Q10MIN PRN IV SEVERE PAIN, Second choice; Start 08/28/16 at 07:00; Stop 08/29/16 at 06:59; Status DC Prochlorperazine Edisylate (Compazine) 5 mg PACU PRN PRN IV NAUSEA; Start 08/28 at 07:00; Stop 08/29/16 at 06:59; Status DC Lorazepam (Ativan) 0.5 mg PRN Q8HRS PRN PO ANXIETY / AGITATION Last administered on 08/28/16t 13:27; Start 08/27/16 at 18:15 Acetaminophen (Tylenol) 650 mg PRN Q4HRS PRN PO MILD PAIN / TEMP; Start at 18:15; Status UNV Lidocaine/Sodium Bicarbonate (Buffered Lidocaine 1%) 20 ml STK-MED ONCE IJ ; Start 08/28/16 at 08:05; Stop 08/28/16 at 08:06; Status DC Neostigmine Methylsulfate 5 mg STK-MED ONCE .ROUTE ; Start 08/28/16 at 10:16; Stop 08/28/16 at 10:17; Status DC Glycopyrrolate (Robinul) 1 mg STK-MED ONCE .ROUTE ; Start 08/28/16 at 10:16; Stop 08/28/16 at 10:17; Status DC Fentanyl Citrate (Fentanyl 5ml Vial) 250 mcg STK-MED ONCE .ROUTE ; Start at 10:16; Stop 08/28/16 at 10:17; Status DC Lidocaine/Sodium Bicarbonate (Buffered Lidocaine 1%) 20 ml 1X ONCE IJ Last administered on 08/28/16t 10:45; Start 08/28/16 at 10:45; Stop 08/28/16 at 10:46 ; Status DC Phenylephrine HCl 1 mg STK-MED ONCE IV ; Start 08/28/16 at 11:51; Stop 08/28/16 at 11:52; Status DC Dexamethasone Sodium Phosphate (Decadron) 20 mg STK-MED ONCE .ROUTE ; Start at 11:51; Stop 08/28/16 at 11:52; Status DC Ondansetron HCl (Zofran) 4 mg STK-MED ONCE .ROUTE ; Start 08/28/16 at 11:51; Stop 08/28/16 at 11:52; Status DC Sevoflurane (Ultane) 60 ml STK-MED ONCE IH ; Start 08/28/16 at 11:51; Stop 08/28 at 11:52; Status DC Vancomycin HCl 1 each 1 each PRN DAILY PRN MC SEE COMMENTS; Start 08/28/16 at 11:45; Stop 08/28/16 at 12:03; Status DC Tigecycline 100 mg/Sodium Chloride 100 ml @ 200 mls/hr 1X ONCE IV Last administered on 08/29/16 10:56; Start 08/29/16 at 10:00; Stop 08/29/16 at 10:29 ; Status DC Tigecycline 50 mg/ Sodium Chloride 50 ml @ 100 mls/hr Q12HR IV Last administered on 08/31/16 21:49; Start 08/29/16 at 21:00 Dextrose 1,000 ml @ 60 mls/hr [id number] IV Last administered on 08/30/16 21:02 ; Start 08/29/16 at 10:00; Stop 08/31/16 at 11:23; Status DC Propofol (Diprivan) 200 mg STK-MED ONCE IV ; Start 08/28/16 at 12:00; Stop 08/29 at 11:22; Status DC Rocuronium [place] (Zemuron) 50 mg STK-MED ONCE .ROUTE ; Start 08/28/16 at 12:00 ; Stop 08/29/16 at 11:22; Status DC Succinylcholine Chloride 200 mg 200 mg STK-MED ONCE .ROUTE ; Start 08/28/16 at 12:00; Stop 08/29/16 at 11:22; Status DC Sodium Chloride (Iv Sodium Chloride 0.45%) 1,000 ml @ 60 mls/hr [id number] IV Last administered on 08/31/16 12:23; Start 08/31/16 at 11:30 Active Scripts Active Prednisone 20 Mg Tablet 30 Mg PO DAILY Levaquin (Levofloxacin) 500 Mg Tablet 500 Mg PO DAILY06 Albuterol Sulfate Neb Soln (Albuterol Sulfate) 2.5 Mg/3 Ml Vial.neb 2.5 Mg NEB RTQID Tylenol (Acetaminophen) 325 Mg Tablet 650 Mg PO PRN Q4HRS PRN Protonix (Pantoprazole Sodium) 40 Mg Tablet 40 Mg PO DAILYAC Vitals/I & O Vital Sign - Last 24 Hours 08/31/16 08/31/16 08/31/16 08/31/16 11:09 15:00 16:07 19:45 Temp 98.0 98.0 98.2 98.0 98.0 98.2 Pulse 100 89 88 Resp 20 18 18 B/P 120/71 129/79 110/78 Pulse Ox 96 96 93 O2 Delivery Nasal Cannula Nasal Cannula Nasal Cannula Nasal Cannula O2 Flow Rate 1.0 1.0 1.0 08/31/16 08/31/16 08/31/16 08/31/16 20:00 21:11 21:17 23:15 Temp 98.3 98.3 Pulse 105 Resp 32 B/P 132/84 Pulse Ox 99 100 98 O2 Delivery Nasal Cannula Nasal Cannula BiPAP/CPAP BiPAP/CPAP O2 Flow Rate 1.0 1.0 08/31/16 09/01/16 09/01/16 09/01/16 23:15 00:56 03:20 03:20 Temp 97.8 97.8 Pulse 82 Resp 35 B/P 118/67 Pulse Ox 95 O2 Delivery BiPAP/CPAP BiPAP/CPAP BiPAP/CPAP BiPAP/CPAP 09/01/16 09/01/16 09/01/16 09/01/16 03:30 05:20 07:15 07:52 Temp 99.1 99.1 Pulse 80 Resp 20 B/P 150/65 Pulse Ox 97 97 O2 Delivery BiPAP/CPAP BiPAP/CPAP BiPAP/CPAP Nasal Cannula O2 Flow Rate 1.0 Intake and Output 08/31/16 08/31/16 09/01/16 15:00 23:00 07:00 Intake Total 950 ml 0 ml Output Total 1200 ml 850 ml Balance -250 ml -850 ml MINO HATHAWAY MD Sep 01, 2016 08:48
[2016-09-01] MEDS: PANTOPRAZOLE 40 MG TABLET. PO SCH (09:20)
[2016-09-01] MEDS: TAMSULOSIN 0.4 MG CAP.ER.24H. PO SCH (09:20)
[2016-09-01] MEDS: TIGECYCLINE 50 MG in IV NORMAL SALINE 50ML 50 ML IV SCH ×2 (09:27→22:06)
[2016-09-01] MEDS: IV 1/2 NORMAL SALINE 1,000 ML IV SCH (09:28)
--- NOTE | 2016-09-01 09:32 | PDOC ---
Infectious Disease Note Subjective Subjective Bothered with the pump beeping Denies pain No fever ROS ROS GEN: Denies fevers, chills, sweats HEENT: Denies blurred vision, sore throat CV: Denies chest pain RESP: Denies shortness of air, cough GI: Denies n/v/d NEURO: Denies confusion, dizziness MSK: Denies weakness, joint pain/swelling Vital Sign Vital Signs Vital Signs Date Time Temp Pulse Resp B/P Pulse Ox O2 Delivery O2 Flow Rate FiO2 09/01/16 07:52 97 Nasal Cannula 1.0 09/01/16 07:15 99.1 80 20 150/65 99.1 Physical Exam PHYSICAL EXAM GENERAL: Up in chair, smiling HEENT: Oral cavity pink NECK: Supple LUNGS: Clear HEART: S1S2, no gallop, no murmur ABD: Obese, BS present, soft, NT : Quevedo out EXT: BLE trace edema. 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 SKIN: No rash Labs Lab Laboratory Tests Test 09/01/16 04:15 09/01/16 07:18 White Blood Count 3.6x10^3/uL (4.0-11.0) Red Blood Count 3.08x10^6/uL (4.30-5.70) Hemoglobin 8.9g/dL (13.0-17.5) Hematocrit 27.5% (39.0-53.0) Mean Corpuscular Volume 89fL (79-100) Mean Corpuscular Hemoglobin 29pg (25-35) Mean Corpuscular Hemoglobin Concent 32g/dL (31-37) Red Cell Distribution Width 18.2% (11.5-14.5) Platelet Count 95x10^3/uL (140-400) Neutrophils (%) (Auto) 53% (31-73) Lymphocytes (%) (Auto) 35% (24-48) Monocytes (%) (Auto) 9% (0-9) Eosinophils (%) (Auto) 3% (0-3) Basophils (%) (Auto) 1% (0-3) Neutrophils # (Auto) 1.9x10^3uL (1.8-7.7) Lymphocytes # (Auto) 1.3x10^3/uL (1.0-4.8) Monocytes # (Auto) 0.3x10^3/uL (0.0-1.1) Eosinophils # (Auto) 0.1x10^3/uL (0.0-0.7) Basophils # (Auto) 0.0x10^3/uL (0.0-0.2) Sodium Level 145mmol/L (136-145) Potassium Level 3.9mmol/L (3.5-5.1) Chloride Level 106mmol/L (98-107) Carbon Dioxide Level 35mmol/L (21-32) Anion Gap 4 (6-14) Blood Urea Nitrogen 28mg/dL (8-26) Creatinine 1.2mg/dL (0.7-1.3) Estimated GFR (Cockcroft-Gault) 62.9 Glucose Level 84mg/dL (70-99) Calcium Level 7.6mg/dL (8.5-10.1) Glucose (Fingerstick) 81mg/dL (70-99) Micro Escherichia coli 25,000-50,000 colony forming units per mL ANTIMICROBIAL SUSCEPTIBILITY Final Comment S = Susceptible; I = Intermediate; R = Resistant P = Positive; N = Negative MICS are expressed in micrograms per mL Antibiotic RSLT#1 RSLT#2 RSLT#3 RSLT#4 Amoxicillin/Clavulanic Acid S =8 Ampicillin R>=32 Cefepime S<=1 Ceftriaxone S<=1 Cefuroxime I =16 Cephalothin R =32 Ciprofloxacin R>=4 Ertapenem S<=0.5 Gentamicin S<=1 Imipenem S<=1 Levofloxacin R>=8 Nitrofurantoin S<=16 Piperacillin R>=128 Tetracycline S =4 Tobramycin S<=1 Trimethoprim/Sulfa S<=20 Objective Assessment Fever - better Leukopenia/Pancytopenia 08/26 better. Influenza neg. ? reactive/sepsis or related to sigmoid mass. S/p Bone marrow biopsy 08/28 Ecoli UTI 08/24. POA with enlarged prostate and some seminal vesicle inflammation. Now on Flomax Sigmoid mass PCN and cefpodoxime allergy. Mental retardation Plan Plan of Care Blood cults times 2 08/26 - neg Meropenem was discontinued on odd chance that could be suppressing bone marrow. Avoid other beta- lactams. Trial of Tigecycline. (Has second line intra - abdominal coverage also and neutropenic) Await bone marrow results Await further GI evaluation/colonoscopy. FRANKLIN PEREZ MD Sep 01, 2016 09:32
--- NOTE | 2016-09-01 09:41 | PDOC ---
PROGRESS NOTES Subjective Subjective feels better. discussed with his mother. colonoscopy prep today. lab reviewed. Objective Objective Vital Signs Date Time Temp Pulse Resp B/P Pulse Ox O2 Delivery O2 Flow Rate FiO2 09/01/16 07:52 97 Nasal Cannula 1.0 09/01/16 07:15 99.1 80 20 150/65 99.1 Intake and Output 09/01/16 07:00 Intake Total 950 ml Output Total 2050 ml Balance -1100 ml Intake Oral 600 ml IV Total 350 ml Output Urine Total 2050 ml # Voids 3 Physical Exam Abdomen: Soft Heart: Regular rate, Normal S1, Normal S2 Extremities: Other (trace edema legs) General: Alert HEENT: Atraumatic Lungs: Clear to auscultation Neuro: Normal speech Psych/Mental Status: Mood NL Skin: No rashes Assessment Assessment Problems Medical Problems::Sepsis resolved 2. e. coli uti 3. pancytopenia improved. 4. 5. Cholelithiasis. 6. Sigmoid colon mass.colonoscopy postponed due to neutropenia 7. Chronic hypoxic and hypercapnic respiratory failure. 8. Obstructive sleep apnea. 9. Morbid obesity. fever resolved BPH and seminal vesicle inflammation hypernatremia resolved (1) Sepsis Status: Acute (2) Urine retention Status: Acute (3) UTI (urinary tract infection) Status: Acute Plan Plan of Care continue iv tygacil colonoscopy tomorrow iv fluids kcl times 1 for colonoscopy prep Comment Review of Relevant I have reviewed the following items lexus (where applicable) has been applied. Labs Laboratory Tests Test 08/30/16 11:55 09/01/16 04:15 09/01/16 07:18 White Blood Count 3.3x10^3/uL (4.0-11.0) 3.6x10^3/uL (4.0-11.0) Red Blood Count 2.91x10^6/uL (4.30-5.70) 3.08x10^6/uL (4.30-5.70) Hemoglobin 8.4g/dL (13.0-17.5) 8.9g/dL (13.0-17.5) Hematocrit 26.2% (39.0-53.0) 27.5% (39.0-53.0) Mean Corpuscular Volume 90fL (79-100) 89fL (79-100) Mean Corpuscular Hemoglobin 29pg (25-35) 29pg (25-35) Mean Corpuscular Hemoglobin Concent 32g/dL (31-37) 32g/dL (31-37) Red Cell Distribution Width 18.1% (11.5-14.5) 18.2% (11.5-14.5) Platelet Count 84x10^3/uL (140-400) 95x10^3/uL (140-400) Neutrophils (%) (Auto) 60% (31-73) 53% (31-73) Lymphocytes (%) (Auto) 30% (24-48) 35% (24-48) Monocytes (%) (Auto) 9% (0-9) 9% (0-9) Eosinophils (%) (Auto) 0% (0-3) 3% (0-3) Basophils (%) (Auto) 1% (0-3) 1% (0-3) Neutrophils # (Auto) 2.0x10^3uL (1.8-7.7) 1.9x10^3uL (1.8-7.7) Lymphocytes # (Auto) 1.0x10^3/uL (1.0-4.8) 1.3x10^3/uL (1.0-4.8) Monocytes # (Auto) 0.3x10^3/uL (0.0-1.1) 0.3x10^3/uL (0.0-1.1) Eosinophils # (Auto) 0.0x10^3/uL (0.0-0.7) 0.1x10^3/uL (0.0-0.7) Basophils # (Auto) 0.0x10^3/uL (0.0-0.2) 0.0x10^3/uL (0.0-0.2) Sodium Level 144mmol/L (136-145) 145mmol/L (136-145) Potassium Level 4.3mmol/L (3.5-5.1) 3.9mmol/L (3.5-5.1) Chloride Level 106mmol/L (98-107) 106mmol/L (98-107) Carbon Dioxide Level 32mmol/L (21-32) 35mmol/L (21-32) Anion Gap 6 (6-14) 4 (6-14) Blood Urea Nitrogen 31mg/dL (8-26) 28mg/dL (8-26) Creatinine 1.1mg/dL (0.7-1.3) 1.2mg/dL (0.7-1.3) Estimated GFR (Cockcroft-Gault) 69.5 62.9 Glucose Level 90mg/dL (70-99) 84mg/dL (70-99) Calcium Level 7.6mg/dL (8.5-10.1) 7.6mg/dL (8.5-10.1) Glucose (Fingerstick) 81mg/dL (70-99) Laboratory Tests Test 09/01/16 04:15 09/01/16 07:18 White Blood Count 3.6x10^3/uL (4.0-11.0) Red Blood Count 3.08x10^6/uL (4.30-5.70) Hemoglobin 8.9g/dL (13.0-17.5) Hematocrit 27.5% (39.0-53.0) Mean Corpuscular Volume 89fL (79-100) Mean Corpuscular Hemoglobin 29pg (25-35) Mean Corpuscular Hemoglobin Concent 32g/dL (31-37) Red Cell Distribution Width 18.2% (11.5-14.5) Platelet Count 95x10^3/uL (140-400) Neutrophils (%) (Auto) 53% (31-73) Lymphocytes (%) (Auto) 35% (24-48) Monocytes (%) (Auto) 9% (0-9) Eosinophils (%) (Auto) 3% (0-3) Basophils (%) (Auto) 1% (0-3) Neutrophils # (Auto) 1.9x10^3uL (1.8-7.7) Lymphocytes # (Auto) 1.3x10^3/uL (1.0-4.8) Monocytes # (Auto) 0.3x10^3/uL (0.0-1.1) Eosinophils # (Auto) 0.1x10^3/uL (0.0-0.7) Basophils # (Auto) 0.0x10^3/uL (0.0-0.2) Sodium Level 145mmol/L (136-145) Potassium Level 3.9mmol/L (3.5-5.1) Chloride Level 106mmol/L (98-107) Carbon Dioxide Level 35mmol/L (21-32) Anion Gap 4 (6-14) Blood Urea Nitrogen 28mg/dL (8-26) Creatinine 1.2mg/dL (0.7-1.3) Estimated GFR (Cockcroft-Gault) 62.9 Glucose Level 84mg/dL (70-99) Calcium Level 7.6mg/dL (8.5-10.1) Glucose (Fingerstick) 81mg/dL (70-99) Microbiology 08/26/16 Blood Culture - Final, Complete NO GROWTH AFTER 5 DAYS 08/24/16 Urine Culture - Final, Complete 08/24/16 Urine Culture Result 1 (FAUSTINA) - Final, Complete 08/24/16 Antimicrobic Susceptibility - Final, Complete Medications Current Medications Lorazepam 2 mg 2 mg 1X ONCE IV Last administered on 08/24/16 08:29; Start at 08:30; Stop 08/24/16 at 08:31; Status DC Sodium Chloride (Iv Sodium Chloride 0.9% 1000ml Bag) 1,000 ml @ 1,000 mls/hr 1X ONCE IV Last administered on 08/24/16 09:22; Start 08/24/16 at 08:30; Stop 08/24/16 at 09:29; Status DC Ondansetron HCl 4 mg 4 mg 1X ONCE IV Last administered on 08/24/16 09:23; Start 08/24/16 at 08:30; Stop 08/24/16 at 08:31; Status DC Levofloxacin/ Dextrose 150 ml @ 100 mls/hr 1X ONCE IV Last administered on 11:09; Start 08/24/16 at 10:00; Stop 08/24/16 at 11:29; Status DC Sodium Chloride 1,000 ml @ 1,000 mls/hr 1X ONCE IV Last administered on 10:31; Start 08/24/16 at 10:00; Stop 08/24/16 at 10:59; Status DC Sodium Chloride (Iv Sodium Chloride 0.9% 1000ml Bag) 1,000 ml @ 1,000 mls/hr 1X ONCE IV ; Start 08/24/16 at 10:00; Stop 08/24/16 at 10:59; Status UNV Fentanyl Citrate (Fentanyl 2ml Vial) 50 mcg 1X ONCE IV Last administered on 11:09; Start 08/24/16 at 10:30; Stop 08/24/16 at 10:31; Status DC Iohexol (Omnipaque 300 Mg/ml) 60 ml 1X ONCE IV Last administered on 08/24/16 10:48; Start 08/24/16 at 10:30; Stop 08/24/16 at 10:31; Status DC Ondansetron HCl (Zofran) 4 mg PRN Q8HRS PRN IV NAUSEA/VOMITING; Start 08/24/16 at 11:45; Stop 08/24/16 at 13:45; Status DC Fentanyl Citrate 50 mcg 50 mcg PRN Q1HR PRN IV PAIN; Start 08/24/16 at 11:45; Stop 08/25/16 at 11:44; Status DC Sodium Chloride (Iv Sodium Chloride 0.9% 1000ml Bag) 1,000 ml @ 150 mls/hr Q6H40M IV ; Start 08/24/16 at 12:00; Stop 08/25/16 at 11:59; Status DC Acetaminophen 650 mg 650 mg PRN Q4HRS PRN PO FEVER; Start 08/24/16 at 11:45; Stop 08/24/16 at 22:21; Status DC Potassium Chloride/Dextrose/ Sod Cl (KCl 20 Meq In D5W-1/2 NS) 1,000 ml @ 40 mls/hr Q24H IV Last administered on 08/29/16 06:31; Start 08/24/16 at 15:00; Stop 08/29/16 at 09:56; Status DC Acetaminophen (Tylenol) 650 mg PRN Q6HRS PRN ID MILD PAIN / TEMP; Start at 13:45; Stop 08/25/16 at 08:58; Status DC Pantoprazole Sodium (Protonix Vial) 40 mg DAILYAC IVP Last administered on 08/25 07:53; Start 08/24/16 at 14:00; Stop 08/25/16 at 08:58; Status DC Ondansetron HCl (Zofran) 4 mg PRN Q6HRS PRN IV NAUSEA/VOMITING; Start 08/24/16 at 13:45 Enoxaparin Sodium 40 mg 40 mg Q24H SQ Last administered on 08/26/16 14:43; Start 08/24/16 at 15:00; Stop 08/27/16 at 10:14; Status DC Meropenem 500 mg/ Sodium Chloride 50 ml @ 100 mls/hr Q6HRS IV Last administered on 08/29/16 06:36; Start 08/24/16 at 16:00; Stop 08/29/16 at 08:39 ; Status DC Fluconazole/ Sodium Chloride (Diflucan 400mg/ 200ml Premix) 200 ml @ 100 mls/ hr Q24H IV Last administered on 08/27/16 16:37; Start 08/24/16 at 15:00; Stop 08/28/16 at 08:34; Status DC Albuterol Sulfate (Ventolin Neb Soln) 2.5 mg RTQID NEB Last administered on 07:51; Start 08/24/16 at 20:00 Albuterol Sulfate (Ventolin Neb Soln) 2.5 mg PRN Q4HRS PRN NEB SHORTNESS OF BREATH; Start 08/24/16 at 19:45 Acetaminophen (Tylenol) 500 mg QHS PO Last administered on 08/31/16 21:45; Start 08/24/16 at 22:30 Diphenhydramine HCl (Benadryl) 25 mg QHS PO Last administered on 08/31/16 21: 45; Start 08/24/16 at 22:30 Pantoprazole Sodium (Protonix) 40 mg DAILYAC PO Last administered on 09/01/16 09:20; Start 08/26/16 at 07:30 Acetaminophen (Tylenol) 650 mg PRN Q4HRS PRN PO MILD PAIN / TEMP Last administered on 08/30/16 21:03; Start 08/25/16 at 09:00 Vancomycin HCl 1 each 1 each PRN DAILY PRN MC SEE COMMENTS Last administered on 08/26/16 13:07; Start 08/26/16 at 08:00; Stop 08/27/16 at 10:25; Status DC Vancomycin HCl/ Sodium Chloride (Iv Sodium Chloride 0.9% 500ml Bag) 500 ml @ 250 mls/hr 1X ONCE IV Last administered on 08/26/16 09:30; Start 08/26/16 at 09:00; Stop 08/26/16 at 10:59; Status DC Tamsulosin HCl 0.4 mg 0.4 mg DAILY PO Last administered on 09/01/16 09:20; Start 08/26/16 at 13:00 Vancomycin HCl/ Sodium Chloride (Iv Sodium Chloride 0.9% 500ml Bag) 500 ml @ 250 mls/hr Q12H IV Last administered on 08/27/16 08:30; Start 08/26/16 at 21: 00; Stop 08/27/16 at 10:25; Status DC Vancomycin HCl 1 each 1X ONCE MC ; Start 08/27/16 at 20:30; Stop 08/27/16 at 20 :30; Status DC Alteplase, Recombinant (Cathflo) 2 mg PRN DAILY PRN INT CAT PER PROTOCOL Last administered on 08/30/16 09:48; Start 08/27/16 at 10:15 Sodium Cl/Sod Bicarb/Potass Cl/ PEG (Golytely) 4,000 ml 1X ONCE PO ; Start at 13:00; Stop 08/27/16 at 15:19; Status DC Polyethylene Glycol (miraLAX Powder BULK BOTTLE) 238 gm 1X ONCE PO Last administered on 08/27/16 16:39; Start 08/27/16 at 16:00; Stop 08/27/16 at 16:01 ; Status DC Bisacodyl (Dulcolax Tab) 10 mg 1X ONCE PO Last administered on 08/27/16 16:39 ; Start 08/27/16 at 16:00; Stop 08/27/16 at 16:01; Status DC Morphine Sulfate 1 mg 1 mg PRN Q10MIN PRN IV SEVERE PAIN Last administered on 11:44; Start 08/28/16 at 07:00; Stop 08/29/16 at 06:59; Status DC Lactated Ringer's (Iv Lactated Ringers) 1,000 ml @ 0 mls/hr Q0M IV ; Start at 07:00; Stop 08/28/16 at 18:59; Status DC Lidocaine HCl 2 ml 1X PRN PRN ID IV START; Start 08/28/16 at 07:00; Stop at 06:59; Status DC Hydromorphone HCl (Dilaudid) 0.5 mg PRN Q10MIN PRN IV SEVERE PAIN, Second choice; Start 08/28/16 at 07:00; Stop 08/29/16 at 06:59; Status DC Prochlorperazine Edisylate (Compazine) 5 mg PACU PRN PRN IV NAUSEA; Start 08/28 at 07:00; Stop 08/29/16 at 06:59; Status DC Lorazepam (Ativan) 0.5 mg PRN Q8HRS PRN PO ANXIETY / AGITATION Last administered on 08/28/16t 13:27; Start 08/27/16 at 18:15 Acetaminophen (Tylenol) 650 mg PRN Q4HRS PRN PO MILD PAIN / TEMP; Start at 18:15; Status UNV Lidocaine/Sodium Bicarbonate (Buffered Lidocaine 1%) 20 ml STK-MED ONCE IJ ; Start 08/28/16 at 08:05; Stop 08/28/16 at 08:06; Status DC Neostigmine Methylsulfate 5 mg STK-MED ONCE .ROUTE ; Start 08/28/16 at 10:16; Stop 08/28/16 at 10:17; Status DC Glycopyrrolate (Robinul) 1 mg STK-MED ONCE .ROUTE ; Start 08/28/16 at 10:16; Stop 08/28/16 at 10:17; Status DC Fentanyl Citrate (Fentanyl 5ml Vial) 250 mcg STK-MED ONCE .ROUTE ; Start at 10:16; Stop 08/28/16 at 10:17; Status DC Lidocaine/Sodium Bicarbonate (Buffered Lidocaine 1%) 20 ml 1X ONCE IJ Last administered on 08/28/16t 10:45; Start 08/28/16 at 10:45; Stop 08/28/16 at 10:46 ; Status DC Phenylephrine HCl 1 mg STK-MED ONCE IV ; Start 08/28/16 at 11:51; Stop 08/28/16 at 11:52; Status DC Dexamethasone Sodium Phosphate (Decadron) 20 mg STK-MED ONCE .ROUTE ; Start at 11:51; Stop 08/28/16 at 11:52; Status DC Ondansetron HCl (Zofran) 4 mg STK-MED ONCE .ROUTE ; Start 08/28/16 at 11:51; Stop 08/28/16 at 11:52; Status DC Sevoflurane (Ultane) 60 ml STK-MED ONCE IH ; Start 08/28/16 at 11:51; Stop 08/28 at 11:52; Status DC Vancomycin HCl 1 each 1 each PRN DAILY PRN MC SEE COMMENTS; Start 08/28/16 at 11:45; Stop 08/28/16 at 12:03; Status DC Tigecycline 100 mg/Sodium Chloride 100 ml @ 200 mls/hr 1X ONCE IV Last administered on 08/29/16 10:56; Start 08/29/16 at 10:00; Stop 08/29/16 at 10:29 ; Status DC Tigecycline 50 mg/ Sodium Chloride 50 ml @ 100 mls/hr Q12HR IV Last administered on 09/01/16 09:27; Start 08/29/16 at 21:00 Dextrose 1,000 ml @ 60 mls/hr [id number] IV Last administered on 08/30/16 21:02 ; Start 08/29/16 at 10:00; Stop 08/31/16 at 11:23; Status DC Propofol (Diprivan) 200 mg STK-MED ONCE IV ; Start 08/28/16 at 12:00; Stop 08/29 at 11:22; Status DC Rocuronium [place] (Zemuron) 50 mg STK-MED ONCE .ROUTE ; Start 08/28/16 at 12:00 ; Stop 08/29/16 at 11:22; Status DC Succinylcholine Chloride 200 mg 200 mg STK-MED ONCE .ROUTE ; Start 08/28/16 at 12:00; Stop 08/29/16 at 11:22; Status DC Sodium Chloride (Iv Sodium Chloride 0.45%) 1,000 ml @ 60 mls/hr [id number] IV Last administered on 09/01/16 09:28; Start 08/31/16 at 11:30 Active Scripts Active Prednisone 20 Mg Tablet 30 Mg PO DAILY Levaquin (Levofloxacin) 500 Mg Tablet 500 Mg PO DAILY06 Albuterol Sulfate Neb Soln (Albuterol Sulfate) 2.5 Mg/3 Ml Vial.neb 2.5 Mg NEB RTQID Tylenol (Acetaminophen) 325 Mg Tablet 650 Mg PO PRN Q4HRS PRN Protonix (Pantoprazole Sodium) 40 Mg Tablet 40 Mg PO DAILYAC Vitals/I & O Vital Sign - Last 24 Hours 08/31/16 08/31/16 08/31/16 08/31/16 11:09 15:00 16:07 19:45 Temp 98.0 98.0 98.2 98.0 98.0 98.2 Pulse 100 89 88 Resp 20 18 18 B/P 120/71 129/79 110/78 Pulse Ox 96 96 93 O2 Delivery Nasal Cannula Nasal Cannula Nasal Cannula Nasal Cannula O2 Flow Rate 1.0 1.0 1.0 08/31/16 08/31/16 08/31/16 08/31/16 20:00 21:11 21:17 23:15 Temp 98.3 98.3 Pulse 105 Resp 32 B/P 132/84 Pulse Ox 99 100 98 O2 Delivery Nasal Cannula Nasal Cannula BiPAP/CPAP BiPAP/CPAP O2 Flow Rate 1.0 1.0 08/31/16 09/01/16 09/01/16 09/01/16 23:15 00:56 03:20 03:20 Temp 97.8 97.8 Pulse 82 Resp 35 B/P 118/67 Pulse Ox 95 O2 Delivery BiPAP/CPAP BiPAP/CPAP BiPAP/CPAP BiPAP/CPAP 09/01/16 09/01/16 09/01/16 09/01/16 03:30 05:20 07:15 07:52 Temp 99.1 99.1 Pulse 80 Resp 20 B/P 150/65 Pulse Ox 97 97 O2 Delivery BiPAP/CPAP BiPAP/CPAP BiPAP/CPAP Nasal Cannula O2 Flow Rate 1.0 Intake and Output 08/31/16 08/31/16 09/01/16 15:00 23:00 07:00 Intake Total 950 ml 0 ml Output Total 1200 ml 850 ml Balance -250 ml -850 ml KATI BILLINGSLEY MD Sep 01, 2016 09:41
[2016-09-01 10:35] VITALS: BP 129/69
--- NOTE | 2016-09-01 10:44 | PDOC ---
SUBJECTIVE Subjective Pt. feeling ok OBJECTIVE Objective afeb, voiding without difficulty Vital Signs Vital Signs Date Time Temp Pulse Resp B/P Pulse Ox O2 Delivery O2 Flow Rate FiO2 09/01/16 10:35 97.5 91 20 129/69 98 BiPAP/CPAP 97.5 09/01/16 08:00 Nasal Cannula 1.0 09/01/16 07:52 97 Nasal Cannula 1.0 09/01/16 07:15 99.1 80 20 150/65 97 BiPAP/CPAP 99.1 09/01/16 05:20 BiPAP/CPAP 09/01/16 03:30 BiPAP/CPAP 09/01/16 03:20 97.8 82 35 118/67 BiPAP/CPAP 97.8 09/01/16 03:20 95 BiPAP/CPAP 09/01/16 00:56 BiPAP/CPAP 08/31/16 23:15 BiPAP/CPAP 08/31/16 23:15 98.3 105 32 132/84 98 BiPAP/CPAP 98.3 08/31/16 21:17 100 BiPAP/CPAP 08/31/16 21:11 99 Nasal Cannula 1.0 08/31/16 20:00 Nasal Cannula 1.0 08/31/16 19:45 98.2 88 18 110/78 93 Nasal Cannula 1.0 98.2 08/31/16 16:07 Nasal Cannula 1.0 08/31/16 15:00 98.0 89 18 129/79 96 Nasal Cannula 1.0 98.0 08/31/16 11:09 98.0 100 20 120/71 96 Nasal Cannula 98.0 I & O Intake and Output 09/01/16 07:00 Intake Total 950 ml Output Total 2050 ml Balance -1100 ml Intake Oral 600 ml IV Total 350 ml Output Urine Total 2050 ml # Voids 3 PHYSICAL EXAM Physical Exam Cr-1.2 ASSESSMENT/PLAN Assessment/Plan check PVR continue flomax f/u in office in 2 weeks Problems: COMMENT Lab Laboratory Tests Test 09/01/16 04:15 09/01/16 07:18 White Blood Count 3.6x10^3/uL (4.0-11.0) Red Blood Count 3.08x10^6/uL (4.30-5.70) Hemoglobin 8.9g/dL (13.0-17.5) Hematocrit 27.5% (39.0-53.0) Mean Corpuscular Volume 89fL (79-100) Mean Corpuscular Hemoglobin 29pg (25-35) Mean Corpuscular Hemoglobin Concent 32g/dL (31-37) Red Cell Distribution Width 18.2% (11.5-14.5) Platelet Count 95x10^3/uL (140-400) Neutrophils (%) (Auto) 53% (31-73) Lymphocytes (%) (Auto) 35% (24-48) Monocytes (%) (Auto) 9% (0-9) Eosinophils (%) (Auto) 3% (0-3) Basophils (%) (Auto) 1% (0-3) Neutrophils # (Auto) 1.9x10^3uL (1.8-7.7) Lymphocytes # (Auto) 1.3x10^3/uL (1.0-4.8) Monocytes # (Auto) 0.3x10^3/uL (0.0-1.1) Eosinophils # (Auto) 0.1x10^3/uL (0.0-0.7) Basophils # (Auto) 0.0x10^3/uL (0.0-0.2) Sodium Level 145mmol/L (136-145) Potassium Level 3.9mmol/L (3.5-5.1) Chloride Level 106mmol/L (98-107) Carbon Dioxide Level 35mmol/L (21-32) Anion Gap 4 (6-14) Blood Urea Nitrogen 28mg/dL (8-26) Creatinine 1.2mg/dL (0.7-1.3) Estimated GFR (Cockcroft-Gault) 62.9 Glucose Level 84mg/dL (70-99) Calcium Level 7.6mg/dL (8.5-10.1) Glucose (Fingerstick) 81mg/dL (70-99) SANDY GODDARD MD Sep 01, 2016 10:44
[2016-09-01] MEDS: POTASSIUM CHLORIDE 20 MEQ/15 ML ORAL LIQUID. PO SCH (10:52)
--- NOTE | 2016-09-01 10:54 | PDOC ---
PULMONARY PROGRESS NOTES Subjective no soa Vitals Vital Signs Date Time Temp Pulse Resp B/P Pulse Ox O2 Delivery O2 Flow Rate FiO2 09/01/16 10:35 97.5 91 20 129/69 98 BiPAP/CPAP 97.5 09/01/16 08:00 1.0 General: Alert, No acute distress HEENT: Other Lungs: Other (decrease bs) Cardiovascular: S1 Abdomen: Soft, Non-tender, Other Extremities: Other (trace edema) Labs Laboratory Tests Test 08/30/16 11:55 09/01/16 04:15 09/01/16 07:18 White Blood Count 3.3x10^3/uL (4.0-11.0) 3.6x10^3/uL (4.0-11.0) Red Blood Count 2.91x10^6/uL (4.30-5.70) 3.08x10^6/uL (4.30-5.70) Hemoglobin 8.4g/dL (13.0-17.5) 8.9g/dL (13.0-17.5) Hematocrit 26.2% (39.0-53.0) 27.5% (39.0-53.0) Mean Corpuscular Volume 90fL (79-100) 89fL (79-100) Mean Corpuscular Hemoglobin 29pg (25-35) 29pg (25-35) Mean Corpuscular Hemoglobin Concent 32g/dL (31-37) 32g/dL (31-37) Red Cell Distribution Width 18.1% (11.5-14.5) 18.2% (11.5-14.5) Platelet Count 84x10^3/uL (140-400) 95x10^3/uL (140-400) Neutrophils (%) (Auto) 60% (31-73) 53% (31-73) Lymphocytes (%) (Auto) 30% (24-48) 35% (24-48) Monocytes (%) (Auto) 9% (0-9) 9% (0-9) Eosinophils (%) (Auto) 0% (0-3) 3% (0-3) Basophils (%) (Auto) 1% (0-3) 1% (0-3) Neutrophils # (Auto) 2.0x10^3uL (1.8-7.7) 1.9x10^3uL (1.8-7.7) Lymphocytes # (Auto) 1.0x10^3/uL (1.0-4.8) 1.3x10^3/uL (1.0-4.8) Monocytes # (Auto) 0.3x10^3/uL (0.0-1.1) 0.3x10^3/uL (0.0-1.1) Eosinophils # (Auto) 0.0x10^3/uL (0.0-0.7) 0.1x10^3/uL (0.0-0.7) Basophils # (Auto) 0.0x10^3/uL (0.0-0.2) 0.0x10^3/uL (0.0-0.2) Sodium Level 144mmol/L (136-145) 145mmol/L (136-145) Potassium Level 4.3mmol/L (3.5-5.1) 3.9mmol/L (3.5-5.1) Chloride Level 106mmol/L (98-107) 106mmol/L (98-107) Carbon Dioxide Level 32mmol/L (21-32) 35mmol/L (21-32) Anion Gap 6 (6-14) 4 (6-14) Blood Urea Nitrogen 31mg/dL (8-26) 28mg/dL (8-26) Creatinine 1.1mg/dL (0.7-1.3) 1.2mg/dL (0.7-1.3) Estimated GFR (Cockcroft-Gault) 69.5 62.9 Glucose Level 90mg/dL (70-99) 84mg/dL (70-99) Calcium Level 7.6mg/dL (8.5-10.1) 7.6mg/dL (8.5-10.1) Glucose (Fingerstick) 81mg/dL (70-99) Laboratory Tests Test 09/01/16 04:15 09/01/16 07:18 White Blood Count 3.6x10^3/uL (4.0-11.0) Red Blood Count 3.08x10^6/uL (4.30-5.70) Hemoglobin 8.9g/dL (13.0-17.5) Hematocrit 27.5% (39.0-53.0) Mean Corpuscular Volume 89fL (79-100) Mean Corpuscular Hemoglobin 29pg (25-35) Mean Corpuscular Hemoglobin Concent 32g/dL (31-37) Red Cell Distribution Width 18.2% (11.5-14.5) Platelet Count 95x10^3/uL (140-400) Neutrophils (%) (Auto) 53% (31-73) Lymphocytes (%) (Auto) 35% (24-48) Monocytes (%) (Auto) 9% (0-9) Eosinophils (%) (Auto) 3% (0-3) Basophils (%) (Auto) 1% (0-3) Neutrophils # (Auto) 1.9x10^3uL (1.8-7.7) Lymphocytes # (Auto) 1.3x10^3/uL (1.0-4.8) Monocytes # (Auto) 0.3x10^3/uL (0.0-1.1) Eosinophils # (Auto) 0.1x10^3/uL (0.0-0.7) Basophils # (Auto) 0.0x10^3/uL (0.0-0.2) Sodium Level 145mmol/L (136-145) Potassium Level 3.9mmol/L (3.5-5.1) Chloride Level 106mmol/L (98-107) Carbon Dioxide Level 35mmol/L (21-32) Anion Gap 4 (6-14) Blood Urea Nitrogen 28mg/dL (8-26) Creatinine 1.2mg/dL (0.7-1.3) Estimated GFR (Cockcroft-Gault) 62.9 Glucose Level 84mg/dL (70-99) Calcium Level 7.6mg/dL (8.5-10.1) Glucose (Fingerstick) 81mg/dL (70-99) Medications Active Scripts Medications Dose Route/Sig Days Date Category Prednisone 20 Mg Tablet 30 Mg PO DAILY 08/16/16 Rx Levaquin (Levofloxacin) 500 Mg Tablet 500 Mg PO DAILY06 08/16/16 Rx Albuterol Sulfate Neb Soln (Albuterol Sulfate) 2.5 Mg/3 Ml Vial.neb 2.5 Mg NEB RTQID 06/18/15 Rx Tylenol (Acetaminophen) 325 Mg Tablet 650 Mg PO PRN Q4HRS PRN 10/20/14 Rx Protonix (Pantoprazole Sodium) 40 Mg Tablet 40 Mg PO DAILYAC 04/26/14 Rx Impression . 1. Chronic respiratory failure. compensated 2. Obesity hypoventilation syndrome. 3. Possible obstructive sleep apnea. 4. Urinary tract infection. 5. Morbid obesity. 6. Chronic left hemidiaphragm elevation. 7. Leukocytosis 8. sigmoid mass 9. leukopenia, improving Plan . 1. We will continue current BiPAP at bedtime.Doing well 2. Outpatient polysomnogram. 3. Continue oxygen supplementation. 4. Antibiotics per infectious disease service. 5. Colonoscopy per GI in am 6. s/p BM, follow results d/w mother JAIDEN RENTERIA MD Sep 01, 2016 10:54
--- NOTE | 2016-09-01 14:24 | PDOC ---
Objective: Objective: Other notes reviewed. Discussed colonoscopy w/ mother. Vital Signs: Vital Signs Date Time Temp Pulse Resp B/P Pulse Ox O2 Delivery O2 Flow Rate FiO2 09/01/16 11:02 Nasal Cannula 1.0 09/01/16 10:35 97.5 91 20 129/69 98 97.5 Labs: Laboratory Tests Test 09/01/16 07:18 Glucose (Fingerstick) 81mg/dL (70-99) PE: GEN: NAD, sitting in chair LUNGS: nasal cannula HEART: RRR ABD: BS_, non-tender, obese NEURO/PSYCH: moaning A/P: Abnormal CT -fluid filled diverticulum vs 5cm soft tissue mass in sigmoid colon -no previous colonoscopy, +FH colon cancer Neutropenia - improved -- Colonoscopy tomorrow afternoon after prep. MELANIE HICKS Sep 01, 2016 14:24
[2016-09-01 15:05] VITALS: BP 116/69
[2016-09-01] MEDS ORDERED: POLYETHYLENE GLYCOL 3350 238 GM POWDER PO ONE (16:00)
[2016-09-01 19:00] VITALS: BP_SYST 135; BP_SYST 92; BP_DIAS 49; BP_DIAS 72
[2016-09-01] MEDS: DIPHENHYDRAMINE HCL 25 MG CAPSULE PO SCH (21:00)
[2016-09-01] MEDS: ACETAMINOPHEN 500 MG TABLET PO SCH (21:00)
[2016-09-01 23:00] VITALS: BP 135/72
[2016-09-02 03:00] VITALS: BP 99/59
[2016-09-02] MEDS: IV 1/2 NORMAL SALINE 1,000 ML IV SCH ×2 (03:10→20:34)
[2016-09-02 07:00] VITALS: BP 111/69
[2016-09-02] MEDS ORDERED: IV RINGERS,LACTATED 1000ML 1,000 ML IV SCH (07:00)
[2016-09-02] MEDS: ALBUTEROL SULFATE 2.5 MG/3 ML NEBU. NEB SCH ×4 (07:24→19:16)
[2016-09-02] MEDS: PANTOPRAZOLE 40 MG TABLET. PO SCH (07:30)
--- NOTE | 2016-09-02 08:51 | PDOC ---
SUBJECTIVE Subjective Pt. feeling ok OBJECTIVE Objective voiding without difficulty Vital Signs Vital Signs Date Time Temp Pulse Resp B/P Pulse Ox O2 Delivery O2 Flow Rate FiO2 09/02/16 07:24 Nasal Cannula 1.0 09/02/16 03:40 BiPAP/CPAP 09/02/16 03:00 98.4 72 18 99/59 97 BiPAP/CPAP 98.4 09/02/16 00:21 BiPAP/CPAP 09/01/16 23:00 98.4 90 18 135/72 98 Room Air 98.4 09/01/16 22:23 96 Nasal Cannula 1.0 09/01/16 20:00 Nasal Cannula 1.0 09/01/16 19:00 97.7 70 18 92/49 96 Room Air 97.7 09/01/16 15:16 Nasal Cannula 1.0 09/01/16 15:05 98.1 112 20 116/69 96 BiPAP/CPAP 98.1 09/01/16 11:02 Nasal Cannula 1.0 09/01/16 10:35 97.5 91 20 129/69 98 BiPAP/CPAP 97.5 I & O Intake and Output 09/02/16 07:00 Intake Total 400 ml Balance 400 ml Intake Oral 400 ml # Voids 5 # Bowel Movements 5 PHYSICAL EXAM Physical Exam [id number] cc ASSESSMENT/PLAN Assessment/Plan continue flomax Abs per ID F/U with urology RECEIVER DISPATCHER Kristel Martino in 2 weeks will sign off pt. for now Thank you Problems: SANDY GODDARD MD Sep 02, 2016 08:51
[2016-09-02] MEDS: POTASSIUM CHLORIDE 20 MEQ/15 ML ORAL LIQUID. PO SCH (09:00)
[2016-09-02] MEDS: TAMSULOSIN 0.4 MG CAP.ER.24H. PO SCH (09:00)
--- NOTE | 2016-09-02 09:26 | PDOC ---
PROGRESS NOTES Subjective Subjective c/c - f/u of pancytopenia Objective Objective Vital Signs Date Time Temp Pulse Resp B/P Pulse Ox O2 Delivery O2 Flow Rate FiO2 09/02/16 07:24 Nasal Cannula 1.0 09/02/16 07:00 96.6 84 20 111/69 94 96.6 Intake and Output 09/02/16 07:00 Intake Total 400 ml Balance 400 ml Intake Oral 400 ml # Voids 5 # Bowel Movements 5 Physical Exam Heart: Normal S1, Normal S2 General: Alert, Oriented X3 Lungs: Clear to auscultation Assessment Assessment Problems Medical Problems: (1) Sepsis Status: Acute (2) Urine retention Status: Acute (3) UTI (urinary tract infection) Status: Acute ASSESSMENT AND PLAN: The patient is a 56-year-old male with the following medical problems: 1. Anemia of chronic disease, stable. 8.9 Monitor cbc PRN 2. Chronic thrombocytopenia, worsen. s/p bone marrow bx 08/28/16. I d/w his mother Charline. Plt 95. 3. Neutropenia, acute this admission. WBC better at 3.6. 4. Escherichia coli urinary tract infection/sepsis, recent hospitalization for severe pneumonia. Comment Review of Relevant I have reviewed the following items lexus (where applicable) has been applied. Labs Laboratory Tests Test 09/01/16 04:15 09/01/16 07:18 White Blood Count 3.6x10^3/uL (4.0-11.0) Red Blood Count 3.08x10^6/uL (4.30-5.70) Hemoglobin 8.9g/dL (13.0-17.5) Hematocrit 27.5% (39.0-53.0) Mean Corpuscular Volume 89fL (79-100) Mean Corpuscular Hemoglobin 29pg (25-35) Mean Corpuscular Hemoglobin Concent 32g/dL (31-37) Red Cell Distribution Width 18.2% (11.5-14.5) Platelet Count 95x10^3/uL (140-400) Neutrophils (%) (Auto) 53% (31-73) Lymphocytes (%) (Auto) 35% (24-48) Monocytes (%) (Auto) 9% (0-9) Eosinophils (%) (Auto) 3% (0-3) Basophils (%) (Auto) 1% (0-3) Neutrophils # (Auto) 1.9x10^3uL (1.8-7.7) Lymphocytes # (Auto) 1.3x10^3/uL (1.0-4.8) Monocytes # (Auto) 0.3x10^3/uL (0.0-1.1) Eosinophils # (Auto) 0.1x10^3/uL (0.0-0.7) Basophils # (Auto) 0.0x10^3/uL (0.0-0.2) Sodium Level 145mmol/L (136-145) Potassium Level 3.9mmol/L (3.5-5.1) Chloride Level 106mmol/L (98-107) Carbon Dioxide Level 35mmol/L (21-32) Anion Gap 4 (6-14) Blood Urea Nitrogen 28mg/dL (8-26) Creatinine 1.2mg/dL (0.7-1.3) Estimated GFR (Cockcroft-Gault) 62.9 Glucose Level 84mg/dL (70-99) Calcium Level 7.6mg/dL (8.5-10.1) Glucose (Fingerstick) 81mg/dL (70-99) Microbiology 08/26/16 Blood Culture - Final, Complete NO GROWTH AFTER 5 DAYS 08/24/16 Urine Culture - Final, Complete 08/24/16 Urine Culture Result 1 (FAUSTINA) - Final, Complete 08/24/16 Antimicrobic Susceptibility - Final, Complete Medications Current Medications Lorazepam 2 mg 2 mg 1X ONCE IV Last administered on 08/24/16 08:29; Start at 08:30; Stop 08/24/16 at 08:31; Status DC Sodium Chloride (Iv Sodium Chloride 0.9% 1000ml Bag) 1,000 ml @ 1,000 mls/hr 1X ONCE IV Last administered on 08/24/16 09:22; Start 08/24/16 at 08:30; Stop 08/24/16 at 09:29; Status DC Ondansetron HCl 4 mg 4 mg 1X ONCE IV Last administered on 08/24/16 09:23; Start 08/24/16 at 08:30; Stop 08/24/16 at 08:31; Status DC Levofloxacin/ Dextrose 150 ml @ 100 mls/hr 1X ONCE IV Last administered on 11:09; Start 08/24/16 at 10:00; Stop 08/24/16 at 11:29; Status DC Sodium Chloride 1,000 ml @ 1,000 mls/hr 1X ONCE IV Last administered on 10:31; Start 08/24/16 at 10:00; Stop 08/24/16 at 10:59; Status DC Sodium Chloride (Iv Sodium Chloride 0.9% 1000ml Bag) 1,000 ml @ 1,000 mls/hr 1X ONCE IV ; Start 08/24/16 at 10:00; Stop 08/24/16 at 10:59; Status UNV Fentanyl Citrate (Fentanyl 2ml Vial) 50 mcg 1X ONCE IV Last administered on 11:09; Start 08/24/16 at 10:30; Stop 08/24/16 at 10:31; Status DC Iohexol (Omnipaque 300 Mg/ml) 60 ml 1X ONCE IV Last administered on 08/24/16 10:48; Start 08/24/16 at 10:30; Stop 08/24/16 at 10:31; Status DC Ondansetron HCl (Zofran) 4 mg PRN Q8HRS PRN IV NAUSEA/VOMITING; Start 08/24/16 at 11:45; Stop 08/24/16 at 13:45; Status DC Fentanyl Citrate 50 mcg 50 mcg PRN Q1HR PRN IV PAIN; Start 08/24/16 at 11:45; Stop 08/25/16 at 11:44; Status DC Sodium Chloride (Iv Sodium Chloride 0.9% 1000ml Bag) 1,000 ml @ 150 mls/hr Q6H40M IV ; Start 08/24/16 at 12:00; Stop 08/25/16 at 11:59; Status DC Acetaminophen 650 mg 650 mg PRN Q4HRS PRN PO FEVER; Start 08/24/16 at 11:45; Stop 08/24/16 at 22:21; Status DC Potassium Chloride/Dextrose/ Sod Cl (KCl 20 Meq In D5W-1/2 NS) 1,000 ml @ 40 mls/hr Q24H IV Last administered on 08/29/16 06:31; Start 08/24/16 at 15:00; Stop 08/29/16 at 09:56; Status DC Acetaminophen (Tylenol) 650 mg PRN Q6HRS PRN [place] MILD PAIN / TEMP; Start at 13:45; Stop 08/25/16 at 08:58; Status DC Pantoprazole Sodium (Protonix Vial) 40 mg DAILYAC IVP Last administered on 08/25 07:53; Start 08/24/16 at 14:00; Stop 08/25/16 at 08:58; Status DC Ondansetron HCl (Zofran) 4 mg PRN Q6HRS PRN IV NAUSEA/VOMITING; Start 08/24/16 at 13:45 Enoxaparin Sodium 40 mg 40 mg Q24H SQ Last administered on 08/26/16 14:43; Start 08/24/16 at 15:00; Stop 08/27/16 at 10:14; Status DC Meropenem 500 mg/ Sodium Chloride 50 ml @ 100 mls/hr Q6HRS IV Last administered on 08/29/16 06:36; Start 08/24/16 at 16:00; Stop 08/29/16 at 08:39 ; Status DC Fluconazole/ Sodium Chloride (Diflucan 400mg/ 200ml Premix) 200 ml @ 100 mls/ hr Q24H IV Last administered on 08/27/16 16:37; Start 08/24/16 at 15:00; Stop 08/28/16 at 08:34; Status DC Albuterol Sulfate (Ventolin Neb Soln) 2.5 mg RTQID NEB Last administered on 07:24; Start 08/24/16 at 20:00 Albuterol Sulfate (Ventolin Neb Soln) 2.5 mg PRN Q4HRS PRN NEB SHORTNESS OF BREATH; Start 08/24/16 at 19:45 Acetaminophen (Tylenol) 500 mg QHS PO Last administered on 08/31/16 21:45; Start 08/24/16 at 22:30 Diphenhydramine HCl (Benadryl) 25 mg QHS PO Last administered on 08/31/16 21: 45; Start 08/24/16 at 22:30 Pantoprazole Sodium (Protonix) 40 mg DAILYAC PO Last administered on 09/01/16 09:20; Start 08/26/16 at 07:30 Acetaminophen (Tylenol) 650 mg PRN Q4HRS PRN PO MILD PAIN / TEMP Last administered on 08/30/16 21:03; Start 08/25/16 at 09:00 Vancomycin HCl 1 each 1 each PRN DAILY PRN MC SEE COMMENTS Last administered on 08/26/16 13:07; Start 08/26/16 at 08:00; Stop 08/27/16 at 10:25; Status DC Vancomycin HCl/ Sodium Chloride (Iv Sodium Chloride 0.9% 500ml Bag) 500 ml @ 250 mls/hr 1X ONCE IV Last administered on 08/26/16 09:30; Start 08/26/16 at 09:00; Stop 08/26/16 at 10:59; Status DC Tamsulosin HCl 0.4 mg 0.4 mg DAILY PO Last administered on 09/01/16 09:20; Start 08/26/16 at 13:00 Vancomycin HCl/ Sodium Chloride (Iv Sodium Chloride 0.9% 500ml Bag) 500 ml @ 250 mls/hr Q12H IV Last administered on 08/27/16 08:30; Start 08/26/16 at 21: 00; Stop 08/27/16 at 10:25; Status DC Vancomycin HCl 1 each 1X ONCE MC ; Start 08/27/16 at 20:30; Stop 08/27/16 at 20 :30; Status DC Alteplase, Recombinant (Cathflo) 2 mg PRN DAILY PRN INT CAT PER PROTOCOL Last administered on 08/30/16 09:48; Start 08/27/16 at 10:15 Sodium Cl/Sod Bicarb/Potass Cl/ PEG (Golytely) 4,000 ml 1X ONCE PO ; Start at 13:00; Stop 08/27/16 at 15:19; Status DC Polyethylene Glycol (miraLAX Powder BULK BOTTLE) 238 gm 1X ONCE PO Last administered on 08/27/16 16:39; Start 08/27/16 at 16:00; Stop 08/27/16 at 16:01 ; Status DC Bisacodyl (Dulcolax Tab) 10 mg 1X ONCE PO Last administered on 08/27/16 16:39 ; Start 08/27/16 at 16:00; Stop 08/27/16 at 16:01; Status DC Morphine Sulfate 1 mg 1 mg PRN Q10MIN PRN IV SEVERE PAIN Last administered on t 11:44; Start 08/28/16 at 07:00; Stop 08/29/16 at 06:59; Status DC Lactated Ringer's (Iv Lactated Ringers) 1,000 ml @ 0 mls/hr Q0M IV ; Start at 07:00; Stop 08/28/16 at 18:59; Status DC Lidocaine HCl 2 ml 1X PRN PRN ID IV START; Start 08/28/16 at 07:00; Stop at 06:59; Status DC Hydromorphone HCl (Dilaudid) 0.5 mg PRN Q10MIN PRN IV SEVERE PAIN, Second choice; Start 08/28/16 at 07:00; Stop 08/29/16 at 06:59; Status DC Prochlorperazine Edisylate (Compazine) 5 mg PACU PRN PRN IV NAUSEA; Start 08/28 at 07:00; Stop 08/29/16 at 06:59; Status DC Lorazepam (Ativan) 0.5 mg PRN Q8HRS PRN PO ANXIETY / AGITATION Last administered on 08/28/16t 13:27; Start 08/27/16 at 18:15 Acetaminophen (Tylenol) 650 mg PRN Q4HRS PRN PO MILD PAIN / TEMP; Start at 18:15; Status UNV Lidocaine/Sodium Bicarbonate (Buffered Lidocaine 1%) 20 ml STK-MED ONCE IJ ; Start 08/28/16 at 08:05; Stop 08/28/16 at 08:06; Status DC Neostigmine Methylsulfate 5 mg STK-MED ONCE .ROUTE ; Start 08/28/16 at 10:16; Stop 08/28/16 at 10:17; Status DC Glycopyrrolate (Robinul) 1 mg STK-MED ONCE .ROUTE ; Start 08/28/16 at 10:16; Stop 08/28/16 at 10:17; Status DC Fentanyl Citrate (Fentanyl 5ml Vial) 250 mcg STK-MED ONCE .ROUTE ; Start at 10:16; Stop 08/28/16 at 10:17; Status DC Lidocaine/Sodium Bicarbonate (Buffered Lidocaine 1%) 20 ml 1X ONCE IJ Last administered on 08/28/16 10:45; Start 08/28/16 at 10:45; Stop 08/28/16 at 10:46 ; Status DC Phenylephrine HCl 1 mg STK-MED ONCE IV ; Start 08/28/16 at 11:51; Stop 08/28/16 at 11:52; Status DC Dexamethasone Sodium Phosphate (Decadron) 20 mg STK-MED ONCE .ROUTE ; Start at 11:51; Stop 08/28/16 at 11:52; Status DC Ondansetron HCl (Zofran) 4 mg STK-MED ONCE .ROUTE ; Start 08/28/16 at 11:51; Stop 08/28/16 at 11:52; Status DC Sevoflurane (Ultane) 60 ml STK-MED ONCE IH ; Start 08/28/16 at 11:51; Stop 08/28 at 11:52; Status DC Vancomycin HCl 1 each 1 each PRN DAILY PRN MC SEE COMMENTS; Start 08/28/16 at 11:45; Stop 08/28/16 at 12:03; Status DC Tigecycline 100 mg/Sodium Chloride 100 ml @ 200 mls/hr 1X ONCE IV Last administered on 08/29/16 10:56; Start 08/29/16 at 10:00; Stop 08/29/16 at 10:29 ; Status DC Tigecycline 50 mg/ Sodium Chloride 50 ml @ 100 mls/hr Q12HR IV Last administered on 09/01/16 22:06; Start 08/29/16 at 21:00 Dextrose 1,000 ml @ 60 mls/hr [id number] IV Last administered on 08/30/16 21:02 ; Start 08/29/16 at 10:00; Stop 08/31/16 at 11:23; Status DC Propofol (Diprivan) 200 mg STK-MED ONCE IV ; Start 08/28/16 at 12:00; Stop 08/29 at 11:22; Status DC Rocuronium [place] (Zemuron) 50 mg STK-MED ONCE .ROUTE ; Start 08/28/16 at 12:00 ; Stop 08/29/16 at 11:22; Status DC Succinylcholine Chloride 200 mg 200 mg STK-MED ONCE .ROUTE ; Start 08/28/16 at 12:00; Stop 08/29/16 at 11:22; Status DC Sodium Chloride (Iv Sodium Chloride 0.45%) 1,000 ml @ 60 mls/hr [id number] IV Last administered on 09/02/16 03:10; Start 08/31/16 at 11:30 Potassium Chloride (KCl Oral Soln) 20 meq DAILY PO Last administered on 10:52; Start 09/01/16 at 10:00 Polyethylene Glycol 238 gm 238 gm 1X ONCE PO Last administered on 09/01/16 16 :32; Start 09/01/16 at 16:00; Stop 09/01/16 at 16:01; Status DC Lactated Ringer's (Iv Lactated Ringers) 1,000 ml @ 50 mls/hr Q20H IV ; Start at 07:00; Stop 09/02/16 at 18:59 Active Scripts Active Prednisone 20 Mg Tablet 30 Mg PO DAILY Levaquin (Levofloxacin) 500 Mg Tablet 500 Mg PO DAILY06 Albuterol Sulfate Neb Soln (Albuterol Sulfate) 2.5 Mg/3 Ml Vial.neb 2.5 Mg NEB RTQID Tylenol (Acetaminophen) 325 Mg Tablet 650 Mg PO PRN Q4HRS PRN Protonix (Pantoprazole Sodium) 40 Mg Tablet 40 Mg PO DAILYAC Vitals/I & O Vital Sign - Last 24 Hours 09/01/16 09/01/16 09/01/16 09/01/16 10:35 11:02 15:05 15:16 Temp 97.5 98.1 97.5 98.1 Pulse 91 112 Resp 20 20 B/P 129/69 116/69 Pulse Ox 98 96 O2 Delivery BiPAP/CPAP Nasal Cannula BiPAP/CPAP Nasal Cannula O2 Flow Rate 1.0 1.0 09/01/16 09/01/16 09/01/16 09/01/16 19:00 20:00 22:23 23:00 Temp 97.7 98.4 97.7 98.4 Pulse 70 90 Resp 18 18 B/P 92/49 135/72 Pulse Ox 96 96 98 O2 Delivery Room Air Nasal Cannula Nasal Cannula Room Air O2 Flow Rate 1.0 1.0 09/02/16 09/02/16 09/02/16 09/02/16 00:21 03:00 03:40 07:00 Temp 98.4 96.6 98.4 96.6 Pulse 72 84 Resp 18 20 B/P 99/59 111/69 Pulse Ox 97 94 O2 Delivery BiPAP/CPAP BiPAP/CPAP BiPAP/CPAP Nasal Cannula O2 Flow Rate 1.0 09/02/16 07:24 O2 Delivery Nasal Cannula O2 Flow Rate 1.0 Intake and Output 09/01/16 09/01/16 09/02/16 15:00 23:00 07:00 Intake Total 400 ml 0 ml Balance 400 ml 0 ml MINO HATHAWAY MD Sep 02, 2016 09:26
[2016-09-02] MEDS: TIGECYCLINE 50 MG in IV NORMAL SALINE 50ML 50 ML IV SCH ×2 (10:03→20:33)
--- NOTE | 2016-09-02 10:03 | PDOC ---
PULMONARY PROGRESS NOTES Subjective no soa Vitals Vital Signs Date Time Temp Pulse Resp B/P Pulse Ox O2 Delivery O2 Flow Rate FiO2 09/02/16 08:00 Nasal Cannula 1.0 09/02/16 07:00 96.6 84 20 111/69 94 96.6 General: Alert, No acute distress HEENT: Other Lungs: Other (decrease bs) Cardiovascular: S1 Abdomen: Soft, Non-tender, Other Extremities: Other (trace edema) Labs Laboratory Tests Test 09/01/16 04:15 09/01/16 07:18 White Blood Count 3.6x10^3/uL (4.0-11.0) Red Blood Count 3.08x10^6/uL (4.30-5.70) Hemoglobin 8.9g/dL (13.0-17.5) Hematocrit 27.5% (39.0-53.0) Mean Corpuscular Volume 89fL (79-100) Mean Corpuscular Hemoglobin 29pg (25-35) Mean Corpuscular Hemoglobin Concent 32g/dL (31-37) Red Cell Distribution Width 18.2% (11.5-14.5) Platelet Count 95x10^3/uL (140-400) Neutrophils (%) (Auto) 53% (31-73) Lymphocytes (%) (Auto) 35% (24-48) Monocytes (%) (Auto) 9% (0-9) Eosinophils (%) (Auto) 3% (0-3) Basophils (%) (Auto) 1% (0-3) Neutrophils # (Auto) 1.9x10^3uL (1.8-7.7) Lymphocytes # (Auto) 1.3x10^3/uL (1.0-4.8) Monocytes # (Auto) 0.3x10^3/uL (0.0-1.1) Eosinophils # (Auto) 0.1x10^3/uL (0.0-0.7) Basophils # (Auto) 0.0x10^3/uL (0.0-0.2) Sodium Level 145mmol/L (136-145) Potassium Level 3.9mmol/L (3.5-5.1) Chloride Level 106mmol/L (98-107) Carbon Dioxide Level 35mmol/L (21-32) Anion Gap 4 (6-14) Blood Urea Nitrogen 28mg/dL (8-26) Creatinine 1.2mg/dL (0.7-1.3) Estimated GFR (Cockcroft-Gault) 62.9 Glucose Level 84mg/dL (70-99) Calcium Level 7.6mg/dL (8.5-10.1) Glucose (Fingerstick) 81mg/dL (70-99) Medications Active Scripts Medications Dose Route/Sig Days Date Category Prednisone 20 Mg Tablet 30 Mg PO DAILY 08/16/16 Rx Levaquin (Levofloxacin) 500 Mg Tablet 500 Mg PO DAILY06 08/16/16 Rx Albuterol Sulfate Neb Soln (Albuterol Sulfate) 2.5 Mg/3 Ml Vial.neb 2.5 Mg NEB RTQID 06/18/15 Rx Tylenol (Acetaminophen) 325 Mg Tablet 650 Mg PO PRN Q4HRS PRN 10/20/14 Rx Protonix (Pantoprazole Sodium) 40 Mg Tablet 40 Mg PO DAILYAC 04/26/14 Rx Impression . 1. Chronic respiratory failure. compensated 2. Obesity hypoventilation syndrome. 3. Possible obstructive sleep apnea. 4. Urinary tract infection. 5. Morbid obesity. 6. Chronic left hemidiaphragm elevation. 7. Leukocytosis 8. sigmoid mass 9. leukopenia, improving Plan . pt ok to d/c home in am from my standpoint will arrange for home sleep study 1. We will continue current BiPAP at bedtime.Doing well 2. Outpatient polysomnogram. 3. Continue oxygen supplementation. 4. Antibiotics per infectious disease service. 5. Colonoscopy per GI in am 6. s/p BM, follow results d/w mother CALVIN ARCE MD Sep 02, 2016 10:03
--- NOTE | 2016-09-02 10:13 | PDOC ---
PROGRESS NOTES Subjective Subjective feels okay. will have colonoscopy today. has bilateral LE edema and sat in chair most of night. lab reviewed. discussed with mother Objective Objective Vital Signs Date Time Temp Pulse Resp B/P Pulse Ox O2 Delivery O2 Flow Rate FiO2 09/02/16 08:00 Nasal Cannula 1.0 09/02/16 07:00 96.6 84 20 111/69 94 96.6 Intake and Output 09/02/16 07:00 Intake Total 400 ml Balance 400 ml Intake Oral 400 ml # Voids 5 # Bowel Movements 5 Physical Exam Abdomen: Soft Heart: Regular rate, Normal S1, Normal S2 Extremities: Other (2 plus edema legs) General: Alert HEENT: Atraumatic Lungs: Clear to auscultation Neuro: Normal speech Psych/Mental Status: Mood NL Skin: No rashes Assessment Assessment Problems Medical Problems:epsis resolved 2. e. coli uti 3. pancytopenia improved. 4. 5. Cholelithiasis. 6. Sigmoid colon mass.colonoscopy postponed due to neutropenia 7. Chronic hypoxic and hypercapnic respiratory failure. 8. Obstructive sleep apnea. 9. Morbid obesity. fever resolved BPH and seminal vesicle inflammation hypernatremia resolved (1) Sepsis Status: Acute (2) Urine retention Status: Acute (3) UTI (urinary tract infection) Status: Acute Plan Plan of Care iv tygacil decrease iv fluids. d/c iv fluids if po fluids adequate colonoscopy today Comment Review of Relevant I have reviewed the following items lexus (where applicable) has been applied. Labs Laboratory Tests Test 09/01/16 04:15 09/01/16 07:18 White Blood Count 3.6x10^3/uL (4.0-11.0) Red Blood Count 3.08x10^6/uL (4.30-5.70) Hemoglobin 8.9g/dL (13.0-17.5) Hematocrit 27.5% (39.0-53.0) Mean Corpuscular Volume 89fL (79-100) Mean Corpuscular Hemoglobin 29pg (25-35) Mean Corpuscular Hemoglobin Concent 32g/dL (31-37) Red Cell Distribution Width 18.2% (11.5-14.5) Platelet Count 95x10^3/uL (140-400) Neutrophils (%) (Auto) 53% (31-73) Lymphocytes (%) (Auto) 35% (24-48) Monocytes (%) (Auto) 9% (0-9) Eosinophils (%) (Auto) 3% (0-3) Basophils (%) (Auto) 1% (0-3) Neutrophils # (Auto) 1.9x10^3uL (1.8-7.7) Lymphocytes # (Auto) 1.3x10^3/uL (1.0-4.8) Monocytes # (Auto) 0.3x10^3/uL (0.0-1.1) Eosinophils # (Auto) 0.1x10^3/uL (0.0-0.7) Basophils # (Auto) 0.0x10^3/uL (0.0-0.2) Sodium Level 145mmol/L (136-145) Potassium Level 3.9mmol/L (3.5-5.1) Chloride Level 106mmol/L (98-107) Carbon Dioxide Level 35mmol/L (21-32) Anion Gap 4 (6-14) Blood Urea Nitrogen 28mg/dL (8-26) Creatinine 1.2mg/dL (0.7-1.3) Estimated GFR (Cockcroft-Gault) 62.9 Glucose Level 84mg/dL (70-99) Calcium Level 7.6mg/dL (8.5-10.1) Glucose (Fingerstick) 81mg/dL (70-99) Microbiology 08/26/16 Blood Culture - Final, Complete NO GROWTH AFTER 5 DAYS 08/24/16 Urine Culture - Final, Complete 08/24/16 Urine Culture Result 1 (FAUSTINA) - Final, Complete 08/24/16 Antimicrobic Susceptibility - Final, Complete Medications Current Medications Lorazepam 2 mg 2 mg 1X ONCE IV Last administered on 08/24/16 08:29; Start at 08:30; Stop 08/24/16 at 08:31; Status DC Sodium Chloride (Iv Sodium Chloride 0.9% 1000ml Bag) 1,000 ml @ 1,000 mls/hr 1X ONCE IV Last administered on 08/24/16 09:22; Start 08/24/16 at 08:30; Stop 08/24/16 at 09:29; Status DC Ondansetron HCl 4 mg 4 mg 1X ONCE IV Last administered on 08/24/16 09:23; Start 08/24/16 at 08:30; Stop 08/24/16 at 08:31; Status DC Levofloxacin/ Dextrose 150 ml @ 100 mls/hr 1X ONCE IV Last administered on 11:09; Start 08/24/16 at 10:00; Stop 08/24/16 at 11:29; Status DC Sodium Chloride 1,000 ml @ 1,000 mls/hr 1X ONCE IV Last administered on 10:31; Start 08/24/16 at 10:00; Stop 08/24/16 at 10:59; Status DC Sodium Chloride (Iv Sodium Chloride 0.9% 1000ml Bag) 1,000 ml @ 1,000 mls/hr 1X ONCE IV ; Start 08/24/16 at 10:00; Stop 08/24/16 at 10:59; Status UNV Fentanyl Citrate (Fentanyl 2ml Vial) 50 mcg 1X ONCE IV Last administered on 11:09; Start 08/24/16 at 10:30; Stop 08/24/16 at 10:31; Status DC Iohexol (Omnipaque 300 Mg/ml) 60 ml 1X ONCE IV Last administered on 08/24/16 10:48; Start 08/24/16 at 10:30; Stop 08/24/16 at 10:31; Status DC Ondansetron HCl (Zofran) 4 mg PRN Q8HRS PRN IV NAUSEA/VOMITING; Start 08/24/16 at 11:45; Stop 08/24/16 at 13:45; Status DC Fentanyl Citrate 50 mcg 50 mcg PRN Q1HR PRN IV PAIN; Start 08/24/16 at 11:45; Stop 08/25/16 at 11:44; Status DC Sodium Chloride (Iv Sodium Chloride 0.9% 1000ml Bag) 1,000 ml @ 150 mls/hr Q6H40M IV ; Start 08/24/16 at 12:00; Stop 08/25/16 at 11:59; Status DC Acetaminophen 650 mg 650 mg PRN Q4HRS PRN PO FEVER; Start 08/24/16 at 11:45; Stop 08/24/16 at 22:21; Status DC Potassium Chloride/Dextrose/ Sod Cl (KCl 20 Meq In D5W-1/2 NS) 1,000 ml @ 40 mls/hr Q24H IV Last administered on 08/29/16 06:31; Start 08/24/16 at 15:00; Stop 08/29/16 at 09:56; Status DC Acetaminophen (Tylenol) 650 mg PRN Q6HRS PRN NV MILD PAIN / TEMP; Start at 13:45; Stop 08/25/16 at 08:58; Status DC Pantoprazole Sodium (Protonix Vial) 40 mg DAILYAC IVP Last administered on 08/25 07:53; Start 08/24/16 at 14:00; Stop 08/25/16 at 08:58; Status DC Ondansetron HCl (Zofran) 4 mg PRN Q6HRS PRN IV NAUSEA/VOMITING; Start 08/24/16 at 13:45 Enoxaparin Sodium 40 mg 40 mg Q24H SQ Last administered on 08/26/16 14:43; Start 08/24/16 at 15:00; Stop 08/27/16 at 10:14; Status DC Meropenem 500 mg/ Sodium Chloride 50 ml @ 100 mls/hr Q6HRS IV Last administered on 08/29/16 06:36; Start 08/24/16 at 16:00; Stop 08/29/16 at 08:39 ; Status DC Fluconazole/ Sodium Chloride (Diflucan 400mg/ 200ml Premix) 200 ml @ 100 mls/ hr Q24H IV Last administered on 08/27/16 16:37; Start 08/24/16 at 15:00; Stop 08/28/16 at 08:34; Status DC Albuterol Sulfate (Ventolin Neb Soln) 2.5 mg RTQID NEB Last administered on 07:24; Start 08/24/16 at 20:00 Albuterol Sulfate (Ventolin Neb Soln) 2.5 mg PRN Q4HRS PRN NEB SHORTNESS OF BREATH; Start 08/24/16 at 19:45 Acetaminophen (Tylenol) 500 mg QHS PO Last administered on 08/31/16 21:45; Start 08/24/16 at 22:30 Diphenhydramine HCl (Benadryl) 25 mg QHS PO Last administered on 08/31/16 21: 45; Start 08/24/16 at 22:30 Pantoprazole Sodium (Protonix) 40 mg DAILYAC PO Last administered on 09/01/16 09:20; Start 08/26/16 at 07:30 Acetaminophen (Tylenol) 650 mg PRN Q4HRS PRN PO MILD PAIN / TEMP Last administered on 08/30/16 21:03; Start 08/25/16 at 09:00 Vancomycin HCl 1 each 1 each PRN DAILY PRN MC SEE COMMENTS Last administered on 08/26/16 13:07; Start 08/26/16 at 08:00; Stop 08/27/16 at 10:25; Status DC Vancomycin HCl/ Sodium Chloride (Iv Sodium Chloride 0.9% 500ml Bag) 500 ml @ 250 mls/hr 1X ONCE IV Last administered on 08/26/16 09:30; Start 08/26/16 at 09:00; Stop 08/26/16 at 10:59; Status DC Tamsulosin HCl 0.4 mg 0.4 mg DAILY PO Last administered on 09/01/16 09:20; Start 08/26/16 at 13:00 Vancomycin HCl/ Sodium Chloride (Iv Sodium Chloride 0.9% 500ml Bag) 500 ml @ 250 mls/hr Q12H IV Last administered on 08/27/16 08:30; Start 08/26/16 at 21: 00; Stop 08/27/16 at 10:25; Status DC Vancomycin HCl 1 each 1X ONCE MC ; Start 08/27/16 at 20:30; Stop 08/27/16 at 20 :30; Status DC Alteplase, Recombinant (Cathflo) 2 mg PRN DAILY PRN INT CAT PER PROTOCOL Last administered on 08/30/16 09:48; Start 08/27/16 at 10:15 Sodium Cl/Sod Bicarb/Potass Cl/ PEG (Golytely) 4,000 ml 1X ONCE PO ; Start at 13:00; Stop 08/27/16 at 15:19; Status DC Polyethylene Glycol (miraLAX Powder BULK BOTTLE) 238 gm 1X ONCE PO Last administered on 08/27/16 16:39; Start 08/27/16 at 16:00; Stop 08/27/16 at 16:01 ; Status DC Bisacodyl (Dulcolax Tab) 10 mg 1X ONCE PO Last administered on 08/27/16 16:39 ; Start 08/27/16 at 16:00; Stop 08/27/16 at 16:01; Status DC Morphine Sulfate 1 mg 1 mg PRN Q10MIN PRN IV SEVERE PAIN Last administered on 11:44; Start 08/28/16 at 07:00; Stop 08/29/16 at 06:59; Status DC Lactated Ringer's (Iv Lactated Ringers) 1,000 ml @ 0 mls/hr Q0M IV ; Start at 07:00; Stop 08/28/16 at 18:59; Status DC Lidocaine HCl 2 ml 1X PRN PRN ID IV START; Start 08/28/16 at 07:00; Stop at 06:59; Status DC Hydromorphone HCl (Dilaudid) 0.5 mg PRN Q10MIN PRN IV SEVERE PAIN, Second choice; Start 08/28/16 at 07:00; Stop 08/29/16 at 06:59; Status DC Prochlorperazine Edisylate (Compazine) 5 mg PACU PRN PRN IV NAUSEA; Start 08/28 at 07:00; Stop 08/29/16 at 06:59; Status DC Lorazepam (Ativan) 0.5 mg PRN Q8HRS PRN PO ANXIETY / AGITATION Last administered on 08/28/16 13:27; Start 08/27/16 at 18:15 Acetaminophen (Tylenol) 650 mg PRN Q4HRS PRN PO MILD PAIN / TEMP; Start at 18:15; Status UNV Lidocaine/Sodium Bicarbonate (Buffered Lidocaine 1%) 20 ml STK-MED ONCE IJ ; Start 08/28/16 at 08:05; Stop 08/28/16 at 08:06; Status DC Neostigmine Methylsulfate 5 mg STK-MED ONCE .ROUTE ; Start 08/28/16 at 10:16; Stop 08/28/16 at 10:17; Status DC Glycopyrrolate (Robinul) 1 mg STK-MED ONCE .ROUTE ; Start 08/28/16 at 10:16; Stop 08/28/16 at 10:17; Status DC Fentanyl Citrate (Fentanyl 5ml Vial) 250 mcg STK-MED ONCE .ROUTE ; Start at 10:16; Stop 08/28/16 at 10:17; Status DC Lidocaine/Sodium Bicarbonate (Buffered Lidocaine 1%) 20 ml 1X ONCE IJ Last administered on 08/28/16 10:45; Start 08/28/16 at 10:45; Stop 08/28/16 at 10:46 ; Status DC Phenylephrine HCl 1 mg STK-MED ONCE IV ; Start 08/28/16 at 11:51; Stop 08/28/16 at 11:52; Status DC Dexamethasone Sodium Phosphate (Decadron) 20 mg STK-MED ONCE .ROUTE ; Start at 11:51; Stop 08/28/16 at 11:52; Status DC Ondansetron HCl (Zofran) 4 mg STK-MED ONCE .ROUTE ; Start 08/28/16 at 11:51; Stop 08/28/16 at 11:52; Status DC Sevoflurane (Ultane) 60 ml STK-MED ONCE IH ; Start 08/28/16 at 11:51; Stop 08/28 at 11:52; Status DC Vancomycin HCl 1 each 1 each PRN DAILY PRN MC SEE COMMENTS; Start 08/28/16 at 11:45; Stop 08/28/16 at 12:03; Status DC Tigecycline 100 mg/Sodium Chloride 100 ml @ 200 mls/hr 1X ONCE IV Last administered on 08/29/16 10:56; Start 08/29/16 at 10:00; Stop 08/29/16 at 10:29 ; Status DC Tigecycline 50 mg/ Sodium Chloride 50 ml @ 100 mls/hr Q12HR IV Last administered on 09/02/16 10:03; Start 08/29/16 at 21:00 Dextrose 1,000 ml @ 60 mls/hr [id number] IV Last administered on 08/30/16 21:02 ; Start 08/29/16 at 10:00; Stop 08/31/16 at 11:23; Status DC Propofol (Diprivan) 200 mg STK-MED ONCE IV ; Start 08/28/16 at 12:00; Stop 08/29 at 11:22; Status DC Rocuronium [place] (Zemuron) 50 mg STK-MED ONCE .ROUTE ; Start 08/28/16 at 12:00 ; Stop 08/29/16 at 11:22; Status DC Succinylcholine Chloride 200 mg 200 mg STK-MED ONCE .ROUTE ; Start 08/28/16 at 12:00; Stop 08/29/16 at 11:22; Status DC Sodium Chloride (Iv Sodium Chloride 0.45%) 1,000 ml @ 60 mls/hr [id number] IV Last administered on 09/02/16 03:10; Start 08/31/16 at 11:30 Potassium Chloride (KCl Oral Soln) 20 meq DAILY PO Last administered on 10:52; Start 09/01/16 at 10:00 Polyethylene Glycol 238 gm 238 gm 1X ONCE PO Last administered on 09/01/16 16 :32; Start 09/01/16 at 16:00; Stop 09/01/16 at 16:01; Status DC Lactated Ringer's (Iv Lactated Ringers) 1,000 ml @ 50 mls/hr Q20H IV ; Start at 07:00; Stop 09/02/16 at 18:59 Active Scripts Active Prednisone 20 Mg Tablet 30 Mg PO DAILY Levaquin (Levofloxacin) 500 Mg Tablet 500 Mg PO DAILY06 Albuterol Sulfate Neb Soln (Albuterol Sulfate) 2.5 Mg/3 Ml Vial.neb 2.5 Mg NEB RTQID Tylenol (Acetaminophen) 325 Mg Tablet 650 Mg PO PRN Q4HRS PRN Protonix (Pantoprazole Sodium) 40 Mg Tablet 40 Mg PO DAILYAC Vitals/I & O Vital Sign - Last 24 Hours 09/01/16 09/01/16 09/01/16 09/01/16 10:35 11:02 15:05 15:16 Temp 97.5 98.1 97.5 98.1 Pulse 91 112 Resp 20 20 B/P 129/69 116/69 Pulse Ox 98 96 O2 Delivery BiPAP/CPAP Nasal Cannula BiPAP/CPAP Nasal Cannula O2 Flow Rate 1.0 1.0 09/01/16 09/01/16 09/01/16 09/01/16 19:00 20:00 22:23 23:00 Temp 97.7 98.4 97.7 98.4 Pulse 70 90 Resp 18 18 B/P 92/49 135/72 Pulse Ox 96 96 98 O2 Delivery Room Air Nasal Cannula Nasal Cannula Room Air O2 Flow Rate 1.0 1.0 09/02/16 09/02/16 09/02/16 09/02/16 00:21 03:00 03:40 07:00 Temp 98.4 96.6 98.4 96.6 Pulse 72 84 Resp 18 20 B/P 99/59 111/69 Pulse Ox 97 94 O2 Delivery BiPAP/CPAP BiPAP/CPAP BiPAP/CPAP Nasal Cannula O2 Flow Rate 1.0 09/02/16 09/02/16 07:24 08:00 O2 Delivery Nasal Cannula Nasal Cannula O2 Flow Rate 1.0 1.0 Intake and Output 09/01/16 09/01/16 09/02/16 15:00 23:00 07:00 Intake Total 400 ml 0 ml Balance 400 ml 0 ml KATI BILLINGSLEY MD Sep 02, 2016 10:13
--- NOTE | 2016-09-02 10:35 | PDOC ---
Infectious Disease Note Subjective Subjective Denies pain No fever ROS ROS ? Reliability Vital Sign Vital Signs Vital Signs Date Time Temp Pulse Resp B/P Pulse Ox O2 Delivery O2 Flow Rate FiO2 09/02/16 08:00 Nasal Cannula 1.0 09/02/16 07:00 96.6 84 20 111/69 94 96.6 Physical Exam PHYSICAL EXAM GENERAL: Up in chair, smiling HEENT: Oral cavity pink NECK: Supple LUNGS: Clear HEART: S1S2, no gallop, no murmur ABD: Obese, BS present, soft, NT : [place] out EXT: BLE trace edema. 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 SKIN: No rash IV - clean Labs Micro Escherichia coli 25,000-50,000 colony forming units per mL ANTIMICROBIAL SUSCEPTIBILITY Final Comment S = Susceptible; I = Intermediate; R = Resistant P = Positive; N = Negative MICS are expressed in micrograms per mL Antibiotic RSLT#1 RSLT#2 RSLT#3 RSLT#4 Amoxicillin/Clavulanic Acid S =8 Ampicillin R>=32 Cefepime S<=1 Ceftriaxone S<=1 Cefuroxime I =16 Cephalothin R =32 Ciprofloxacin R>=4 Ertapenem S<=0.5 Gentamicin S<=1 Imipenem S<=1 Levofloxacin R>=8 Nitrofurantoin S<=16 Piperacillin R>=128 Tetracycline S =4 Tobramycin S<=1 Trimethoprim/Sulfa S<=20 Objective Assessment Fever - better Leukopenia/Pancytopenia 08/26 better. Influenza neg. ? reactive/sepsis or related to sigmoid mass. S/p Bone marrow biopsy 08/28 Ecoli UTI 08/24. POA with enlarged prostate and some seminal vesicle inflammation. Now on Flomax Sigmoid mass PCN and cefpodoxime allergy. Mental retardation Plan Plan of Care Colonoscopy today F/u labs Blood cults times 2 08/26 - neg Meropenem was discontinued on odd chance that could be suppressing bone marrow. Avoid other beta- lactams. Trial of Tigecycline. (Has second line intra - abdominal coverage also and neutropenic) Await bone marrow results D/w mother FRANKLIN PEREZ MD Sep 02, 2016 10:35
[2016-09-02 10:55] LABS: BASO % 1 % (0-3); EOS % 2 % (0-3); HEMATOCRIT 29.2 % (39.0-53.0); HEMOGLOBIN 9.7 g/dL (13.0-17.5); LYMPH # 0.8 x10^3/uL (1.0-4.8); LYMPH % 20 % (24-48); MEAN CORPUSCULAR HEMOGLOBIN 29 pg (25-35); MEAN CORPUSCULAR HGB CONC 33 g/dL (31-37); MEAN CORPUSCULAR VOLUME 87 fL (79-100); MONO % 7 % (0-9); NEUT % 71 % (31-73); PLATELET COUNT 115 x10^3/uL (140-400); RED BLOOD COUNT 3.35 x10^6/uL (4.30-5.70); RED CELL DISTRIBUTION WIDTH 18.7 % (11.5-14.5); WHITE BLOOD COUNT 4.1 x10^3/uL (4.0-11.0)
[2016-09-02 11:00] VITALS: BP 129/67
[2016-09-02 11:20] LABS: CALCIUM 7.9 mg/dL (8.5-10.1); CREATININE 0.9 mg/dL (0.7-1.3); GFR 87.6; POTASSIUM 3.9 mmol/L (3.5-5.1)
[2016-09-02] MEDS ORDERED: PROPOFOL 10 MG/ML (20ML) VIAL. IV ONE (12:00)
[2016-09-02] MEDS ORDERED: LIDOCAINE 2% PF Vial for OR 5 ML VIAL. ONE (12:00)
--- NOTE | 2016-09-02 15:51 | PDOC4 ---
Operative Note Operative Note Colonoscopy Meds propofol per anesthesia Pre-op dx anemia/abnl Ct scan mass sigmoid colon post-op dx internal hemorrhoids normal sigmoid colon extent splenic flexure secondary to looping Plan resume diet and meds TU AVILA MD Sep 02, 2016 15:51
[2016-09-02 19:00] VITALS: BP 118/68
[2016-09-02] MEDS: ACETAMINOPHEN 500 MG TABLET PO SCH (20:33)
[2016-09-02] MEDS: DIPHENHYDRAMINE HCL 25 MG CAPSULE PO SCH (20:33)
[2016-09-02] MEDS: IV RINGERS,LACTATED 1000ML 1,000 ML IV SCH (20:34)
[2016-09-02 23:00] VITALS: BP 115/71
[2016-09-03 03:00] VITALS: BP 133/73
[2016-09-03] MEDS: IV RINGERS,LACTATED 1000ML 1,000 ML IV SCH (04:14)
[2016-09-03 04:39] LABS: BASO % 0 % (0-3); EOS % 3 % (0-3); HEMATOCRIT 26.4 % (39.0-53.0); HEMOGLOBIN 8.6 g/dL (13.0-17.5); LYMPH % 34 % (24-48); MEAN CORPUSCULAR HEMOGLOBIN 29 pg (25-35); MEAN CORPUSCULAR HGB CONC 33 g/dL (31-37); MEAN CORPUSCULAR VOLUME 90 fL (79-100); MONO % 8 % (0-9); NEUT % 55 % (31-73); PLATELET COUNT 103 x10^3/uL (140-400); RED BLOOD COUNT 2.95 x10^6/uL (4.30-5.70); RED CELL DISTRIBUTION WIDTH 18.7 % (11.5-14.5); WHITE BLOOD COUNT 3.1 x10^3/uL (4.0-11.0)
[2016-09-03 04:59] LABS: CALCIUM 7.6 mg/dL (8.5-10.1); GFR 77.6; POTASSIUM 3.7 mmol/L (3.5-5.1)
[2016-09-03] MEDS: ALBUTEROL SULFATE 2.5 MG/3 ML NEBU. NEB SCH ×4 (07:06→19:14)
[2016-09-03 07:25] VITALS: BP 121/58
--- NOTE | 2016-09-03 09:23 | PDOC ---
Infectious Disease Note Subjective Subjective Denies pain No fever ROS ROS GEN: Denies fevers, chills, sweats HEENT: Denies blurred vision, sore throat CV: Denies chest pain RESP: Denies shortness of air, cough GI: Denies n/v/d NEURO: Denies confusion, dizziness MSK: Denies weakness, joint pain/swelling ? Reliability Vital Sign Vital Signs Vital Signs Date Time Temp Pulse Resp B/P Pulse Ox O2 Delivery O2 Flow Rate FiO2 09/03/16 07:25 97.7 77 24 121/58 98 BiPAP/CPAP 97.7 09/02/16 20:10 1.0 Physical Exam PHYSICAL EXAM GENERAL: Up in chair, smiling HEENT: Oral cavity pink NECK: Supple LUNGS: Clear HEART: S1S2, no gallop, no murmur ABD: Obese, BS present, soft, NT : [place] out EXT: BLE trace edema. 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 SKIN: No rash IV - clean Labs Lab Laboratory Tests Test 09/02/16 10:40 09/03/16 04:10 White Blood Count 4.1x10^3/uL (4.0-11.0) 3.1x10^3/uL (4.0-11.0) Red Blood Count 3.35x10^6/uL (4.30-5.70) 2.95x10^6/uL (4.30-5.70) Hemoglobin 9.7g/dL (13.0-17.5) 8.6g/dL (13.0-17.5) Hematocrit 29.2% (39.0-53.0) 26.4% (39.0-53.0) Mean Corpuscular Volume 87fL (79-100) 90fL (79-100) Mean Corpuscular Hemoglobin 29pg (25-35) 29pg (25-35) Mean Corpuscular Hemoglobin Concent 33g/dL (31-37) 33g/dL (31-37) Red Cell Distribution Width 18.7% (11.5-14.5) 18.7% (11.5-14.5) Platelet Count 115x10^3/uL (140-400) 103x10^3/uL (140-400) Neutrophils (%) (Auto) 71% (31-73) 55% (31-73) Lymphocytes (%) (Auto) 20% (24-48) 34% (24-48) Monocytes (%) (Auto) 7% (0-9) 8% (0-9) Eosinophils (%) (Auto) 2% (0-3) 3% (0-3) Basophils (%) (Auto) 1% (0-3) 0% (0-3) Neutrophils # (Auto) 2.9x10^3uL (1.8-7.7) 1.7x10^3uL (1.8-7.7) Lymphocytes # (Auto) 0.8x10^3/uL (1.0-4.8) 1.0x10^3/uL (1.0-4.8) Monocytes # (Auto) 0.3x10^3/uL (0.0-1.1) 0.3x10^3/uL (0.0-1.1) Eosinophils # (Auto) 0.1x10^3/uL (0.0-0.7) 0.1x10^3/uL (0.0-0.7) Basophils # (Auto) 0.0x10^3/uL (0.0-0.2) 0.0x10^3/uL (0.0-0.2) Sodium Level 145mmol/L (136-145) 145mmol/L (136-145) Potassium Level 3.9mmol/L (3.5-5.1) 3.7mmol/L (3.5-5.1) Chloride Level 105mmol/L (98-107) 107mmol/L (98-107) Carbon Dioxide Level 33mmol/L (21-32) 33mmol/L (21-32) Anion Gap 7 (6-14) 5 (6-14) Blood Urea Nitrogen 20mg/dL (8-26) 23mg/dL (8-26) Creatinine 0.9mg/dL (0.7-1.3) 1.0mg/dL (0.7-1.3) Estimated GFR (Cockcroft-Gault) 87.6 77.6 Glucose Level 102mg/dL (70-99) 100mg/dL (70-99) Calcium Level 7.9mg/dL (8.5-10.1) 7.6mg/dL (8.5-10.1) Micro Escherichia coli 25,000-50,000 colony forming units per mL ANTIMICROBIAL SUSCEPTIBILITY Final Comment S = Susceptible; I = Intermediate; R = Resistant P = Positive; N = Negative MICS are expressed in micrograms per mL Antibiotic RSLT#1 RSLT#2 RSLT#3 RSLT#4 Amoxicillin/Clavulanic Acid S =8 Ampicillin R>=32 Cefepime S<=1 Ceftriaxone S<=1 Cefuroxime I =16 Cephalothin R =32 Ciprofloxacin R>=4 Ertapenem S<=0.5 Gentamicin S<=1 Imipenem S<=1 Levofloxacin R>=8 Nitrofurantoin S<=16 Piperacillin R>=128 Tetracycline S =4 Tobramycin S<=1 Trimethoprim/Sulfa S<=20 Objective Assessment Fever - better Leukopenia - re-occurred this am. Only new med I can see was Propofol for procedure. S/p Bone marrow biopsy 08/28 Ecoli UTI 08/24. POA with enlarged prostate and some seminal vesicle inflammation. Now on Flomax Sigmoid mass - s/p colon and clean PCN and cefpodoxime allergy. Mental retardation Plan Plan of Care F/u labs -watch for trend Blood cults times 2 08/26 - neg Wean Tigecycline soon Await bone marrow results D/w mother FRANKLIN PEREZ MD Sep 03, 2016 09:23
[2016-09-03] MEDS: TIGECYCLINE 50 MG in IV NORMAL SALINE 50ML 50 ML IV SCH ×2 (09:29→20:53)
[2016-09-03] MEDS: POTASSIUM CHLORIDE 20 MEQ/15 ML ORAL LIQUID. PO SCH (09:29)
[2016-09-03] MEDS: TAMSULOSIN 0.4 MG CAP.ER.24H. PO SCH (09:30)
[2016-09-03] MEDS: PANTOPRAZOLE 40 MG TABLET. PO SCH (09:30)
--- NOTE | 2016-09-03 09:42 | PDOC ---
Subjective: Subjective: No GI complaints. Objective: Vital Signs: Vital Signs Date Time Temp Pulse Resp B/P Pulse Ox O2 Delivery O2 Flow Rate FiO2 09/03/16 07:25 97.7 77 24 121/58 98 BiPAP/CPAP 97.7 09/02/16 20:10 1.0 Labs: Laboratory Tests Test 09/02/16 10:40 09/03/16 04:10 White Blood Count 4.1x10^3/uL 3.1x10^3/uL Red Blood Count 3.35x10^6/uL 2.95x10^6/uL Hemoglobin 9.7g/dL 8.6g/dL Hematocrit 29.2% 26.4% Mean Corpuscular Volume 87fL 90fL Mean Corpuscular Hemoglobin 29pg 29pg Mean Corpuscular Hemoglobin Concent 33g/dL 33g/dL Red Cell Distribution Width 18.7% 18.7% Platelet Count 115x10^3/uL 103x10^3/uL Neutrophils (%) (Auto) 71% 55% Lymphocytes (%) (Auto) 20% 34% Monocytes (%) (Auto) 7% 8% Eosinophils (%) (Auto) 2% 3% Basophils (%) (Auto) 1% 0% Neutrophils # (Auto) 2.9x10^3uL 1.7x10^3uL Lymphocytes # (Auto) 0.8x10^3/uL 1.0x10^3/uL Monocytes # (Auto) 0.3x10^3/uL 0.3x10^3/uL Eosinophils # (Auto) 0.1x10^3/uL 0.1x10^3/uL Basophils # (Auto) 0.0x10^3/uL 0.0x10^3/uL Sodium Level 145mmol/L 145mmol/L Potassium Level 3.9mmol/L 3.7mmol/L Chloride Level 105mmol/L 107mmol/L Carbon Dioxide Level 33mmol/L 33mmol/L Anion Gap 7 5 Blood Urea Nitrogen 20mg/dL 23mg/dL Creatinine 0.9mg/dL 1.0mg/dL Estimated GFR (Cockcroft-Gault) 87.6 77.6 Glucose Level 102mg/dL 100mg/dL Calcium Level 7.9mg/dL 7.6mg/dL Imaging: Colonoscopy 09/02/16: internal hemorrhoids normal sigmoid colon extent splenic flexure secondary to looping PE: GEN: NAD LUNGS: clear anteriorly HEART: RRR ABD: S/NT NEURO/PSYCH: unchanged A/P: Pancytopenia s/p bone marrow bx -- Colonoscopy w/ normal splenic flexure as above. No new GI recs. MELANIE HICKS Sep 03, 2016 09:42
--- NOTE | 2016-09-03 10:20 | PDOC ---
PROGRESS NOTES Subjective Subjective feels well. colonoscopy negative. off of oxygen. still receiving iv tygacil. discussed with mother and anticipate dismissal tomorrow. lab reviewed. Objective Objective Vital Signs Date Time Temp Pulse Resp B/P Pulse Ox O2 Delivery O2 Flow Rate FiO2 09/03/16 08:00 Nasal Cannula 09/03/16 07:25 97.7 77 24 121/58 98 97.7 09/02/16 20:10 1.0 Intake and Output 09/03/16 07:00 Intake Total 1125 ml Output Total 2 ml Balance 1123 ml Intake Oral 825 ml IV Total 300 ml Output Urine Total 2 ml # Voids 2 Physical Exam Abdomen: Soft Heart: Regular rate, Normal S1, Normal S2 Extremities: Other (2 plus edema legs) General: Alert HEENT: Atraumatic Lungs: Other (clear. decreased breath sounds bilaterally) Neuro: Normal speech Psych/Mental Status: Mood NL Skin: No rashes Assessment Assessment Problems Medical Problems::epsis resolved 2. e. coli uti 3. pancytopenia improved. 4. 5. Cholelithiasis. 6. Sigmoid colon mass.colonoscopy postponed due to neutropenia 7. Chronic hypoxic and hypercapnic respiratory failure. 8. Obstructive sleep apnea. 9. Morbid obesity. fever resolved BPH and seminal vesicle inflammation hypernatremia resolved (1) Sepsis Status: Acute (2) Urine retention Status: Acute (3) UTI (urinary tract infection) Status: Acute Plan Plan of Care continue iv tygacil dismiss tomorrow Comment Review of Relevant I have reviewed the following items lexus (where applicable) has been applied. Labs Laboratory Tests Test 09/02/16 10:40 09/03/16 04:10 White Blood Count 4.1x10^3/uL (4.0-11.0) 3.1x10^3/uL (4.0-11.0) Red Blood Count 3.35x10^6/uL (4.30-5.70) 2.95x10^6/uL (4.30-5.70) Hemoglobin 9.7g/dL (13.0-17.5) 8.6g/dL (13.0-17.5) Hematocrit 29.2% (39.0-53.0) 26.4% (39.0-53.0) Mean Corpuscular Volume 87fL (79-100) 90fL (79-100) Mean Corpuscular Hemoglobin 29pg (25-35) 29pg (25-35) Mean Corpuscular Hemoglobin Concent 33g/dL (31-37) 33g/dL (31-37) Red Cell Distribution Width 18.7% (11.5-14.5) 18.7% (11.5-14.5) Platelet Count 115x10^3/uL (140-400) 103x10^3/uL (140-400) Neutrophils (%) (Auto) 71% (31-73) 55% (31-73) Lymphocytes (%) (Auto) 20% (24-48) 34% (24-48) Monocytes (%) (Auto) 7% (0-9) 8% (0-9) Eosinophils (%) (Auto) 2% (0-3) 3% (0-3) Basophils (%) (Auto) 1% (0-3) 0% (0-3) Neutrophils # (Auto) 2.9x10^3uL (1.8-7.7) 1.7x10^3uL (1.8-7.7) Lymphocytes # (Auto) 0.8x10^3/uL (1.0-4.8) 1.0x10^3/uL (1.0-4.8) Monocytes # (Auto) 0.3x10^3/uL (0.0-1.1) 0.3x10^3/uL (0.0-1.1) Eosinophils # (Auto) 0.1x10^3/uL (0.0-0.7) 0.1x10^3/uL (0.0-0.7) Basophils # (Auto) 0.0x10^3/uL (0.0-0.2) 0.0x10^3/uL (0.0-0.2) Sodium Level 145mmol/L (136-145) 145mmol/L (136-145) Potassium Level 3.9mmol/L (3.5-5.1) 3.7mmol/L (3.5-5.1) Chloride Level 105mmol/L (98-107) 107mmol/L (98-107) Carbon Dioxide Level 33mmol/L (21-32) 33mmol/L (21-32) Anion Gap 7 (6-14) 5 (6-14) Blood Urea Nitrogen 20mg/dL (8-26) 23mg/dL (8-26) Creatinine 0.9mg/dL (0.7-1.3) 1.0mg/dL (0.7-1.3) Estimated GFR (Cockcroft-Gault) 87.6 77.6 Glucose Level 102mg/dL (70-99) 100mg/dL (70-99) Calcium Level 7.9mg/dL (8.5-10.1) 7.6mg/dL (8.5-10.1) Laboratory Tests Test 09/02/16 10:40 09/03/16 04:10 White Blood Count 4.1x10^3/uL (4.0-11.0) 3.1x10^3/uL (4.0-11.0) Red Blood Count 3.35x10^6/uL (4.30-5.70) 2.95x10^6/uL (4.30-5.70) Hemoglobin 9.7g/dL (13.0-17.5) 8.6g/dL (13.0-17.5) Hematocrit 29.2% (39.0-53.0) 26.4% (39.0-53.0) Mean Corpuscular Volume 87fL (79-100) 90fL (79-100) Mean Corpuscular Hemoglobin 29pg (25-35) 29pg (25-35) Mean Corpuscular Hemoglobin Concent 33g/dL (31-37) 33g/dL (31-37) Red Cell Distribution Width 18.7% (11.5-14.5) 18.7% (11.5-14.5) Platelet Count 115x10^3/uL (140-400) 103x10^3/uL (140-400) Neutrophils (%) (Auto) 71% (31-73) 55% (31-73) Lymphocytes (%) (Auto) 20% (24-48) 34% (24-48) Monocytes (%) (Auto) 7% (0-9) 8% (0-9) Eosinophils (%) (Auto) 2% (0-3) 3% (0-3) Basophils (%) (Auto) 1% (0-3) 0% (0-3) Neutrophils # (Auto) 2.9x10^3uL (1.8-7.7) 1.7x10^3uL (1.8-7.7) Lymphocytes # (Auto) 0.8x10^3/uL (1.0-4.8) 1.0x10^3/uL (1.0-4.8) Monocytes # (Auto) 0.3x10^3/uL (0.0-1.1) 0.3x10^3/uL (0.0-1.1) Eosinophils # (Auto) 0.1x10^3/uL (0.0-0.7) 0.1x10^3/uL (0.0-0.7) Basophils # (Auto) 0.0x10^3/uL (0.0-0.2) 0.0x10^3/uL (0.0-0.2) Sodium Level 145mmol/L (136-145) 145mmol/L (136-145) Potassium Level 3.9mmol/L (3.5-5.1) 3.7mmol/L (3.5-5.1) Chloride Level 105mmol/L (98-107) 107mmol/L (98-107) Carbon Dioxide Level 33mmol/L (21-32) 33mmol/L (21-32) Anion Gap 7 (6-14) 5 (6-14) Blood Urea Nitrogen 20mg/dL (8-26) 23mg/dL (8-26) Creatinine 0.9mg/dL (0.7-1.3) 1.0mg/dL (0.7-1.3) Estimated GFR (Cockcroft-Gault) 87.6 77.6 Glucose Level 102mg/dL (70-99) 100mg/dL (70-99) Calcium Level 7.9mg/dL (8.5-10.1) 7.6mg/dL (8.5-10.1) Microbiology 08/26/16 Blood Culture - Final, Complete NO GROWTH AFTER 5 DAYS 08/24/16 Urine Culture - Final, Complete 08/24/16 Urine Culture Result 1 (FAUSTINA) - Final, Complete 08/24/16 Antimicrobic Susceptibility - Final, Complete Medications Current Medications Lorazepam 2 mg 2 mg 1X ONCE IV Last administered on 08/24/16 08:29; Start at 08:30; Stop 08/24/16 at 08:31; Status DC Sodium Chloride (Iv Sodium Chloride 0.9% 1000ml Bag) 1,000 ml @ 1,000 mls/hr 1X ONCE IV Last administered on 08/24/16 09:22; Start 08/24/16 at 08:30; Stop 08/24/16 at 09:29; Status DC Ondansetron HCl 4 mg 4 mg 1X ONCE IV Last administered on 08/24/16 09:23; Start 08/24/16 at 08:30; Stop 08/24/16 at 08:31; Status DC Levofloxacin/ Dextrose 150 ml @ 100 mls/hr 1X ONCE IV Last administered on 11:09; Start 08/24/16 at 10:00; Stop 08/24/16 at 11:29; Status DC Sodium Chloride 1,000 ml @ 1,000 mls/hr 1X ONCE IV Last administered on 10:31; Start 08/24/16 at 10:00; Stop 08/24/16 at 10:59; Status DC Sodium Chloride (Iv Sodium Chloride 0.9% 1000ml Bag) 1,000 ml @ 1,000 mls/hr 1X ONCE IV ; Start 08/24/16 at 10:00; Stop 08/24/16 at 10:59; Status UNV Fentanyl Citrate (Fentanyl 2ml Vial) 50 mcg 1X ONCE IV Last administered on 11:09; Start 08/24/16 at 10:30; Stop 08/24/16 at 10:31; Status DC Iohexol (Omnipaque 300 Mg/ml) 60 ml 1X ONCE IV Last administered on 08/24/16 10:48; Start 08/24/16 at 10:30; Stop 08/24/16 at 10:31; Status DC Ondansetron HCl (Zofran) 4 mg PRN Q8HRS PRN IV NAUSEA/VOMITING; Start 08/24/16 at 11:45; Stop 08/24/16 at 13:45; Status DC Fentanyl Citrate 50 mcg 50 mcg PRN Q1HR PRN IV PAIN; Start 08/24/16 at 11:45; Stop 08/25/16 at 11:44; Status DC Sodium Chloride (Iv Sodium Chloride 0.9% 1000ml Bag) 1,000 ml @ 150 mls/hr Q6H40M IV ; Start 08/24/16 at 12:00; Stop 08/25/16 at 11:59; Status DC Acetaminophen 650 mg 650 mg PRN Q4HRS PRN PO FEVER; Start 08/24/16 at 11:45; Stop 08/24/16 at 22:21; Status DC Potassium Chloride/Dextrose/ Sod Cl (KCl 20 Meq In D5W-1/2 NS) 1,000 ml @ 40 mls/hr Q24H IV Last administered on 08/29/16 06:31; Start 08/24/16 at 15:00; Stop 08/29/16 at 09:56; Status DC Acetaminophen (Tylenol) 650 mg PRN Q6HRS PRN ND MILD PAIN / TEMP; Start at 13:45; Stop 08/25/16 at 08:58; Status DC Pantoprazole Sodium (Protonix Vial) 40 mg DAILYAC IVP Last administered on 08/25 07:53; Start 08/24/16 at 14:00; Stop 08/25/16 at 08:58; Status DC Ondansetron HCl (Zofran) 4 mg PRN Q6HRS PRN IV NAUSEA/VOMITING; Start 08/24/16 at 13:45 Enoxaparin Sodium 40 mg 40 mg Q24H SQ Last administered on 08/26/16 14:43; Start 08/24/16 at 15:00; Stop 08/27/16 at 10:14; Status DC Meropenem 500 mg/ Sodium Chloride 50 ml @ 100 mls/hr Q6HRS IV Last administered on 08/29/16 06:36; Start 08/24/16 at 16:00; Stop 08/29/16 at 08:39 ; Status DC Fluconazole/ Sodium Chloride (Diflucan 400mg/ 200ml Premix) 200 ml @ 100 mls/ hr Q24H IV Last administered on 08/27/16 16:37; Start 08/24/16 at 15:00; Stop 08/28/16 at 08:34; Status DC Albuterol Sulfate (Ventolin Neb Soln) 2.5 mg RTQID NEB Last administered on 09/03 07:06; Start 08/24/16 at 20:00 Albuterol Sulfate (Ventolin Neb Soln) 2.5 mg PRN Q4HRS PRN NEB SHORTNESS OF BREATH; Start 08/24/16 at 19:45 Acetaminophen (Tylenol) 500 mg QHS PO Last administered on 09/02/16 20:33; Start 08/24/16 at 22:30 Diphenhydramine HCl (Benadryl) 25 mg QHS PO Last administered on 09/02/16 20: 33; Start 08/24/16 at 22:30 Pantoprazole Sodium (Protonix) 40 mg DAILYAC PO Last administered on 09/03/16 09:30; Start 08/26/16 at 07:30 Acetaminophen (Tylenol) 650 mg PRN Q4HRS PRN PO MILD PAIN / TEMP Last administered on 08/30/16 21:03; Start 08/25/16 at 09:00 Vancomycin HCl 1 each 1 each PRN DAILY PRN MC SEE COMMENTS Last administered on 08/26/16 13:07; Start 08/26/16 at 08:00; Stop 08/27/16 at 10:25; Status DC Vancomycin HCl/ Sodium Chloride (Iv Sodium Chloride 0.9% 500ml Bag) 500 ml @ 250 mls/hr 1X ONCE IV Last administered on 08/26/16 09:30; Start 08/26/16 at 09:00; Stop 08/26/16 at 10:59; Status DC Tamsulosin HCl 0.4 mg 0.4 mg DAILY PO Last administered on 09/03/16 09:30; Start 08/26/16 at 13:00 Vancomycin HCl/ Sodium Chloride (Iv Sodium Chloride 0.9% 500ml Bag) 500 ml @ 250 mls/hr Q12H IV Last administered on 08/27/16 08:30; Start 08/26/16 at 21: 00; Stop 08/27/16 at 10:25; Status DC Vancomycin HCl 1 each 1X ONCE MC ; Start 08/27/16 at 20:30; Stop 08/27/16 at 20 :30; Status DC Alteplase, Recombinant (Cathflo) 2 mg PRN DAILY PRN INT CAT PER PROTOCOL Last administered on 08/30/16 09:48; Start 08/27/16 at 10:15 Sodium Cl/Sod Bicarb/Potass Cl/ PEG (Golytely) 4,000 ml 1X ONCE PO ; Start at 13:00; Stop 08/27/16 at 15:19; Status DC Polyethylene Glycol (miraLAX Powder BULK BOTTLE) 238 gm 1X ONCE PO Last administered on 08/27/16 16:39; Start 08/27/16 at 16:00; Stop 08/27/16 at 16:01 ; Status DC Bisacodyl (Dulcolax Tab) 10 mg 1X ONCE PO Last administered on 08/27/16 16:39 ; Start 08/27/16 at 16:00; Stop 08/27/16 at 16:01; Status DC Morphine Sulfate 1 mg 1 mg PRN Q10MIN PRN IV SEVERE PAIN Last administered on 11:44; Start 08/28/16 at 07:00; Stop 08/29/16 at 06:59; Status DC Lactated Ringer's (Iv Lactated Ringers) 1,000 ml @ 0 mls/hr Q0M IV ; Start at 07:00; Stop 08/28/16 at 18:59; Status DC Lidocaine HCl 2 ml 1X PRN PRN ID IV START; Start 08/28/16 at 07:00; Stop at 06:59; Status DC Hydromorphone HCl (Dilaudid) 0.5 mg PRN Q10MIN PRN IV SEVERE PAIN, Second choice; Start 08/28/16 at 07:00; Stop 08/29/16 at 06:59; Status DC Prochlorperazine Edisylate (Compazine) 5 mg PACU PRN PRN IV NAUSEA; Start 08/28 at 07:00; Stop 08/29/16 at 06:59; Status DC Lorazepam (Ativan) 0.5 mg PRN Q8HRS PRN PO ANXIETY / AGITATION Last administered on 08/28/16 13:27; Start 08/27/16 at 18:15 Acetaminophen (Tylenol) 650 mg PRN Q4HRS PRN PO MILD PAIN / TEMP; Start at 18:15; Status UNV Lidocaine/Sodium Bicarbonate (Buffered Lidocaine 1%) 20 ml STK-MED ONCE IJ ; Start 08/28/16 at 08:05; Stop 08/28/16 at 08:06; Status DC Neostigmine Methylsulfate 5 mg STK-MED ONCE .ROUTE ; Start 08/28/16 at 10:16; Stop 08/28/16 at 10:17; Status DC Glycopyrrolate (Robinul) 1 mg STK-MED ONCE .ROUTE ; Start 08/28/16 at 10:16; Stop 08/28/16 at 10:17; Status DC Fentanyl Citrate (Fentanyl 5ml Vial) 250 mcg STK-MED ONCE .ROUTE ; Start at 10:16; Stop 08/28/16 at 10:17; Status DC Lidocaine/Sodium Bicarbonate (Buffered Lidocaine 1%) 20 ml 1X ONCE IJ Last administered on 08/28/16t 10:45; Start 08/28/16 at 10:45; Stop 08/28/16 at 10:46 ; Status DC Phenylephrine HCl 1 mg STK-MED ONCE IV ; Start 08/28/16 at 11:51; Stop 08/28/16 at 11:52; Status DC Dexamethasone Sodium Phosphate (Decadron) 20 mg STK-MED ONCE .ROUTE ; Start at 11:51; Stop 08/28/16 at 11:52; Status DC Ondansetron HCl (Zofran) 4 mg STK-MED ONCE .ROUTE ; Start 08/28/16 at 11:51; Stop 08/28/16 at 11:52; Status DC Sevoflurane (Ultane) 60 ml STK-MED ONCE IH ; Start 08/28/16 at 11:51; Stop 08/28 at 11:52; Status DC Vancomycin HCl 1 each 1 each PRN DAILY PRN MC SEE COMMENTS; Start 08/28/16 at 11:45; Stop 08/28/16 at 12:03; Status DC Tigecycline 100 mg/Sodium Chloride 100 ml @ 200 mls/hr 1X ONCE IV Last administered on 08/29/16t 10:56; Start 08/29/16 at 10:00; Stop 08/29/16 at 10:29 ; Status DC Tigecycline 50 mg/ Sodium Chloride 50 ml @ 100 mls/hr Q12HR IV Last administered on 09/03/16 09:29; Start 08/29/16 at 21:00 Dextrose 1,000 ml @ 60 mls/hr [id number] IV Last administered on 08/30/16 21:02 ; Start 08/29/16 at 10:00; Stop 08/31/16 at 11:23; Status DC Propofol (Diprivan) 200 mg STK-MED ONCE IV ; Start 08/28/16 at 12:00; Stop 08/29 at 11:22; Status DC Rocuronium [place] (Zemuron) 50 mg STK-MED ONCE .ROUTE ; Start 08/28/16 at 12:00 ; Stop 08/29/16 at 11:22; Status DC Succinylcholine Chloride 200 mg 200 mg STK-MED ONCE .ROUTE ; Start 08/28/16 at 12:00; Stop 08/29/16 at 11:22; Status DC Sodium Chloride (Iv Sodium Chloride 0.45%) 1,000 ml @ 40 mls/hr Q24H IV Last administered on 09/02/16 03:10; Start 08/31/16 at 11:30 Potassium Chloride (KCl Oral Soln) 20 meq DAILY PO Last administered on 09:29; Start 09/01/16 at 10:00 Polyethylene Glycol 238 gm 238 gm 1X ONCE PO Last administered on 09/01/16 16 :32; Start 09/01/16 at 16:00; Stop 09/01/16 at 16:01; Status DC Lactated Ringer's 1,000 ml @ 50 mls/hr Q20H IV Last administered on 09/02/16 07:00; Start 09/02/16 at 07:00; Stop 09/02/16 at 18:59; Status DC Lactated Ringer's (Iv Lactated Ringers) 1,000 ml @ 75 mls/hr [id number] IV ; Start 09/02/16 at 14:00 Propofol (Diprivan) 200 mg STK-MED ONCE IV ; Start 09/02/16 at 12:00; Stop at 08:49; Status DC Lidocaine HCl (Lidocaine Pf 2% Vial) 5 ml STK-MED ONCE .ROUTE ; Start 09/02/16 at 12:00; Stop 09/03/16 at 08:49; Status DC Active Scripts Active Prednisone 20 Mg Tablet 30 Mg PO DAILY Levaquin (Levofloxacin) 500 Mg Tablet 500 Mg PO DAILY06 Albuterol Sulfate Neb Soln (Albuterol Sulfate) 2.5 Mg/3 Ml Vial.neb 2.5 Mg NEB RTQID Tylenol (Acetaminophen) 325 Mg Tablet 650 Mg PO PRN Q4HRS PRN Protonix (Pantoprazole Sodium) 40 Mg Tablet 40 Mg PO DAILYAC Vitals/I & O Vital Sign - Last 24 Hours 09/02/16 09/02/16 09/02/16 09/02/16 11:00 11:18 14:45 15:49 Temp 98.1 98.1 97.9 98.1 98.1 97.9 Pulse 98 98 94 Resp 20 18 20 B/P 129/67 127/90 Pulse Ox 94 94 91 O2 Delivery Nasal Cannula Nasal Cannula Room Air O2 Flow Rate 1.0 1.0 09/02/16 09/02/16 09/02/16 09/02/16 15:59 16:00 16:15 19:00 Temp 97.9 97.9 Pulse 93 86 114 Resp 20 20 30 B/P 142/63 119/68 118/68 Pulse Ox 98 96 93 O2 Delivery Room Air Room Air Room Air Room Air 09/02/16 09/02/16 09/02/16 09/02/16 19:18 20:10 20:56 23:00 Temp 98.5 98.5 Pulse 91 Resp 34 B/P 115/71 Pulse Ox 100 98 O2 Delivery Room Air Nasal Cannula BiPAP/CPAP BiPAP/CPAP O2 Flow Rate 1.0 09/02/16 09/03/16 09/03/16 09/03/16 23:40 03:00 03:18 07:09 Temp 97.7 97.7 Pulse 71 Resp 31 B/P 133/73 Pulse Ox 95 97 O2 Delivery BiPAP/CPAP BiPAP/CPAP BiPAP/CPAP BiPAP/CPAP 09/03/16 09/03/16 07:25 08:00 Temp 97.7 97.7 Pulse 77 Resp 24 B/P 121/58 Pulse Ox 98 O2 Delivery BiPAP/CPAP Nasal Cannula Intake and Output 09/02/16 09/02/16 09/03/16 15:00 23:00 07:00 Intake Total 925 ml 200 ml Output Total 2 ml Balance 923 ml 200 ml KATI BILLINGSLEY MD Sep 03, 2016 10:20
[2016-09-03 11:04] VITALS: BP 112/63
[2016-09-03 15:03] VITALS: BP 116/77
[2016-09-03] MEDS: IV 1/2 NORMAL SALINE 1,000 ML IV SCH (15:10)
[2016-09-03 19:00] VITALS: BP 121/64
[2016-09-03] MEDS: DIPHENHYDRAMINE HCL 25 MG CAPSULE PO SCH (20:53)
[2016-09-03] MEDS: ACETAMINOPHEN 500 MG TABLET PO SCH (20:53)
[2016-09-03 23:00] VITALS: BP 105/68
[2016-09-04 02:59] VITALS: BP 111/67
[2016-09-04 06:53] LABS: BASO % 1 % (0-3); EOS % 3 % (0-3); HEMATOCRIT 30.6 % (39.0-53.0); LYMPH # 1.1 x10^3/uL (1.0-4.8); LYMPH % 33 % (24-48); MEAN CORPUSCULAR HEMOGLOBIN 29 pg (25-35); MEAN CORPUSCULAR HGB CONC 33 g/dL (31-37); MEAN CORPUSCULAR VOLUME 89 fL (79-100); MONO % 8 % (0-9); NEUT % 56 % (31-73); PLATELET COUNT 109 x10^3/uL (140-400); RED BLOOD COUNT 3.46 x10^6/uL (4.30-5.70); RED CELL DISTRIBUTION WIDTH 19.8 % (11.5-14.5); WHITE BLOOD COUNT 3.3 x10^3/uL (4.0-11.0)
[2016-09-04 07:05] LABS: CALCIUM 7.8 mg/dL (8.5-10.1); CREATININE 1.1 mg/dL (0.7-1.3); GFR 69.5; POTASSIUM 4.2 mmol/L (3.5-5.1)
[2016-09-04 07:15] VITALS: BP 135/63
[2016-09-04] MEDS: ALBUTEROL SULFATE 2.5 MG/3 ML NEBU. NEB SCH ×3 (07:39→15:42)
--- NOTE | 2016-09-04 08:36 | PDOC ---
Infectious Disease Note Subjective Subjective States he's ok Denies pain No fever ROS ROS GEN: Denies fevers, chills, sweats HEENT: Denies blurred vision, sore throat CV: Denies chest pain RESP: Denies shortness of air, cough GI: Denies n/v/d NEURO: Denies confusion, dizziness MSK: Denies weakness, joint pain/swelling ? Reliability Vital Sign Vital Signs Vital Signs Date Time Temp Pulse Resp B/P Pulse Ox O2 Delivery O2 Flow Rate FiO2 09/04/16 07:39 BiPAP/CPAP 09/04/16 07:15 97.6 76 20 135/63 99 97.6 09/03/16 20:00 1.0 Physical Exam PHYSICAL EXAM GENERAL: NAD, Alert. Trying to hide under sheet HEENT: PERRL, Smiled NECK: Supple, no JVD, no LN LUNGS: Clear HEART: S1S2, no gallop, no murmur ABD: Soft, NT, no organomegaly, no rebound, obese EXT: No edema, no cyanosis ADMINISTRATIVE OFFICER: Alert, oriented x 3, no focal neurologic deficit SKIN: No rash IV: ok Labs Lab Laboratory Tests Test 09/04/16 06:22 White Blood Count 3.3x10^3/uL (4.0-11.0) Red Blood Count 3.46x10^6/uL (4.30-5.70) Hemoglobin 10.0g/dL (13.0-17.5) Hematocrit 30.6% (39.0-53.0) Mean Corpuscular Volume 89fL (79-100) Mean Corpuscular Hemoglobin 29pg (25-35) Mean Corpuscular Hemoglobin Concent 33g/dL (31-37) Red Cell Distribution Width 19.8% (11.5-14.5) Platelet Count 109x10^3/uL (140-400) Neutrophils (%) (Auto) 56% (31-73) Lymphocytes (%) (Auto) 33% (24-48) Monocytes (%) (Auto) 8% (0-9) Eosinophils (%) (Auto) 3% (0-3) Basophils (%) (Auto) 1% (0-3) Neutrophils # (Auto) 1.8x10^3uL (1.8-7.7) Lymphocytes # (Auto) 1.1x10^3/uL (1.0-4.8) Monocytes # (Auto) 0.3x10^3/uL (0.0-1.1) Eosinophils # (Auto) 0.1x10^3/uL (0.0-0.7) Basophils # (Auto) 0.0x10^3/uL (0.0-0.2) Sodium Level 146mmol/L (136-145) Potassium Level 4.2mmol/L (3.5-5.1) Chloride Level 109mmol/L (98-107) Carbon Dioxide Level 33mmol/L (21-32) Anion Gap 4 (6-14) Blood Urea Nitrogen 23mg/dL (8-26) Creatinine 1.1mg/dL (0.7-1.3) Estimated GFR (Cockcroft-Gault) 69.5 Glucose Level 93mg/dL (70-99) Calcium Level 7.8mg/dL (8.5-10.1) Micro Escherichia coli 25,000-50,000 colony forming units per mL ANTIMICROBIAL SUSCEPTIBILITY Final Comment S = Susceptible; I = Intermediate; R = Resistant P = Positive; N = Negative MICS are expressed in micrograms per mL Antibiotic RSLT#1 RSLT#2 RSLT#3 RSLT#4 Amoxicillin/Clavulanic Acid S =8 Ampicillin R>=32 Cefepime S<=1 Ceftriaxone S<=1 Cefuroxime I =16 Cephalothin R =32 Ciprofloxacin R>=4 Ertapenem S<=0.5 Gentamicin S<=1 Imipenem S<=1 Levofloxacin R>=8 Nitrofurantoin S<=16 Piperacillin R>=128 Tetracycline S =4 Tobramycin S<=1 Trimethoprim/Sulfa S<=20 Objective Assessment Fever - better Leukopenia - better this am. Only new med I can see was Propofol for procedure. S/p Bone marrow biopsy 08/28 Ecoli UTI 08/24. POA with enlarged prostate and some seminal vesicle inflammation. Now on Flomax Sigmoid mass - s/p colon and clean PCN and cefpodoxime allergy. Mental retardation Plan Plan of Care Change to po Doxy for 4 days Await bone marrow results per heme Ok to d/c home FRANKLIN PEREZ MD Sep 04, 2016 08:36
[2016-09-04] MEDS ORDERED: DOXYCYCLINE HYCLATE 100 MG TABLET PO SCH (09:00)
[2016-09-04] MEDS: TAMSULOSIN 0.4 MG CAP.ER.24H. PO SCH (09:45)
[2016-09-04] MEDS: POTASSIUM CHLORIDE 20 MEQ/15 ML ORAL LIQUID. PO SCH (09:46)
[2016-09-04] MEDS: PANTOPRAZOLE 40 MG TABLET. PO SCH (09:46)
--- NOTE | 2016-09-04 10:16 | PDOC ---
Subjective: Subjective: No GI complaints per mother. Wants to know about gallstones on CT. Denies chronic GI issues except for rare "tummy problem" (clarifies as indigestion) improved w/ famotidine OTC PRN. Objective: Vital Signs: Vital Signs Date Time Temp Pulse Resp B/P Pulse Ox O2 Delivery O2 Flow Rate FiO2 09/04/16 07:39 BiPAP/CPAP 09/04/16 07:15 97.6 76 20 135/63 99 97.6 09/03/16 20:00 1.0 Labs: Laboratory Tests Test 09/04/16 06:22 White Blood Count 3.3x10^3/uL Red Blood Count 3.46x10^6/uL Hemoglobin 10.0g/dL Hematocrit 30.6% Mean Corpuscular Volume 89fL Mean Corpuscular Hemoglobin 29pg Mean Corpuscular Hemoglobin Concent 33g/dL Red Cell Distribution Width 19.8% Platelet Count 109x10^3/uL Neutrophils (%) (Auto) 56% Lymphocytes (%) (Auto) 33% Monocytes (%) (Auto) 8% Eosinophils (%) (Auto) 3% Basophils (%) (Auto) 1% Neutrophils # (Auto) 1.8x10^3uL Lymphocytes # (Auto) 1.1x10^3/uL Monocytes # (Auto) 0.3x10^3/uL Eosinophils # (Auto) 0.1x10^3/uL Basophils # (Auto) 0.0x10^3/uL Sodium Level 146mmol/L Potassium Level 4.2mmol/L Chloride Level 109mmol/L Carbon Dioxide Level 33mmol/L Anion Gap 4 Blood Urea Nitrogen 23mg/dL Creatinine 1.1mg/dL Estimated GFR (Cockcroft-Gault) 69.5 Glucose Level 93mg/dL Calcium Level 7.8mg/dL PE: GEN: NAD, up to chair NEURO/PSYCH: moaning A/P: Pancytopenia -s/p bone marrow bx Abnormal CT A/P w/ sigmoid colon mass -normal sigmoid colon on colonoscopy Cholelithiasis - mom asks about this -noted on CT, asymptomatic -- Possible DC today. MELANIE HICKS Sep 04, 2016 10:16
[2016-09-04 11:01] VITALS: BP 116/74
--- NOTE | 2016-09-04 12:15 | PDOC ---
PROGRESS NOTES Subjective Subjective c/c - f/u of pancytopenia Objective Objective Vital Signs Date Time Temp Pulse Resp B/P Pulse Ox O2 Delivery O2 Flow Rate FiO2 09/04/16 11:52 97 Nasal Cannula 1.0 09/04/16 11:01 97.5 110 20 116/74 97.5 Intake and Output 09/04/16 07:00 Intake Total 1880 ml Balance 1880 ml Intake Oral 1880 ml # Voids 3 # Bowel Movements 2 Physical Exam Heart: Normal S1, Normal S2 General: Alert, Oriented X3 Assessment Assessment Problems Medical Problems: (1) Sepsis Status: Acute (2) Urine retention Status: Acute (3) UTI (urinary tract infection) Status: Acute ASSESSMENT AND PLAN: The patient is a 56-year-old male with the following medical problems: 1. Anemia of chronic disease, stable. 10 Monitor cbc PRN 2. Chronic thrombocytopenia, worsen. s/p bone marrow bx 08/28/16. Plt 109. 3. Neutropenia, acute this admission. WBC 3.3. 4. Escherichia coli urinary tract infection/sepsis, recent hospitalization for severe pneumonia. Comment Review of Relevant I have reviewed the following items lexus (where applicable) has been applied. Labs Laboratory Tests Test 09/03/16 04:10 09/04/16 06:22 White Blood Count 3.1x10^3/uL (4.0-11.0) 3.3x10^3/uL (4.0-11.0) Red Blood Count 2.95x10^6/uL (4.30-5.70) 3.46x10^6/uL (4.30-5.70) Hemoglobin 8.6g/dL (13.0-17.5) 10.0g/dL (13.0-17.5) Hematocrit 26.4% (39.0-53.0) 30.6% (39.0-53.0) Mean Corpuscular Volume 90fL (79-100) 89fL (79-100) Mean Corpuscular Hemoglobin 29pg (25-35) 29pg (25-35) Mean Corpuscular Hemoglobin Concent 33g/dL (31-37) 33g/dL (31-37) Red Cell Distribution Width 18.7% (11.5-14.5) 19.8% (11.5-14.5) Platelet Count 103x10^3/uL (140-400) 109x10^3/uL (140-400) Neutrophils (%) (Auto) 55% (31-73) 56% (31-73) Lymphocytes (%) (Auto) 34% (24-48) 33% (24-48) Monocytes (%) (Auto) 8% (0-9) 8% (0-9) Eosinophils (%) (Auto) 3% (0-3) 3% (0-3) Basophils (%) (Auto) 0% (0-3) 1% (0-3) Neutrophils # (Auto) 1.7x10^3uL (1.8-7.7) 1.8x10^3uL (1.8-7.7) Lymphocytes # (Auto) 1.0x10^3/uL (1.0-4.8) 1.1x10^3/uL (1.0-4.8) Monocytes # (Auto) 0.3x10^3/uL (0.0-1.1) 0.3x10^3/uL (0.0-1.1) Eosinophils # (Auto) 0.1x10^3/uL (0.0-0.7) 0.1x10^3/uL (0.0-0.7) Basophils # (Auto) 0.0x10^3/uL (0.0-0.2) 0.0x10^3/uL (0.0-0.2) Sodium Level 145mmol/L (136-145) 146mmol/L (136-145) Potassium Level 3.7mmol/L (3.5-5.1) 4.2mmol/L (3.5-5.1) Chloride Level 107mmol/L (98-107) 109mmol/L (98-107) Carbon Dioxide Level 33mmol/L (21-32) 33mmol/L (21-32) Anion Gap 5 (6-14) 4 (6-14) Blood Urea Nitrogen 23mg/dL (8-26) 23mg/dL (8-26) Creatinine 1.0mg/dL (0.7-1.3) 1.1mg/dL (0.7-1.3) Estimated GFR (Cockcroft-Gault) 77.6 69.5 Glucose Level 100mg/dL (70-99) 93mg/dL (70-99) Calcium Level 7.6mg/dL (8.5-10.1) 7.8mg/dL (8.5-10.1) Laboratory Tests Test 09/04/16 06:22 White Blood Count 3.3x10^3/uL (4.0-11.0) Red Blood Count 3.46x10^6/uL (4.30-5.70) Hemoglobin 10.0g/dL (13.0-17.5) Hematocrit 30.6% (39.0-53.0) Mean Corpuscular Volume 89fL (79-100) Mean Corpuscular Hemoglobin 29pg (25-35) Mean Corpuscular Hemoglobin Concent 33g/dL (31-37) Red Cell Distribution Width 19.8% (11.5-14.5) Platelet Count 109x10^3/uL (140-400) Neutrophils (%) (Auto) 56% (31-73) Lymphocytes (%) (Auto) 33% (24-48) Monocytes (%) (Auto) 8% (0-9) Eosinophils (%) (Auto) 3% (0-3) Basophils (%) (Auto) 1% (0-3) Neutrophils # (Auto) 1.8x10^3uL (1.8-7.7) Lymphocytes # (Auto) 1.1x10^3/uL (1.0-4.8) Monocytes # (Auto) 0.3x10^3/uL (0.0-1.1) Eosinophils # (Auto) 0.1x10^3/uL (0.0-0.7) Basophils # (Auto) 0.0x10^3/uL (0.0-0.2) Sodium Level 146mmol/L (136-145) Potassium Level 4.2mmol/L (3.5-5.1) Chloride Level 109mmol/L (98-107) Carbon Dioxide Level 33mmol/L (21-32) Anion Gap 4 (6-14) Blood Urea Nitrogen 23mg/dL (8-26) Creatinine 1.1mg/dL (0.7-1.3) Estimated GFR (Cockcroft-Gault) 69.5 Glucose Level 93mg/dL (70-99) Calcium Level 7.8mg/dL (8.5-10.1) Microbiology 08/26/16 Blood Culture - Final, Complete NO GROWTH AFTER 5 DAYS 08/24/16 Urine Culture - Final, Complete 08/24/16 Urine Culture Result 1 (FAUSTINA) - Final, Complete 08/24/16 Antimicrobic Susceptibility - Final, Complete Medications Current Medications Lorazepam 2 mg 2 mg 1X ONCE IV Last administered on 08/24/16 08:29; Start at 08:30; Stop 08/24/16 at 08:31; Status DC Sodium Chloride (Iv Sodium Chloride 0.9% 1000ml Bag) 1,000 ml @ 1,000 mls/hr 1X ONCE IV Last administered on 08/24/16 09:22; Start 08/24/16 at 08:30; Stop 08/24/16 at 09:29; Status DC Ondansetron HCl 4 mg 4 mg 1X ONCE IV Last administered on 08/24/16 09:23; Start 08/24/16 at 08:30; Stop 08/24/16 at 08:31; Status DC Levofloxacin/ Dextrose 150 ml @ 100 mls/hr 1X ONCE IV Last administered on 11:09; Start 08/24/16 at 10:00; Stop 08/24/16 at 11:29; Status DC Sodium Chloride 1,000 ml @ 1,000 mls/hr 1X ONCE IV Last administered on 10:31; Start 08/24/16 at 10:00; Stop 08/24/16 at 10:59; Status DC Sodium Chloride (Iv Sodium Chloride 0.9% 1000ml Bag) 1,000 ml @ 1,000 mls/hr 1X ONCE IV ; Start 08/24/16 at 10:00; Stop 08/24/16 at 10:59; Status UNV Fentanyl Citrate (Fentanyl 2ml Vial) 50 mcg 1X ONCE IV Last administered on 11:09; Start 08/24/16 at 10:30; Stop 08/24/16 at 10:31; Status DC Iohexol (Omnipaque 300 Mg/ml) 60 ml 1X ONCE IV Last administered on 08/24/16 10:48; Start 08/24/16 at 10:30; Stop 08/24/16 at 10:31; Status DC Ondansetron HCl (Zofran) 4 mg PRN Q8HRS PRN IV NAUSEA/VOMITING; Start 08/24/16 at 11:45; Stop 08/24/16 at 13:45; Status DC Fentanyl Citrate 50 mcg 50 mcg PRN Q1HR PRN IV PAIN; Start 08/24/16 at 11:45; Stop 08/25/16 at 11:44; Status DC Sodium Chloride (Iv Sodium Chloride 0.9% 1000ml Bag) 1,000 ml @ 150 mls/hr Q6H40M IV ; Start 08/24/16 at 12:00; Stop 08/25/16 at 11:59; Status DC Acetaminophen 650 mg 650 mg PRN Q4HRS PRN PO FEVER; Start 08/24/16 at 11:45; Stop 08/24/16 at 22:21; Status DC Potassium Chloride/Dextrose/ Sod Cl (KCl 20 Meq In D5W-1/2 NS) 1,000 ml @ 40 mls/hr Q24H IV Last administered on 08/29/16 06:31; Start 08/24/16 at 15:00; Stop 08/29/16 at 09:56; Status DC Acetaminophen (Tylenol) 650 mg PRN Q6HRS PRN NE MILD PAIN / TEMP; Start at 13:45; Stop 08/25/16 at 08:58; Status DC Pantoprazole Sodium (Protonix Vial) 40 mg DAILYAC IVP Last administered on 08/25 07:53; Start 08/24/16 at 14:00; Stop 08/25/16 at 08:58; Status DC Ondansetron HCl (Zofran) 4 mg PRN Q6HRS PRN IV NAUSEA/VOMITING; Start 08/24/16 at 13:45 Enoxaparin Sodium 40 mg 40 mg Q24H SQ Last administered on 08/26/16 14:43; Start 08/24/16 at 15:00; Stop 08/27/16 at 10:14; Status DC Meropenem 500 mg/ Sodium Chloride 50 ml @ 100 mls/hr Q6HRS IV Last administered on 08/29/16 06:36; Start 08/24/16 at 16:00; Stop 08/29/16 at 08:39 ; Status DC Fluconazole/ Sodium Chloride (Diflucan 400mg/ 200ml Premix) 200 ml @ 100 mls/ hr Q24H IV Last administered on 08/27/16 16:37; Start 08/24/16 at 15:00; Stop 08/28/16 at 08:34; Status DC Albuterol Sulfate (Ventolin Neb Soln) 2.5 mg RTQID NEB Last administered on 09/04 11:50; Start 08/24/16 at 20:00 Albuterol Sulfate (Ventolin Neb Soln) 2.5 mg PRN Q4HRS PRN NEB SHORTNESS OF BREATH; Start 08/24/16 at 19:45 Acetaminophen (Tylenol) 500 mg QHS PO Last administered on 09/03/16 20:53; Start 08/24/16 at 22:30 Diphenhydramine HCl (Benadryl) 25 mg QHS PO Last administered on 09/03/16 20:53 ; Start 08/24/16 at 22:30 Pantoprazole Sodium (Protonix) 40 mg DAILYAC PO Last administered on 09/04/16 09:46; Start 08/26/16 at 07:30 Acetaminophen (Tylenol) 650 mg PRN Q4HRS PRN PO MILD PAIN / TEMP Last administered on 08/30/16 21:03; Start 08/25/16 at 09:00 Vancomycin HCl 1 each 1 each PRN DAILY PRN MC SEE COMMENTS Last administered on 08/26/16 13:07; Start 08/26/16 at 08:00; Stop 08/27/16 at 10:25; Status DC Vancomycin HCl/ Sodium Chloride (Iv Sodium Chloride 0.9% 500ml Bag) 500 ml @ 250 mls/hr 1X ONCE IV Last administered on 08/26/16 09:30; Start 08/26/16 at 09:00; Stop 08/26/16 at 10:59; Status DC Tamsulosin HCl 0.4 mg 0.4 mg DAILY PO Last administered on 09/04/16 09:45; Start 08/26/16 at 13:00 Vancomycin HCl/ Sodium Chloride (Iv Sodium Chloride 0.9% 500ml Bag) 500 ml @ 250 mls/hr Q12H IV Last administered on 08/27/16 08:30; Start 08/26/16 at 21: 00; Stop 08/27/16 at 10:25; Status DC Vancomycin HCl 1 each 1X ONCE MC ; Start 08/27/16 at 20:30; Stop 08/27/16 at 20 :30; Status DC Alteplase, Recombinant (Cathflo) 2 mg PRN DAILY PRN INT CAT PER PROTOCOL Last administered on 08/30/16 09:48; Start 08/27/16 at 10:15 Sodium Cl/Sod Bicarb/Potass Cl/ PEG (Golytely) 4,000 ml 1X ONCE PO ; Start at 13:00; Stop 08/27/16 at 15:19; Status DC Polyethylene Glycol (miraLAX Powder BULK BOTTLE) 238 gm 1X ONCE PO Last administered on 08/27/16 16:39; Start 08/27/16 at 16:00; Stop 08/27/16 at 16:01 ; Status DC Bisacodyl (Dulcolax Tab) 10 mg 1X ONCE PO Last administered on 08/27/16 16:39 ; Start 08/27/16 at 16:00; Stop 08/27/16 at 16:01; Status DC Morphine Sulfate 1 mg 1 mg PRN Q10MIN PRN IV SEVERE PAIN Last administered on 11:44; Start 08/28/16 at 07:00; Stop 08/29/16 at 06:59; Status DC Lactated Ringer's (Iv Lactated Ringers) 1,000 ml @ 0 mls/hr Q0M IV ; Start at 07:00; Stop 08/28/16 at 18:59; Status DC Lidocaine HCl 2 ml 1X PRN PRN ID IV START; Start 08/28/16 at 07:00; Stop at 06:59; Status DC Hydromorphone HCl (Dilaudid) 0.5 mg PRN Q10MIN PRN IV SEVERE PAIN, Second choice; Start 08/28/16 at 07:00; Stop 08/29/16 at 06:59; Status DC Prochlorperazine Edisylate (Compazine) 5 mg PACU PRN PRN IV NAUSEA; Start 08/28 at 07:00; Stop 08/29/16 at 06:59; Status DC Lorazepam (Ativan) 0.5 mg PRN Q8HRS PRN PO ANXIETY / AGITATION Last administered on 08/28/16t 13:27; Start 08/27/16 at 18:15 Acetaminophen (Tylenol) 650 mg PRN Q4HRS PRN PO MILD PAIN / TEMP; Start at 18:15; Status UNV Lidocaine/Sodium Bicarbonate (Buffered Lidocaine 1%) 20 ml STK-MED ONCE IJ ; Start 08/28/16 at 08:05; Stop 08/28/16 at 08:06; Status DC Neostigmine Methylsulfate 5 mg STK-MED ONCE .ROUTE ; Start 08/28/16 at 10:16; Stop 08/28/16 at 10:17; Status DC Glycopyrrolate (Robinul) 1 mg STK-MED ONCE .ROUTE ; Start 08/28/16 at 10:16; Stop 08/28/16 at 10:17; Status DC Fentanyl Citrate (Fentanyl 5ml Vial) 250 mcg STK-MED ONCE .ROUTE ; Start at 10:16; Stop 08/28/16 at 10:17; Status DC Lidocaine/Sodium Bicarbonate (Buffered Lidocaine 1%) 20 ml 1X ONCE IJ Last administered on 08/28/16t 10:45; Start 08/28/16 at 10:45; Stop 08/28/16 at 10:46 ; Status DC Phenylephrine HCl 1 mg STK-MED ONCE IV ; Start 08/28/16 at 11:51; Stop 08/28/16 at 11:52; Status DC Dexamethasone Sodium Phosphate (Decadron) 20 mg STK-MED ONCE .ROUTE ; Start at 11:51; Stop 08/28/16 at 11:52; Status DC Ondansetron HCl (Zofran) 4 mg STK-MED ONCE .ROUTE ; Start 08/28/16 at 11:51; Stop 08/28/16 at 11:52; Status DC Sevoflurane (Ultane) 60 ml STK-MED ONCE IH ; Start 08/28/16 at 11:51; Stop 08/28 at 11:52; Status DC Vancomycin HCl 1 each 1 each PRN DAILY PRN MC SEE COMMENTS; Start 08/28/16 at 11:45; Stop 08/28/16 at 12:03; Status DC Tigecycline 100 mg/Sodium Chloride 100 ml @ 200 mls/hr 1X ONCE IV Last administered on 08/29/16 10:56; Start 08/29/16 at 10:00; Stop 08/29/16 at 10:29 ; Status DC Tigecycline 50 mg/ Sodium Chloride 50 ml @ 100 mls/hr Q12HR IV Last administered on 09/03/16 20:53; Start 08/29/16 at 21:00; Stop 09/04/16 at 08:37; Status DC Dextrose 1,000 ml @ 60 mls/hr [id number] IV Last administered on 08/30/16 21:02 ; Start 08/29/16 at 10:00; Stop 08/31/16 at 11:23; Status DC Propofol (Diprivan) 200 mg STK-MED ONCE IV ; Start 08/28/16 at 12:00; Stop 08/29 at 11:22; Status DC Rocuronium Denhoff (Zemuron) 50 mg STK-MED ONCE .ROUTE ; Start 08/28/16 at 12:00 ; Stop 08/29/16 at 11:22; Status DC Succinylcholine Chloride 200 mg 200 mg STK-MED ONCE .ROUTE ; Start 08/28/16 at 12:00; Stop 08/29/16 at 11:22; Status DC Sodium Chloride (Iv Sodium Chloride 0.45%) 1,000 ml @ 40 mls/hr Q24H IV Last administered on 09/02/16 03:10; Start 08/31/16 at 11:30 Potassium Chloride (KCl Oral Soln) 20 meq DAILY PO Last administered on 09:46; Start 09/01/16 at 10:00 Polyethylene Glycol 238 gm 238 gm 1X ONCE PO Last administered on 09/01/16 16 :32; Start 09/01/16 at 16:00; Stop 09/01/16 at 16:01; Status DC Lactated Ringer's 1,000 ml @ 50 mls/hr Q20H IV Last administered on 09/02/16 07:00; Start 09/02/16 at 07:00; Stop 09/02/16 at 18:59; Status DC Lactated Ringer's (Iv Lactated Ringers) 1,000 ml @ 75 mls/hr [id number] IV ; Start 09/02/16 at 14:00; Stop 09/03/16 at 10:22; Status DC Propofol (Diprivan) 200 mg STK-MED ONCE IV ; Start 09/02/16 at 12:00; Stop at 08:49; Status DC Lidocaine HCl (Lidocaine Pf 2% Vial) 5 ml STK-MED ONCE .ROUTE ; Start 09/02/16 at 12:00; Stop 09/03/16 at 08:49; Status DC Doxycycline Hyclate (Vibra-Tab) 100 mg BID PO Last administered on 09/04/16t 09: 45; Start 09/04/16 at 09:00 Active Scripts Active Prednisone 20 Mg Tablet 30 Mg PO DAILY Levaquin (Levofloxacin) 500 Mg Tablet 500 Mg PO DAILY06 Albuterol Sulfate Neb Soln (Albuterol Sulfate) 2.5 Mg/3 Ml Vial.neb 2.5 Mg NEB RTQID Tylenol (Acetaminophen) 325 Mg Tablet 650 Mg PO PRN Q4HRS PRN Protonix (Pantoprazole Sodium) 40 Mg Tablet 40 Mg PO DAILYAC Vitals/I & O Vital Sign - Last 24 Hours 09/03/16 09/03/16 09/03/16 09/03/16 15:03 15:55 19:00 19:14 Temp 97.5 99.3 97.5 99.3 Pulse 121 118 Resp 22 20 B/P 116/77 121/64 Pulse Ox 94 94 97 97 O2 Delivery Room Air Room Air Room Air Nasal Cannula O2 Flow Rate 1.0 1.0 09/03/16 09/03/16 09/03/16 09/03/16 20:00 22:25 23:00 23:42 Temp 98.0 98.0 Pulse 115 Resp 20 B/P 105/68 Pulse Ox 96 96 O2 Delivery Nasal Cannula BiPAP/CPAP BiPAP/CPAP BiPAP/CPAP O2 Flow Rate 1.0 09/04/16 09/04/16 09/04/16 09/04/16 00:53 02:18 02:59 05:42 Temp 98.0 98.0 Pulse 100 Resp 20 B/P 111/67 Pulse Ox 99 O2 Delivery BiPAP/CPAP BiPAP/CPAP BiPAP/CPAP BiPAP/CPAP 09/04/16 09/04/16 09/04/16/2/17 07:15 07:39 08:00 11:01 Temp 97.6 97.5 97.6 97.5 Pulse 76 110 Resp 20 20 B/P 135/63 116/74 Pulse Ox 99 95 O2 Delivery BiPAP/CPAP BiPAP/CPAP Nasal Cannula Room Air O2 Flow Rate 1.0 09/04/16 11:52 Pulse Ox 97 O2 Delivery Nasal Cannula O2 Flow Rate 1.0 Intake and Output 09/03/16 09/03/16 09/04/16 15:00 23:00 07:00 Intake Total 420 ml 860 ml 600 ml Balance 420 ml 860 ml 600 ml MINO HATHAWAY MD Sep 04, 2016 12:15
--- NOTE | 2016-09-04 12:31 | PDOC ---
PROGRESS NOTES Subjective Subjective feels well. off of oxygen. ready for dismissal. Objective Objective Vital Signs Date Time Temp Pulse Resp B/P Pulse Ox O2 Delivery O2 Flow Rate FiO2 09/04/16 11:52 97 Nasal Cannula 1.0 09/04/16 11:01 97.5 110 20 116/74 97.5 Intake and Output 09/04/16 07:00 Intake Total 1880 ml Balance 1880 ml Intake Oral 1880 ml # Voids 3 # Bowel Movements 2 Physical Exam Abdomen: Soft Heart: Regular rate, Normal S1, Normal S2 Extremities: Other (2 plus edema legs) General: Alert HEENT: Atraumatic Lungs: Clear to auscultation Neuro: Normal speech Psych/Mental Status: Mood NL Skin: No rashes Assessment Assessment Problems Medical Problems:epsis resolved 2. e. coli uti 3. pancytopenia improved. 4. 5. Cholelithiasis. 6. Sigmoid colon mass.colonoscopy postponed due to neutropenia 7. Chronic hypoxic and hypercapnic respiratory failure. 8. Obstructive sleep apnea. 9. Morbid obesity. fever resolved BPH and seminal vesicle inflammation hypernatremia resolved (1) Sepsis Status: Acute (2) Urine retention Status: Acute (3) UTI (urinary tract infection) Status: Acute Plan Plan of Care dismiss today Comment Review of Relevant I have reviewed the following items lexus (where applicable) has been applied. Labs Laboratory Tests Test 09/03/16 04:10 09/04/16 06:22 White Blood Count 3.1x10^3/uL (4.0-11.0) 3.3x10^3/uL (4.0-11.0) Red Blood Count 2.95x10^6/uL (4.30-5.70) 3.46x10^6/uL (4.30-5.70) Hemoglobin 8.6g/dL (13.0-17.5) 10.0g/dL (13.0-17.5) Hematocrit 26.4% (39.0-53.0) 30.6% (39.0-53.0) Mean Corpuscular Volume 90fL (79-100) 89fL (79-100) Mean Corpuscular Hemoglobin 29pg (25-35) 29pg (25-35) Mean Corpuscular Hemoglobin Concent 33g/dL (31-37) 33g/dL (31-37) Red Cell Distribution Width 18.7% (11.5-14.5) 19.8% (11.5-14.5) Platelet Count 103x10^3/uL (140-400) 109x10^3/uL (140-400) Neutrophils (%) (Auto) 55% (31-73) 56% (31-73) Lymphocytes (%) (Auto) 34% (24-48) 33% (24-48) Monocytes (%) (Auto) 8% (0-9) 8% (0-9) Eosinophils (%) (Auto) 3% (0-3) 3% (0-3) Basophils (%) (Auto) 0% (0-3) 1% (0-3) Neutrophils # (Auto) 1.7x10^3uL (1.8-7.7) 1.8x10^3uL (1.8-7.7) Lymphocytes # (Auto) 1.0x10^3/uL (1.0-4.8) 1.1x10^3/uL (1.0-4.8) Monocytes # (Auto) 0.3x10^3/uL (0.0-1.1) 0.3x10^3/uL (0.0-1.1) Eosinophils # (Auto) 0.1x10^3/uL (0.0-0.7) 0.1x10^3/uL (0.0-0.7) Basophils # (Auto) 0.0x10^3/uL (0.0-0.2) 0.0x10^3/uL (0.0-0.2) Sodium Level 145mmol/L (136-145) 146mmol/L (136-145) Potassium Level 3.7mmol/L (3.5-5.1) 4.2mmol/L (3.5-5.1) Chloride Level 107mmol/L (98-107) 109mmol/L (98-107) Carbon Dioxide Level 33mmol/L (21-32) 33mmol/L (21-32) Anion Gap 5 (6-14) 4 (6-14) Blood Urea Nitrogen 23mg/dL (8-26) 23mg/dL (8-26) Creatinine 1.0mg/dL (0.7-1.3) 1.1mg/dL (0.7-1.3) Estimated GFR (Cockcroft-Gault) 77.6 69.5 Glucose Level 100mg/dL (70-99) 93mg/dL (70-99) Calcium Level 7.6mg/dL (8.5-10.1) 7.8mg/dL (8.5-10.1) Laboratory Tests Test 09/04/16 06:22 White Blood Count 3.3x10^3/uL (4.0-11.0) Red Blood Count 3.46x10^6/uL (4.30-5.70) Hemoglobin 10.0g/dL (13.0-17.5) Hematocrit 30.6% (39.0-53.0) Mean Corpuscular Volume 89fL (79-100) Mean Corpuscular Hemoglobin 29pg (25-35) Mean Corpuscular Hemoglobin Concent 33g/dL (31-37) Red Cell Distribution Width 19.8% (11.5-14.5) Platelet Count 109x10^3/uL (140-400) Neutrophils (%) (Auto) 56% (31-73) Lymphocytes (%) (Auto) 33% (24-48) Monocytes (%) (Auto) 8% (0-9) Eosinophils (%) (Auto) 3% (0-3) Basophils (%) (Auto) 1% (0-3) Neutrophils # (Auto) 1.8x10^3uL (1.8-7.7) Lymphocytes # (Auto) 1.1x10^3/uL (1.0-4.8) Monocytes # (Auto) 0.3x10^3/uL (0.0-1.1) Eosinophils # (Auto) 0.1x10^3/uL (0.0-0.7) Basophils # (Auto) 0.0x10^3/uL (0.0-0.2) Sodium Level 146mmol/L (136-145) Potassium Level 4.2mmol/L (3.5-5.1) Chloride Level 109mmol/L (98-107) Carbon Dioxide Level 33mmol/L (21-32) Anion Gap 4 (6-14) Blood Urea Nitrogen 23mg/dL (8-26) Creatinine 1.1mg/dL (0.7-1.3) Estimated GFR (Cockcroft-Gault) 69.5 Glucose Level 93mg/dL (70-99) Calcium Level 7.8mg/dL (8.5-10.1) Microbiology 08/26/16 Blood Culture - Final, Complete NO GROWTH AFTER 5 DAYS 08/24/16 Urine Culture - Final, Complete 08/24/16 Urine Culture Result 1 (FAUSTINA) - Final, Complete 08/24/16 Antimicrobic Susceptibility - Final, Complete Medications Current Medications Lorazepam 2 mg 2 mg 1X ONCE IV Last administered on 08/24/16 08:29; Start at 08:30; Stop 08/24/16 at 08:31; Status DC Sodium Chloride (Iv Sodium Chloride 0.9% 1000ml Bag) 1,000 ml @ 1,000 mls/hr 1X ONCE IV Last administered on 08/24/16 09:22; Start 08/24/16 at 08:30; Stop 08/24/16 at 09:29; Status DC Ondansetron HCl 4 mg 4 mg 1X ONCE IV Last administered on 08/24/16 09:23; Start 08/24/16 at 08:30; Stop 08/24/16 at 08:31; Status DC Levofloxacin/ Dextrose 150 ml @ 100 mls/hr 1X ONCE IV Last administered on 11:09; Start 08/24/16 at 10:00; Stop 08/24/16 at 11:29; Status DC Sodium Chloride 1,000 ml @ 1,000 mls/hr 1X ONCE IV Last administered on 10:31; Start 08/24/16 at 10:00; Stop 08/24/16 at 10:59; Status DC Sodium Chloride (Iv Sodium Chloride 0.9% 1000ml Bag) 1,000 ml @ 1,000 mls/hr 1X ONCE IV ; Start 08/24/16 at 10:00; Stop 08/24/16 at 10:59; Status UNV Fentanyl Citrate (Fentanyl 2ml Vial) 50 mcg 1X ONCE IV Last administered on 11:09; Start 08/24/16 at 10:30; Stop 08/24/16 at 10:31; Status DC Iohexol (Omnipaque 300 Mg/ml) 60 ml 1X ONCE IV Last administered on 08/24/16 10:48; Start 08/24/16 at 10:30; Stop 08/24/16 at 10:31; Status DC Ondansetron HCl (Zofran) 4 mg PRN Q8HRS PRN IV NAUSEA/VOMITING; Start 08/24/16 at 11:45; Stop 08/24/16 at 13:45; Status DC Fentanyl Citrate 50 mcg 50 mcg PRN Q1HR PRN IV PAIN; Start 08/24/16 at 11:45; Stop 08/25/16 at 11:44; Status DC Sodium Chloride (Iv Sodium Chloride 0.9% 1000ml Bag) 1,000 ml @ 150 mls/hr Q6H40M IV ; Start 08/24/16 at 12:00; Stop 08/25/16 at 11:59; Status DC Acetaminophen 650 mg 650 mg PRN Q4HRS PRN PO FEVER; Start 08/24/16 at 11:45; Stop 08/24/16 at 22:21; Status DC Potassium Chloride/Dextrose/ Sod Cl (KCl 20 Meq In D5W-1/2 NS) 1,000 ml @ 40 mls/hr Q24H IV Last administered on 08/29/16 06:31; Start 08/24/16 at 15:00; Stop 08/29/16 at 09:56; Status DC Acetaminophen (Tylenol) 650 mg PRN Q6HRS PRN WA MILD PAIN / TEMP; Start at 13:45; Stop 08/25/16 at 08:58; Status DC Pantoprazole Sodium (Protonix Vial) 40 mg DAILYAC IVP Last administered on 08/25 07:53; Start 08/24/16 at 14:00; Stop 08/25/16 at 08:58; Status DC Ondansetron HCl (Zofran) 4 mg PRN Q6HRS PRN IV NAUSEA/VOMITING; Start 08/24/16 at 13:45 Enoxaparin Sodium 40 mg 40 mg Q24H SQ Last administered on 08/26/16 14:43; Start 08/24/16 at 15:00; Stop 08/27/16 at 10:14; Status DC Meropenem 500 mg/ Sodium Chloride 50 ml @ 100 mls/hr Q6HRS IV Last administered on 08/29/16 06:36; Start 08/24/16 at 16:00; Stop 08/29/16 at 08:39 ; Status DC Fluconazole/ Sodium Chloride (Diflucan 400mg/ 200ml Premix) 200 ml @ 100 mls/ hr Q24H IV Last administered on 08/27/16 16:37; Start 08/24/16 at 15:00; Stop 08/28/16 at 08:34; Status DC Albuterol Sulfate (Ventolin Neb Soln) 2.5 mg RTQID NEB Last administered on 09/04 11:50; Start 08/24/16 at 20:00 Albuterol Sulfate (Ventolin Neb Soln) 2.5 mg PRN Q4HRS PRN NEB SHORTNESS OF BREATH; Start 08/24/16 at 19:45 Acetaminophen (Tylenol) 500 mg QHS PO Last administered on 09/03/16 20:53; Start 08/24/16 at 22:30 Diphenhydramine HCl (Benadryl) 25 mg QHS PO Last administered on 09/03/16 20:53 ; Start 08/24/16 at 22:30 Pantoprazole Sodium (Protonix) 40 mg DAILYAC PO Last administered on 09/04/16 09:46; Start 08/26/16 at 07:30 Acetaminophen (Tylenol) 650 mg PRN Q4HRS PRN PO MILD PAIN / TEMP Last administered on 08/30/16 21:03; Start 08/25/16 at 09:00 Vancomycin HCl 1 each 1 each PRN DAILY PRN MC SEE COMMENTS Last administered on 08/26/16 13:07; Start 08/26/16 at 08:00; Stop 08/27/16 at 10:25; Status DC Vancomycin HCl/ Sodium Chloride (Iv Sodium Chloride 0.9% 500ml Bag) 500 ml @ 250 mls/hr 1X ONCE IV Last administered on 08/26/16 09:30; Start 08/26/16 at 09:00; Stop 08/26/16 at 10:59; Status DC Tamsulosin HCl 0.4 mg 0.4 mg DAILY PO Last administered on 09/04/16 09:45; Start 08/26/16 at 13:00 Vancomycin HCl/ Sodium Chloride (Iv Sodium Chloride 0.9% 500ml Bag) 500 ml @ 250 mls/hr Q12H IV Last administered on 08/27/16 08:30; Start 08/26/16 at 21: 00; Stop 08/27/16 at 10:25; Status DC Vancomycin HCl 1 each 1X ONCE MC ; Start 08/27/16 at 20:30; Stop 08/27/16 at 20 :30; Status DC Alteplase, Recombinant (Cathflo) 2 mg PRN DAILY PRN INT CAT PER PROTOCOL Last administered on 08/30/16 09:48; Start 08/27/16 at 10:15 Sodium Cl/Sod Bicarb/Potass Cl/ PEG (Golytely) 4,000 ml 1X ONCE PO ; Start at 13:00; Stop 08/27/16 at 15:19; Status DC Polyethylene Glycol (miraLAX Powder BULK BOTTLE) 238 gm 1X ONCE PO Last administered on 08/27/16 16:39; Start 08/27/16 at 16:00; Stop 08/27/16 at 16:01 ; Status DC Bisacodyl (Dulcolax Tab) 10 mg 1X ONCE PO Last administered on 08/27/16 16:39 ; Start 08/27/16 at 16:00; Stop 08/27/16 at 16:01; Status DC Morphine Sulfate 1 mg 1 mg PRN Q10MIN PRN IV SEVERE PAIN Last administered on 11:44; Start 08/28/16 at 07:00; Stop 08/29/16 at 06:59; Status DC Lactated Ringer's (Iv Lactated Ringers) 1,000 ml @ 0 mls/hr Q0M IV ; Start at 07:00; Stop 08/28/16 at 18:59; Status DC Lidocaine HCl 2 ml 1X PRN PRN ID IV START; Start 08/28/16 at 07:00; Stop at 06:59; Status DC Hydromorphone HCl (Dilaudid) 0.5 mg PRN Q10MIN PRN IV SEVERE PAIN, Second choice; Start 08/28/16 at 07:00; Stop 08/29/16 at 06:59; Status DC Prochlorperazine Edisylate (Compazine) 5 mg PACU PRN PRN IV NAUSEA; Start 08/28 at 07:00; Stop 08/29/16 at 06:59; Status DC Lorazepam (Ativan) 0.5 mg PRN Q8HRS PRN PO ANXIETY / AGITATION Last administered on 08/28/16t 13:27; Start 08/27/16 at 18:15 Acetaminophen (Tylenol) 650 mg PRN Q4HRS PRN PO MILD PAIN / TEMP; Start at 18:15; Status UNV Lidocaine/Sodium Bicarbonate (Buffered Lidocaine 1%) 20 ml STK-MED ONCE IJ ; Start 08/28/16 at 08:05; Stop 08/28/16 at 08:06; Status DC Neostigmine Methylsulfate 5 mg STK-MED ONCE .ROUTE ; Start 08/28/16 at 10:16; Stop 08/28/16 at 10:17; Status DC Glycopyrrolate (Robinul) 1 mg STK-MED ONCE .ROUTE ; Start 08/28/16 at 10:16; Stop 08/28/16 at 10:17; Status DC Fentanyl Citrate (Fentanyl 5ml Vial) 250 mcg STK-MED ONCE .ROUTE ; Start at 10:16; Stop 08/28/16 at 10:17; Status DC Lidocaine/Sodium Bicarbonate (Buffered Lidocaine 1%) 20 ml 1X ONCE IJ Last administered on 08/28/16t 10:45; Start 08/28/16 at 10:45; Stop 08/28/16 at 10:46 ; Status DC Phenylephrine HCl 1 mg STK-MED ONCE IV ; Start 08/28/16 at 11:51; Stop 08/28/16 at 11:52; Status DC Dexamethasone Sodium Phosphate (Decadron) 20 mg STK-MED ONCE .ROUTE ; Start at 11:51; Stop 08/28/16 at 11:52; Status DC Ondansetron HCl (Zofran) 4 mg STK-MED ONCE .ROUTE ; Start 08/28/16 at 11:51; Stop 08/28/16 at 11:52; Status DC Sevoflurane (Ultane) 60 ml STK-MED ONCE IH ; Start 08/28/16 at 11:51; Stop 08/28 at 11:52; Status DC Vancomycin HCl 1 each 1 each PRN DAILY PRN MC SEE COMMENTS; Start 08/28/16 at 11:45; Stop 08/28/16 at 12:03; Status DC Tigecycline 100 mg/Sodium Chloride 100 ml @ 200 mls/hr 1X ONCE IV Last administered on 08/29/16 10:56; Start 08/29/16 at 10:00; Stop 08/29/16 at 10:29 ; Status DC Tigecycline 50 mg/ Sodium Chloride 50 ml @ 100 mls/hr Q12HR IV Last administered on 09/03/16 20:53; Start 08/29/16 at 21:00; Stop 09/04/16 at 08:37; Status DC Dextrose 1,000 ml @ 60 mls/hr [id number] IV Last administered on 08/30/16 21:02 ; Start 08/29/16 at 10:00; Stop 08/31/16 at 11:23; Status DC Propofol (Diprivan) 200 mg STK-MED ONCE IV ; Start 08/28/16 at 12:00; Stop 08/29 at 11:22; Status DC Rocuronium [place] (Zemuron) 50 mg STK-MED ONCE .ROUTE ; Start 08/28/16 at 12:00 ; Stop 08/29/16 at 11:22; Status DC Succinylcholine Chloride 200 mg 200 mg STK-MED ONCE .ROUTE ; Start 08/28/16 at 12:00; Stop 08/29/16 at 11:22; Status DC Sodium Chloride (Iv Sodium Chloride 0.45%) 1,000 ml @ 40 mls/hr Q24H IV Last administered on 09/02/16 03:10; Start 08/31/16 at 11:30 Potassium Chloride (KCl Oral Soln) 20 meq DAILY PO Last administered on 09:46; Start 09/01/16 at 10:00 Polyethylene Glycol 238 gm 238 gm 1X ONCE PO Last administered on 09/01/16 16 :32; Start 09/01/16 at 16:00; Stop 09/01/16 at 16:01; Status DC Lactated Ringer's 1,000 ml @ 50 mls/hr Q20H IV Last administered on 09/02/16 07:00; Start 09/02/16 at 07:00; Stop 09/02/16 at 18:59; Status DC Lactated Ringer's (Iv Lactated Ringers) 1,000 ml @ 75 mls/hr Q01O17O IV ; Start 09/02/16 at 14:00; Stop 09/03/16 at 10:22; Status DC Propofol (Diprivan) 200 mg STK-MED ONCE IV ; Start 09/02/16 at 12:00; Stop at 08:49; Status DC Lidocaine HCl (Lidocaine Pf 2% Vial) 5 ml STK-MED ONCE .ROUTE ; Start 09/02/16 at 12:00; Stop 09/03/16 at 08:49; Status DC Doxycycline Hyclate (Vibra-Tab) 100 mg BID PO Last administered on 09/04/16t 09: 45; Start 09/04/16 at 09:00 Active Scripts Active Prednisone 20 Mg Tablet 30 Mg PO DAILY Levaquin (Levofloxacin) 500 Mg Tablet 500 Mg PO DAILY06 Albuterol Sulfate Neb Soln (Albuterol Sulfate) 2.5 Mg/3 Ml Vial.neb 2.5 Mg NEB RTQID Tylenol (Acetaminophen) 325 Mg Tablet 650 Mg PO PRN Q4HRS PRN Protonix (Pantoprazole Sodium) 40 Mg Tablet 40 Mg PO DAILYAC Vitals/I & O Vital Sign - Last 24 Hours 09/03/16 09/03/16 09/03/16 09/03/16 15:03 15:55 19:00 19:14 Temp 97.5 99.3 97.5 99.3 Pulse 121 118 Resp 22 20 B/P 116/77 121/64 Pulse Ox 94 94 97 97 O2 Delivery Room Air Room Air Room Air Nasal Cannula O2 Flow Rate 1.0 1.0 09/03/16 09/03/16 09/03/16 09/03/16 20:00 22:25 23:00 23:42 Temp 98.0 98.0 Pulse 115 Resp 20 B/P 105/68 Pulse Ox 96 96 O2 Delivery Nasal Cannula BiPAP/CPAP BiPAP/CPAP BiPAP/CPAP O2 Flow Rate 1.0 09/04/16 09/04/16 09/04/16 09/04/16 00:53 02:18 02:59 05:42 Temp 98.0 98.0 Pulse 100 Resp 20 B/P 111/67 Pulse Ox 99 O2 Delivery BiPAP/CPAP BiPAP/CPAP BiPAP/CPAP BiPAP/CPAP 09/04/16 09/04/16 09/04/16 09/04/16 07:15 07:39 08:00 11:01 Temp 97.6 97.5 97.6 97.5 Pulse 76 110 Resp 20 20 B/P 135/63 116/74 Pulse Ox 99 95 O2 Delivery BiPAP/CPAP BiPAP/CPAP Nasal Cannula Room Air O2 Flow Rate 1.0 09/04/16 11:52 Pulse Ox 97 O2 Delivery Nasal Cannula O2 Flow Rate 1.0 Intake and Output 09/03/16 09/03/16 09/04/16 15:00 23:00 07:00 Intake Total 420 ml 860 ml 600 ml Balance 420 ml 860 ml 600 ml KATI BILLINGSLEY MD Sep 04, 2016 12:30
--- NOTE | 2016-09-04 12:32 | DISCH ---
DISCHARGE INSTRUCTIONS Condition on Discharge Condition on Discharge: Stable Activity After Discharge Activity Instructions for Disc: Resume previous activity Diet after Discharge Diet after Discharge: Regular Contacting the DRVenkatesh after DC Call your doctor for: If your condition worsens Follow-Up Follow up with: dr. billingsley next week KATI BILLINGSLEY MD Sep 04, 2016 12:32
[2016-09-04] MEDS ORDERED: DOXY100T PO (12:33)
[2016-09-04] MEDS ORDERED: TAMS0.4C97 PO (12:33)
--- NOTE | 2016-09-04 12:38 | PDOC ---
Provider Note Provider Note discharge summary dictated # [id number] KATI BILLINGSLEY MD Sep 04, 2016 12:38
--- NOTE | 2016-09-05 05:31 | DS ---
DATE OF DISCHARGE: 09/04/2016 CONSULTANTS: Include Dr. Kalyan Flores, Dr. Montesinos, Dr. Whitney Shepard, Dr. Bazan, Dr. Cota, Dr. Ribera. PROCEDURE: Colonoscopy. FINAL DIAGNOSES: 1. Sepsis secondary to urinary tract infection. 2. Escherichia coli urinary tract infection. 3. Pancytopenia. 4. Cholelithiasis. 5. Sigmoid colon mass noted on a colonoscopy with a normal sigmoid colon noted on colonoscopy. 6. Internal hemorrhoids. 7. Chronic hypoxic and hypercapnic respiratory failure. 8. Obstructive sleep apnea. 9. Morbid obesity. 10. Benign prostatic hypertrophy. 11. Hypernatremia, resolved. HOSPITAL COURSE: The patient is a 56-year-old morbidly obese white male with a history of chronic hypoxic and hypercapnic respiratory failure, cared for by mother at home. He usually is on oxygen 1 liter per nasal cannula, recently dismissed from [facility] with acute on chronic hypoxic and hypercapnic respiratory failure and a history of pancytopenia, admitted to [facility] again through the Emergency Room on 08/24/2016 with 1-day history of anxiety, poor appetite, some discomfort with urination and decreased urine output. The patient was noted to have an E. coli urinary tract infection with sepsis, seen in consultation by Dr. Bazan, treated with IV antibiotics. He had a benign prostatic hypertrophy noted, seen by Dr. Kalyan Flores and his Quevedo catheter, which was initially placed, was removed and he was started on Flomax and was able to empty his bladder okay. He did have pancytopenia and the patient was seen in consultation by Dr. Johnson and underwent a bone marrow aspiration and biopsy, the results of which are pending. His pancytopenia did improve, although he did have anemia and some chronic thrombocytopenia. The patient completed his course of IV antibiotics. He received IV Tygacil and was switched to doxycycline and seen by Dr. Bazan in consultation for Infectious Disease. CAT scan showed a mass in the sigmoid colon; however, he had a colonoscopy by Dr. Ribera and the sigmoid colon was fine. He just had internal hemorrhoids and his bowels were moving okay and he was eating and drinking okay. The patient did receive nebulized treatments and was weaned off his oxygen with oxygen saturations of over 90% on room air. He will be dismissed to home today on Protonix 40 mg every day, DuoNeb nebulized treatments q.i.d. p.r.n., doxycycline 100 mg b.i.d. for 4 days and Flomax 0.4 mg every day and follow up with Dr. Billingsley next week and follow up with Dr. Johnson in 2 weeks concerning his bone marrow aspiration biopsy. KATI BILLINGSLEY MD DR: TAM/edith JOB#: [id number] / [id number]
--- NOTE | 2016-09-09 17:50 | PATHOLOGY ---
PATHOLOGY REPORT * * * * * * * * FINAL DIAGNOSIS: Peripheral smear: - Moderate leukopenia and absolute neutropenia. - Normocytic normochromic anemia, moderate, with prominent poikilocytosis (elliptocytosis). - Thrombocytopenia, moderate. Bone marrow, aspirate smears, clot section, and core biopsy: - Normocellular to focally mildly hypercellular marrow, showing trilineage hematopoiesis, no significant dyspoiesis, and absent iron stores. COMMENT: The peripheral smear shows moderate leukopenia and absolute neutropenia, moderate normocytic normochromic anemia with prominent poikilocytosis (elliptocytosis), and moderate thrombocytopenia. The bone marrow is normocellular to mildly hypercellular and shows trilineage hematopoiesis, no significant dyspoiesis, and absent iron stores. At the time of admission, there was a moderate neutrophilic leukocytosis and the platelet count was normal. Therefore the drop in the WBC count and platelet count is consistent with increased peripheral destruction and/or utilization. With regards to the patient's anemia, examination of the peripheral smear shows marked elliptocytosis. 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 Since iron stores are absent, there could be coexistent iron deficiency. (JPM:; d/t: 09/08/16) Special Stain Performed: Iron stain (A1, aspirate smear) REPORT ELECTRONICALLY SIGNED BY: Jayant Allen M.D. DATE/TIME: 09/09/2016 17:49 * * * * * * * * MICROSCOPIC DESCRIPTION: Laboratory Data: The WBC count is 1.5 K/CMM, and the automated WBC differential reveals 47% neutrophils, 35% lymphs, 15% monos, 2% eos, and 1% baso. The RBC count is 2.82 M/CMM, hemoglobin 8.1 G/DL, hematocrit 25.4%, MCV 90 FL, MCH 29 PG, MCHC 32 G/DL, and the RDW is 18.1%. The platelet count is 65 K/CMM. The total protein is 5.4 G/DL, albumin 2.2 G/DL, and globulin 3.2 G/DL. The BUN is 7 MG/DL, and creatinine 1.2 MG/DL. Urine culture grew Escherichia coli. Peripheral Smear: The peripheral smear is reviewed. The WBC count is moderately decreased. There is a moderate absolute neutropenia. The WBC differential reveals a predominance of segmented neutrophils, with smaller populations of lymphocytes and monocytes and an occasional eosinophil noted. Neutrophils do not show dysplastic changes. There is no significant neutrophilic left shift. There are no circulating blasts or immature cells. There is no leukoerythroblastic reaction. The lymphocyte population consists predominantly of small lymphocytes. Red blood cells appear normochromic. Red blood cells show mild anisocytosis. Red blood cells show prominent poikilocytosis comprised predominantly of elliptocytes with occasional teardrop red blood cells and red blood cell fragments noted. Platelets are moderately decreased and appear normal in morphology. Aspirate Smears: Two Sumner's-stained and one iron-stained aspirate smears are examined. The smears contain multiple cellular and fatty marrow particles. The M/E ratio overall is within normal range. Erythroid maturation predominantly appears normoblastic. There are no megaloblastic or overt dysplastic changes. Granulopoiesis qualitatively appears normal with focal areas appearing mildly left shifted. There are no dysplastic changes. There is no increase of blasts. Megakaryocytes appear adequate in number and are of variable ploidy. There is no increase of plasma cells. There is no increase of lymphocytes. There are no cells foreign to the marrow. The iron stain shows absent iron stores. Bone Marrow Biopsy and Clot Section: Sections of the bone marrow biopsy reveal segments of bone marrow showing focal aspiration artifact and hemorrhage. Preserved areas of the biopsy range between 40% and 60% cellular. The clot section contains several bone marrow particles which range between 40% and 60-70% cellular. There is a good admixture of erythroid and granulocytic precursors, which are present in varying stages of maturation. There is no increase of blasts. Megakaryocytes appear adequate in number and are of variable ploidy. There are no abnormal lymphoid aggregates, granulomas, or cells foreign to the marrow. The iron stain of the clot section shows absent iron stores. There are no ringed sideroblasts. Special Studies: Bone marrow submitted for flow cytometry has a viability of 99.1%. Granulocytes comprise 87.2% of total cells and show a mildly left-shifted maturation pattern on analysis of CD10/CD13/CD16. Monocytes comprise 2.7% of total cells and co-express CD14 and CD64. CD45 dim, CD34 positive cells comprise 1.0% of total cells. Lymphocytes comprise 6.9% of total cells. T-cells comprise 74% of lymphoid cells and show a CD4/CD8 ratio of about 1.7. NK-cells comprise 9% of lymphoid cells. Mature B-cells comprise 13% of lymphoid cells and are polyclonal with a kappa:lambda ratio of 1.5. Bone marrow submitted for cytogenetic analysis shows a normal male karyotype in all cells analyzed. (JPM:; d/t: 09/04/16) GROSS PATHOLOGY: A. Received in formalin labeled "Yamilka Frias" and additionally labeled "BM asp clot" on the requisition is blood coagulum, measuring 2.3 x 2.0 x 0.2 cm in aggregate dimensions. The specimen is submitted entirely in cassette A1. B. Received in formalin labeled "Yamilka Frias" and additionally labeled "BM bx" on the requisition is a single needle core of escobar bone, measuring 2.0 cm in length and 0.2 cm in diameter. The specimen is submitted entirely in cassette B1, following decalcification. (TTL; 08/28/2016) INITIAL CPT CODE(S): 02077, 50892, 16927(2), 34705, 63445(2) Professional services performed [place] [facility] [place] [address] Technical services performed by [facility] at [address] [place] [address], [facility] [address] [address]. SPECIMEN(S) RECEIVED: A.Bone marrow, clot B.Bone marrow, biopsy C.Bone marrow, aspirate smears D.Peripheral smear CLINICAL HISTORY: Pancytopenia PATIENT: YAMILKA FRIAS /AGE: 10 1960 (Age: 56) PATIENT #: [id number] ALT CASE #: SPECIMEN COLLECTION DATE: 08/28/2016 SPECIMEN RECEIVED DATE: 08/28/2016 [facility] [place] [address] - PHONE: [phone] * * * END OF REPORT * * *
== END 2016-09-04 16:15 | disposition home or self-care (01) | DRG 870 ==
LOC: ER 07:35 → 6 SOUTH 11:45
PROVIDERS: ADMIT Internal Medicine; ATTEND Internal Medicine
PROC: 5A1955Z Respiratory Ventilation, Greater than 96 Consecutive Hours (ICD-10-PCS; 2016-08-24)
PROC: 07DR3ZX Extraction of Iliac Bone Marrow, Percutaneous Approach, Diagnostic (ICD-10-PCS; 2016-08-29)
PROC: 0DJD8ZZ Inspection of Lower Intestinal Tract, Via Natural or Artificial Opening Endoscopic (ICD-10-PCS; principal; 2016-09-02 15:30)
DX: A41.9 Sepsis, unspecified organism (principal); J96.21 Acute and chronic respiratory failure with hypoxia; E43 Unspecified severe protein-calorie malnutrition; N39.0 Urinary tract infection, site not specified; D61.818 Other pancytopenia; E66.2 Morbid (severe) obesity with alveolar hypoventilation; E87.0 Hyperosmolality and hypernatremia; I42.9 Cardiomyopathy, unspecified; K80.20 Calculus of gallbladder without cholecystitis without obstruction; D63.8 Anemia in other chronic diseases classified elsewhere; I10 Essential (primary) hypertension; F79 Unspecified intellectual disabilities; J44.9 Chronic obstructive pulmonary disease, unspecified; F17.210 Nicotine dependence, cigarettes, uncomplicated; K21.9 Gastro-esophageal reflux disease without esophagitis; K63.9 Disease of intestine, unspecified; K64.8 Other hemorrhoids; N40.0 Benign prostatic hyperplasia without lower urinary tract symptoms; Z80.0 Family history of malignant neoplasm of digestive organs; Z80.3 Family history of malignant neoplasm of breast; Z80.51 Family history of malignant neoplasm of kidney; Z83.3 Family history of diabetes mellitus; Z85.048 Personal history of other malignant neoplasm of rectum, rectosigmoid junction, and anus; Z86.14 Personal history of Methicillin resistant Staphylococcus aureus infection; Z87.19 Personal history of other diseases of the digestive system; Z88.0 Allergy status to penicillin; Z87.440 Personal history of urinary (tract) infections; Z88.1 Allergy status to other antibiotic agents; Z99.81 Dependence on supplemental oxygen; Z68.35 Body mass index [BMI] 35.0-35.9, adult; Z88.8 Allergy status to other drugs, medicaments and biological substances; Z71.3 Dietary counseling and surveillance
CPT/HCPCS: 36415; 38221; 51702; 71010; 74177; 77012; 80048; 80053; 81001; 82947; 83605; 83690; 85007; 85027; 87040; 87086; 87186; 87641; 87804; 88184; 88185; 88237; 88305; 88311; 88313; 93005; 94002; 94640; 94660; 94760; 96361; 96365; 96366; 96375; C1892; C9113; G0364; J0330; J1100; J1450; J1650; J1956; J2060; J2185; J2270; J2370; J2405; J2704; J2710; J2997; J3010; J3243; J3370; J3490; J7030; J7040; J7120; Q0163; Q9967; 99285-25

== ENCOUNTER → 2016-09-15 | Outpatient (CLI) | payer MEDICARE, MEDICAID ==
[2016-09-04 11:01] VITALS: BP 116/74
[~2016-09-15] MED LIST changes: +DOXY100T PO
--- NOTE | 2016-09-22 23:27 | SLEEP ---
DATE OF STUDY: 09/15/2016 The patient is a 56-year-old, who weighs 224 pounds and 67 inches tall with a BMI of 35.1. The patient's [place] score was 2. Home sleep study was performed by [facility]. The total recording time was 639 minutes. During the night study, the patient had no central or mixed apneas, but there were 55 obstructive apneas. The patient had 38 hypopneas. The patient's apnea-hypopnea index was 9 per hour with a supine index of 8 per hour. Review of nocturnal oximetry study revealed an average oxygen saturation of 90% with lowest of 78%. 209 minutes were spent in oxygen saturation of less than 90% and 49 minutes were spent in oxygen saturation of less than 85%. The patient normally uses 2 liters of oxygen continuously at night. Mean heart rate was 81 beats per minute. It should be noted the patient remove the flow device for several hours. During the testing, which may have underestimated the true AHI. IMPRESSION: 1. Mild sleep apnea-hypopnea syndrome with an AHI of 9 per hour. It should be noted that the patient removed the flow device for several hours, which may have underestimated the severity of sleep apnea. 2. Severe nocturnal hypoxia secondary to NICHOLE and suspected obesity hypoventilation syndrome. RECOMMENDATIONS: 1. The patient would benefit from return to the lab for CPAP titration study. 2. Alternatively auto titrating home CPAP can also be accomplished. 3. Weight loss is strongly advised. 4. Once optimum CPAP pressure achieved, then follow up in 4-6 weeks to assess compliance with CPAP and to document clinical improvement. 5. Alternate treatment options include use of an oral appliance as recommended by the dentist. If the patient does not undergoes CPAP titration, then he would qualify for nocturnal oxygen. The patient usually wears oxygen 2 liters continuously. JAIDEN RENTERIA MD DR: CHELITA/edith JOB#: [id number] / [id number] SCOTTIE
== END | disposition home or self-care (01) ==
LOC: RT 07:45
PROVIDERS: ATTEND Internal Medicine Critical Care Medicine
DX: G47.33 Obstructive sleep apnea (adult) (pediatric) (principal)
CPT/HCPCS: G0399

== ENCOUNTER → 2016-09-29 | Outpatient (CLI) | payer MEDICARE, MEDICAID ==
[2016-09-04 11:01] VITALS: BP 116/74
[~2016-09-29] MED LIST changes: +IPRATRPIUM/ALBUTEROL 0.5/2.5MG 3 ML NEBU. NEB ONE; +ZOLPIDEM 5 MG TABLET. ONE; +ZOLPIDEM 5 MG TABLET. PO ONE
--- NOTE | 2016-09-30 21:23 | SLEEP ---
DATE OF STUDY: 09/29/2016 PRIMARY CARE PHYSICIAN: Dr. Levy. The patient is a 56 years old who weighs 219 pounds with a BMI of 34. The patient had a previous sleep study, which showed mild NICHOLE, but this was the home sleep study and the patient removed the flow device for several hours, which probably underestimated the severity of sleep apnea .As a result in-lab titration study was recommended. Review of sleep architecture showed that the patient spent 449 minutes in bed and slept for 380 minutes with a sleep efficiency of 85%. Sleep latency was -- minutes with a REM latency of 355 minutes. The patient had increased stage I and stage II sleep, increased slow wave and significantly reduced REM sleep. The patient was started on CPAP at 7 cm of water. The pressure was increased to eliminate apneas and hypopneas. Due to persistent respiratory events, patient was switched to BiPAP at 15/10 .Backup rate of 10 was initially added for hypoventilation. The patient was titrated on BiPAP up to a pressure of 25/15. At that final pressure, the patient slept for 46 minutes. During this time, the patient's AHI was reduced to only 5 per hour. The patient had supine sleep throughout with short REM period was also observed. The patient used a medium size full face mask. I would recommend trying without the backup rate. The patient's oxygen saturations did improve, but remained in the mid to high 80s. I would recommend adding 1 liter of oxygen with the BiPAP. EKG monitoring revealed no sustained arrhythmias. Normal sinus rhythm, average heart rate was 87 beats per minute. PLMS were seen at index of 2 per hour and 1 per hour caused EEG arousals. IMPRESSION: 1. Sleep apnea diagnosed by previous sleep study. 2. Nocturnal hypoxia secondary to obstructive sleep apnea and suspected obesity hypoventilation syndrome. RECOMMENDATIONS: 1. BiPAP at 25/15 with 1 liter of oxygen should be used on a nightly basis. 2. The patient used a medium size full face mask. 3. Follow up in 4-6 weeks to assess compliance with BiPAP and to document clinical improvement. 4. Weight loss is strongly advised. 5. Avoid [employer] depressants. JAIDEN RENTERIA MD DR: CHELITA/edith JOB#: [id number] / [id number] Brooks Suarez
== END | disposition home or self-care (01) ==
LOC: RT 18:23
PROVIDERS: ATTEND Internal Medicine Critical Care Medicine
DX: G47.33 Obstructive sleep apnea (adult) (pediatric) (principal)
CPT/HCPCS: 95811; J7620